=== PATIENT | female | born 1950 | race Caucasian/White ===

== ENCOUNTER → 2024-11-03 | Outpatient (CLI) | payer MEDICARE, BC, SELFPAY ==
[2024-11-03 10:59] LABS: CRP < 3.00 mg/L (0.0-3.0)
[2024-11-04 17:08] LABS: Endomysial Antibody IgA Negative (Negative); Immunoglobulin A 281 mg/dL (64-422); t-Transglutaminase IgA <2 U/mL (0-3)
== END | disposition home or self-care (01) ==
LOC: MTLAB 08:20
PROVIDERS: PCP Internal Medicine; Referring Provider Internal Medicine Gastroenterology; Visit Provider Internal Medicine Gastroenterology
DX: R10.9 Unspecified abdominal pain (principal)
CPT/HCPCS: 36415; 82784; 83516; 86140; 86255

== ENCOUNTER → 2024-11-26 | Outpatient (CLI) | payer MEDICARE, BC, SELFPAY ==
--- NOTE | 2024-11-26 16:30 | CT_ITS ---
EXAM: CT Abdomen and Pelvis With Intravenous Contrast CLINICAL INDICATION: ABD PAIN TECHNIQUE: Axial computed tomography images of the abdomen and pelvis with intravenous contrast. This CT exam was performed using one or more of the following dose reduction techniques: automated exposure control, adjustment of the mA and/or kV according to patient size, and/or use of iterative reconstruction technique. COMPARISON: No relevant prior studies available. FINDINGS: LUNG BASES: Unremarkable. No mass. No consolidation. MEDIASTINUM: Distended esophagus with fluid. Aspiration precaution is recommended. ABDOMEN: LIVER: Hypodense lesion of the liver, likely cysts. Fatty infiltration of the liver. GALLBLADDER AND BILE DUCTS: Unremarkable. No calcified stones. No ductal dilation. PANCREAS: Unremarkable. No mass. No ductal dilation. SPLEEN: Unremarkable. No splenomegaly. ADRENALS: Unremarkable. No mass. KIDNEYS AND URETERS: Unremarkable. No solid mass. No hydronephrosis. STOMACH AND BOWEL: Fluid-filled prominent small bowels could represent mild enteritis. No bowel obstruction or pneumoperitoneum. Fecal retention in the colon consistent with constipation. PELVIS: APPENDIX: No findings to suggest acute appendicitis. BLADDER: Unremarkable. No mass. REPRODUCTIVE: Unremarkable as visualized. ABDOMEN and PELVIS: INTRAPERITONEAL SPACE: See above. BONES/JOINTS: Total right hip replacement. Degenerative disc disease throughout the lumbar spine. Degenerative facet arthropathy throughout the lumbar spine, most prominent in the lower lumbar spine. No acute fracture. No dislocation. SOFT TISSUES: Unremarkable. VASCULATURE: Unremarkable. No abdominal aortic aneurysm. LYMPH NODES: Unremarkable. No enlarged lymph nodes. CT/Abdomen/Pelvis WITH Contrast IMPRESSION: 1. Fluid-filled prominent small bowels could represent mild enteritis. No bow el obstruction or pneumoperitoneum. 2. Distended esophagus with fluid. Aspiration precaution is recommended. 3. Fecal retention in the colon consistent with constipation. 4. Degenerative changes lumbar spine as described. Reading Location: [id number]
== END | disposition home or self-care (01) ==
LOC: CT 16:25
PROVIDERS: PCP Internal Medicine; Referring Provider Internal Medicine Gastroenterology; Visit Provider Internal Medicine Gastroenterology
DX: R10.9 Unspecified abdominal pain (principal); R93.3 Abnormal findings on diagnostic imaging of other parts of digestive tract
CPT/HCPCS: 74177; Q9967; A4216

== ENCOUNTER → 2025-04-12 | Outpatient (CLI) | payer MEDICARE, BC, SELFPAY ==
[2025-04-12 19:10] LABS: AST(SGOT) 24 U/L (<=31); Alanine Aminotransfer ALT/SGPT 15 U/L (<=34); Albumin, Serum 4.4 g/dL (3.4-4.8); Alkaline Phosphatase 71 U/L (35-104); Anion Gap 13 (5-15); BUN 29 mg/dL (4-19); BUN/Creat Ratio 29.3 RATIO (10-20); Calcium,Total 9.4 mg/dL (7.6-11.0); Carbon Dioxide 25.8 mmol/L (21.0-32.0); Chloride 104 mmol/L (98-108); Globulin 2.7 g/dL (2.2-4.2); Glucose 94 mg/dL (70-99); Potassium 4.1 mmol/L (3.3-5.1); T4 Total, Thyroxin 8.9 ug/dL (4.8-13.9)
--- OUTSIDE RECORDS SUMMARY | 2025-04-12 22:30 | XMS RPT_ITS | CCD ---
Author Organization [facility] ion Partnership [facility] Care Team Providers Care Water Team Leader Name Role Phone SWEETSER, SYD SALUD Unavailable Unavaila ble SWEETSER, SYD SALUD Unavailable Unavaila ble SWEETSER, SYD SALUD Unavailable Unavaila ble SWEETSER, SYD SALUD Unavailable Unavaila ble YOCASTA, NOE Unavailable Unavailable YOCASTA, NOE Unavailable Unavailable SWEETSER, SYD SALUD Unavailable Unavaila ble [place], Mary Unavailable Unavailable [place], Mary S Unavailable Unavailable [place], Mary Unavailable Unavailable [place], Mary S. Primary Care Provider Marv Kolb Unavailable Unavailable [place], Mary S. Primary Care Provider Desiree Asencio Unavailable Unavailable [place] DO, Mary S. Primary Care Provider [place], Mary S Unavailable Unavailable Unavailable Unavailable Unavailable [place] DO, Mary S. Primary Care Provider [place] DO, Mary S. Primary Care Provider Unavailable Primary Care Provider Unavailcolt Webster, Dr. Mary Mccollum Referring Unavailabl e , Dr. Mary Mccollum Attending Unavailabl katie Webster, Dr. Mary Mccollum Primary Care Unavailabl katie Webster, Dr. Mary Mccollum Primary Care Unavailabl e , Dr. Mary Mccollum Referring Unavailabl e , Dr. Mary Mccollum Attending Unavailabl katie Webster, Dr. Mary Mccollum Primary Care Unavailabl katie Webster, Dr. Mary Mccollum Referring Unavailabl katie Webster, Dr. Mary Mccollum Attending Unavailabl katie Webster, Dr. Mary Mccollum Referring Unavailabl e Dr. TONI SOTO Attending Unavailable [place], Dr. Mary Mccollum Primary Care Unavailabl e , Dr. Mary Mccollum Primary Care Unavailabl e Vik, Ms. Agnes Diggs Referring Unavailabl e Chery, Ms. Agnes Diggs Attending Unavailabl e [place] Mary CASTELLANO Primary Care Provider [phone] Unavailable Primary Care Provider Unavailabl e [place] Mary CASTELLANO Primary Care Provider [phone] Mary Webster DO Unavailable [place] Mary CASTELLANO Primary Care Provider [phone] , Dr. Mary Mccollum Primary Care Unavailabl e [place], Dr. Mary Mccollum Attending Unavailabl e [place], Dr. Mary Mccollum Attending Unavailabl e [place], Dr. Mary Mccollum Primary Care Unavailabl e [place], Dr. Mary Mccollum Primary Care Unavailabl e [place], Dr. Mary Mccollum Attending Unavailabl e [place], Dr. Mary Mccollum Primary Care Unavailabl e [place], Dr. Mary Mccollum Attending Unavailabl e [place], Dr. Mary Mccollum Referring Unavailabl e Zumbar, Dr. Pradip Patel Referring Unav ailable Zumbar, Dr. Pradip Patel Admitting Unav ailable [place], Dr. Mary Mccollum Primary Care Unavailabl e Zumbbarbra, Dr. Pradip Patel Attending Unav ailable [place], Dr. Mary Mccollum Attending Unavailabl e [place], Dr. Mary Mccollum Primary Care Unavailabl e [place], Dr. Mary Mccollum Attending Unavailabl e [place], Dr. Mary Mccollum Primary Care Unavailabl e Zumbar, Dr. Pradip Patel Attending Unav ailable [place], Dr. Mary Mccollum Primary Care Unavailabl e [place], Dr. Mary Mccollum Attending Unavailabl e [place], Dr. Mary Mccollum Primary Care Unavailabl e [place], Dr. Mary Mccollum Attending Unavailabl e [place], Dr. Mary Mccollum Primary Care Unavailabl e [place], Dr. Mary Mccollum Attending Unavailabl e [place], Dr. Mary Mccollum Primary Care Unavailabl e [place], Dr. Mary Mccollum Attending Unavailabl e [place], Dr. Mary Mccollum Primary Care Unavailabl e [place], Dr. Mary Mccollum Attending Unavailabl e [place], Dr. Mary Mccollum Primary Care Unavailabl e [place], Dr. Mary Mccollum Primary Care Unavailabl e [place], Dr. Mary Mccollum Attending Unavailabl e [place], Dr. Mary Mccollum Primary Care Unavailabl e [place], Dr. Mary Mccollum Attending Unavailabl e [place], Dr. Mary Mccollum Attending Unavailabl e [place], Dr. Mary Mccollum Primary Care Unavailabl e Zumbar, Dr. Pradip Patel Attending Unav ailable [place], Dr. Mary Mccollum Primary Care Unavailabl e [place], Dr. Mary Mccollum Primary Care Unavailabl e Zumbar, Dr. Pradip Patel Attending Unav ailable [place], Dr. Mary Mccollum Attending Unavailabl e [place], Dr. Mary Mccollum Primary Care Unavailabl e [place], Dr. Mary Mccollum Attending Unavailabl e [place], Dr. Mary Mccollum Primary Care Unavailabl e [place], Dr. Mary Mccollum Attending Unavailabl e [place], Dr. Mary Mccollum Primary Care Unavailabl e [place], Dr. Mary Mccollum Primary Care Unavailabl e Zumbar, Dr. Pradip Patel Attending Unav ailable [place], Dr. Mary Mccollum Primary Care Unavailabl e [place], Dr. Mary Mccollum Attending Unavailabl e [place], Dr. Mary Mccollum Referring Unavailabl e [place], Dr. Mary Mccollum Attending Unavailabl e [place], Dr. Mary Mccollum Primary Care Unavailabl e [place], Dr. Mary Mccollum Attending Unavailabl e [place], Dr. Mary Mccollum Primary Care Unavailabl e [place], Dr. Mary Mccollum Attending Unavailabl e [place], Dr. Mary Mccollum Primary Care Unavailabl e EDNA, MEG Referring Unavailable EDNA, MEG Attending Un[facility] EDNA, MEG Referring Unavailable EDNA, MEG Attending Unavailable ROYAL [facility] Care Unavailable EDNA, MEG Referring Unavailable EDNA, MEG Attending Unavailable ROYAL [place] Primary Care Unavailable EDNA, MEG Attending Unavailable EDNA, MEG Referring Unavailable ROYAL [place] Primary Care Unavailable SELF, SELF Referring Unavailable ROYAL MARY Primary Care Unavailable EDNA, MEG Attending Unavailable SELF, SELF Referring Unavailable ROYAL [place] Primary Care Unavailable KANU AQUINO JR, JR. Attending Unavailab CHEIKH Escobedo Attending Unavailable ROYAL, MARY Primary Care Unavailable CHEIKH ONEAL Referring Unavailable CHEIKH ONEAL Attending Unavailable SELF, SELF Referring Unavailable ROYAL, MARY Primary Care Unavailable [place] DO, Mary S. Primary Care Provider [phone] ROYAL, MARY S Primary Care Unavailable ROYAL, MARY S Primary Care Unavailable [place] DO, Mary S Unavailable [phone] [place] DO, Mary S Primary Care Provider [phone] [place] DO, Mary S Unavailable [phone] [place] ELLIOTT, Dr. Hernandez Primary Care Provider Ehsan ELLIOTT, Dr. Lopez Attending Provider Dr. John Moser MD Referring Provider John Moser Attending Unavailable ChrisbourJohn Referring Unavailable [place], Mary Primary Care Unavailable ChrisbourJohn Referring Unavailable [place], Mary Primary Care Unavailable John Moser Attending Unavailable ROYAL, MARY S Attending Unavailable ROYAL, MARY S Referring Unavailable ROYAL, MARY S Primary Care Unavailable ROYAL, MARY S Attending Unavailable ROYAL, MARY S Primary Care Unavailable ROYAL, MARY S Attending Unavailable ROYAL, MARY S Primary Care Unavailable ROYAL, MARY S Attending Unavailable ROYAL, MARY S Referring Unavailable ROYAL, MARY S Primary Care Unavailable MARV KOLB Attending Unavailable ROYAL, MARY S. Primary Care Unavailable ROYAL, MARY S Referring Unavailable ROYAL, MARY S Primary Care Unavailable ROYAL, MARY S Referring Unavailable ROYAL, MARY S Primary Care Unavailable ROYAL, MARY S Referring Unavailable ROYAL, MARY S Primary Care Unavailable ROYAL, MARY S Referring Unavailable ROYAL, MARY S Primary Care Unavailable ROYAL, MARY S Referring Unavailable ROYAL, MARY S Primary Care Unavailable ROYAL, MARY S Referring Unavailable ROYAL, MARY S Primary Care Unavailable ROYAL, MARY S Referring Unavailable ROYAL, MARY S Primary Care Unavailable ROYAL, MARY S Referring Unavailable ROYAL, MARY S Primary Care Unavailable ROYAL, MARY S Referring Unavailable ROYAL, MARY S Primary Care Unavailable ROYAL, MARY S Referring Unavailable ROYAL, MARY S Primary Care Unavailable ROYAL, MARY S Referring Unavailable ROYAL, MARY S Primary Care Unavailable ROYAL, MARY S Referring Unavailable ROYAL, MARY S Primary Care Unavailable MARV KOLB Referring Unavailable ROYAL, MARY S Primary Care Unavailable ROYAL, MARY S Referring Unavailable ROYAL, MARY S Primary Care Unavailable ROYAL, MARY S Referring Unavailable ROYAL, MARY S Primary Care Unavailable ROYAL, MARY S Referring Unavailable ROYAL, MARY S Primary Care Unavailable ROYAL, MARY S Referring Unavailable ROYAL, MARY S Primary Care Unavailable ROYAL, MARY S. Primary Care Unavailable JAIME KILLIAN Attending Unavailable ROYAL, MARY S. Primary Care Unavailable JAIME KILLIAN Attending Unavailable MARV KOLB Referring Unavailable MARV KOLB Attending Unavailable ROYAL, MARY S. Primary Care Unavailable MARV KOLB Referring Unavailable MARV KOLB Attending Unavailable ROYAL, MARY S. Primary Care Unavailable MARV KOLB Referring Unavailable MARV KOLB Attending Unavailable ROYAL, MARY S. Primary Care Unavailable MARV KOLB Referring Unavailable ROYAL, MARY S. Primary Care Unavailable MARV KOLB Attending Unavailable Allergies Allergy Classification Reported Allergen(s) Allergy Type Date of Onset Reaction(s) Facility Macrolides (antibiotic) (20 sources) Erythromycin; Translations: [erythromycin] Drug Allergy 9 [facility] Propafenone (1 source) Propafenone Drug Allergy 9 [facility] (20 sources) Erythromycin; Translations: [erythromycin] Drug Allergy 9 Nausea and Vomiting, Unknown, GI Intolerance [facility] (2 sources) Propafenone Drug Allergy 9 [facility] (20 sources) Bee Venom Protein (Honey Bee); Translations: [BEE VENOM PROTEIN (HONEY BEE)] Allergy to substance 6 [facility] Work Phone: Medications Current Medications Medication Drug Class(es) Dates Sig (Normalized) Sig (Original) acetaminophen 325 mg oral tablet (20 sources) Start: 11-26-2022 take 2 tablets by mouth every four hours as needed acetaminophen (Tylenol) 325 mg tablet Take 2 tablets (650 mg) by mouth every 4 hours if needed for moderate pain (4 - 6). 11/26/2022 Active take 1 tablet by stephen th every six hours as needed for pain acetaminophen (TYLENOL) 500 MG tablet Ta ke 1 (one) tablet (500 mg total) by mouth every 6 (six) hours as needed for pain . Active acetaminophen 325 mg / HYDROcodone bitartrate 5 mg oral tablet (3 sources) Opioid Agonist Start: 11-26-2022 take 1 tablet by mouth once daily as needed hydroCODone-acetaminophen 5-325 MG tablet Indications: Acute postoperative pain of right hip Take 1-2 tablets by mouth every 6 hours as needed for Severe Pain for up to 7 days. Do not take over 4000mg acetaminophen daily. 10 tablet 11/26/2022 Active acetaminophen 325 mg / oxyCODONE hydrochloride 5 mg oral tablet (14 sources) Opioid Agonist Start: 02-15-2024 End: 02-18-2024 take 1 tablet by mouth every six hours as needed oxyCODONE-acetaminophen (Percocet) 5-325 mg tablet Take 1 tablet by mouth every 6 hours if needed for pain. 02/15/2024 Active Start: 08-06-2022 take 1 tablet by stephen th twice daily as needed oxyCODONE-Acetaminophen 5-325 MG Oral Tablet TAKE 1 TABLET Twice daily PRN Quantity: 20 Refills: 0 Ordered: 06-Aug-2022 Pradip Page MD Start : 06-Aug-2022 Active [id number] 200 actuat albuterol 0.09 mg/actuat metered dose inhaler (20 sources) beta2-Adrenergic Agonist Start: 09-27-2024 take 2 puff(s) by inhalation every four hours for wheezing albuterol 90 mcg/actuation inhaler Indications: Mild intermittent asthma in adult without complication ([facility]) Inhale 2 puffs every 4 hours if needed for wheezing or shortness of breath. 18 g 3 09/27/2024 Active Start: 02-25-2023 take 2 puff(s) by in halation every four hours for wheezing albuterol 90 mcg/actuation inhaler Indications: Mild intermittent asthma in adult without complication ([facility]) Inhale 2 puffs every 4 hours if needed for wheezing or shortness of breath. 18 g 3 02/25/2023 Active Start: 11-25-2022 take 2 puff(s) by in halation every four hours for wheezing albuterol 90 mcg/actuation inhaler Indications: Mild intermittent asthma in adult without complication Inhale 2 puffs every 4 hours if needed for wheezing or shortness of breath. 18 g 3 11/25/2022 Active take 2 puff(s) by in halation once daily as needed albuterol sulfate (PROAIR HFA INHL) Inhale 2 puffs daily as needed . Active take 2 puff(s) by in halation every four hours as needed Albuterol 108 (90 Base) MCG/ACT Aero Soln inhaler Inhale 2 puffs every 4 hours as needed. Active Albuterol 108 (9 0 Base) MCG/ACT Aero Soln inhaler Inhale 2 puffs. 0 Active take 2 puff(s) by in halation every four hours as needed Albuterol Sulfate HFA 108 (90 Base) MCG/ACT Inhalation Aerosol Solution INHALE 2 PUFFS EVERY 4 HOURS NEEDED Quantity: 1 Refills: 1 Ordered: 22-Nov-2020 Mary Webster DO Active take 2 puff(s) by in halation once daily as needed albuterol sulfate (PROAIR HFA INHL) Inhale 2 puffs daily as needed . 0 Active take 2 puff(s) by in halation every four hours as needed ProAir HFA 108 (90 Base) MCG/ACT Inhalation Aerosol Solution INHALE 2 PUFFS EVERY 4 HOURS NEEDED Refills: 0 DO Active 8.5 GM Inhaler ALPRAZolam 0.25 mg oral tablet (1 source) Benzodiazepine Start: 03-08-2024 End: 03-16-2024 ALPRAZolam (Xanax) 0.25 mg tablet Indications: Claustrophobia To be taken by mouth 30 minutes prior to MRI. Do not drive for 6 hours after ingesting this medication. Do not mix with alcohol. 1 tablet 03/08/2024 03/16/2024 Discontinued (Med List Cleanup) amoxicillin 500 mg oral capsule (6 sources) Penicillin-class Antibacterial Start: 12-19-2022 End: 12-20-2023 Amoxicillin 500 MG capsule Take 4 capsules 1 hour before procedure 8 capsule 1 12/19/2022 12/20/2023 Active apixaban 5 mg oral tablet (4 sources) Factor Xa Inhibitor Start: 11-26-2022 take 1 tablet by mouth every twelve hours apixaban 5 MG tablet Take 1 tablet by mouth every 12 hours. Start after 2.5mg dosing completed. This medication is for blood clot prevention. Further anticoagulation per pcp/coumadin clinic. 60 tablet 11/26/2022 Active Start: 11-21-2022 End: 12-13-2022 take 1 tablet by mouth in the morning apixaban (Eliquis) 2.5 mg tablet Indications: History of pulmonary embolism Take 1 tablet (2.5 mg) by mouth in the morning and 1 tablet (2.5 mg) before bedtime. 60 tablet 2 11/21/2022 12/13/2022 Discontinued (Therapy completed) aspirin 81 mg delayed release oral tablet (20 sources) Platelet Aggregation Inhibitor, Nonsteroidal Anti-inflammatory Drug End: 02-18-2024 take 1 tablet by mouth once daily aspirin 81 MG EC tablet Take 81 mg by mouth daily . 02/18/2024 Discontinued (Patient's Request) Aspirin 81 MG TA BS TAKE 1 TABLET DAILY. Quantity: 0 Refills: 0 Ordered: 22-May-2019 DO Active aspirin 81 mg / calcium carbonate 777 mg oral tablet (6 sources) Platelet Aggregation Inhibitor, Nonsteroidal Anti-inflammatory Drug take 1 tablet by mouth once daily aspirin-calcium carbonate 81 mg-300 mg calcium(777 mg) tablet Take 1 tablet by mouth 1 (one) time each day. Active atorvastatin 20 mg oral tablet (20 sources) HMG-CoA Reductase Inhibitor Start: 025 atorvastatin (Lipitor) 20 mg tablet Indications: Mixed hyperlipidemia Taking 3x weekly 100 tablet 1 09/27/2024 Active Start: 03-16-2024 take 1 tablet by stephen th once daily at bedtime atorvastatin (Lipitor) 20 mg tablet Indications: Mixed hyperlipidemia Take 1 tablet (20 mg) by mouth once daily at bedtime. Taking 3x weekly 30 tablet 5 03/16/2024 Active Start: 02-25-2023 End: 03-16-2024 take 1 tablet by mouth once daily at bedtime atorvastatin (Lipitor) 20 mg tablet Indications: Mixed hyperlipidemia Take 1 tablet (20 mg) by mouth once daily at bedtime. 90 tablet 1 02/18/2024 03/16/2024 Discontinued (Dose adjustment) biotin 10 mg oral tablet (20 sources) biotin 10 mg tab let Take by mouth. Take as directed Active take 1 capsule by mouth once bob ly biotin 1 mg cap Take 1 (one) capsule (1 mg total) by mouth daily . Active Biotin TABS TAKE DIRECTED. Quantity: 0 Refills: 0 Ordered: 22-May-2019 DO Active Biotin TABS TAKE DIRECTED. Refills: 0 DO Active Biotin TABS TAKE DIRECTED. Refills: 0 Active cetirizine hydrochloride 10 mg oral tablet (20 sources) Histamine-1 Receptor Antagonist take 1 tablet by mouth once daily, then take 0.5 tablet by mouth once daily cetirizine (ZyrTEC) 10 mg tablet Take 1 tablet (10 mg) by mouth once daily. Take 0.5 tablet daily Active take 0.5 tablet by mouth once da radha Cetirizine HCl - 10 MG Oral Tablet TAKE 0.5 TABLET Daily Quantity: 0 Refills: 0 Ordered: 22-May-2019 DO Active cholecalciferol 0.05 mg oral capsule (20 sources) Vitamin D take 1 capsule by mouth in the morning cholecalciferol (Vitamin D-3) 50 mcg (2,000 unit) capsule Take 1 capsule (50 mcg) by mouth early in the morning.. Active take 1 capsule by mouth once bob ly cholecalciferol, vitamin D3, 25 mcg (1,000 unit) capsule Take 1 (one) capsule (1,000 Units total) by mouth daily . Active ubidecarenone 100 mg oral capsule (20 sources) Start: 01-31-2020 take 1 capsule by mouth once daily coenzyme Q-10 100 mg capsule Take 1 capsule (100 mg) by mouth once daily. 01/31/2020 Active take 1 tablet by mouth once michelle y ubidecarenone (coenzyme Q10) 100 mg Tab Take 1 (one) tablet (100 mg total) by mouth daily . Active take 1 tablet by mouth once michelle y Coenzyme Q10 100 MG tablet Take 1 tablet by mouth daily. Active take 1 capsule by mo ut once daily, then take 10 capsules by mouth coenzyme Q10 10 mg capsule Take 10 mg by mouth daily . 0 Active docusate sodium 100 mg oral capsule (19 sources) Start: 11-26-2022 take 1 capsule by mouth twice daily docusate sodium (Colace) 100 mg capsule Take 1 capsule (100 mg) by mouth twice a day. 11/26/2022 Active fluticasone propionate 0.05 mg/actuat metered dose nasal spray (20 sources) Corticosteroid Start: 05-25-2019 fluticasone (Flonase) 50 mcg/actuation nasal spray Administer into affected nostril(s) once daily. Use 1 to 2 sprays in each nostril once daily 05/25/2019 Active take 2 spray(s) nasal route once daily fluticasone propionate (FLONASE) 50 mcg/actuation nasal spray Instill 2 (two) sprays into each nostril daily . Active fluticasone 50 M CG/ACT Suspension nasal spray 2 sprays by Nasal route daily. Active folic acid 0.4 mg oral tablet (20 sources) take 1 tablet by stpehen th once daily folic acid (Folvite) 400 mcg tablet Take 1 tablet (0.4 mg) by mouth once daily. Active Folic Acid TABS TAKE 1 TABLET DAILY DIRECTED. TDD:0.4 MG Quantity: 0 Refills: 0 Ordered: 22-May-2019 DO Active Folic Acid TABS TAKE 1 TABLET DAILY DIRECTED. TDD:0.4 MG Refills: 0 DO Active Folic Acid TABS TAKE 1 TABLET DAILY DIRECTED. TDD:0.4 MG Refills: 0 Active gabapentin 100 mg oral capsule (9 sources) Anti-epileptic Agent Start: 06-18-2022 End: 02-18-2024 take 1 capsule by mouth once daily at bedtime gabapentin (Neurontin) 100 mg capsule Take 1 capsule (100 mg) by mouth once daily at bedtime. 06/18/2022 02/18/2024 Discontinued (Med List Cleanup) ibuprofen 200 mg oral tablet (14 sources) Nonsteroidal Anti-inflammatory Drug take 1 tablet by mouth every six hours as needed for pain ibuprofen (ADVIL,MOTRIN) 200 MG tablet Take 1 (one) tablet (200 mg total) by mouth every 6 (six) hours as needed for pain . Active Multiple Vitamin (Multi-Vitamin) tablet (6 sources) take 1 tablet by mouth once daily Multiple Vitamin (Multi-Vitamin) tablet Take 1 tablet by mouth daily. Active take 1 tablet by mouth once michelle y Multiple Vitamin (Multi-Vitamin) tablet Take 1 tablet by mouth daily. 0 Active glifzxtg-oxyp-bsnhvszg-folic acid (Centrum Silver, geriatric,) 0.4 mg-300 mcg- 250 mcg tab (4 sources) take 1 tablet by mouth once daily in the morning prkmfsib-ckes-uryfzvrq-folic acid (Centrum Silver, geriatric,) 0.4 mg-300 mcg- 250 mcg tab Take by mouth in the morning. Take 1 tablet daily as directed 0 Active multivitamin tablet (4 sources) take 1 tablet by mouth once daily multivitamin tablet Take 1 tablet by mouth once daily. 0 Active multivitamin with minerals t ablet (17 sources) take 1 tablet by mouth once daily multivitamin with minerals tablet Take 1 (one) tablet by mouth daily . Active take 1 tablet by mouth once michelle y multivitamin with minerals tablet Take 1 tablet by mouth once daily. 0 Active take 1 tablet by mouth once michelle y multivitamin with minerals tablet Take 1 tablet by mouth daily . 0 Active mv-mn/folic/lutein/herbal 293 (ALIVE WOMEN'S 50 PLUS GUMMY ORAL) (10 sources) take 1 tablet by mouth once daily mv-mn/folic/lutein/herbal 293 (ALIVE WOMEN'S 50 PLUS GUMMY ORAL) Take 1 tablet by mouth once daily. Active nitrofurantoin, macrocrystals 25 mg / nitrofurantoin, monohydrate 75 mg oral capsule (2 sources) Nitrofuran Antibacterial Sta rt: 3 take 1 capsule by mouth in the morning nitrofurantoin, macrocrystal-monohydrate, (Macrobid) 100 mg capsule Indications: Acute cystitis without hematuria Take 1 capsule (100 mg) by mouth in the morning and 1 capsule (100 mg) before bedtime. 14 capsule 0 11/05/2022 Active Nutritional Supplements (ENSURE ORIGINAL PO) (6 sources) Nutritional Supp lements (ENSURE ORIGINAL PO) Take by mouth daily. Active Nutritional Supp lements (ENSURE ORIGINAL PO) Take by mouth daily. 0 Active omeprazole 20 mg delayed release oral capsule (6 sources) Proton Pump Inhibitor Start: 11-26-2022 take 1 capsule by mouth once daily omeprazole [address] capsule Take 1 capsule by mouth daily. 30 capsule 11/26/2022 Active plecanatide 3 mg oral tablet (4 sources) End: 03-17-2025 take 1 tablet by mouth once daily plecanatide (Trulance) tablet tablet Take 1 tablet (3 mg) by mouth once daily. 03/17/2025 Discontinued (Med List Cleanup) riboflavin 400 mg oral tablet (8 sources) take 1 tablet by mouth once daily riboflavin (Vitamin B-2) 400 mg tablet Take 1 tablet (400 mg) by mouth once daily. With 400mg magnesium Active simethicone 80 mg chewable tablet (1 source) take 1 tablet by mouth every six hours as needed simethicone (MYLICON) 80 MG chewable tablet Chew and Swallow 1 (one) tablet (80 mg total) every 6 (six) hours as needed for flatulence . Active tiZANidine 4 mg oral tablet (20 sources) Central alpha-2 Adrenergic Agonist Start: 09-27-2024 tiZANidine (Zanaflex) 4 mg tablet Indications: Chronic daily headache 1 TABLET PRN FOR HEADACHES 30 tablet 1 09/27/2024 Active take 1 capsule by mo [facility] once daily as needed for muscle spasms tiZANidine (ZANAFLEX) 4 MG capsule Take 1 (one) capsule (4 mg total) by mouth nightly as needed for muscle spasms . Active tiZANidine (Ramin flex) 4 mg tablet Take 1 tablet (4 mg) by mouth. 1 TABLET PRN FOR HEADACHES Active traMADol hydrochloride 50 mg oral tablet (3 sources) Opioid Agonist Start: 11-26-2022 take 1-2 tablets by mouth every six hours as needed for pain traMADol 50 MG tablet Indications: Acute postoperative pain of right hip 1-2 tabs po q 6 hr PRN pain 20 tablet 11/26/2022 Active warfarin sodium 1 mg oral tablet (20 sources) Vitamin K Antagonist Start: 01-10-2025 warfarin (Coumadin) 1 mg tablet Indications: Personal history of venous thrombosis and embolus , Personal history of PE (pulmonary embolism) Take 1 tablet daily along with 5mg warfarin or as directed by [facility] 30 tablet 3 01/10/2025 Active Start: 12-30-2024 take 1 tablet by [facility] once daily warfarin (Coumadin) 5 mg tablet Indications: Personal history of PE (pulmonary embolism) TAKE 1 TABLET BY MOUTH ONCE DAILY OR DIRECTED BY ANTICOAGULATION CLINIC 90 tablet 3 12/30/2024 Active Start: 01-16-2024 End: 09-12-2024 take 1 tablet by mouth once daily warfarin (Coumadin) 5 mg tablet Indications: Personal history of PE (pulmonary embolism) Take 1 tablet (5 mg) by mouth daily or as directed by anticoagulation clinic. 90 tablet 3 01/16/2024 Active Zinc Sulfate (13 sources) zinc sulfate (ZI NC-220 ORAL) Take by mouth daily . Active zinc sulfate (ZI NC-220 ORAL) Take by mouth daily . 0 Active zinc sulfate (ZI NC-220 ORAL) Take by mouth . 0 Active Completed/Discontinued Medications Medication Drug Class(es) Dates Sig (Normalized) Sig (Original) Qzzxcgjryp-[facility]-Smly eine TABS (15 sources) Barbiturate, Central Nervous System Stimulant, Methylxanthine Jgaovtuoad-TEOD-Tsq feine TABS 50 MG-325 MG-40 MG TAKE 1-2 CAPS EVERY 6 HOURS PRN FOR HEADACHE Refills: 0 DO Active Butalbital-APAP- Caffeine TABS 50 MG-325 MG-40 MG TAKE 1-2 CAPS EVERY 6 HOURS PRN FOR HEADACHE Refills: 0 Active End: 11-09-2018 take 1 capsule by mouth every four hours as needed vhxwcnufju-lbxlbkluaohoh-rzkyvrud (FIORICET, ESGIC) 50-325-40 mg per capsule Take 1 capsule by mouth every 4 (four) hours as needed for headaches . 0 11/09/2018 Discontinued Vhlsaymnyt-NJQX-Qwoacrlg TAB S (20 sources) End: 06-18-2022 Diafndkwrp-SVQH-Gmeoyhch TAB S 50 MG-325 MG-40 MG TAKE 1-2 CAPS EVERY 6 HOURS PRN FOR HEADACHE Quantity: 0 Refills: 0 Ordered: 18-Jun-2022 DO End : 18-Jun-2022 Complete Butalbital-APAP- Caffeine TABS 50 MG-325 MG-40 MG TAKE 1-2 CAPS EVERY 6 HOURS PRN FOR HEADACHE Quantity: 0 Refills: 0 Ordered: 22-May-2019 DO Active ezetimibe 10 mg oral tablet (20 sources) Dietary Cholesterol Absorption Inhibitor End: 03-29-2025 ezetimibe (ZETIA) 10 mg tablet Take 1 (one) tablet (10 mg total) by mouth M W F . 03/29/2025 Discontinued (Patient's Request) ezetimibe (Zetia ) 10 mg tablet Take 1 tablet (10 mg) by mouth. Take 1 tablet 3 times a week 0 Active 120 actuat fluticasone propionate 0.045 mg/actuat / salmeterol 0.021 mg/actuat metered dose inhaler (1 source) Corticosteroid, beta2-Adrenergic Agonist Start: 04-25-2020 take 2 puff(s) by mouth twice daily Advair HFA 45-21 MCG/ACT Inhalation Aerosol INHALE 2 PUFFS, BY MOUTH, TWICE DAILY. Quantity: 1 Refills: 2 Mary Webster DO Start : 25-Apr-2020 Active 8 GM Inhaler iohexol (OMNIPaque) 350 mg iodine/mL solution 70 mL (1 source) Start: 10-12-2024 End: 10-12-2024 70 mL, intravenous, Once in imaging, Starting on Fri10/12/24 at 1338, For 1 dose 10 ml lidocaine hydrochloride 20 mg/ml injection (2 sources) Antiarrhythmic, Amide Local Anesthetic Start: 04-18-2021 Lidocaine HCl - 2 % Injection Solution INJECT 2 ML Intra-articular Quantity: 0 Refills: 0 Ordered: 18-Apr-2021 Toni Soto MD Start : 18-Apr-2021 Complete montelukast 10 mg oral tablet (2 sources) Leukotriene Receptor Antagonist Start: 04-11-2020 take 1 tablet by mouth at bedtime Montelukast Sodium 10 MG Oral Tablet TAKE 1 TABLET AT BEDTIME. Quantity: 30 Refills: 5 Mary Webster DO Start : 11-Apr-2020 Active Multi-Vitamins Oral Tablet (7 sources) take 1 tablet by mouth once daily Multi-Vitamins Oral Tablet TAKE 1 TABLET DAILY. Refills: 0 DO Active take 1 tablet by mouth once michelle y Multi-Vitamins Oral Tablet TAKE 1 TABLET DAILY. Refills: 0 Active Multi-Vitamins TABS (7 sources) Multi-Vitamins T ABS TAKE 1 TABLET DAILY. Refills: 0 Active Multi-Vitamins T ABS TAKE 1 TABLET DAILY. Refills: 0 DO Active Multi-Vitamins TABS (20 sources) Multi-Vitamins T ABS TAKE 1 TABLET DAILY. Quantity: 0 Refills: 0 Ordered: 22-May-2019 DO Active ondansetron 4 mg disintegrating oral tablet (5 sources) Serotonin-3 Receptor Antagonist Start: 023 End: 025 take 1 tablet by mouth every eight hours as needed for nausea ondansetron (ZOFRAN-ODT) 4 MG disintegrating tablet Dissolve 1 (one) tablet (4 mg total) on top of tongue every 8 (eight) hours as needed for nausea . 20 tablet 01/11/2023 03/29/2025 Discontinued (Patient's Request) predniSONE 20 mg oral tablet (12 sources) Start: take 2 tablets by mouth once daily predniSONE 20 MG Oral Tablet TAKE 2 TABLETS DAILY. Quantity: 10 Refills: 0 Ordered: 29-Mar-2021 Agnes Velez Start : 29-Mar-2021 Active psyllium 3400 mg powder for oral suspension (7 sources) End: take 1 dose by mouth three times daily as needed psyllium (METAMUCIL) powder Take 1 packet by mouth 3 (three) times a day as needed . 0 12/18/2021 Discontinued (Therapy completed) 1 ml triamcinolone acetonide 40 mg/ml prefilled syringe (3 sources) Corticosteroid Start: Triamcinolone Acetonide 40 MG/ML Injection Suspension INJECT 1 ML Other intrabursal Quantity: 0 Refills: 0 Ordered: 17-May-2022 Agnes Velez Start : 17-May-2022 Complete Start: 04-18-2021 Triamcinolone Acetonide 40 MG/ML Injection Suspension INJECT 1 ML Intra-articular Quantity: 0 Refills: 0 Ordered: 18-Apr-2021 Toni Soto MD Start : 18-Apr-2021 Complete ubidecarenone 100 mg / vitamin e 5 unt oral capsule (10 sources) Start: 01-31-2020 take 1 capsule by mouth once daily CoQ10 100 MG Oral Capsule TAKE 1 CAPSULE Daily Quantity: 0 Refills: 0 Ordered: 31-Jan-2020 Mary Webster DO Start : 31-Jan-2020 Active vitamin e 268 mg oral capsule (20 sources) End: 03-29-2025 take 1 capsule by mouth once daily vitamin E 400 UNIT capsule Take 1 (one) capsule (400 Units total) by mouth daily . 03/29/2025 Discontinued (Patient's Request) vitamin E acid s uccinate (vitamin E succinate) 67 mg (100 unit) tablet Take by mouth. Active take 1 capsule by mouth once bob ly vitamin E 400 units capsule Take 1 capsule by mouth daily. 0 Active take 1 capsule by mouth once bob ly vitamin E 400 UNIT capsule Take 400 Units by mouth daily . 0 Active take 1 capsule by mouth once bob ly vitamin E 400 UNIT capsule Take 400 Units by mouth daily . 0 Active Vitamin E TABS R efills: 0 DO Active Vitamin E TABS R efills: 0 Active take 1 capsule by mouth once bob ly vitamin E 400 UNIT capsule Take 400 Units by mouth daily . 0 Active Vitamin E TABS (20 sources) Vitamin E TABS Q uantity: 0 Refills: 0 Ordered: 22-May-2019 DO Active Problems Active Problems Problem Classification Problem Date Documented Da te Episodic/Chronic Asthma (20 sources) Mild intermittent asthma; Translations: [Asthma, unspecified type, unspecified] Onset: 2 Resolved: 5 09-13-2022 Chronic Chronic kidney disease (20 sources) Chronic kidney disease stage 3A ; Translations: [Chronic kidney disease, Stage III (moderate)] Chronic Coronary atherosclerosis and other heart disease (20 sources) Coronary arteriosclerosis in [place] artery; Translations: [Coronary arteriosclerosis] Onset: 9 11-09-2018 Chronic Disorders of lipid metabolism (20 sources) Hyperlipidemia; Translations: [Mixed hyperlipidemia] Onset: 9 11-09-2018 Chronic Fracture of lower limb (2 sources) Closed fracture of cuboid bone of foot; Translations: [Nondisplaced fracture of cuboid bone of left foot, initial encounter for closed fracture] 02-18-2024 Episodic Headache; including migraine (2 sources) Tension-type headache, unspecified, not intractable; Translations: [Tension-type headache, unspecified, not intractable] Onset: 5 Chronic Headache; including migraine (2 sources) Headache; including migraine; Translations: [Headache, unspecified] Onset: 4 Nonspecific chest pain (20 sources) Atypical chest pain; Translations: [Chest pain] Onset: 5 03-17-2025 Episodic Nutritional deficiencies (20 sources) Vitamin D deficiency; Translations: [Unspecified vitamin D deficiency] Onset: 2 09-13-2022 Chronic Osteoarthritis (20 sources) Osteoarthritis of right hip joint; Translations: [Osteoarthrosis, unspecified whether generalized or localized, pelvic region and thigh] Onset: 2 09-13-2022 Chronic Other acquired deformities (1 source) Other forms of scoliosis, lumbar region; Translations: [Other forms of scoliosis, lumbar region] Onset: 2 Chronic Other bone disease and musculoskeletal deformities (8 sources) Other specified disorders of bone, shoulder; Translations: [Pain of right scapula] Episodic Other circulatory disease (20 sources) Inferior vena cava filter in situ; Translations: [Other postprocedural status] Onset: 3 09-13-2022 Chronic Other connective tissue disease (2 sources) History of total replacement of right hip joint; Translations: [Presence of right artificial hip joint] 03-25-2023 Chronic Other connective tissue disease (2 sources) Presence of right artificial hip joint; Translations: [Presence of right artificial hip joint] Onset: 4 Chronic Other connective tissue disease (2 sources) Pain in left foot; Translations: [Pain in left foot] 02-18-2024 Episodic Other diseases of kidney and ureters (8 sources) Renal insufficiency; Translations: [Unspecified disorder of kidney and ureter] Episodic Other gastrointestinal disorders (2 sources) Irritable bowel syndrome with diarrhea; Translations: [Irritable bowel syndrome with diarrhea] Onset: 3 07-15-2023 Chronic Other gastrointestinal disorders (1 source) Irritable bowel syndrome with diarrhea; Translations: [Irritable bowel syndrome with diarrhea] Onset: 3 Chronic Other gastrointestinal disorders (2 sources) Right upper quadrant abdominal swelling, mass and lump; Translations: [Right upper quadrant abdominal swelling, mass and lump] Onset: 3 Episodic Other gastrointestinal disorders (1 source) Other specified diseases of intestine; Translations: [Other specified diseases of intestine] Onset: 3 Episodic Other gastrointestinal disorders (1 source) Constipation; Translations: [Constipation, unspecified] 05-15-2023 Episodic Other liver diseases (20 sources) Liver cyst; Translations: [Other specified disorders of liver] Onset: 3 09-13-2022 Chronic Other liver diseases (1 source) Other specified diseases of liver; Translations: [Other specified diseases of liver] Onset: 2 Chronic Other nervous system disorders (10 sources) Chronic pain syndrome; Translations: [Chronic pain syndrome] Chronic Other nervous system disorders (1 source) Chronic pain syndrome; Translations: [Chronic pain syndrome] Onset: 3 Chronic Other nervous system disorders (1 source) Other chronic pain; Translations: [Other chronic pain] Onset: 2 Chronic Other non-epithelial cancer of skin (20 sources) History of malignant basal cell neoplasm of skin; Translations: [Personal history of other malignant neoplasm of skin] Episodic Other non-traumatic joint disorders (6 sources) Polyarthropathy; Translations: [Polyarthritis, unspecified] Onset: 5 03-03-2025 Chronic Other non-traumatic joint disorders (2 sources) Polyarthritis, unspecified; Translations: [Polyarthritis, unspecified] Onset: 5 Chronic Other screening for suspected conditions (not mental disorders or infectious disease) (20 sources) Patient encounter status; Translations: [Breast screening, unspecified] Onset: 7 Resolved: 5 12-13-2022 Episodic Comment on above: COLOGUARD: NEGATIVE; Peripheral and visceral atherosclerosis (13 sources) Intermittent claudication; Translations: [Peripheral vascular disease, unspecified] Onset: 5 03-29-2025 Chronic Pulmonary heart disease (1 source) Other pulmonary embolism with acute cor pulmonale; Translations: [Other pulmonary embolism with acute cor pulmonale] Onset: 7 Chronic Residual codes; unclassified (20 sources) Medication regimen behavior finding; Translations: [Other unknown and unspecified cause of morbidity and mortality] Episodic Residual codes; unclassified (7 sources) Menopause present; Translations: [Symptomatic menopausal or female climacteric states] Episodic Spondylosis; intervertebral disc disorders; other back problems (20 sources) Cervical disc disorder; Translations: [Other and unspecified disc disorder, cervical region] Onset: 2 Resolved: 5 09-13-2022 Chronic Unclassified (1 source) PE / PE() Onset: 7 Unclassified (20 sources) Patient encounter status; Translations: [History of Screening for colorectal cancer] 03-03-2025 Unclassified (2 sources) Multiple subsegmental pulmonary emboli without acute cor pulmonale; Translations: [Multiple subsegmental pulmonary emboli without acute cor pulmonale (Multi)] Onset: 3 Past or Other Problems Problem Classification Problem Date Documented Da te Episodic/Chronic Abdominal pain (20 sources) Epigastric pain; Translations: [Epigastric pain] Onset: 06-24-2023 Resolved: 03-03-2025 07-15-2023 Episodic Adjustment disorders (20 sources) Grief finding; Translations: [Adjustment disorder with depressed mood] Onset: 07-05-2022 Resolved: 09-13-2022 09-13-2022 Chronic Anxiety disorders (8 sources) Claustrophobia; Translations: [Claustrophobia] Onset: 03-08-2024 Resolved: 03-03-2025 03-08-2024 Chronic Biliary tract disease (9 sources) Acquired dilation of bile duct; Translations: [Other specified diseases of biliary tract] Onset: 03-02-2024 Resolved: 03-03-2025 03-16-2024 Chronic Coronary atherosclerosis and other heart disease (18 sources) History of cardiovascular surgery; Translations: [Presence of coronary angioplasty implant and graft] Onset: 06-09-2015 11-07-2022 Episodic Disorders of teeth and jaw (20 sources) Tooth problem; Translations: [Unspecified disorder of the teeth and supporting structures] Onset: 07-05-2022 Resolved: 11-07-2022 11-07-2022 Episodic Essential hypertension (19 sources) Essential hypertension; Translations: [Essential (primary) hypertension] Onset: 10-25-2019 Resolved: 09-27-2024 12-13-2022 Chronic Fracture of upper limb (20 sources) Closed fracture of head of radius; Translations: [Nondisplaced fracture of head of right radius, initial encounter for closed fracture] Onset: 09-13-2022 Resolved: 09-13-2022 Episodic Genitourinary symptoms and ill-defined conditions (14 sources) Dysuria; Translations: [Dysuria] Onset: 12-13-2022 Resolved: 03-12-2023 12-13-2022 Episodic Headache; including migraine (20 sources) Chronic headache disorder; Translations: [Headache] Onset: 09-13-2022 09-13-2022 Episodic Malignant neoplasm without specification of site (16 sources) Malignant neoplastic disease; Translations: [Malignant (primary) neoplasm, unspecified] Onset: 11-07-2022 Resolved: 09-27-2024 11-07-2022 Chronic Menopausal disorders (20 sources) Decreased estrogen level; Translations: [Other ovarian failure] Onset: 07-05-2022 Resolved: 11-07-2022 11-07-2022 Chronic Other acquired deformities (1 source) Spondylolisthesis, cervical region; Translations: [Spondylolisthesis, cervical region] Onset: 06-18-2022 Episodic Other aftercare (1 source) care home (current) use of aspirin; Translations: [care home (current) use of aspirin] Onset: 07-05-2022 Episodic Other aftercare (1 source) manager terminal (current) use of anticoagulants; Translations: [care home (current) use of anticoagulants] Onset: 07-05-2022 Episodic Other and unspecified benign neoplasm (20 sources) History of polyp of colon; Translations: [Personal history of colonic polyps] Onset: 02-28-2016 Resolved: 12-13-2022 11-07-2022 Episodic Other and unspecified benign neoplasm (20 sources) Polyp of colon; Translations: [Benign neoplasm of colon] Onset: 09-13-2022 Resolved: 12-13-2022 09-13-2022 Episodic Other and unspecified benign neoplasm (15 sources) Tubular adenoma of colon; Translations: [Benign neoplasm of colon, unspecified] Onset: 08-04-2014 11-07-2022 Episodic Other and unspecified benign neoplasm (1 source) Polyp of colon; Translations: [Polyp of colon] Onset: 07-05-2022 Episodic Other and unspecified benign neoplasm (9 sources) Lipoma of trunk; Translations: [Benign lipomatous neoplasm of skin and subcutaneous tissue of trunk] Onset: 03-16-2024 03-16-2024 Episodic Other and unspecified benign neoplasm (2 sources) Benign neoplasm of colon, unspecified; Translations: [Benign neoplasm of colon, unspecified] Onset: 11-07-2022 Episodic Other circulatory disease (14 sources) Inferior vena cava filter in situ; Translations: [Jessica filter in place] Other connective tissue disease (19 sources) History of total hip arthroplasty; Translations: [Presence of unspecified artificial hip joint] Onset: 11-26-2022 Resolved: 02-18-2024 12-13-2022 Chronic Other connective tissue disease (20 sources) Trochanteric bursitis; Translations: [Enthesopathy of hip region] Onset: 09-13-2022 Resolved: 12-13-2022 09-13-2022 Episodic Other connective tissue disease (1 source) Trochanteric bursitis, right hip; Translations: [Trochanteric bursitis, right hip] Onset: 07-05-2022 Episodic Other diseases of kidney and ureters (3 sources) Renal insufficiency; Translations: [Renal insufficiency, mild] Other gastrointestinal disorders (5 sources) Chronic constipation; Translations: [Constipation, chronic] Episodic Other gastrointestinal disorders (13 sources) Right upper quadrant abdominal mass; Translations: [Right upper quadrant abdominal swelling, mass and lump] Onset: 02-25-2023 Resolved: 02-18-2024 03-12-2023 Episodic Other gastrointestinal disorders (11 sources) Disorder of small intestine; Translations: [Disease of intestine, unspecified] Onset: 03-12-2023 Resolved: 09-27-2024 03-12-2023 Episodic Other lower respiratory disease (15 sources) Cough; Translations: [Cough] Episodic Other lower respiratory disease (2 sources) Wheezing; Translations: [Wheezing] Episodic Other non-traumatic joint disorders (20 sources) Hip pain; Translations: [Pain in joint, pelvic region and thigh] Onset: 09-13-2022 Resolved: 12-13-2022 12-13-2022 Episodic Other non-traumatic joint disorders (8 sources) Pain in right hip joint; Translations: [Pain in right hip] Onset: 09-13-2022 Resolved: 12-13-2022 Episodic Other upper respiratory infections (20 sources) Viral upper respiratory tract infection; Translations: [Posterior rhinorrhea] Onset: 09-13-2022 09-13-2022 Episodic Phlebitis; thrombophlebitis and thromboembolism (20 sources) Deep venous thrombosis of lower extremity; Translations: [Acute embolism and thrombosis of unspecified deep veins of unspecified lower extremity] Onset: 03-31-2015 Resolved: 02-18-2024 11-07-2022 Episodic Pulmonary heart disease (20 sources) H/O: pulmonary embolus; Translations: [Pulmonary embolism] Onset: 11-09-2018 Resolved: 10-18-2024 11-09-2018 Episodic Residual codes; unclassified (14 sources) Taking medication for chronic disease; Translations: [Illness, unspecified] Onset: 09-13-2022 Resolved: 02-18-2024 09-13-2022 Episodic Residual codes; unclassified (1 source) Pain, unspecified; Translations: [Pain, unspecified] Onset: 06-18-2022 Episodic Screening and history of mental health and substance abuse codes (1 source) Personal history of nicotine dependence; Translations: [Personal history of nicotine dependence] Onset: 07-05-2022 Episodic Spondylosis; intervertebral disc disorders; other back problems (20 sources) Low back pain; Translations: [Lumbago] Onset: 06-18-2022 Resolved: 12-13-2022 09-13-2022 Episodic Unclassified (1 source) PE; Translations: [PE] Onset: 02-14-2017 Unclassified (2 sources) Abrasion of cornea of right eye; Translations: [Corneal abrasion, right] Unclassified (6 sources) Medication regimen behavior finding; Translations: [Taking medication for chronic disease] Unclassified (17 sources) Onset: 11-07-2022 Resolved: 03-17-2025 11-07-2022 Urinary tract infections (15 sources) Acute cystitis; Translations: [Acute cystitis without hematuria] Onset: 11-07-2022 Resolved: 04-08-2023 11-07-2022 Episodic NEGATED: Highlighted row has not occurred!Residual codes; unclassified (20 sources) Disease Episodic Results Test Name Value Interpretation Reference Range Facility ED Prov Noteon 04-09-2025 ED Prov Note [place] ED Physician Note: NAME: Faviola Mosley Tori 75 y.o. CSN: [id number] PCP: Mary Webster, DO ED Course / Medical Decision Making: Patient has a history of chronic tension headaches. On occasion has come to the ER for pain control. She has no focal neurologic deficit she has no nuchal rigidity. She has no fever. Patient has no sign of CVA, meningitis, encephalitis. No indication for CT brain or LP. Patient has no sign of sinusitis or mastoiditis. Patient given morphine in the ER with Zofran. Patient had relief. She was comfortable going home. I did give her a take-home pack of Percocet in case she has breakthrough pain. She did request 1 Zofran to go home with. Medical Decision Making Amount and/or Complexity of Data Reviewed Independent Historian: Details: Patient gave history Risk Risk Details: Patient does not have focal neurologic deficit no signs of meningitis or encephalitis. Patient had relief with medication in the ER Clinical Impression: 1. Acute non intractable tension-type headache Disposition: Patient is being discharged to home New Prescriptions oxyCODONE-acetaminoph en (PERCOCET) 5-325 mg per tablet Take 1 (one) tablet by mouth every 6 (six) hours as needed for pain TAKE HOME PACK . History: Chief Complaint: Headache HPI: The history was obtained from the patient. She is a 75 y.o. female who presents with a chief complaint of Headache. HPI patient has a history of tension headaches. She has had a headache since yesterday and has not had relief with headache. She is on Coumadin and she took a Tylenol 325 mg without relief she did take an Advil also. She states they give her tenacity in for the headaches and that did not help either. She denies any nausea or vomiting. She has no photophobia. She has no weakness or numbness or tingling. 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 Hx: Family History Adopted: Yes SOC. Hx: Social History [1] MEDs: Previous Medications Medication Sig acetaminophen (TYLENOL) 500 MG tablet Take 1 (one) tablet (500 mg total) by mouth every 6 (six) hours as needed for pain . albuterol sulfate (PROAIR HFA INHL) Inhale 2 puffs daily as needed . atorvastatin (LIPITOR) 20 MG tablet Take 1 (one) tablet (20 mg total) by mouth Friday, Friday, Friday . biotin 1 mg cap Take 1 (one) capsule (1 mg total) by mouth daily . cetirizine (ZYRTEC) 10 MG tablet Take 1 (one) tablet (10 mg total) by mouth daily as needed for allergies . cholecalciferol, vitamin D3, 25 mcg (1,000 unit) capsule Take 1 (one) capsule (1,000 Units total) by mouth daily . fluticasone propionate (FLONASE) 50 mcg/actuation nasal spray Instill 2 (two) sprays into each nostril daily . (Patient taking differently: Instill 2 (two) sprays into each nostril daily as needed .) folic acid (FOLVITE) 400 MCG tablet Take 1 (one) tablet (400 mcg total) by mouth daily . ibuprofen (ADVIL,MOTRIN) 200 MG tablet Take 1 (one) tablet (200 mg total) by mouth every 6 (six) hours as needed for pain . multivitamin with minerals tablet Take 1 (one) tablet by mouth daily . simethicone (MYLICON) 80 MG chewable tablet Chew and Swallow 1 (one) tablet (80 mg total) every 6 (six) hours as needed for flatulence . tiZANidine (ZANAFLEX) 4 MG capsule Take 1 (one) capsule (4 mg total) by mouth nightly as needed for muscle spasms . ubidecarenone (coenzyme Q10) 100 mg Tab Take 1 (one) tablet (100 mg total) by mouth daily . warfarin (COUMADIN) 1 MG tablet Take 1 (one) tablet (1 mg total) by mouth See Admin Instructions . warfarin (COUMADIN) 5 MG tablet Take 1 (one) tablet (5 mg total) by mouth See Admin Instructions . zinc sulfate (ZINC-220 ORAL) Take by mouth daily . ALL: Allergies[2] ROS: Review of Systems Constitutional: Negative. HENT: Negative. Eyes: Negative for photophobia, pain, discharge, redness, itching and visual disturbance. Respiratory: Negative. Cardiovascular: Negative. Gastrointestinal: Negative. Endocrine: Negative. Genitourinary: Negative. Musculoskeletal: Negative. Neurological: Positive for headaches. Negative for dizziness, tremors, seizures, syncope, facial asymmetry, speech difficulty, weakness, light-headedness and numbness. All other systems reviewed and are negative. Positives and pertinent negatives as per HPI. All other systems were reviewed and are negative. Physical Exam (more content not included)... Normal [facility] Chloride [Moles/Vol] 106 mmol/L Normal 98-108 [facility] Comment on above: Order Comment: [facility] has implemented the eGFR calculation approach that does not have a coefficient for race that conforms to the NKF-ASN Task Force Recommendations. CO2 [Moles/Vol] 27 mmol/L Normal 21-32 [facility] Comment on above: Order Comment: [facility] has implemented the eGFR calculation approach that does not have a coefficient for race that conforms to the NKF-ASN Task Force Recommendations. Creatinine [Mass/Vol] 0.93 mg/dL Normal 0.60-1.20 [facility] [facility] Comment [facility]: Order Comment: [facility] has implemented the eGFR calculation approach that does not have a coefficient for race that conforms to the NKF-ASN Task Force Recommendations. Glucose [Mass/Vol] 111 mg/dL High 65-99 [facility] Comment on above: Order Comment: [facility] has implemented the eGFR calculation approach that does not have a coefficient for race that conforms to the NKF-ASN Task Force Recommendations. POC GFR 65 mL/min/1.73 m2 Normal >=60 [facility] Comment on above: Order Comment: [facility] has implemented the eGFR calculation approach that does not have a coefficient for race that conforms to the NKF-ASN Task Force Recommendations. Result Comment: Rafiq mated GFR was calculated using the 2020 CKD-EPI creatinine equation. POC IONIZED CALCIUM 4.8 mg/dL Normal 4.5-5.3 [facility] Comment on above: Order Comment: [facility] has implemented the eGFR calculation approach that does not have a coefficient for race that conforms to the NKF-ASN Task Force Recommendations. Potassium [Moles/Vol] 4.5 mmol/L Normal 3.5-5.1 [facility] Comment on above: Order Comment: [facility] has implemented the eGFR calculation approach that does not have a coefficient for race that conforms to the NKF-ASN Task Force Recommendations. Sodium [Moles/Vol] 140 mmol/L Normal 135-145 [facility] Comment on above: Order Comment: [facility] has implemented the eGFR calculation approach that does not have a coefficient for race that conforms to the NKF-ASN Task Force Recommendations. Urea nitrogen [Mass/Vol] 30 mg/dL High 8-25 [facility] Comment on above: Order Comment: [facility] has implemented the eGFR calculation approach that does not have a coefficient for race that conforms to the NKF-ASN Task Force Recommendations. POC CBC AND DIFFERENTIALon 0 04-09-2025 BASOPHILS ABSOLUTE COUNT 0.05 K/mcL Normal 0.00-0.30 [facility] Basophils/100 WBC (Bld) 0.9 % Normal [facility] Eosinophils (Bld) [#/Vol] 0.10 10*3/uL Normal 0.00-0.50 [facility] Eosinophils/100 WBC (Bld) 1.9 % Normal [facility] Erythrocyte distribution width (RBC) [Ratio] 13.6 % Normal 11.6-14.8 [facility] Hematocrit (Bld) [Volume fraction] 43.7 % Normal 36.0-46.0 [facility] Hemoglobin (Bld) [Mass/Vol] 14.2 g/dL Normal 12.0-16.0 [facility] IG ABSOLUTE 0.00 K/mcL Normal 0.00-0.30 [facility] IG PERCENT 0.00 % Normal [facility] Comment on above: Result Comment: The IG parameter is the percentage of metamyelocytes, myelocytes and promyelocytes. An immature granulocyte count (IG) of 1% or more suggests the possibility of infection, an IG count of 3% is very likely related to an infection. Lymphocytes (Bld) [#/Vol] 1.51 10*3/uL Normal 0.90-4.00 [facility] Lymphocytes/100 WBC (Bld) 28.6 % Normal [facility] MCH (RBC) [Entitic mass] 28.3 pg Normal 26.0-34.0 [facility] MCV (RBC) [Entitic vol] 87.1 fL Normal 80.0-100.0 [facility] MEAN CORPUSCULAR HEMOGLOBIN CONC 32.5 g/dL Normal 31.0-37.0 [facility] Monocytes (Bld) [#/Vol] 0.57 10*3/uL Normal 0.30-0.90 [facility] Monocytes/100 WBC (Bld) 10.8 % Normal [facility] NEUTROPHILS ABSOLUTE COUNT 3.05 K/mcL Normal 1.70-7.00 [facility] Neutrophils/100 WBC (Bld) 57.8 % Normal [facility] Platelet mean volume (Bld) [Entitic vol] 9.0 fL Low 9.4-12.4 [facility] Platelets (Bld) [#/Vol] 204 10*3/uL Normal 150-400 [facility] RBC (Bld) [#/Vol] 5.02 10*6/uL Normal 4.00-5.20 [facility] WBC (Bld) [#/Vol] 5.28 10*3/uL Normal 4.50-11.00 [facility] VAS US PVR WITHOUT EXERCISE on 03-30-2025 [facility] US [place]VR [place] [address] [phone], Vascular Lab Report [facility] US PVR WITHOUT EXERCISE Patient Name: FAVIOLA Mcduffie Physician: [id number] Albert Thornton MD, CHAVO Study Date: 03/30/2025 Ordering Provider: [id number] MARV KOLB MRN/PID: [id number] Fellow: Technologist: John Christie RVT Date of /Age: 8 1950 / 75 years Technologist 2: Gender: F Admission Status: Outpatient [facility] Diagnosis/ICD: Atherosclerosis of menominee arteries of extremities with intermittent claudication, bilateral legs-I70.213 CPT Codes: 97065 Peripheral artery CHAPIN Only Pertinent History: Hyperlipidemia and Claudication. Hx smoking. CONCLUSIONS: Right Lower PVR: No evidence of arterial occlusive disease in the right lower extremity at rest. Normal digital perfusion noted. Multiphasic flow is noted in the right posterior tibial artery, right dorsalis pedis artery and right common femoral artery. Left Lower PVR: No evidence of arterial occlusive disease in the left lower extremity at rest. Normal digital perfusion noted. Multiphasic flow is noted in the left dorsalis pedis artery, left posterior tibial artery and left common femoral artery. Imaging & Doppler Findings: RIGHT Lower PVR Pressures Ratios Right Posterior Tibial (Ankle) 121 mmHg 1.09 Right Dorsalis Pedis (Ankle) 117 mmHg 1.05 Right Digit (Great Toe) 72 mmHg 0.65 LEFT Lower PVR Pressures Ratios Left Posterior Tibial (Ankle) 128 mmHg 1.15 Left Dorsalis Pedis (Ankle) 125 mmHg 1.13 Left Digit (Great Toe) 71 mmHg 0.64 Right Left Brachial Pressure 111 mmHg 109 mmHg [id number] Albert Thornton MD, CHAVO Final CONCLUSIONS: Right Lower PVR: No evidence of arterial occlusive disease in the right lower extremity at rest. Normal digital perfusion noted. Multiphasic flow is noted in the right posterior tibial artery, right dorsalis pedis artery and right common femoral artery. Left Lower PVR: No evidence of arterial occlusive disease in the left lower extremity at rest. Normal digital perfusion noted. Multiphasic flow is noted in the left dorsalis pedis artery, left posterior tibial artery and left common femoral artery. Normal [facility] Vascular US PVR without exer ciseon 03-30-2025 CONCLUSIONS: Right Lower PVR: No evidence of arterial occlusive disease in the right lower extremity at rest. Normal digital perfusion noted. Multiphasic flow is noted in the right posterior tibial artery, right dorsalis pedis artery and right common femoral artery. Left Lower PVR: No evidence of arterial occlusive disease in the left lower extremity at rest. Normal digital perfusion noted. Multiphasic flow is noted in the left dorsalis pedis artery, left posterior tibial artery and [place] [address] [phone], Vascular Lab Report VASC US PVR WITHOUT EXERCISE Patient Name: FAVIOLA VALLE Reading Physician: [id number] Albert Thornton MD, RPVI Study Date: 03/30/2025 Ordering Provider: [id number] MARV KOLB MRN/PID: [id number] Fellow: Technologist: John Christie RVT Date of /Age: 8 1950 / 75 years Technologist 2: Gender: F Admission Status: Outpatient Location Performed[facility] Diagnosis/ICD: Atherosclerosis of menominee arteries of extremities with intermittent claudication, bilateral legs-I70.213 CPT Codes: 17237 Peripheral artery CHAPIN Only Pertinent History: Hyperlipidemia and Claudication. Hx smoking. CONCLUSIONS: Right Lower PVR: No evidence of arterial occlusive disease in the right lower extremity at rest. Normal digital perfusion noted. Multiphasic flow is noted in the right posterior tibial artery, right dorsalis pedis artery and right common femoral artery. Left Lower PVR: No evidence of arterial occlusive disease in the left lower extremity at rest. Normal digital perfusion noted. Multiphasic flow is noted in the left dorsalis pedis artery, left posterior tibial artery and left common femoral artery. Imaging & Doppler Findings: RIGHT Lower PVR Pressures Ratios Right Posterior Tibial (Ankle) 121 mmHg 1.09 Right Dorsalis Pedis (Ankle) 117 mmHg 1.05 Right Digit (Great Toe) 72 mmHg 0.65 LEFT Lower PVR Pressures Ratios Left Posterior Tibial (Ankle) 128 mmHg 1.15 Left Dorsalis Pedis (Ankle) 125 mmHg 1.13 Left Digit (Great Toe) 71 mmHg 0.64 Right Left Brachial Pressure 111 mmHg 109 mmHg [id number] Albert Thornton MD, RPVI Final Albert Woods MD - 03/30/2025 [place] [address] [phone], Vascular Lab Report VASC US PVR WITHOUT EXERCISE Patient Name: FAVIOLA Mcduffie Physician: [id number] Albert Thornton MD, RPVI Study Date: 03/30/2025 Ordering Provider: [id number] MARV KOLB MRN/PID: [id number] Fellow: Technologist: John Christie RVT Date of /Age: 8 1950 / 75 years Technologist 2: Gender: F Admission Status: Outpatient Location [facility] Diagnosis/ICD: Atherosclerosis of menominee arteries of extremities with intermittent claudication, bilateral legs-I70.213 CPT Codes: 57889 Peripheral artery CHAPIN Only Pertinent History: Hyperlipidemia and Claudication. Hx smoking. CONCLUSIONS: Right Lower PVR: No evidence of arterial occlusive disease in the right lower extremity at rest. Normal digital perfusion noted. Multiphasic flow is noted in the right posterior tibial artery, right dorsalis pedis artery and right common femoral artery. Left Lower PVR: No evidence of arterial occlusive disease in the left lower extremity at rest. Normal digital perfusion noted. Multiphasic flow is noted in the left dorsalis pedis artery, left posterior tibial artery and left common femoral artery. Imaging & Doppler Findings: RIGHT Lower PVR Pressures Ratios Right Posterior Tibial (Ankle) 121 mmHg 1.09 Right Dorsalis Pedis (Ankle) 117 mmHg 1.05 Right Digit (Great Toe) 72 mmHg 0.65 LEFT Lower PVR Pressures Ratios Left Posterior Tibial (Ankle) 128 mmHg 1.15 Left Dorsalis Pedis (Ankle) 125 mmHg 1.13 Left Digit (Great Toe) 71 mmHg 0.64 Right Left Brachial Pressure 111 mmHg 109 mmHg [id number] Albert Thornton MD, CHAVO Final IMPRESSION: CONCLUSIONS: Right Lower PVR: No evidence of arterial occlusive disease in the right lower extremity at rest. Normal digital perfusion noted. Multiphasic flow is noted in the right posterior tibial artery, right dorsalis pedis artery and right common femoral artery. Left Lower PVR: No evidence of arterial occlusive disease in the left lower extremity at rest. Normal digital perfusion noted. Multiphasic flow is noted in the left dorsalis pedis artery, left posterior tibial artery and left common femoral artery. [facility] Work Phone: Radiology Study observation (narrative) [facility] Work Phone: Vascular US PVR without exer ciseOrdered By: Albert Thornton on 03-30-2025 [facility] Work Phone: NM MYOCARDIAL PERFUSION MULT I SPECTon 03-29-2025 NM MYOCARDIAL PERFUSION MULTI SPECT Patient Info Name: Faviola Valle Age: 75 years : 1950 Gender: Female Ht: 163 cm Wt: 72 kg BSA: 1.82 m2 HR: 84 bpm BP: 153 / 82 mmHg Exam Date: 03/29/2025 7:30 AM Patient Status: OP SERIES Any Known Allergies: Erythromycin Exam Type: NM MYOCARDIAL PERFUSION MULTI SPECT Study Info Indications I25.10 - 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 R07.9 - Chest pain, unspecified type [id number] BMI: 27.10 kg/m2 Stress Staff: Hallie Mcleod(Nancy) Supervising Stress Physician: Marv Kolb MD Kindergarten Paraprofessional: Mariely ASIF, RT(N) Primary Nurse: Scarlett Corona RN Summary 1. Pt exercised 3 MIN 55 sec of standard Marv Protocol with a peak hr OF 146. No ST changes. 2. Negative EKG, adequate HR, maximal effort stress. 3. Post stress left ventricular ejection fraction is normal, 73 %. 4. Probably normal perfusion study with Breast attenuation. Cannot rule out a small apical septal infarct. No ischemia noted. History/Risk Factors Dyslipidemia: Yes Myocardial Infarction (CO): Yes Coronary Artery Disease (CAD) Yes History/Risk Factors PE. Prior Interventions PCI: Yes Radiopharmaceutical: Tc-99m Sestamibi Administration Site: IV - left antecubital Administered By: Mariely Patel CNMT, RT(N) Camera Used: [employer]Lens Symbia Radiopharmaceutical: Tc-99m Sestamibi Administration Site: IV - left antecubital Administered By: Mariely Patel CNMT, RT(N) Camera Used: [employer] Symbia Image Protocol Protocol: Rest/Stress 1 Day Rest Radiopharmaceutical Dose: 7.9 mCi Imaging Date AND Time: 03/29/2025 8:48 AM Patient Position: supine Stress Radiopharmaceutical Dose: 25.9 mCi Imaging Date AND Time: 03/29/2025 10:17 AM Patient Position: supine Injection to Imaging Time: 78 min Injection to Imaging Time: 62 min Injection Date AND Time: 03/29/2025 7:30 AM Injection Date AND Time: 03/29/2025 9:15 AM SPECT Results Perfusion Findings Probably normal perfusion study with Breast attenuation. Cannot rule out a small apical septal infarct. No ischemia noted. Study Limitations: Breast / Chest Attenuation Summed Difference Score: 0 Summed Stress Score: 9 Summed Rest Score: 22 Perfusion Quantitative Results Stress Extent Global Stress Extent: 19 % Rest Extent Global Rest Extent: 49 % Ischemia Extent Global Ischemia Extent: 0 % Functional Results ------- Name Value Normal ------- Stress ------- Stress LV Ejection Fraction 73 % 55-70 Stress LV End Systolic Volume 12 ml Nuclear Stress Cardiac Output 2.9 l/min Stress LV End Diastolic Volume 45 ml Transient Ischemic Dilatation 0.88 Nuclear Stress Myocardial Mass 86 g Functional Findings Post stress left ventricular ejection fraction is normal, 73 %. Stress ECG Details Protocol: [place] Marv Total METS: 5.7 Rest HR: 85 bpm Peak HR: 146 bpm Rest Sys BP: 145 mmHg Peak Sys BP: 209 mmHg Max Pred HR: 146 bpm % Max Pred HR: 100 % Target HR: 124 bpm Max RPP: 30,514 bpm*mmHg Target HR Summary: Test terminated after reaching maximum heart rate BP Response: Normal blood pressure response Termination Reason: Protocol completed, Maximal effort/unable to continue, Reached target heart rate or workload Cardiac Symptoms: None Total Time: 3 min : 55 sec Rest Aguilera BP: 68 mmHg Peak Aguilera BP: 89 mmHg Resting ECG Non-specific ST wave abnormalities. Normal sinus rhythm. Stress ECG No abnormal ST/T wave changes with exercise. Arrhythmias No arrhythmias were observed during the examination. Stress Summary Pt exercised 3 MIN 55 sec of standard Marv Protocol with a peak hr OF 146. No ST changes. Negative EKG, adequate HR, maximal effort stress. Report Signatures MPI SPECT Finalized by Marv Kolb MD on 03/29/2025 11:32 AM Stress Finalized by Marv Kolb MD on 03/29/2025 11:32 AM Dictated by: MARV KOLB on FriMar 29, 2025 11:32:51 AM EDT Transcribed by: MARV KOLB on FriMar 29, 2025 11:32:51 AM EDT Finalized by: MARV KOLB on FriMar 29, 2025 11:32:51 AM EDT Normal [facility] Comment on above: Order Comment: Injur y/Trauma or Illness?:Illness/Other How long have you had these symptoms (acute/chronic)?:Unknown Reason for exam?:cad Type of Exam?:Unknown Additional signs and symptoms?:chest pain XR CHEST 2 VIEWSon XR CHEST 2 VIEWS Interpreted By: Thuy Pugh, STUDY: XR CHEST 2 VIEWS; 03/17/2025 9:06 am INDICATION: Signs/Symptoms:CHEST PAIN. COMPARISON: 04/20/2020 ACCESSION NUMBER(S): [id number] ORDERING CLINICIAN: MARY WEBSTER FINDINGS: S shaped scoliosis is noted. An IVC filter is identified. The lungs are hyperinflated and slightly hyperlucent with diffuse bilateral interstitial prominence, which may be related to chronic lung disease.. The heart is not enlarged. No infiltrate, pleural effusion or pneumothorax is seen. Degenerative changes are seen thoracic spine. IMPRESSION: No active cardiopulmonary disease. Probable chronic lung changes. MACRO: None Signed by: Thuy Pugh 03/18/2025 1:19 PM Dictation workstation: [id number] [facility] BI MAMMO BILATERAL SCREENING TOMOSYNTHESISon 03-10-2025 BI MAMMO BILATERAL SCREENING TOMOSYNTHESIS Interpreted By: Adriano Blackburn, STUDY: BI MAMMO BILATERAL SCREENING TOMOSYNTHESIS; 03/10/2025 8:40 am ACCESSION NUMBER(S): [id number] ORDERING CLINICIAN: MARY WEBSTER INDICATION: Screening. ,Z12.31 Encounter for screening mammogram for malignant neoplasm of breast COMPARISON: 02/06/2024, 02/14/2023 FINDINGS: 2D and tomosynthesis images were reviewed at 1 mm slice thickness. Density: There are scattered areas of fibroglandular density. No suspicious masses or calcifications are identified. CAD was utilized. IMPRESSION: No mammographic evidence of malignancy. BI-RADS CATEGORY: BI-RADS Category: 1 Negative. Recommendation: Annual Screening. Recommended Date: 1 Year. Laterality: Bilateral. For any future breast imaging appointments, please call [phone] MACRO: None Signed by: Adriano Blackburn 03/10/2025 2:29 PM Dictation workstation: [id number] [facility] DBT Breast - bilateralon No mammographic evidence of malignancy. BI-RADS CATEGORY: BI-RADS Category: 1 Negative. Recommendation: Annual Screening. Recommended Date: 1 Year. Laterality: Bilateral. For any future breast imaging appointments, please call [phone]). MACRO: None Signed by: Adriano Blackburn 03/10/2025 2:29 PM Dictation workstation: [id number] MMODAL Interpreted By: Adriano Blackburn, STUDY: BI MAMMO BILATERAL SCREENING TOMOSYNTHESIS; 03/10/2025 8:40 am ACCESSION NUMBER(S): [id number] ORDERING CLINICIAN: MARY WEBSTER INDICATION: Screening. ,Z12.31 Encounter for screening mammogram for malignant neoplasm of breast COMPARISON: 02/06/2024, 02/14/2023 FINDINGS: 2D and tomosynthesis images were reviewed at 1 mm slice thickness. Density: There are scattered areas of fibroglandular density. No suspicious masses or calcifications are identified. CAD was utilized. MMODAL Adriano Blackburn MD - 03/10/2025 Interpreted By: Adriano Blackburn, STUDY: BI MAMMO BILATERAL SCREENING TOMOSYNTHESIS; 03/10/2025 8:40 am ACCESSION NUMBER(S): [id number] ORDERING CLINICIAN: MARY WEBSTER INDICATION: Screening. ,Z12.31 Encounter for screening mammogram for malignant neoplasm of breast COMPARISON: 02/06/2024, 02/14/2023 FINDINGS: 2D and tomosynthesis images were reviewed at 1 mm slice thickness. Density: There are scattered areas of fibroglandular density. No suspicious masses or calcifications are identified. CAD was utilized. IMPRESSION: No mammographic evidence of malignancy. BI-RADS CATEGORY: BI-RADS Category: 1 Negative. Recommendation: Annual Screening. Recommended Date: 1 Year. Laterality: Bilateral. For any future breast imaging appointments, please call [phone] ([phone]). MACRO: None Signed by: Adriano Blackburn 03/10/2025 2:29 PM Dictation workstation: [id number] [facility] Work Phone: Radiology Study observation (narrative) [facility] Work Phone: DBT Breast - bilateralOrdere d By: Adriano Blackburn on 03-10-2025 [facility] Work Phone: C-REACTIVE PROTEINon 025 CRP [Mass/Vol] mg/L Normal <8.0 [facility] Comment on above: Performed By: #### 9 2525, 6399 #### [facility] of [address], [address] [place] [address] Medical Sonographer: Jean-Paul Leon MD CBC (INCLUDES DIFF/PLT)on Basophils (Bld) [#/Vol] 0.061 10*3/uL Normal 0-200 [facility] Comment on above: Performed By: #### 8 09, 6590, 1078, 374 #### [facility] of [address], [address] [place] [address] Medical Sonographer: Jean-Paul Leon MD #### [id number] #### [facility]/[address] [place], [place] Medical Sonographer: Willard Mensah M.D.,PhD Basophils/100 WBC (Bld) 1.8 % Normal [facility] Comment on above: Performed By: #### 8 09, 23, 7999, 374 #### [facility] of [address], [address] [place] [address] Medical Sonographer: Jean-Paul Leon MD #### [id number] #### [facility]/[address] [place], [place] Medical Sonographer: Willard Mensah M.D.,PhD Eosinophils (Bld) [#/Vol] 0.099 10*3/uL Normal 15-500 [facility] Comment on above: Performed By: #### 8 09, 3520, 3299, 374 #### [facility] of [address], [address] [place] [address] Medical Sonographer: Jean-Paul Leon MD #### [id number] #### [facility]/[address] [place], [place] Medical Sonographer: Willard Mensah M.D.,PhD Eosinophils/100 WBC (Bld) 2.9 % Normal [facility] Comment on above: Performed By: #### 8 09, 4420, 6399, 374 #### [facility] of [address], [address] [place], [place] [id number] Medical Sonographer: Jean-Paul Leon MD #### [id number] #### [facility]/[address] [place], [place] Medical Sonographer: Willard Mensah M.D.,PhD Erythrocyte distribution width (RBC) [Ratio] 13.3 % Normal 11.0-15.0 [facility] Comment on above: Performed By: #### 8 09, 44, 6399, 374 #### [facility] of [address], [address] [place], [place] [id number] Medical Sonographer: Jean-Paul Leon MD #### [id number] #### [facility]/[address] [place], [place] Medical Sonographer: Willard Mensah M.D.,PhD Hematocrit (Bld) [Volume fraction] 44.3 % Normal 35.0-45.0 [facility] Comment on above: Performed By: #### 8 09, 44, 6399, 374 #### [facility] of [address], [address] [place], [place] [id number] Medical Sonographer: Jean-Paul Leon MD #### [id number] #### [facility]/[address] [place], [place] Medical Sonographer: Willard Mensah M.D.,PhD Hemoglobin (Bld) [Mass/Vol] 14.3 g/dL Normal 11.7-15.5 [facility] Comment on above: Performed By: #### 8 09, 4420, 6399, 374 #### [facility] of [address], [address] [place], [place] [id number] Medical Sonographer: Jean-Paul Leon MD #### [id number] #### [facility] [place], [place] Medical Sonographer: Willard Mensah M.D.,PhD Lymphocytes (Bld) [#/Vol] 1.244 10*3/uL Normal 850-3900 [facility] Comment on above: Performed By: #### 8 09, 44, 6399, 374 #### [facility] of [address], [address] [place], [place] [id number] Medical Sonographer: Jean-Paul Leon MD #### [id number] #### [facility]/[place] [id number] [facility] [place], [place] Medical Sonographer: Willard Mensah M.D.,PhD Lymphocytes/100 WBC (Bld) 36.6 % Normal [facility] Comment on above: Performed By: #### 8 09, 44, 6399, 374 #### [facility] of [address], [address] [place], [place] [id number] Medical Sonographer: Jean-Paul Leon MD #### [id number] #### [facility] [place], [place] Medical Sonographer: Willard Mensah M.D.,PhD MCH (RBC) [Entitic mass] 28.5 pg Normal 27.0-33.0 [facility] Comment on above: Performed By: #### 8 09, 44, 6399, 374 #### [facility] of [address], [address] [place] [address] Medical Sonographer: Jean-Paul Leon MD #### [id number] #### [facility] [place], [place] Medical Sonographer: Willard Menash M.D.,PhD MCHC (RBC) [Mass/Vol] 32.3 g/dL Normal 32.0-36.[address] [facility] Comment on above: Result Comment: For adults, a slight decrease in the calculated MCHC value (in the range of 30 to 32 g/dL) is most likely not clinically significant; however, it should be interpreted with caution in correlation with other red cell parameters and the patient's clinical condition. Performed By: #### 8 09, 4420, 6399, 374 #### [facility] of [address], [address] [place], [place] [id number] Medical Sonographer: Jean-Paul Leon MD #### [id number] #### [facility]/[address] [place], [place] Medical Sonographer: Willard Mensah M.D.,PhD MCV (RBC) [Entitic vol] 88.2 fL Normal 80.0-100.0 [facility] Comment on above: Performed By: #### 8 , 44, 63, 374 #### [facility] of [address], [address] [place], [place] [id number] Medical Sonographer: Jean-Paul Leon MD #### [id number] #### [facility]/[address] [place], [place] Medical Sonographer: Willard Mensah M.D.,PhD Monocytes (Bld) [#/Vol] 0.34 10*3/uL Normal 200-950 [facility] Comment on above: Performed By: #### 8 , 44, 63, 374 #### [facility] of [address], [address] [place], [place] [id number] Medical Sonographer: Jean-Paul Leon MD #### [id number] #### [facility]/[address] [place], [place] Medical Sonographer: Willard Mensah M.D.,PhD Monocytes/100 WBC (Bld) 10.0 % Normal [facility] Comment on above: Performed By: #### 8 , 44, 6399, 374 #### [facility] of [place] [id number] Medical Sonographer: Jean-Paul Leon MD #### [id number] #### [facility]/[place] [id number] [facility] [address] [place], [place] Medical Sonographer: Willard Mensah M.D.,PhD Neutrophils (Bld) [#/Vol] 1.656 10*3/uL Normal 9646-1392 [facility] Comment on above: Performed By: #### 8 09, 44, 6399, 374 #### [facility] of [address], [address] [place], [place] [id number] Medical Sonographer: Jean-Paul Leon MD #### [id number] #### [facility]/[place] [id number] [facility] [address] [place] Medical Sonographer: Willard Mensah M.D.,PhD Neutrophils/100 WBC (Bld) 48.7 % Normal [facility] Comment on above: Performed By: #### 8 , 44, 63, 374 #### [facility] of [address], [address] [place], [place] [id number] Medical Sonographer: Jean-Paul Leon MD #### [id number] #### [facility]/[place] [id number] [facility] [place], [place] Medical Sonographer: Willard Mensah M.D.,PhD Platelet mean volume (Bld) [Entitic vol] 9.3 fL Normal 7.5-12.5 [facility] Comment on above: Performed By: #### 8 , 4420, 6399, 374 #### [facility] of [address], [address] [place], [place] [id number] Medical Sonographer: Jean-Paul Leon MD #### [id number] #### [facility] [address] [place], [place] Medical Sonographer: Willard Mensah M.D.,PhD Platelets (Bld) [#/Vol] 235 10*3/uL Normal 140-400 [facility] Comment on above: Performed By: #### 8 , 4420, 6399, 374 #### [facility] of [place] [address] [address] [place] , [address] [place] [address] Medical Sonographer: Jean-Paul Leon MD #### [id number] #### [facility]/[place] [id number] [facility] [address] [place] Medical Sonographer: Willard Mensah M.D.,PhD RBC (d) [#/Vol] 5.02 10*6/uL Normal 3.80-5.10 [facility] Comment on above: Performed By: #### 8 09, 4420, 6399, 374 #### [facility] of [address], [address] [place] [address] Medical Sonographer: Jean-Paul Leon MD #### [id number] #### [facility]/[address] [place] Medical Sonographer: Willard Mensah M.D.,PhD WBC (d) [#/Vol] 3.4 10*3/uL Low 3.8-10.8 [facility] Comment on above: Performed By: #### 8 09, 4420, 6399, 374 #### [facility] of [address] , [address] [place] [address] Medical Sonographer: Jean-Paul Leon MD #### [id number] #### [facility]/[place] [id number] [facility] [address] [place] Medical Sonographer: Willard Mensah M.D.,PhD CREATINE KINASE, TOTALon CREATINE KINASE, TOTAL 90 U/L Normal 18-225 [facility] Comment on above: Performed By: #### 8 09, 4420, 6399, 374 #### [facility] of [address] , [address] [place], [place] [id number] Medical Sonographer: Jean-Paul Leon MD #### [id number] #### [facility]/[place] [id number] [facility] [address] [place] Medical Sonographer: Willard Mensah M.D.,PhD LYME DISEASE AB W/REFL IA (I GG,IGM)on 03-06-2025 LYME AB, SCREEN <=0.90 Normal <=0.90 [facility] Comment on above: Result Comment: Index Interpretation <= 0.90 Negative 0.91-1.09 Equivocal >= 1.10 Positive This assay measures Lyme disease (Borrelia burgdorferi) IgG plus IgM antibodies; it does not distinguish results that are both IgG and IgM positive from results that are either IgG or IgM positive. As recommended by the Centers for Disease Control and Prevention (CDC), all samples with positive or equivocal results in this screening assay will be tested using separate supplemental Lyme IgG and IgM immunoassays. Positive or equivocal screening assay results should not be interpreted as truly positive until verified as such using the supplemental assays. Screening and/or supplemental tests for Lyme disease antibodies may be falsely negative in early stages of Lyme disease, including the period when erythema migrans is apparent. These assays may be falsely positive in patients with other spirochetal disease (e.g. syphilis) or infectious mononucleosis. The Code of [place], Article 1 of Chapter 5 of Title 32.1, section 32.1-137.06, requires that the following language must be included on every Lyme disease test report issued by a [place] laboratory: Patients undergoing a Lyme disease test should be aware that Lyme disease tests vary and may produce results that are inaccurate. This means a patient may not be able to rely on a positive or negative result. Health care providers are encouraged to discuss Lyme disease test results with the patient for whom the test was ordered. Performed By: #### 8 44, 6675, 6882, 374 #### [facility] [address], [address] [place] [id number] Medical Sonographer: Jean-Paul Leon MD #### [id number] #### [facility] [address] [facility] [place] [address] Medical Sonographer: Willard Mensah M.D.,PhD RHEUMATOID FACTORon 03-06-20 25 RHEUMATOID FACTOR <10 Normal <14 [facility] Comment on above: Performed By: #### 9 1112, 1611 #### [facility] of [place] [address] [place] [address] Medical Sonographer: Jean-Paul eLon MD SED RATE BY MODIFIED WESTERG RENon 03-06-2025 SED RATE BY MODIFIED WESTERGREN 6 mm/h Normal < OR = 30 [facility] Comment on above: Performed By: #### 8 09, 4420, 6399, 374 #### [facility] of [place] [address] Medical Sonographer: Jean-Paul Leon MD #### [id number] #### [facility] [address] [facility] [place], [place] Medical Sonographer: Willard Mensah M.D.,PhD HEPATIC FUNCTION PANELon Albumin [Mass/Vol] 4.5 g/dL Normal 3.6-5.1 [facility] Comment on above: Performed By: #### 1 0256 #### [facility] [place] [address] Medical Sonographer: Jean-Paul Leon MD Albumin/Globulin [Mass ratio] 1.8 {ratio} Normal 1.0-2.5 [facility] Comment on above: Performed By: #### 1 0256 #### [facility] [place] [address] Medical Sonographer: Jean-Paul Leon MD ALP [Catalytic activity/Vol] 61 U/L Normal 37-153 [facility] Comment on above: Performed By: #### 1 0256 #### [facility] [place] [address] Medical Sonographer: Jean-Paul Leon MD ALT [Catalytic activity/Vol] 14 U/L Normal 6-29 [facility] Comment on above: Performed By: #### 1 0256 #### [facility] of [place] [address] Medical Sonographer: Jean-Paul Leon MD AST [Catalytic activity/Vol] 21 U/L Normal 10-35 [facility] Comment on above: Performed By: #### 1 0256 #### [facility] of [place] [address] Medical Sonographer: Jean-Paul Leon MD Bilirubin [Mass/Vol] 0.5 mg/dL Normal 0.2-1.2 [facility] Comment on above: Performed By: #### 1 0256 #### [facility] of [place] [address] Medical Sonographer: Jean-Paul Leon MD BILIRUBIN, INDIRECT 0.4 mg/dL (calc) Normal 0.2-1.2 [facility] Comment on above: Performed By: #### 1 0256 #### [facility] of [place] [address] Medical Sonographer: Jean-Paul Leon MD Bilirubin.indirect [Mass/Vol] 0.1 mg/dL Normal < OR = 0.2 [facility] Comment on above: Performed By: #### 1 0256 #### [facility] of [place] [address] Medical Sonographer: Jean-Paul Leon MD Globulin (S) [Mass/Vol] 2.5 g/dL Normal 1.9-3.7 [facility] Comment on above: Performed By: #### 1 0256 #### [facility] [place] [address] Medical Sonographer: Jean-Paul Leon MD Protein [Mass/Vol] 7.0 g/dL Normal 6.1-8.1 [facility] Comment on above: Performed By: #### 1 0256 #### [facility] of [place] [address] Medical Sonographer: Jean-Paul Leon MD LIPID PANEL, [facility] Cholesterol [Mass/Vol] 181 mg/dL Normal <200 [facility] Comment on above: Order Comment: FASTI NG:YES FASTING: YES Performed By: #### 7 600 #### [facility] of [place] [address] Medical Sonographer: Jean-Paul Leon MD Cholesterol in HDL [Mass/Vol] 56 mg/dL Normal > OR = 50 [facility] Comment on above: Order Comment: FASTI NG:YES FASTING: YES Performed By: #### 7 600 #### [facility] [place] [address] Medical Sonographer: Jean-Paul Leon MD Cholesterol in LDL [Mass/Vol] 107 mg/dL High [facility] Comment on above: Order Comment: FASTI NG:YES FASTING: YES Result Comment: Refe rence range: <100 Desirable range <100 mg/dL for primary prevention; <70 mg/dL for patients with CHD or diabetic patients with > or = 2 CHD risk factors. LDL-C is now calculated using the Claudio calculation, which is a validated novel method providing better accuracy than the Friedewald equation in the estimation of LDL-C. Jonathan BARRIOS et al. NESS. 2013;310(19): 0679-2902 (http://education.[employer].[facility]/faq/DGY781) Performed By: #### 7 600 #### [facility] [address], [address] [place] [address] Medical Sonographer: Jean-Paul Leon MD Cholesterol.total/Cho lesterol in HDL [Mass ratio] 3.2 {ratio} Normal <5.0 [facility] Comment on above: Order Comment: FASTI NG:YES FASTING: YES Performed By: #### 7 600 #### [facility] [place] [address] Medical Sonographer: Jean-Paul Leon MD NON HDL CHOLESTEROL 125 mg/dL (calc) Normal <130 [facility] Comment on above: Order Comment: FASTI NG:YES FASTING: YES Result Comment: For patients with diabetes plus 1 major ASCVD risk factor, treating to a non-HDL-C goal of <100 mg/dL (LDL-C of <70 mg/dL) is considered a therapeutic option. Performed By: #### 7 600 #### [facility] [address], [address] [place] [address] Medical Sonographer: Jean-Paul Leon MD Triglyceride [Mass/Vol] 88 mg/dL Normal <150 [facility] Comment on above: Order Comment: FASTI NG:YES FASTING: YES Performed By: #### 7 600 #### [facility] of [address], [address] [place] [address] Medical Sonographer: Jean-Paul Leon MD BASIC METABOLIC PANEL WITH A ROSS Cerrato 02-23-2025 BUN/CREATININE RATIO SEE NOTE: Normal 6-22 [facility] Comment on above: Result Comment: Not Reported: BUN and Creatinine are within reference range. Performed By: #### 9 2498 #### [facility] of [address], [address] [place] [address] Medical Sonographer: Jean-Paul Leon MD Calcium [Mass/Vol] 9.5 mg/dL Normal 8.6-10.4 [facility] Comment on above: Performed By: #### 9 2498 #### [facility] of [address], [address] [place] [address] Medical Sonographer: Jean-Paul Leon MD Chloride [Moles/Vol] 104 mmol/L Normal 98-110 [facility] Comment on above: Performed By: #### 9 2498 #### [facility] of [address], [address] [place] [address] Medical Sonographer: Jean-Paul Leon MD CO2 [Moles/Vol] 27 mmol/L Normal 20-32 [facility] Comment on above: Performed By: #### 9 2498 #### [facility] of [address], [address] [place] [address] Medical Sonographer: Jean-Paul Leon MD Creatinine [Mass/Vol] 0.99 mg/dL Normal 0.60-1.00 [facility] Comment on above: Performed By: #### 9 2498 #### [facility] of [place] [address] Medical Sonographer: Jean-Paul Leon MD ELECTROLYTE BALANCE 9 mmol/L (calc) Normal 7-17 [facility] Comment on above: Performed By: #### 9 2498 #### [facility] of [address], [address] [place] [address] Medical Sonographer: Jean-Paul Leon MD GFR/1.73 sq M.predicted among non-blacks MDRD (S/P/Bld) [Vol rate/Area] 60 mL/min/{1.73_m2} Normal > OR = 60 [facility] Comment on above: Performed By: #### 9 2498 #### [facility] [place] [address] Medical Sonographer: Jean-Paul Leon MD Glucose [Mass/Vol] 92 mg/dL Normal 65-99 [facility] Comment on above: Result Comment: Fasting reference interval Performed By: #### 9 2498 #### [facility] [place] [address] Medical Sonographer: Jean-Paul Leon MD Potassium [Moles/Vol] 4.2 mmol/L Normal 3.5-5.3 [facility] Comment on above: Performed By: #### 9 2498 #### [facility] [place] [address] Medical Sonographer: Jean-Paul Leon MD Sodium [Moles/Vol] 140 mmol/L Normal 135-146 [facility] Comment on above: Performed By: #### 9 2498 #### [facility] [place] [address] Medical Sonographer: Jean-Paul Leon MD Urea nitrogen [Mass/Vol] 23 mg/dL Normal 7-25 [facility] Comment on above: Performed By: #### 9 2498 #### [facility] [place] [address] Medical Sonographer: Jean-Paul Leon MD Abdomen/Pelvis WITH Contrast on 11-26-2024 Abdomen/Pelvis WITH Contrast [facility] Services [address] [place] [address] Abdomen/Pelvis WITH Contrast MR#: [id number] Acct: [id number] Name: FAIVOLA VALLE Rep #: [id number] : 1950 F 74 From: David Chilel MD PCP: Dr. Mary Webster MD Status: REG CLI Study: Abdomen/Pelvis WITH Contrast Date of Exam: Exam# [id number] Ordering Dr: John Moser MD EXAM: CT Abdomen and Pelvis With Intravenous Contrast CLINICAL INDICATION: ABD PAIN TECHNIQUE: Axial computed tomography images of the abdomen and pelvis with intravenous contrast. This CT exam was performed using one or more of the following dose reduction techniques: automated exposure control, adjustment of the mA and/or kV according to patient size, and/or use of iterative reconstruction technique. COMPARISON: No relevant prior studies available. FINDINGS: LUNG BASES: Unremarkable. No mass. No consolidation. MEDIASTINUM: Distended esophagus with fluid. Aspiration precaution is recommended. ABDOMEN: LIVER: Hypodense lesion of the liver, likely cysts. Fatty infiltration of the liver. GALLBLADDER AND BILE DUCTS: Unremarkable. No calcified stones. No ductal dilation. PANCREAS: Unremarkable. No mass. No ductal dilation. SPLEEN: Unremarkable. No splenomegaly. ADRENALS: Unremarkable. No mass. KIDNEYS AND URETERS: Unremarkable. No solid mass. No hydronephrosis. STOMACH AND BOWEL: Fluid-filled prominent small bowels could represent mild enteritis. No bowel obstruction or pneumoperitoneum. Fecal retention in the colon consistent with constipation. PELVIS: APPENDIX: No findings to suggest acute appendicitis. BLADDER: Unremarkable. No mass. REPRODUCTIVE: Unremarkable as visualized. ABDOMEN and PELVIS: INTRAPERITONEAL SPACE: See above. BONES/JOINTS: Total right hip replacement. Degenerative disc disease throughout the lumbar spine. Degenerative facet arthropathy throughout the lumbar spine, most prominent in the lower lumbar spine. No acute fracture. No dislocation. SOFT TISSUES: Unremarkable. VASCULATURE: Unremarkable. No abdominal aortic aneurysm. LYMPH NODES: Unremarkable. No enlarged lymph nodes. CT/Abdomen/Pelvis WITH Contrast IMPRESSION: 1. Fluid-filled prominent small bowels could represent mild enteritis. No bowel obstruction or pneumoperitoneum. 2. Distended esophagus with fluid. Aspiration precaution is recommended. 3. Fecal retention in the colon consistent with constipation. 4. Degenerative changes lumbar spine as described. Reading Location: [facility] CC: Dr. Mary Webster MD; Dr. John Moser MD [employer]: Signed Normal [facility] Celiac Disease Profileon ENDOMYSIAL IGA Negative Normal Negative [facility] Comment on above: Performed By: #### L 3410.2400, L501.6710 #### [facility] [address] [place], [place], [id number] IMMUNOGLOB A QN 281 mg/dL Normal 64-422 [facility] Comment on above: Result Comment: Perf ormed at: [facility] [address] [id number] [facility] Supervisor: John Velez PhD, Phone: [phone] Performed By: #### L 3410.2400, L501.6710 #### [facility] [address] [place], [place], [id number] tTG IGA <2 Normal 0-3 [facility] Comment on above: Result Comment: Nega tive 0 - 3 Weak Positive 4 - 10 Positive >10 Tissue Transglutaminase (tTG) has been identified as the endomysial antigen. Studies have demonstr- ated that endomysial IgA antibodies have over 99% specificity for gluten sensitive enteropathy. Performed By: #### L 3410.2400, L501.6710 #### [facility] [address] [place], [place], [id number] CRPon 11-03-2024 C-REACTIVE PROT < 3.00 Normal 0.0-3.0 [facility] Comment on above: Order Comment: CARIDAD AN EXTRA SST Performed By: #### L 3410.2400, L501.6710 #### [facility] [address] [place], [place], [id number] CRP [Mass/Vol]Ordered By: Keron Moser on 11-03-2024 C-Reactive Protein Extended Range < 3.00 mg/L 0.0-3.0 [facility] Endomysial IgA antibody assa yOrdered By: John Moser on 11-03-2024 Endomysial IgA Antibody Negative Negative [facility] IgA [Mass/Vol]Ordered By: Keron Moser on 11-03-2024 Immunoglobulin A 281 mg/dL 64-422 [facility] Comment on above: Performed at: - L [address] [id number] Director: John Velez PhD, Phone: [phone] tTG IgA Qn (S)Ordered By: Keron Moser on 11-03-2024 Tissue Transglutaminase IgA Ab <2 U/mL 0-3 [facility] Comment on above: Negative 0 - 3 Weak Positive 4 - 10 Positive >10 Tissue Transglutaminase (tTG) has been identified as the endomysial antigen. Studies have demonstr- ated that endomysial IgA antibodies have over 99% specificity for gluten sensitive enteropathy. CT ABDOMEN PELVIS W IV CONTR Andres 10-12-2024 CT ABDOMEN PELVIS W IV CONTRAST Interpreted By: Julianne Ingram, STUDY: CT ABDOMEN PELVIS W IV CONTRAST; 10/12/2024 1:34 pm INDICATION: Signs/Symptoms:abdomi nal pain. COMPARISON: CT abdomen and pelvis 03/04/2023 (Series 3, Image 24) ACCESSION NUMBER(S): [id number] ORDERING CLINICIAN: MARY WEBSTER TECHNIQUE: Axial CT of the abdomen and pelvis was performed following intravenous administration of 70 ml of contrast Omnipaque 350 with coronal and sagittal reconstruction. FINDINGS: Lower chest: No focal consolidation or pleural effusion. Liver: Multiple cysts and too small to characterize likely benign lesions, not significantly changed. Biliary: No intrahepatic or extrahepatic bile duct dilation. No cholelithiasis. Spleen: Unremarkable. Pancreas: Unremarkable. Adrenals: Unremarkable. Kidneys: Bilateral subcentimeter low-attenuation lesions too small to characterize but likely benign. No calculus or hydronephrosis. Right-sided extrarenal pelvis. GI tract: Moderate wall thickening of the proximal jejunum appears unchanged. Large amount of stool is present throughout the colon. No evidence of bowel obstruction. The stomach, small bowel and colon are otherwise unremarkable. The appendix is not identified. Lymph nodes: Unremarkable. Mesentery/peritoneum: No free fluid, free air or fluid collection. Vasculature: Severe abdominal aortic atherosclerotic calcifications without aneurysmal dilation. Stable IVC filter with superior tip at level of L2. Pelvis: No free fluid, free air or fluid collection. Moderately distended bladder and anteverted uterus are partially obscured by metallic streak artifact. Bones/Soft tissues: Unremarkable right total hip arthroplasty. Severe left hip osteoarthritis. Moderate thoracolumbar scoliosis with multilevel degenerative disc disease. IMPRESSION: Moderate wall thickening of the proximal jejunum, possibly nonspecific enteritis, not significantly changed when compared to 03/11/2023. Follow-up with CT or MR enterography may be considered. Constipation without evidence of bowel obstruction. MACRO: None Signed by: Julianne Ingram 10/13/2024 8:41 AM Dictation workstation: [id number] [facility] CBC (INCLUDES DIFF/PLT)on Basophils (Bld) [#/Vol] 0.049 10*3/uL Normal 0-200 [facility] Comment on above: Performed By: #### 9 4792, 6399 #### [facility] of [address], [address] [place] [address] Medical Sonographer: Jean-Paul Leon MD Basophils/100 WBC (Bld) 1.4 % Normal [facility] Comment on above: Performed By: #### 9 5489, 6399 #### [facility] of [address], [address] [place] [address] Medical Sonographer: Jean-Paul Leon MD Eosinophils (Bld) [#/Vol] 0.081 10*3/uL Normal 15-500 [facility] Comment on above: Performed By: #### 9 0137, 6399 #### [facility] [address], [address] [place] [address] Medical Sonographer: Jean-Paul Leon MD Eosinophils/100 WBC (Bld) 2.3 % Normal [facility] Comment on above: Performed By: #### 9 4707, 6399 #### [facility] of [address], [address] [place] [address] Medical Sonographer: Jean-Paul Leon MD Erythrocyte distribution width (RBC) [Ratio] 13.0 % Normal 11.0-15.0 [facility] Comment on above: Performed By: #### 9 5138, 6399 #### [facility] [place] [address] Medical Sonographer: Jean-Paul Leon MD Hematocrit (Bld) [Volume fraction] 43.7 % Normal 35.0-45.0 [facility] Comment on above: Performed By: #### 9 139, 6399 #### [facility] of [place] [address] Medical Sonographer: Jean-Paul Leon MD Hemoglobin (Bld) [Mass/Vol] 14.3 g/dL Normal 11.7-15.5 [facility] Comment on above: Performed By: #### 9 2664, 6399 #### [facility] of [place] [address] Medical Sonographer: Jean-Paul Leon MD Lymphocytes (Bld) [#/Vol] 1.383 10*3/uL Normal 850-3900 [facility] Comment on above: Performed By: #### 9 2664, 6399 #### [facility] [place] [address] Medical Sonographer: Jean-Paul Leon MD Lymphocytes/100 WBC (Bld) 39.5 % Normal [facility] Comment on above: Performed By: #### 9 2664, 6399 #### [facility] [place] [address] Medical Sonographer: Jean-Paul Leon MD MCH (RBC) [Entitic mass] 28.2 pg Normal 27.0-33.0 [facility] Comment on above: Performed By: #### 9 920, 6399 #### [facility] of [place] [address] Medical Sonographer: Jean-Paul Leon MD MCHC (RBC) [Mass/Vol] 32.7 g/dL Normal 32.0-36.[address] [facility] Comment on above: Result Comment: For adults, a slight decrease in the calculated MCHC value (in the range of 30 to 32 g/dL) is most likely not clinically significant; however, it should be interpreted with caution in correlation with other red cell parameters and the patient's clinical condition. Performed By: #### 9 117, 6399 #### [facility] of [place] [address] Medical Sonographer: Jean-Paul Leon MD MCV (RBC) [Entitic vol] 86.2 fL Normal 80.0-100.0 [facility] Comment on above: Performed By: #### 9 442, 6399 #### [facility] [place] [address] Medical Sonographer: Jean-Paul Leon MD Monocytes (Bld) [#/Vol] 0.34 10*3/uL Normal 200-950 [facility] Comment on above: Performed By: #### 9 2664, 6399 #### [facility] [place] [address] Medical Sonographer: Jean-Paul Leon MD Monocytes/100 WBC (Bld) 9.7 % Normal [facility] Comment on above: Performed By: #### 9 2664, 6399 #### [facility] [place] [address] Medical Sonographer: Jean-Paul Leon MD Neutrophils (Bld) [#/Vol] 1.649 10*3/uL Normal 9535-6000 [facility] Comment on above: Performed By: #### 9 2664, 6399 #### [facility] [place] [address] Medical Sonographer: Jean-Paul Leon MD Neutrophils/100 WBC (Bld) 47.1 % Normal [facility] Comment on above: Performed By: #### 9 2664, 6399 #### [facility] [place] [address] Medical Sonographer: Jean-Paul Leon MD Platelet mean volume (Bld) [Entitic vol] 9.4 fL Normal 7.5-12.5 [facility] Comment on above: Performed By: #### 9 2664, 6399 #### [facility] [place] [address] Medical Sonographer: Jean-Paul Leon MD Platelets (Bld) [#/Vol] 233 10*3/uL Normal 140-400 [facility] Comment on above: Performed By: #### 9 7905, 6399 #### [facility] of [address], [address] [place] [address] Medical Sonographer: Jean-Paul Leon MD RBC (Bld) [#/Vol] 5.07 10*6/uL Normal 3.80-5.10 [facility] Comment on above: Performed By: #### 9 3765, 6399 #### [facility] of [address], [address] [place] [address] Medical Sonographer: Jean-Paul Leon MD WBC (Bld) [#/Vol] 3.5 10*3/uL Low 3.8-10.8 [facility] Comment on above: Performed By: #### 9 4655, 6399 #### [facility] of [place] [address] Medical Sonographer: Jean-Paul Leon MD COMPREHENSIVE METABOLIC PANE L W/ANION GAPon 09-28-2024 ALBUMIN Normal [facility] Comment on above: Order Comment: FASTI NG:NO FASTING: NO Performed By: #### 9 6365, 6399 #### [facility] [place] [address] Medical Sonographer: Jean-Paul Leon MD ALKALINE PHOSPHATASE Normal [facility] Comment on above: Order Comment: FASTI NG:NO FASTING: NO Performed By: #### 9 7475, 6399 #### [facility] [place] [address] Medical Sonographer: Jean-Paul Leon MD ALT Normal [facility] Comment on above: Order Comment: FASTI NG:NO FASTING: NO Performed By: #### 9 2285, 6399 #### [facility] [place] [address] Medical Sonographer: Jean-Paul Leon MD AST Normal [facility] Comment on above: Order Comment: FASTI NG:NO FASTING: NO Performed By: #### 9 353, 6399 #### [facility] of [address] , [address] [place] [address] Medical Sonographer: Jean-Paul Leon MD BILIRUBIN, TOTAL Normal [facility] Comment on above: Order Comment: FASTI NG:NO FASTING: NO Performed By: #### 9 2665, 6399 #### [facility] of [address], [address] [place] [address] Medical Sonographer: Jean-Paul Leon MD CALCIUM Normal [facility] Comment on above: Order Comment: FASTI NG:NO FASTING: NO Performed By: #### 9 2665, 6399 #### [facility] of [address], [address] [place] [address] Medical Sonographer: Jean-Paul Leon MD CARBON DIOXIDE Normal [facility] Comment on above: Order Comment: FASTI NG:NO FASTING: NO Performed By: #### 9 2665, 6399 #### [facility] of [address], [address] [place] [address] Medical Sonographer: Jean-Paul Leon MD CHLORIDE Normal [facility] Comment on above: Order Comment: FASTI NG:NO FASTING: NO Performed By: #### 9 2665, 6399 #### [facility] of [address], [address] [place] [address] Medical Sonographer: Jean-Paul Leon MD CREATININE Normal [facility] Comment on above: Order Comment: FASTI NG:NO FASTING: NO Performed By: #### 9 2665, 6399 #### [facility] of [address] , [address] [place] [address] Medical Sonographer: Jean-Paul Leon MD EGFR Normal [facility] Comment on above: Order Comment: FASTI NG:NO FASTING: NO Performed By: #### 9 2665, 6399 #### [facility] of [address], [address] [place] [address] Medical Sonographer: Jean-Paul Leon MD ELECTROLYTE BALANCE Normal [facility] Comment on above: Order Comment: FASTI NG:NO FASTING: NO Performed By: #### 9 2665, 6399 #### [facility] of [address] , [address] [place] [address] Medical Sonographer: Jean-Paul Leon MD GLUCOSE Normal [facility] Comment on above: Order Comment: FASTI NG:NO FASTING: NO Performed By: #### 9 2665, 6399 #### [facility] of [address], [address] [place] [address] Medical Sonographer: Jean-Paul Leon MD POTASSIUM Normal [facility] Comment on above: Order Comment: FASTI NG:NO FASTING: NO Performed By: #### 9 2665, 6399 #### [facility] of [address], [address] [place] [address] Medical Sonographer: Jean-Paul Leon MD PROTEIN, TOTAL Normal [facility] Comment on above: Order Comment: FASTI NG:NO FASTING: NO Performed By: #### 9 2665, 6399 #### [facility] of [address], [address] [place] [address] Medical Sonographer: Jean-Paul Leon MD SODIUM Normal [facility] Comment on above: Order Comment: FASTI NG:NO FASTING: NO Performed By: #### 9 2665, 6399 #### [facility] of [address], [address] [place] [address] Medical Sonographer: Jean-Paul Leon MD UREA NITROGEN (BUN) Normal [facility] Comment on above: Order Comment: FASTI NG:NO FASTING: NO Performed By: #### 9 2665, 6399 #### [facility] of [address], [address] [place] [address] Medical Sonographer: Jean-Paul Leon MD LIPASEon 09-28-2024 LIPASE Normal [facility] Comment on above: Performed By: #### 9 2665, 6399 #### [facility] of [address], [address] [place] [address] Medical Sonographer: Jean-Paul Leon MD ED Prov Noteon 06-21-2024 ED Prov Note [facility] Physician Note: NAME: Faviola Valle 74 y.o. CSN: [id number] PCP: Mary Webster DO ED Course / Medical Decision Making: Patient has a history of chronic headaches. This is typical for headache and rates about 8 out of 10. She has no focal neurologic deficit. She could not get it to go away with medications given at home. We discussed CT imaging and patient declines. Patient states this is typical for headache and does not feel she needs any imaging. I did give her morphine 2 mg IM and Zofran. The headache started to improve. She felt like she can go home. Since she is on blood thinners at home and Tylenol was not helping I gave her an E prescription for Percocet. Patient to follow-up with primary doctor. If worsening symptoms come back to the ER. Currently patient has no signs of CVA, meningitis, encephalitis, intracranial hemorrhage, or carotid dissection. Medical Decision Making Amount and/or Complexity of Data Reviewed Independent Historian: Details: Patient gave history Clinical Impression: 1. Acute post-traumatic headache, not intractable Disposition: Patient is being discharged to home History: Chief Complaint: Headache HPI: The history was obtained from the patient. She is a 74 y.o. female who presents with a chief complaint of Headache. HPI patient comes in with a headache. He states she has a history of migraines and tension headaches. She has seen a neurologist in the past. She states a lot of times her headaches are caused because she has a long neck and gets tension in her neck. She relates this headache to pulling weeds the other day and straining her neck. Currently she does not have any neck pain her pain is in the top of her head. She rates it 8 out of 10. She did try to take a Tylenol and a half of Vicodin at home which did not help. He tells me she is on blood thinners because she has had a blood clot in the past. She denies any fever or sinus congestion. She has slight nausea. She did break a blood vessel in her eye a couple days ago. She has no visual change. She denies any weakness or numbness or tingling. 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 Hx: Family History Adopted: Yes SOC. Hx: Social History Socioeconomic History Marital status: Tobacco Use Smoking status: Former Current packs/day: 0.00 Types: Cigarettes Quit date: 2009 Years since quittin.8 Smokeless tobacco: Never Vaping Use Vaping status: Former Substance and Sexual Activity Alcohol use: Not Currently Comment: occasional Drug use: Not Currently MEDs: Previous Medications Medication Sig acetaminophen (TYLENOL) 500 MG tablet Take 1 (one) tablet (500 mg total) by mouth every 6 (six) hours as needed for pain . albuterol sulfate (PROAIR HFA INHL) Inhale 2 puffs daily as needed . atorvastatin (LIPITOR) 20 MG tablet Take 1 (one) tablet (20 mg total) by mouth Friday, Friday, Friday . biotin 1 mg cap Take 1 (one) capsule (1 mg total) by mouth daily . cetirizine (ZYRTEC) 10 MG tablet Take 1 (one) tablet (10 mg total) by mouth daily as needed for allergies . cholecalciferol, vitamin D3, 25 mcg (1,000 unit) capsule Take 1 (one) capsule (1,000 Units total) by mouth daily . ezetimibe (ZETIA) 10 mg tablet Take 1 (one) tablet (10 mg total) by mouth . fluticasone propionate (FLONASE) 50 mcg/actuation nasal spray Instill 2 (two) sprays into each nostril daily . folic acid (FOLVITE) 400 MCG tablet Take 1 (one) tablet (400 mcg total) by mouth daily . ibuprofen (ADVIL,MOTRIN) 200 MG tablet Take 1 (one) tablet (200 mg total) by mouth every 6 (six) hours as needed for pain . multivitamin with minerals tablet Take 1 (one) tablet by mouth daily . ondansetron (ZOFRAN-ODT) 4 MG disintegrating tablet Dissolve 1 (one) tablet (4 mg total) on top of tongue every 8 (eight) hours as needed for nausea . tiZANidine (ZANAFLEX) 4 MG capsule Take 1 (one) capsule (4 mg total) by mouth nightly as needed for muscle spasms . ubidecarenone (coenzyme Q10) 100 mg Tab Take 1 (one) tablet (100 mg total) by mouth daily . vitamin E 400 UNIT capsule Take 1 (one) capsule (400 Units total) by mouth daily . warfarin (COUMADIN) 1 MG tablet Take 1 (one) tablet (1 mg total) by mouth See Admin Instructions . warfarin (COUMADIN) 5 MG tablet Take 1 (one) tablet (5 mg total) by mouth See Admin Instructions . zinc sulf (more content not included)... Normal [facility] Hepatic function 2000 panelo n 02-20-2024 Albumin BCP dye [Mass/Vol] 4.3 g/dL Normal 3.4-5.0 [facility] Comment on above: Performed By: #### 2 4325-3 #### MANNY FRANCOIS ([id number]) [facility] ([facility]) [address] [place] [address] 89396 ALP [Catalytic activity/Vol] 53 U/L Normal 33-136 [facility] Comment on above: Performed By: #### 2 4325-3 #### MANNY FRANCOIS ([id number]) [facility] ([facility]) [address] [place] [address] 84442 ALT With P-5'-P [Catalytic activity/Vol] 16 U/L Normal 7-45 [facility] Comment on above: Result Comment: Stacy ents treated with Sulfasalazine may generate falsely decreased results for ALT. Performed By: #### 2 4325-3 #### MANNY FRANCOIS ([id number]) [facility] ([facility]) [address] [place] [address] 03419 AST With P-5'-P [Catalytic activity/Vol] 28 U/L Normal 9-39 [facility] Comment on above: Result Comment: MILD HEMOLYSIS DETECTED. The result may be falsely elevated due to hemolysis or other interferents. Clinical correlation is recommended. Repeat testing may be considered. Performed By: #### 2 4325-3 #### MANNY FRANCOIS ([id number]) [facility] ([facility]) [address] [place] [address] 97052 Bilirubin [Mass/Vol] 0.5 mg/dL Normal 0.0-1.2 [facility] Comment on above: Performed By: #### 2 4325-3 #### MANNY FRANCOIS ([id number]) [facility] ([facility]) [address] [place] [address] 15181 Bilirubin.direct [Mass/Vol] 0.1 mg/dL Normal 0.0-0.3 [facility] Comment on above: Result Comment: MILD HEMOLYSIS DETECTED. The result may be falsely decreased due to hemolysis or other interferents. Clinical correlation is recommended. Repeat testing may be considered. Performed By: #### 2 4325-3 #### MANNY FRANCOIS ([id number]) [facility] ([facility]) [address] [place] [address] 66692 Protein [Mass/Vol] 6.6 g/dL Normal 6.4-8.2 [facility] Comment on above: Performed By: #### 2 4325-3 #### MANNY FRANCOIS ([id number]) [facility] ([facility]) [address] [place] [address] 59044 Triacylglycerol lipaseon Lipase [Catalytic activity/Vol] 36 U/L Normal 9-82 [facility] Comment on above: Order Comment: Venip uncture immediately after or during the administration of Metamizole may lead to falsely low results. Testing should be performed immediately prior to Metamizole dosing. Performed By: #### 3 040-3 #### MANNY FRANCOIS ([id number]) [facility] ([facility]) [address] [place] [address] 92225 Basic metabolic 2000 panelon 02-13-2024 Anion gap [Moles/Vol] 10 mmol/L Normal 10-20 [facility] Comment on above: Performed By: #### 2 4321-2 #### MANNY FRANCOIS ([id number]) [facility] ([facility]) [address] [place] [address] 75244 Calcium [Mass/Vol] 9.3 mg/dL Normal 8.6-10.3 [facility] Comment on above: Performed By: #### 2 4321-2 #### MANNY FRANCOIS ([id number]) [facility] ([facility]) [address] [place] [address] 34407 Chloride [Moles/Vol] 106 mmol/L Normal 98-107 [facility] Comment on above: Performed By: #### 2 4321-2 #### MANNY FRANCOIS ([id number]) [facility] ([facility]) [address] [place] [address] CO2 [Moles/Vol] 29 mmol/L Normal 21-32 [facility] Comment on above: Performed By: #### 2 4321-2 #### MANNY FRANCOIS ([id number]) [facility] ([facility]) [address] [place] [address] 90918 Creatinine [Mass/Vol] 1.03 mg/dL Normal 0.50-1.05 [facility] Comment on above: Performed By: #### 2 432-2 #### MANNY FRANCOIS ([id number]) [facility] ([facility]) [address] [place] [address] 10348 Glomerular filtration rate/1.73 sq M.predicted 58 mL/min/1.73m*2 Low >60 [facility] Comment on above: Result Comment: Calc ulations of estimated GFR are performed using the 2020 CKD-EPI Study Refit equation without the race variable for the IDMS-Traceable creatinine methods. https://jasn.asnjournals.org/content/early//ASN.018106 2202 Performed By: #### 2 432-2 #### MANNY FRANCOIS ([id number]) [facility] ([facility]) [address] [place] [address] 97623 Glucose [Mass/Vol] 85 mg/dL Normal 74-99 [facility] Comment on above: Performed By: #### 2 4321-2 #### MANNY FRANCOIS ([id number]) [facility] ([facility]) [address] [place] [address] 89731 Potassium [Moles/Vol] 4.4 mmol/L Normal 3.5-5.3 [facility] Comment on above: Performed By: #### 2 4321-2 #### MANNY FRANCOIS ([id number]) [facility] ([facility]) [address] [place] [address] 94323 Sodium [Moles/Vol] 141 mmol/L Normal 136-145 [facility] Comment on above: Performed By: #### 2 4321-2 #### MANNY FRANCOIS ([id number]) [facility] ([facility]) [address] [place] [address] 25130 Urea nitrogen [Mass/Vol] 29 mg/dL High 6- [facility] Comment on above: Performed By: #### 2 4321-2 #### MANNY FRANCOIS ([id number]) [facility] ([facility]) [address] [place] [address] 47414 CBC W Auto Differential pane l (Bld)on 02-13-2024 Basophils (Bld) [#/Vol] 0.05 x10*3/uL Normal 0.00-0.10 [facility] Comment on above: Performed By: #### 5 7021-8 #### MANNY FRANCOIS ([id number]) [facility] ([facility]) [address] [place] [address] 71964 Basophils/100 WBC (Bld) 1.2 % Normal 0.0-2.0 [facility] Comment on above: Performed By: #### 5 7021-8 #### MANNY FRANCOIS ([id number]) [facility] ([facility]) [address] [place] [address] 58384 Eosinophils (Bld) [#/Vol] 0.09 x10*3/uL Normal 0.00-0.40 [facility] Comment on above: Performed By: #### 5 7021-8 #### MANNY FRANCOIS ([id number]) [facility] ([facility]) [address] [place] [address] 35905 Eosinophils/100 WBC (Bld) 2.2 % Normal 0.0-6.0 [facility] Comment on above: Performed By: #### 5 7021-8 #### MANNY FRANCOIS ([id number]) [facility] ([facility]) [address] [place] [address] 17616 Erythrocyte distribution width (RBC) [Ratio] 14.3 % Normal 11.5-14.5 [facility] Comment on above: Performed By: #### 5 7021-8 #### MANNY FRANCOIS ([id number]) [facility] ([facility]) [address] [place] [address] Hematocrit (Bld) [Volume fraction] 44.0 % Normal 36.0-46.0 [facility] Comment on above: Performed By: #### 5 7021-8 #### MANNY FRANCOIS ([id number]) [facility] ([facility]) [address] [place] [address] Hemoglobin (Bld) [Mass/Vol] 13.7 g/dL Normal 12.0-16.0 [facility] Comment on above: Performed By: #### 5 7021-8 #### MANNY FRANCOIS ([id number]) [facility] ([facility]) [address] [place] [address] Immature granulocytes (Bld) [#/Vol] 0.01 x10*3/uL Normal 0.00-0.50 [facility] Comment on above: Performed By: #### 5 7021-8 #### MANNY FRANCOIS ([id number]) [facility] ([facility]) [address] [place], [place] [address] Immature granulocytes/100 WBC (Bld) 0.2 % Normal 0.0-0.9 [facility] Comment on above: Result Comment: Nancy ture Granulocyte Count (IG) includes promyelocytes, myelocytes and metamyelocytes but does not include bands. Percent differential counts (%) should be interpreted in the context of the absolute cell counts (cells/UL). Performed By: #### 5 7021-8 #### MANNY FRANCOIS ([id number]) [facility] ([facility]) [address] [place] [address] 49916 Lymphocytes (Bld) [#/Vol] 1.72 x10*3/uL Normal 0.80-3.00 [facility] Comment on above: Performed By: #### 5 7021-8 #### MANNY FRANCOIS ([id number]) [facility] ([facility]) [address] [place] [address] 67017 Lymphocytes/100 WBC (Bld) 41.7 % Normal 13.0-44.0 [facility] Comment on above: Performed By: #### 5 7021-8 #### MANNY FRANCOIS ([id number]) [facility] ([facility]) [address] [place] [address] 90793 MCH (RBC) [Entitic mass] 27.5 pg Normal 26.0-34.0 [facility] Comment on above: Performed By: #### 5 7021-8 #### MANNY FRANCOIS ([id number]) [facility] ([facility]) [address] [place] [address] 38880 MCHC (RBC) [Mass/Vol] 31.1 g/dL Low 32.0-36.0 [facility] Comment on above: Performed By: #### 5 7021-8 #### MANNY FRANCOIS ([id number]) [facility] ([facility]) [address] [place] [address] 82109 MCV (RBC) [Entitic vol] 88 fL Normal 80-100 [facility] Comment on above: Performed By: #### 5 7021-8 #### MANNY FRANCOIS ([id number]) [facility] ([facility]) [address] [place] [address] 90045 Monocytes (Bld) [#/Vol] 0.47 x10*3/uL Normal 0.05-0.80 [facility] Comment on above: Performed By: #### 5 7021-8 #### MANNY FRANCOIS ([id number]) [facility] ([facility]) [address] [place] [address] 36219 Monocytes/100 WBC (Bld) 11.4 % Normal 2.0-10.0 [facility] Comment on above: Performed By: #### 5 7021-8 #### MANNY FRANCOIS ([id number]) [facility] ([facility]) [address] [place] [address] 57814 Neutrophils (Bld) [#/Vol] 1.78 x10*3/uL Normal 1.60-5.50 [facility] Comment on above: Result Comment: Perc ent differential counts (%) should be interpreted in the context of the absolute cell counts (cells/uL). Performed By: #### 5 7021-8 #### MANNY FRANCOIS ([id number]) [facility] ([facility]) [address] [place] [address] 84854 Neutrophils/100 WBC (Bld) 43.3 % Normal 40.0-80.0 [facility] Comment on above: Performed By: #### 5 7021-8 #### MANNY FRANCOIS ([id number]) [facility] ([facility]) [address] [place] [address] 52764 Nucleated RBC/100 WBC (Bld) [Ratio] 0.0 /100 WBCs Normal 0.0-0.0 [facility] Comment on above: Performed By: #### 5 7021-8 #### MANNY FRANCOIS ([id number]) [facility] ([facility]) [address] [place] [address] 11563 Platelets (Bld) [#/Vol] 220 x10*3/uL Normal 150-450 [facility] Comment on above: Performed By: #### 5 7021-8 #### MANNY FRANCOIS ([id number]) [facility] ([facility]) [address] [place] [address] 80256 RBC (Bld) [#/Vol] 4.98 x10*6/uL Normal 4.00-5.20 [facility] Comment on above: Performed By: #### 5 7021-8 #### MANNY FRANCOIS ([id number]) [facility] ([facility]) [address] [place] [address] 57840 WBC (Bld) [#/Vol] 4.1 x10*3/uL Low 4.4-11.3 [facility] Comment on above: Performed By: #### 5 7021-8 #### MANNY FRANCOIS ([id number]) [facility] ([facility]) [address] [place] [address] 99096 Calcidiolon 02-13-2024 25-hydroxyvitamin D3 [Mass/Vol] 52 ng/mL Normal 30-100 [facility] Comment on above: Order Comment: Defic iency: < 20 ng/ml Insufficiency: 20-29 ng/ml Sufficiency: 30-100 ng/ml This assay accurately quantifies the sum of Vitamin D3, 25-Hydroxy and Vitamin D2,25-Hydroxy. Performed By: #### 1 989-3 #### MANNY FRANCOIS ([id number]) [facility] ([facility]) [facility] [place] [address] Lipid 1996 panelon 4 Cholesterol [Mass/Vol] 177 mg/dL Normal 0-199 [facility] Comment on above: Result Comment: Age Desirable Borderline High High 0-19 Y 0 - 169 170 - 199 >/= 200 20-24 Y 0 - 189 190 - 224 >/= 225 >24 Y 0 - 199 200 - 239 >/= 240 All ranges are based on fasting samples. Specific therapeutic targets will vary based on patient-specific cardiac risk. Pediatric guidelines reference:Pediatrics 2011, 128(S5).Adult guidelines reference: NCEP ATPIII Guidelines,NESS 2001, 258:2486-97 Venipuncture immediately after or during the administration of Metamizole may lead to falsely low results. Testing should be performed immediately prior to Metamizole dosing. Performed By: #### 2 4331-1 #### MANNY FRANCOIS ([id number]) [facility] ([facility]) [address] [place] [address] 71006 Cholesterol in HDL [Mass/Vol] 56.0 mg/dL Normal [facility] Comment on above: Result Comment: Age Very Low Low Normal High 0-19 Y < 35 < 40 40-45 ---- 20-24 Y ---- < 40 >45 ---- >24 Y ---- < 40 40-60 >60 Performed By: #### 2 4331-1 #### MANNY FRANCOIS ([id number]) [facility] ([facility]) [address] [place] [address] 70950 Cholesterol in LDL [Mass/Vol] 106 mg/dL High <=99 [facility] Comment on above: Result Comment: Near Borderline AGE Desirable Optimal High High Very High 0-19 Y 0 - 109 --- 110-129 >/= 130 ---- 20-24 Y 0 - 119 --- 120-159 >/= 160 ---- >24 Y 0 - 99 100-129 130-159 160-189 >/=190 Performed By: #### 2 4331-1 #### MANNY FRANCOIS ([id number]) [facility] ([facility]) [facility] [place] [address] Cholesterol in VLDL [Mass/Vol] 15 mg/dL Normal 0-40 [facility] Comment on above: Performed By: #### 2 4331-1 #### MANNY FRANCOIS ([id number]) [facility] ([facility]) [facility] [place] [address] CHOLESTEROL/HDL RATIO 3.2 Normal [facility] Comment on above: Result Comment: Ref Values Desirable < 3.4 High Risk > 5.0 Performed By: #### 2 4331-1 #### MANNY FRANCOIS ([id number]) [facility] ([facility]) [address] [place] [address] 79200 NON HDL CHOLESTEROL 121 mg/dL Normal 0-149 [facility] Comment on above: Result Comment: Age Desirable Borderline High High Very High 0-19 Y 0 - 119 120 - 144 >/= 145 >/= 160 20-24 Y 0 - 149 150 - 189 >/= 190 ---- >24 Y 30 mg/dL above LDL Cholesterol goal Performed By: #### 2 4331-1 #### MANNY FRANCOIS ([id number]) [facility] ([facility]) [address] [place] [address] 45299 Triglyceride [Mass/Vol] 73 mg/dL Normal 0-149 [facility] Comment on above: Result Comment: Age Desirable Borderline High High Very High 0 D-90 D 19 - 174 ---- ---- ---- 91 D- 9 Y 0 - 74 75 - 99 >/= 100 ---- 10-19 Y 0 - 89 90 - 129 >/= 130 ---- 20-24 Y 0 - 114 115 - 149 >/= 150 ---- >24 Y 0 - 149 150 - 199 200- 499 >/= 500 Venipuncture immediately after or during the administration of Metamizole may lead to falsely low results. Testing should be performed immediately prior to Metamizole dosing. Performed By: #### 2 4331-1 #### MANNY FRANCOIS ([id number]) [facility] ([facility]) [address] [place] [address] PTINR - POCTon 04-25-2023 INR Coag (PPP) [Relative time] 2.8 {INR} High 1.0 - 1.2 [facility] Comment on above: Performed By: #### P PTIN #### [facility] [place] [place] [address] PT Coag (PPP) [Time] 32.2 s High 8.0 - 11.0 [facility] Comment on above: Performed By: #### P PTIN #### [facility] [place] [place] [address] Laboratory - Coagulationon 0 03-28-2023 PT Coag (PPP) [Time] 25.8 s above high threshold 8.0 - 11.0 [facility] Work Phone: No Panel Informationon 03-28 2.2 1 above high threshold 1.0 - 1.2 [facility] Work Phone: PTINR - POCTon 03-28-2023 INR Coag (PPP) [Relative time] 2.2 {INR} High 1.0 - 1.2 [facility] Comment on above: Performed By: #### P PTIN #### [facility] [place] [place] [address] PT Coag (PPP) [Time] 25.8 s High 8.0 - 11.0 [facility] Comment on above: Performed By: #### P PTIN #### [facility] [place] [place] [address] CT ABDOMEN AND PELVIS W IV C ONTRASTon 03-11-2023 CT ABDOMEN AND PELVIS W IV CONTRAST Patient Name: FAVIOLA VALLE STUDY: CT ABDOMEN AND PELVIS W IV CONTRAST; 03/11/2023 10:15 am INDICATION: RUQ mass. COMPARISON: None. ACCESSION NUMBER(S): [id number] ORDERING CLINICIAN: MARY WEBSTER TECHNIQUE: CT of the abdomen and pelvis was performed. Contiguous axial images were obtained at 3 mm slice thickness through the abdomen and pelvis. Coronal and sagittal reconstructions at 3 mm slice thickness were performed. 75 mL Omnipaque 350 administered intravenously without immediate complication. FINDINGS: LOWER CHEST: Mild bibasilar atelectasis. Coronary atherosclerosis. ABDOMEN: LIVER: Scattered cysts measuring up to 22 mm in segment II. A tiny cyst in segment V demonstrates minimal calcification. BILE DUCTS: Not dilated. GALLBLADDER: No calcified stone or definite inflammation. PANCREAS: Unremarkable SPLEEN: Tiny calcified granuloma posteriorly. ADRENAL GLANDS: Unremarkable KIDNEYS AND URETERS: Scattered small cortical cysts. PELVIS: Partially obscured by hip arthroplasty artifact. BLADDER: Mostly obscured. Partially distended. REPRODUCTIVE ORGANS: Partially obscured. Uterus is anteverted. BOWEL: Moderate sigmoid diverticulosis. There is an approximately 6 cm segment of pelvic small bowel, probably proximal ileum, demonstrate circumferential wall thickening up to 8 mm and dilatation up to 3 cm. The remainder of the small bowel demonstrates normal caliber and wall thickness. No findings of bowel obstruction otherwise. Appendix not identified. Unremarkable mesentery. VESSELS: Aortoiliac system is patent without aneurysm. Major visceral branches are patent. Severe atherosclerosis. IVC and major branches are grossly patent. IVC filter is noted. Major portal venous branches are patent. PERITONEUM AND RETROPERITONEUM: No free fluid or free air. No abdominal or pelvic lymphadenopathy. BONE AND ABDOMINAL WALL: Degenerative changes of the lumbar spine with mild dextroscoliosis. Partially imaged right hip arthroplasty. Degenerative changes of the spine. IMPRESSION: Circumferential wall thickening involving a short segment of proximal ileum which could represent a focal enteritis. Suggest follow-up with MR or CT enterography to document resolution, as neoplasm could also have this appearance. (Please note there is no additional evidence of metastatic disease in the abdomen or pelvis otherwise.) Electronically signed by: JOHNNIE PEÑA MD Normal [facility] CT Abdomen and Pelvis with I V Contraston 03-11-2023 CT Abdomen and Pelvis W contrast IV Normal [facility] Work Phone: HEPATIC FUNCTION PANELon Albumin [Mass/Vol] 4.3 g/dL Normal 3.4 - 5.0 [facility] Comment on above: Performed By: #### H EPFP #### [place] [address] ALP [Catalytic activity/Vol] 83 U/L Normal 33 - 136 [facility] Comment on above: Performed By: #### H EPFP #### [address] [address] ALT [Catalytic activity/Vol] 24 U/L Normal 7 - 45 [facility] Comment on above: Result Comment: Stacy ents treated with Sulfasalazine may generate falsely decreased results for ALT. Performed By: #### H EPFP #### [place] [id number] AST [Catalytic activity/Vol] 26 U/L Normal 9 - 39 [facility] Comment on above: Performed By: #### H EPFP #### [place] [id number] Bilirubin [Mass/Vol] 0.5 mg/dL Normal 0.0 - 1.2 [facility] Comment on above: Performed By: #### H EPFP #### [place] [address] Bilirubin.indirect [Mass/Vol] 0.1 mg/dL Normal 0.0 - 0.3 [facility] Comment on above: Performed By: #### H EPFP #### [place] [id number] Protein [Mass/Vol] 6.6 g/dL Normal 6.4 - 8.2 [facility] Comment on above: Performed By: #### H EPFP #### [place] [id number] Lab Specimen Source Normal [facility] Comment on above: Performed By: #### H EPFP #### [address] [address] Hepatic Function Panelon Albumin BCP dye [Mass/Vol] 4.3 g/dL 3.4 - 5.0 [facility] Work Phone: Comment on above: SOURCE: ALP [Catalytic activity/Vol] 83 U/L 33 - 136 [facility] Work Phone: ALT With P-5'-P [Catalytic activity/Vol] 24 U/L 7 - 45 [facility] Work Phone: Comment on above: Patients treated wit h Sulfasalazine may generate falsely decreased results for ALT. AST With P-5'-P [Catalytic activity/Vol] 26 U/L 9 39 [facility] Work Phone: Bilirubin [Mass/Vol] 0.5 mg/dL 0.0 - 1.2 [facility] Work Phone: Bilirubin.direct [Mass/Vol] 0.1 mg/dL 0.0 - 0.3 [facility] Work Phone: Protein [Mass/Vol] 6.6 g/dL 6.4 - 8.2 [facility] Work Phone: PTINR - POCTon 02-28-2023 INR Coag (PPP) [Relative time] 2.1 {INR} High 1.0 - 1.2 [facility] Comment on above: Performed By: #### P PTIN #### [facility] [place] [place] [address] PT Coag (PPP) [Time] 24.6 s High 8.0 - 11.0 [facility] Comment on above: Performed By: #### P PTIN #### [facility] [place] [place] [address] BASIC METABOLIC PANELon 02-02 Anion gap [Moles/Vol] 10 mmol/L Normal 10 - 20 [facility] Comment on above: Performed By: #### P PTIN #### [facility] [place] [place] [address] Calcium [Mass/Vol] 8.8 mg/dL Normal 8.6 - 10.3 [facility] Comment on above: Performed By: #### P PTIN #### [facility] [address] [address] Chloride [Moles/Vol] 107 mmol/L Normal 98 - 107 [facility] Comment on above: Performed By: #### P PTIN #### [facility] [place] [id number] Creatinine [Mass/Vol] 0.97 mg/dL Normal 0.50 - 1.05 [facility] Comment on above: Performed By: #### P PTIN #### [facility] [address] [address] GFR/1.73 sq M.predicted among non-blacks MDRD (S/P/Bld) [Vol rate/Area] 62 mL/min/{1.73_m2} Normal >90 [facility] Comment on above: Result Comment: CALC ULATIONS OF ESTIMATED GFR ARE PERFORMED USING THE 2020 CKD-EPI STUDY REFIT EQUATION WITHOUT THE RACE VARIABLE FOR THE IDMS-TRACEABLE CREATININE METHODS. https://jasn.asnjournals.org/content/early/ASN.529535 1576 Performed By: #### P PTIN #### [facility] [place] [id number] Glucose [Mass/Vol] 93 mg/dL Normal 74 - 99 [facility] Comment on above: Performed By: #### P PTIN #### [facility] [id number] HCO3 (Bld) [Moles/Vol] 28 mmol/L Normal 21 - 32 [facility] Comment on above: Performed By: #### P PTIN #### [place] [id number] Potassium [Moles/Vol] 4.4 mmol/L Normal 3.5 - 5.3 [facility] Comment on above: Performed By: #### P PTIN #### [facility] [place] [id number] Sodium [Moles/Vol] 141 mmol/L Normal 136 - 145 [facility] Comment on above: Performed By: #### P PTIN #### [facility] [address] [address] Urea nitrogen [Mass/Vol] 26 mg/dL High 6 - 23 [facility] Comment on above: Performed By: #### P PTIN #### [address] [address] Lab Specimen Source Normal [facility] Comment on above: Performed By: #### P PTIN #### [facility] [place] [address] CBC AND DIFFERENTIALon 02-21 % AUTOMATED IMMATURE GRAN 0.2 % Normal 0.0 - 0.9 [facility] Comment on above: Result Comment: Nancy ture Granulocyte Count (IG) includes promyelocytes, myelocytes and metamyelocytes but does not include bands. Percent differential counts (%) should be interpreted in the context of the absolute cell counts (cells/L). Performed By: #### P PTIN #### [place] [address] Basophils (Bld) [#/Vol] 0.06 10*3/uL Normal 0.00 - 0.10 [facility] Comment on above: Performed By: #### P PTIN #### [place] [address] Basophils/100 WBC (Bld) 1.3 % Normal 0.0 - 2.0 [facility] Comment on above: Performed By: #### P PTIN #### [place] [address] Eosinophils (Bld) [#/Vol] 0.06 10*3/uL Normal 0.00 - 0.40 [facility] Comment on above: Performed By: #### P PTIN #### [place] [address] Eosinophils/100 WBC (Bld) 1.3 % Normal 0.0 - 6.0 [facility] Comment on above: Performed By: #### P PTIN #### [place] [address] Erythrocyte distribution width (RBC) [Ratio] 14.4 % Normal 11.5 - 14.5 [facility] Comment on above: Performed By: #### P PTIN #### [place] [address] Hematocrit (Bld) [Volume fraction] 40.2 % Normal 36.0 - 46.0 [facility] Comment on above: Performed By: #### P PTIN #### [place] [address] Hemoglobin (Bld) [Mass/Vol] 12.3 g/dL Normal 12.0 - 16.0 [facility] Comment on above: Performed By: #### P PTIN #### [facility] [address] [address] Lymphocytes (Bld) [#/Vol] 1.81 10*3/uL Normal 0.80 - 3.00 [facility] Comment on above: Performed By: #### P PTIN #### [facility] [address] [address] Lymphocytes/100 WBC (Bld) 38.7 % Normal 13.0 - 44.0 [facility] Comment on above: Performed By: #### P PTIN #### [facility] [address] [address] MCHC (RBC) [Mass/Vol] 30.6 g/dL Low 32.0 - 36.0 [facility] Comment on above: Performed By: #### P PTIN #### [address] [address] MCV (RBC) [Entitic vol] 89 fL Normal 80 - 100 [facility] Comment on above: Performed By: #### P PTIN #### [address] [address] Monocytes (Bld) [#/Vol] 0.53 10*3/uL Normal 0.05 - 0.80 [facility] Comment on above: Performed By: #### P PTIN #### [facility] [address] [address] Monocytes/100 WBC (Bld) 11.3 % Normal 2.0 - 10.0 [facility] Comment on above: Performed By: #### P PTIN #### [facility] [address] [address] Neutrophils (Bld) [#/Vol] 2.21 10*3/uL Normal 1.60 - 5.50 [facility] Comment on above: Result Comment: Perc ent differential counts (%) should be interpreted in the context of the absolute cell counts (cells/L). Performed By: #### P PTIN #### [facility] [address] [address] Neutrophils/100 WBC (Bld) 47.2 % Normal 40.0 - 80.0 [facility] Comment on above: Performed By: #### P PTIN #### [facility] [address] [address] Platelets (Bld) [#/Vol] 240 10*3/uL Normal 150 - 450 [facility] Comment on above: Performed By: #### P PTIN #### [facility] [address] [address] RBC 4.50 x10E12/L Normal 4.00 - 5.20 [facility] Comment on above: Performed By: #### P PTIN #### [facility] [address] [address] WBC (Bld) [#/Vol] 4.7 10*3/uL Normal 4.4 - 11.3 [facility] Comment on above: Performed By: #### P PTIN #### [facility] [place] [id number] DIGITAL MAMM SCREENING W/ TO Anderson 02-14-2023 DIGITAL MAMM SCREENING W/ DEANNA Patient Name: FAVIOLA VALLE STUDY: DIGITAL MAMM SCREENING W/ DEANNA; 02/14/2023 8:54 am ACCESSION NUMBER(S): [id number] ORDERING CLINICIAN: MARY WEBSTER INDICATION: Screening. COMPARISON: 06/02/2020, 10/19/2021 FINDINGS: 2D and tomosynthesis images were reviewed at 1 mm slice thickness. There are areas of scattered fibroglandular tissue. No suspicious masses or calcifications are identified. CAD was utilized IMPRESSION: No mammographic evidence of malignancy. BI-RADS CATEGORY: Category: 1 - Negative. Recommendation: 1 Year Screening. For any future breast imaging appointments, please call [phone] ([phone]). Electronically signed by: ADRIANO BLACKBURN MD [facility] PTINR Brien Tyson 01-31-2023 INR Coag (PPP) [Relative time] 2.6 {INR} High 1.0 - 1.2 [facility] Comment on above: Performed By: #### P PTIN #### [facility] [address] [address] PT Coag (PPP) [Time] 29.7 s High 8.0 - 11.0 [facility] Comment on above: Performed By: #### P PTIN #### [facility] [place] [address] PTINR - POCTon 01-03-2023 INR Coag (PPP) [Relative time] 2.7 {INR} High 1.0 - 1.2 [facility] Comment on above: Performed By: #### P PTIN #### [facility] [place] [address] PT Coag (PPP) [Time] 31.4 s High 8.0 - 11.0 [facility] Comment on above: Performed By: #### P PTIN #### [facility] [address] [place] [address] US DUPLEX EXTREMITY DVT RIGH Ton 01-03-2023 US DUPLEX EXTREMITY DVT RIGHT EXAMINATION: US DUPLEX EXTREMITY DVT RIGHT HISTORY: Right calf pain and edema. History of right hip arthroplasty 11/26/2022 COMPARISON: None. TECHNIQUE: Venous duplex examination performed using B-mode, color flow and spectral analysis. FINDINGS: The visualized right lower extremity venous system exhibits normal flow, phasicity, augmentation, compressibility and waveforms. IMPRESSION: No visualized venous thrombus Normal [facility] US.doppler Extremity vessels - righton 01-03-2023 IMPRESSION: No visualized venous thrombus RADIOLOGY EXAMINATION: US DUPLEX EXTREMITY DVT RIGHT HISTORY: Right calf pain and edema. History of right hip arthroplasty 11/26/2022 COMPARISON: None. TECHNIQUE: Venous duplex examination performed using B-mode, color flow and spectral analysis. FINDINGS: The visualized right lower extremity venous system exhibits normal flow, phasicity, augmentation, compressibility and waveforms. RADIOLOGY Jatinder Campbell, - 01/03/2023 EXAMINATION: US DUPLEX EXTREMITY DVT RIGHT HISTORY: Right calf pain and edema. History of right hip arthroplasty 11/26/2022 COMPARISON: None. TECHNIQUE: Venous duplex examination performed using B-mode, color flow and spectral analysis. FINDINGS: The visualized right lower extremity venous system exhibits normal flow, phasicity, augmentation, compressibility and waveforms. IMPRESSION IMPRESSION: No visualized venous thrombus [facility] Study observation (narrative) [facility] US.doppler Extremity vessels - rightOrdered By: Jatinder Campbell on 01-03-2023 [facility] Work Phone: PTINR - [facility] 12-20-2022 INR Coag (PPP) [Relative time] 2.8 {INR} High 1.0 - 1.2 [facility] Comment on above: Performed By: #### P PTIN #### [facility] [place] [address] PT Coag (PPP) [Time] 32.5 s High 8.0 - 11.0 [facility] Comment on above: Performed By: #### P PTIN #### [facility] [place] [address] PTINR - [facility] 12-16-2022 INR Coag (PPP) [Relative time] 1.6 {INR} High 1.0 - 1.2 [facility] Comment on above: Performed By: #### P PTIN #### [facility] [place] [address] PT Coag (PPP) [Time] 18.9 s High 8.0 - 11.0 [facility] Comment on above: Performed By: #### P PTIN #### [facility] [place] [id number] URINE CULTURE,BACTERIALon URINE CULTURE,BACTERIAL PATIENT: FAVIOLA VALLE LOCATION: [facility]#: [id number] : 52 AGE: SEX: F ORDERED BY: MARY WEBSTER SOURCE: URINE COLLECTED: 12/13/22 13:43 ANTIBIOTICS AT EDUARDA.: RECEIVED : 12/14/22 01:29 SITE: Clean Catch/Voided R E S U L T S URINE CULTURE,BACTERIAL FINAL 12/16/22 11:21 ISOLATE1 : Escherichia coli >100,000 CFU/ML __ Organism E coli Antibiotic BP INTRP __ Ampicillin R Amox/Clavulanate R Ceftriaxone S Cefazolin R Ciprofloxacin S Nitrofurantoin S Gentamicin S Levofloxacin S Piperc/Tazobact S Trimeth/Sulfa S S=SUSCEPTIBLE I=INTERMEDIATE R=RESISTANT SDD=SUSCEPTIBLE DOSE DEPENDENT NS=NONSUSCEPTIBLE X=REPORTED IN ERROR Normal [facility] Comment on above: Performed By: #### U RINC #### [facility] [address] [place] [address] PTINR - [facility] 11-08-2022 INR Coag (PPP) [Relative time] 2.9 {INR} High 1.0 - 1.2 [facility] Comment on above: Performed By: #### P PTIN #### [facility] [address] [place] [address] PT Coag (PPP) [Time] 33.6 s High 8.0 - 11.0 [facility] Comment on above: Performed By: #### P PTIN #### [facility] [address] [address] PTINR - [facility] 10-14-2022 INR Coag (PPP) [Relative time] 2.5 {INR} High 1.0 - 1.2 [facility] Comment on above: Performed By: #### P PTIN #### [facility] [address] [address] PT Coag (PPP) [Time] 28.8 s High 8.0 - 11.0 [facility] Comment on above: Performed By: #### P PTIN #### [facility] [address] [address] Laboratory - Coagulationon 0 10-01-2022 PT Coag (PPP) [Time] 34.3 s above high threshold 8.0 - 11.0 [facility] Work Phone: No Panel Informationon 10-01 3.0 1 above high threshold 1.0 - 1.2 [facility] INR Coag (PPP) [Relative time] 3.0 {INR} High 1.0 - 1.2 [facility] Comment on above: Performed By: #### P PTIN #### [facility] [address] [address] PT Coag (PPP) [Time] 34.3 s High 8.0 - 11.0 [facility] Comment on above: Performed By: #### P PTIN #### [facility] [address] [address] Laboratory - Coagulationon 0 09-24-2022 PT Coag (PPP) [Time] 20.1 s above high threshold 8.0 - 11.0 [facility] Work Phone: No Panel Informationon 09-24 1.7 1 above high threshold 1.0 - 1.2 [facility]-2022 INR Coag (PPP) [Relative time] 1.7 {INR} High 1.0 - 1.2 [facility] Comment on above: Performed By: #### P PTIN #### [facility] [address] [address] PT Coag (PPP) [Time] 20.1 s High 8.0 - 11.0 [facility] Comment on above: Performed By: #### P PTIN #### [facility] [address] [address] Laboratory - Coagulationon 0 09-18-2022 PT Coag (PPP) [Time] 21.9 s above high threshold 8.0 - 11.0 [facility] Work Phone: No Panel Informationon 09-18 1.9 1 above high threshold 1.0 - 1.2 [facility] Work Phone: PTINR - POCTon 09-18-2022 INR Coag (PPP) [Relative time] 1.9 {INR} High 1.0 - 1.2 [facility] Comment on above: Performed By: #### P PTIN #### [facility] [address] [address] PT Coag (PPP) [Time] 21.9 s High 8.0 - 11.0 [facility] Comment on above: Performed By: #### P PTIN #### [facility] [address] [address] Established Visit (Pain Medi cine)on 09-17-2022 Established Visit (Pain Medicine) Diagnoses/Problems Lumbosacral radiculopathy (724.4) (M54.17) Neurogenic claudication due to lumbar spinal stenosis (724.03) (M48.062) Osteoarthritis of right hip (715.95) (M16.11) Patient Discussion/Summary I discussed with the patient the likely etiology of her symptoms, as well as potential treatment options We reviewed her MRIs. Her cervical MRI was notable for multilevel degenerative disc disease and spondylosis. She had a few areas of neuroforaminal stenosis but no severe central stenosis. Her lumbar MRI was notable for multilevel degenerative disc disease and spondylosis as well. It was most significant for moderate to severe central stenosis L5-S1 with right-sided neuroforaminal stenosis at the same level. I think she probably has some symptoms from that as well but I think the hip is the bigger issue currently. Since things are tolerable for now we will see how she does after her hip replacement. If the pain gets more severe we could proceed with a right L5 and S1 transforaminal epidural steroid injection. I will continue the Percocet at the same dose and I advised her to continue with her home exercises in the interim. I will see her for follow-up in 3 months or sooner if needed. Chief Complaint FUV meds/ Utox, Today reports having pain in rt side lower rib area and Rt hip That radiates into rt upper thigh rates 5-6/10, describes as sharp and electrical jolt in rt lg. She reports the pain pills do help her pin she uses them sparingly, her PT/INR was elevated to her NSAID use so she has increased the amount of Tylenol and decreased the NSAIDs. She is scheduled to hat a Rt Hip Replacement with Dr. Cheikh Oneal at [facility] in November 2022. This is a 72-year-old female here for a follow-up appointment for chief complaint today of right-sided lower back and leg pain. She reports since her last visit the symptoms have remained persistent. She saw Dr. Oneal and is scheduled to have her right hip replaced 2 months from now. She states that she will get pain that radiates from the right side of her lower back and buttock into the right groin but also down the lateral aspect of the leg into the foot. Her left side is fairly asymptomatic. She reports that she fell and injured her ribs back in August and was seen in the ED. She was diagnosed with costochondritis and reports that issue seems to be gradually improving. She is rarely using the Percocet. She does not have any significant pain in the neck or arms. She denies new neurologic symptoms or issues with bladder or bowel control. The patient's past medical, social, and family history along with medications and allergies are available and were reviewed. Adult Risk Screening Living Will. Living Will: No living will on file. Healthcare POA: No healthcare proxy on file. Domestic Violence Screen: Does not feel threatened or abused physically, emotionally or sexually. Do you feel UNSAFE? The patient feels safe in the home. Depression/Suicide Screening: She does not have a risk of suicide. She has not had thoughts of harming others. Reference Documentation See scanned note Oswestry Disability Index evaluation tool completed by patient . History of Present Illness On a scale of 0 to 10, the patient rates the pain at 5. now and 6/10 with walking and standing. Pain Location: rt hip and rt side lower ribs. Pain Quality: Aching and Sharp. Pain Radiation: rt groin. Timing/Duration: Constant and > 12 weeks duration. Controlled Substance: I have personally reviewed the [place] report for FAVIOLA VALLE. I have considered the risks of abuse, dependence, addiction and diversion.Narcan offered and declined. Patient Education:1 Inj. education completed written and verbally.1 . 1 Amended By: Ida Macedo; Sep 17 2022 10:06 AM ESTReview of Systems 13 systems all normal except noted in HP. Active Problems CAD in [place] artery (414.01) (I25.10) Cervical spinal stenosis (723.0) (M48.02) Chronic headache (784.0) (R51.9,G89.29) Chronic pain disorder (338.4) (G89.4) Decreased estrogen level (256.39) (E28.39) Encounter for screening mammogram for malignant neoplasm of breast (V76.12) (Z12.31) Greater trochanteric bursitis of right hip (726.5) (M70.61) Jessica filter in place (V45.89) (Z95.828) Hyperlipidemia (272.4) (E78.5) Liver cyst (573.8) (K76.89) Low back pain (724.2) (M54.50) Medicare annual wellness visit, subsequent (V70.0) (Z00.00) Mild intermittent asthma in adult without complication (493.90) (J45.20) Neurogenic claudication due to lumbar spinal stenosis (724.03) (M48.062) Osteoarthritis of lumbosacral spine without myelopathy (721.3) (M47.817) Osteoarthritis of right hip (715.95) (M16.11) Other secondary osteoarthritis of right hip (715.25) (M16.7) PND (post-nasal drip) (784.91) (R09.82) Polyp of colon (211.3) (K63.5) Pre-op evaluation (V72.84) (Z01.818) Screening for breast cancer (V76.10) (Z12.39) Screening for colorectal cancer (V76.51,V76. (more content not included)... Normal [facility] - Coagulationon 0 09-16-2022 PT Coag (PPP) [Time] 33.7 s above high threshold 8.0 - 11.0 [facility] Work Phone: No Panel Informationon 09-16 3.0 1 above high threshold 1.0 - 1.2 [facility] Work Phone: PTINR - [facility] 09-16-2022 INR Coag (PPP) [Relative time] 3.0 {INR} High 1.0 - 1.2 [facility] Comment on above: Performed By: #### P PTIN #### [facility] [address] [address] PT Coag (PPP) [Time] 33.7 s High 8.0 - 11.0 [facility] Comment on above: Performed By: #### P PTIN #### [facility] [place] [place] [address] No Panel Informationon 09-06 2.5 1 above high threshold 1.0 - 1.2 [facility] Work Phone: PTINR [facility] 09-06-2022 INR Coag (PPP) [Relative time] 2.5 {INR} High 1.0 - 1.2 [facility] Comment on above: Performed By: #### P PTIN #### [facility] [address] [address] PT Coag (PPP) [Time] 28.8 s High 8.0 - 11.0 [facility] Work Phone: Comment on above: Performed By: #### P PTIN #### [facility] [place] [id number] Medicare Annual Wellness Vis iton 08-27-2022 Medicare Annual Wellness Visit *Chief Complaint Pt is here today for a 6 month check up, MCR wellness exam. Review labs. This note was generated by using Say2me software. It may contain errors in wording, punctuate, or spelling. She is here today for what represents a 6-month checkup and also has a follow-up to her visit to [place] at the emergency room on August 20. She went there with some atypical chest discomfort and stomach issues and she had a thorough work-up. They diagnosed her as having costochondritis and she states she is actually feeling better every day. She states she knows it will take a few weeks to completely resolve and she knows to call here if her symptoms do not resolve or suddenly get worse. We did conduct a full review of systems and we also went through the Medicare questionnaire. Her main issues now are that of chronic pain syndromes with her back and neck. She is seeing several specialists and she goes to the pain clinic. She states that she is getting control of her symptoms. We are reminded that she does have a history of mild intermittent asthma and currently has no symptoms. She also has some chronic headaches from her neck issues which has been getting along okay. She did have a fall about a month ago where she tripped on a cord in her house. She did not sustain any serious injuries. We talked about being extra careful in the future. She states she does have grab bars in the bathroom. We talked about cancer screening and she is up-to-date with her mammogram. She states she thinks she is supposed to have a colonoscopy this year and will contact her black ash burner operator about that. We talked about preventative vaccines and she has yet to receive her flu vaccine for the season. I have recommended that she try to get that at her earliest convenience through her pharmacy. She will call if she gets it. We also talked about the shingles vaccine. She is highly independent and does everything for herself including managing her own finances and her own medications. She has no symptoms of depression at this time although she states that the month of July was difficult as it marked the 1 year anniversary of the loss of her mother. Otherwise she appears to be doing well and if everything goes according to plan we can see her back in February for follow-up and she will get fasting lab work prior to that visit. History of Present Illness The patient is being seen for the subsequent annual wellness visit. Past Medical, Surgical and Family History: reviewed and updated in chart. Medications and Supplements: Review of all medications by a prescribing practitioner or clinical pharmacist (such as prescriptions, OTCs, herbal therapies and supplements) documented in the medical record. Yes, the patient is using opioids. Patient Self Assessment of Health Status: good. Tobacco use: Non-User Alcohol use: User Rare occasion. Illicit drug use: Non-User Current diet: well balanced diet and does consume caffeine. Exercise Frequency: infrequently. Depression/Suicide Screening: . During the past 2 weeks, the patient has not felt down, depressed or hopeless. During the past 2 weeks, the patient has not felt little interest or pleasure in doing things. Grief and not depression Hearing Impairment: none. Cognitive Impairment: No cognitive impairment observed. Bathing: performs independently. Dressing: performs independently. Walking: performs independently. Toileting: performs independently. Feeding: performs independently. Personal Hygiene: performs independently. Bowels: continent. Bladder: occasional accident. Managing Finances: performs independently. Shopping: performs independently. Managing Medications: performs independently. Housework / Basic Home Maintenance: performs independently. Handling Transportation: performs independently. Preparing Meals: performs independently. Falls Risk Screening:. FAVIOLA has fallen in the last 6 months. Her fall did not result in injury. Advance directives:. Advanced Care Planning discussed and documented advance care plan or surrogate decision maker documented in the medical record. Patient has living will. Patient has healthcare POA. Review of Systems Denies fatigue. Denies shortness of breath, coughing, wheezing Denies chest pain, palpitations, leg edema Denies nausea, vomiting, diarrhea, heartburn, abdominal pain, or black or bloody stools C/O significant joint pain and back pain Denies feelings of significant anxiety or depression *Active Problems CAD in [place] artery (414.01) (I25.10) Cervical spinal stenosis (723.0) (M48.02) Chronic headache (784.0) (R51.9,G89.29) Chronic pain disorder (338.4) (G89.4) Decreased estrogen level (256.39) (E28.39) Encounter for screening mammogram for malignant neoplasm of breast (V76.12) (Z12.31) Greater trochanteric bursitis of right hip (726.5) (M70.61) [place] filter in place (V45.89) (Z95.828) Hyperlipidemia (272.4) (E78.5) Liver cyst (573.8) (K76.8 (more content not included)... Normal [facility] Tobacco Screening.on 023 Fall risk assessment b) One or more fall s in the last year [facility] Work Phone: Tobacco use status CPHS b) No [facility] Work Phone: Laboratory - Coagulationon 0 08-09-2022 PT Coag (PPP) [Time] 30.8 s above high threshold 8.0 - 11.0 [facility] Work Phone: No Panel Informationon 08-09 2.7 1 above high threshold 1.0 - 1.2 [facility] Work Phone: PTINR - [facility]on 08-09-2022 INR Coag (PPP) [Relative time] 2.7 {INR} High 1.0 - 1.2 [facility] Comment on above: Performed By: #### P PTIN #### [facility] [address] [place] [id number] PT Coag (PPP) [Time] 30.8 s High 8.0 - 11.0 [facility] Comment on above: Performed By: #### P PTIN #### [facility] [address] [place] [id number] Established Visit (Pain Medi cine)on 08-06-2022 Established Visit (Pain Medicine) Diagnoses/Problems Lumbosacral radiculopathy (724.4) (M54.17) Osteoarthritis of right hip (715.95) (M16.11) Cervical spinal stenosis (723.0) (M48.02) Orders Lumbosacral radiculopathy MRI L Spine without Contrast; Status:Hold For - Scheduling; Requested for:06Aug2022; Radiologist to Determine Optimal Study : Y Does the patient have a Cochlear Implant, Pacemaker, Defibrilator, Pacing Wire, Brain Aneurysm Clip, Implanted Nerve or Bone Graft Simulator, Implanted Breast Tissue Cook Station, Glucose Monitor, or Neulasta Device? : No Is the patient or breast feeding? : No What are the patient's signs and symptoms? : pain Lumbosacral radiculopathy, Osteoarthritis of right hip Start: oxyCODONE-Acetaminoph en 5-325 MG Oral Tablet (Percocet); TAKE 1 TABLET Twice daily PRN Patient Discussion/Summary I discussed with the patient the likely etiology of her symptoms, as well as potential treatment options I addressed options with her. I think a large proportion of her pain is coming from her right hip so since she had only short-term relief from the injections and orthopedic consultation is very appropriate. She does have some evidence of radiculopathy as well although so prior to her surgery I think it is prudent to check a lumbar MRI to evaluate for that as a coexisting problem. With regard to her neck we will get her cervical MRI rescheduled and hopefully they can be done at the same time. With regard to her medications we will have her stop the gabapentin and I think it is appropriate to write for a small amount of Percocet. We will check a tox screen on her today although she appears low risk. I will see her for follow-up after the MRIs for repeat evaluation. Over 30 minutes was spent caring for the patient in total. Chief Complaint Pain FUV for R hip injection 07-05-2022; 20% relief. R hip pain with radiation to R groin and R buttocks; today. Patient states she was having pain/cramping at the time of injection while on the table, pain subsided in recovery. Patient states when she rises from a sitting position pain increases severely. Patient states the R leg with cramp and catch when first trying to walk. Patient states she fell the day before Daisy. She has an appt with Dr. Oneal on 08-29-22 to discuss R THR. She was not able to finish her MRI for HAs d/t a cramp in her R leg. She is rescheduled for 08-20-2022. The tech suggested something for pain before next MRI. Patient states she has only had 2 headaches since last visit. She is walking with a cane. Patient states she tried 1 gabapentin. She states it did not help with the pain and she did not like the dizziness she felt afterwards. This is a 72-year-old female here for a follow-up appointment for chief complaint of right-sided low back and hip pain. At her last visit she underwent an intra-articular steroid injection into the right hip under fluoroscopy. She reports for the first 3 to 4 hours afterward the symptoms were improved by over 90%. After that they gradually returned. She is a little bit better than she was previously but still has a lot of pain on the right side that starts in the right buttock radiates in the front of the right groin and then down the front of the right leg to the knee. Occasionally will go past the knee. She gets cramping as well. She reports that it hurts a lot to sit and walk but its even worse trying to transition from one to the other. She does not have any left-sided symptoms. We had tried to get an MRI of her neck prior to this visit but she was unable to lie down flat due to the pain in her hip. She has an appoint with Dr. Oneal at the end of the month to discuss a hip replacement. She has been using tizanidine sporadically along with Motrin and Tylenol. These medications do help to an extent. The gabapentin made her very dizzy so she had to stop it. She also had some leftover Percocet from a procedure in 2019. She has used them sporadically for the severe pain and they do help. She last took 1 few days ago. She denies additional neurologic symptoms or issues with bladder or bowel control. The patient's past medical, social, and family history along with medications and allergies are available and were reviewed. Adult Risk Screening Living Will. Living Will: Living will on file. Healthcare POA: Health care proxy on file. Domestic Violence Screen: Does not feel threatened or abused physically, emotionally or sexually. Do you feel UNSAFE? The patient feels safe in the home. Depression/Suicide Screening: She does not have a risk of suicide. She has not had thoughts of harming others. History of Present Illness On a scale of 0 to 10, the patient rates the pain at 7. Pain Location: R hip. Pain Quality: Cramping and catches. Pain Radiation: R groin, buttocks. Timing/Duration: Constant and > 12 weeks duration. Controlled Substance: I have personally reviewed the [place]AR[place] report for [place]. I have considered the risks of (more content not included)... Normal [facility] - Chemistry and C hemistry - challengeon 08-06-2022 Creatinine (Body fld) [Mass/Vol] 187.9 mg/dL [facility] Work Phone: Comment on above: A urine creatinine r esult >= 20 mg/dL is considered valid without suspicion of dilution. Samples with results below this range will automatically reflex to specific gravity testing to verify specimen integrity. Laboratory - Drug toxicology on 08-06-2022 1-Hydroxymidazolam Confirm (U) [Mass/Vol] <25 Cutoff <25 [facility] Work Phone: 6-Jrwwouptzh-7,5-Dime thyl-3,3-Diphenylpyrr olidine (EDDP) Confirm (U) [Mass/Vol] <25 Cutoff <25 [facility] Work Phone: Comment on above: The performance xi acteristics of the Methadone Confirmation, Urine has been validated by the individual laboratory site where testing is performed. It has not been cleared or approved by the FDA. However the FDA has determined that such clearance or approval is not necessary. Our Laboratory is certified under the Clinical Laboratory Improvement Amendments of 1988 (CLIA) as qualified to perform high complexity clinical laboratory testing. 6-Monoacetylmorphine (6-MISHA) Confirm (U) [Mass/Vol] <25 Cutoff <25 [facility] Work Phone: 7-Aminoclonazepam Confirm (U) [Mass/Vol] <25 Cutoff <25 [facility] Work Phone: Alpha hydroxyalprazolam Confirm (U) [Mass/Vol] <25 Cutoff <25 [facility] Work Phone: ALPRAZolam Confirm (U) [Mass/Vol] <25 Cutoff <25 [facility] Work Phone: Amphetamines Screen Ql (U) Negative NEGATIVE [facility] Work Phone: Comment on above: CUTOFF LEVEL: 500 NG /ML Cross-reactivity has been reported with high concentrations of the following drugs: buproprion, chloroquine, chlorpromazine, ephedrine, mephentermine, fenfluramine, phentermine, phenylpropanolamine, pseudoephedrine, and propranolol. Barbiturates Screen Ql (U) Negative NEGATIVE [facility] Work Phone: Comment on above: CUTOFF LEVEL: 200 NG /ML Benzoylecgonine Screen Ql (U) Negative NEGATIVE [facility] Work Phone: Comment on above: CUTOFF LEVEL: 150 NG /ML Cannabinoids Screen Ql (U) Negative NEGATIVE [facility] Work Phone: Comment on above: CUTOFF LEVEL: 50 NG/ ML chlordiazePOXIDE Confirm (U) [Mass/Vol] <25 Cutoff <25 [facility] Work Phone: clonazePAM Confirm (U) [Mass/Vol] <25 Cutoff <25 [facility] Work Phone: Codeine Confirm (U) [Mass/Vol] <50 Cutoff <50 [facility] Work Phone: diazePAM Confirm (U) [Mass/Vol] <25 Cutoff <25 [facility] Work Phone: fentaNYL Confirm (U) [Mass/Vol] <2.5 Cutoff<2.5 [facility] Work Phone: HYDROcodone Confirm (U) [Mass/Vol] <25 Cutoff <25 [facility] Work Phone: HYDROmorphone Confirm (U) [Mass/Vol] <25 Cutoff <25 [facility] Work Phone: LORazepam Confirm (U) [Mass/Vol] <25 Cutoff <25 [facility] Work Phone: Methadone Confirm (U) [Mass/Vol] <25 Cutoff <25 [facility] Work Phone: Midazolam Confirm (U) [Mass/Vol] <25 Cutoff <25 [facility]: Morphine Confirm (U) [Mass/Vol] <50 Cutoff <50 [facility] Work Phone: Nordiazepam Confirm (U) [Mass/Vol] <25 Cutoff <25 [facility] Work Phone: Norfentanyl Confirm (U) [Mass/Vol] <2.5 Cutoff<2.5 [facility] Work Phone: Comment on above: The performance xi acteristics of the Fentanyl Confirmation, Urine has been validated by the individual laboratory site where testing is performed. It has not been cleared or approved by the FDA. However the FDA has determined that such clearance or approval is not necessary. Our Laboratory is certified under the Clinical Laboratory Improvement Amendments of 1988 (CLIA) as qualified to perform high complexity clinical laboratory testing. Norhydrocodone Confirm (U) [Mass/Vol] <25 Cutoff <25 [facility] Work Phone: Noroxycodone Confirm (U) [Mass/Vol] <25 Cutoff <25 [facility] Work Phone: Nortramadol (U) [Mass/Vol] <50 Cutoff <50 [facility] Work Phone: Comment on above: The performance xi acteristics of the Tramadol Confirmation, Urine has been validated by the individual laboratory site where testing is performed. It has not been cleared or approved by the FDA. However the FDA has determined that such clearance or approval is not necessary. Our Laboratory is certified under the Clinical Laboratory Improvement Amendments of 1988 (CLIA) as qualified to perform high complexity clinical laboratory testing. Oxazepam Confirm (U) [Mass/Vol] <25 Cutoff <25 [facility]: oxyCODONE Confirm (U) [Mass/Vol] <25 Cutoff <25 [facility] Work Phone: oxyMORphone Confirm (U) [Mass/Vol] <25 Cutoff <25 [facility] Work Phone: Comment on above: The performance xi acteristics of the Opiate Confirmation, Urine has been validated by the individual laboratory site where testing is performed. It has not been cleared or approved by the FDA. However the FDA has determined that such clearance or approval is not necessary. Our Laboratory is certified under the Clinical Laboratory Improvement Amendments of 1988 (CLIA) as qualified to perform high complexity clinical laboratory testing. Phencyclidine Ql (U) Negative NEGATIVE [facility] Work Phone: Comment on above: CUTOFF LEVEL: 25 NG/ ML Cross-reactivity has been reported with dextromethorphan. Temazepam Confirm (U) [Mass/Vol] <25 Cutoff <25 [facility] Work Phone: Comment on above: The performance xi acteristics of the Benzodiazepine Confirmation, Urine has been validated by the individual laboratory site where testing is performed. It has not been cleared or approved by the FDA. However the FDA has determined that such clearance or approval is not necessary. Our Laboratory is certified under the Clinical Laboratory Improvement Amendments of 1988 (CLIA) as qualified to perform high complexity clinical laboratory testing. traMADol Confirm (U) [Mass/Vol] <50 Cutoff <50 [facility] Work Phone: Zolpidem (U) [Mass/Vol] <25 Cutoff <25 [facility] Work [facility]: No Panel Informationon 08-06 <25 Cutoff <25 [facility] Work Phone: Comment on above: The performance xi acteristics of the Zolpidem Confirmation, Urine has been validated by the individual laboratory site where testing is performed. It has not been cleared or approved by the FDA. However the FDA has determined that such clearance or approval is not necessary. Our Laboratory is certified under the Clinical Laboratory Improvement Amendments of 1988 (CLIA) as qualified to perform high complexity clinical laboratory testing. SEE BELOW [facility] Work Phone: Comment on above: Drug screen results are presumptive and should not be used to assess compliance with prescribed medication. Definitive confirmatory drug testing has been added to this sample for any positive screen result and will be reported separately. .Toxicology screening results are reported qualitatively. The concentration must be greater than or equal to the cutoff to be reported as positive. The concentration at which the screening test can detect an individual drug or metabolite varies. The absence of expected drug(s) and/or drug metabolite(s) may indicate non-compliance, inappropriate timing of specimen collection relative to drug administration, poor drug absorption, diluted/adulterated urine, or limitations of testing. For medical purposes only; not valid for forensic use. .Interpretive questions should be directed to the laboratory medical directors. No Panel Informationon 07-12 2.2 1 above high threshold 1.0 - 1.2 [facility] Work Phone: PTINR - POCTon 07-12-2022 INR Coag (PPP) [Relative time] 2.2 {INR} High 1.0 - 1.2 [facility] Comment on above: Performed By: #### P PTIN #### [facility] [address] [id number] PT Coag (PPP) [Time] 25.4 s High 8.0 - 11.0 [facility] Work Phone: Comment on above: Performed By: #### P PTIN #### [facility] [address] [address] No Panel Informationon 07-05 Please click on the link to view the study images Normal [facility] Work Phone: Initial Visit (Pain Medicine )on 06-18-2022 Initial Visit (Pain Medicine) Diagnoses/Problems Osteoarthritis of right hip (715.95) (M16.11) Neurogenic claudication due to lumbar spinal stenosis (724.03) (M48.062) Cervical spondylosis (721.0) (M47.812) Cervical spinal stenosis (723.0) (M48.02) Orders Renew: Gabapentin 100 MG Oral Capsule; TAKE 1 CAPSULE Bedtime MRI Cervical without Contrast; Status:Hold For - Scheduling; Requested for:[id number]; Radiologist to Determine Optimal Study : Y Does the patient have a Cochlear Implant, Pacemaker, Defibrilator, Pacing Wire, Brain Aneurysm Clip, Implanted Nerve or Bone Graft Simulator, Implanted Breast Tissue Cook Station, Glucose Monitor, or Neulasta Device? : No Is the patient or breast feeding? : No What are the patient's signs and symptoms? : pain Xray C Spine Complete Oblique/Flex/Ext; Status:Resulted - Preliminary; Done: [id number] 01:41PM Radiologist to Determine Optimal Study : Y What are the patient's signs and symptoms? : pain Xray Lumbosacral Spine Complete (Bending); Status:Resulted - Preliminary; Done: [id number] 01:41PM Radiologist to Determine Optimal Study : Y What are the patient's signs and symptoms? : pain Xray Pelvis 1 or 2 View; Status:Resulted - Preliminary; Done: [id number] 01:41PM Radiologist to Determine Optimal Study : Y What are the patient's signs and symptoms? : pain Patient Discussion/Summary I discussed with the patient the likely etiology of her symptoms, as well as potential treatment options I reviewed her x-rays from today which showed severe arthritic changes in the right hip joint, multilevel spondylosis and degenerative disc disease in the lumbar spine, and multilevel spondylosis and degenerative disc disease in the cervical spine particularly at C5-6 and C6-7. We discussed options and since she has had severe right hip and groin pain consistent with hip arthropathy and does not want surgery until next year at the earliest we will proceed with a right hip injection under fluoroscopy at her next visit. I went over the pros and cons of this plan and she was in agreement with it. She has failed therapy for this issue previously. With regard to her radicular pain as well as her neck pain and headaches I am going to trial her on 100 mg of gabapentin. If she tolerates it well we could increase in the future. Also since she has had some issues with her balance we will check a cervical MRI to rule out significant cervical spinal stenosis. I went over the pros and cons of this plan and she was in agreement with it. I will see her for follow-up after the MRI for repeat evaluation. Over 45 minutes was spent caring for the patient in total. Chief Complaint NPV here for evaluation of neck pain causing BOYCE 0/10 now and 10/10 at its worst when she has them and rt hip pain 0/10 now and 10/10 at its worst. Pain in neck started in her 30's can be brought on by the way she sleeps first thing in the morning, leaching or looking up, vacuuming and rt hip in 2020 hurts first thing in the morning after laying down or sitting for a long time. For her neck she has tried tizanidine, massage, ibuprofen, Tylenol( she cannot take too many NSAIDs due to Coumadin) and hot shower helps some, traction did not help,She had a 10+/10 BOYCE last week and nothing helped and for lower back PT and steroid injection x2 first one in 2020 helped second 05/04/22 has not helped. She has seen Orthopedic surgeon Dr Soto and Annemarie Chery in the system, and a neurologist Dr. Anderson in [place] for her neck and BOYCE. Here today to see what is wrong and what we can do to help her. at this time she is having a procedure that requires a ASA hold and Coumadin 6 mf 2 times a week. This is a 72-year-old female here for a new patient appointment for chief complaint of multifocal pain. She reports that she has pain in the neck on both sides or radiate up to the head and cause headaches. She has had these issues now for close to 30 years. She states the pain is brought on with neck motion. She has tried tizanidine with very limited benefit. She will occasionally use ibuprofen which helps but she tries to limit her use of it because she is on an anticoagulant and is not supposed to take NSAIDs. Tylenol does not seem to help as much. She also has lower back right hip and leg pain. She states the pain is worse in the right groin but it would also radiate down the right leg past the knee and will get numbness and tingling in that distribution. She states that symptoms are worse with weightbearing. She had seen Dr. Soto a year ago and had an intra-articular hip injection which kept her pain-free for about a year. She most recently underwent a trochanteric bursa injection but only got very limited relief. She reports the hip pain will interrupt her standing and walking. She only has mild symptoms on the left side. She denies additional neurologic symptoms or issues with bladder or bowel control. She has been through physical therapy with limited benefit. The patient's past medical, social, and family his (more content not included)... Normal [facility] Panel Informationon 06-18 Please click on the link to view the study images Normal [facility] Work Phone: Normal [facility] Work Phone: PELVIS, 1 OR 2 VIEWSon 06-18 PELVIS, 1 OR 2 VIEWS Patient Name: FAVIOLA VALLE STUDY: PELVIS, 1 OR 2 VIEWS; SPINE, LUMBOSACRAL CMPLT(BENDING); 06/18/2022 1:41 pm INDICATION: pain M16.11: Osteoarthritis of right hip; pain M48.062: Neurogenic claudication due to lumbar spinal stenosis. COMPARISON: 02/23/2021 ACCESSION NUMBER(S): [id number]; [id number] ORDERING CLINICIAN: PRADIP WEBB FINDINGS: AP pelvis and 7 views of the lumbar spine. Moderate to marked bilateral hip osteoarthrosis, right greater than left. Moderate pubic symphysis and mild bilateral sacroiliac osteoarthrosis. No definite fracture or dislocation. Moderate discogenic degenerative changes throughout the visualized lumbar spine with moderate lower lumbar facet arthrosis. No subluxation including flexion or extension views. IVC filter overlies the mid abdomen. Dextrocurvature of the lumbar spine noted with apex at approximately L4. IMPRESSION: 1. Moderate lumbar spondylosis with dextroscoliosis centered L4. 2. Moderate to marked bilateral hip osteoarthrosis, right greater than left. Electronically signed by: RENETTA BALL MD [facility]-18-2022 XR Cervical spine Oblique Views Please click on the link to view the study images Normal [facility] Work Phone: XR Cervical spine Oblique Views Normal [facility] Work Phone: XR Pelvis 1 or 2 Views Please click on the link to view the study images Normal [facility] Work Phone: XR Pelvis 1 or 2 Views Normal [facility] Work Phone: SPINE, CERVICAL, CMPLT, OBLI QUE/FLEX/EXTon 06-18-2022 SPINE, CERVICAL, CMPLT, OBLIQUE/FLEX/EXT Patient Name: FAVIOLA VALLE STUDY: SPINE, CERVICAL, CMPLT, OBLIQUE/FLEX/EXT; 06/18/2022 1:41 pm INDICATION: pain M48.062: Neurogenic claudication due to lumbar spinal stenosis M47.812: Cervical spondylosis. COMPARISON: none ACCESSION NUMBER(S): [id number] ORDERING CLINICIAN: PRADIP WEBB FINDINGS: A views of the cervical spine. The atlantoaxial relationship is intact. Dens is intact. Reversal of the normal cervical lordosis may be positional or due to muscle spasm and degenerative changes. Moderate to marked cervical spondylosis predominantly at the mid and lower cervical levels most severe at C5-C6. Soft tissues intact. Grade 1 anterolisthesis C3 on C4 without change on flexion or extension views. IMPRESSION: 1. Moderate to marked cervical spondylosis predominantly at the mid and lower cervical levels. Grade 1 anterolisthesis C3 on C4 without change on flexion or extension views. 2. Reversal of the normal cervical lordosis may be positional and or due to muscle spasm and superimposed degenerative changes. Electronically signed by: RENETTA BALL MD [facility] SPINE, LUMBOSACRAL CMPLT(ADRIÁN DING)on 06-18-2022 SPINE, LUMBOSACRAL CMPLT(BENDING) Patient Name: TORI FAVIOLA STUDY: PELVIS, 1 OR 2 VIEWS; SPINE, LUMBOSACRAL CMPLT(BENDING); 06/18/2022 1:41 pm INDICATION: pain M16.11: Osteoarthritis of right hip; pain M48.062: Neurogenic claudication due to lumbar spinal stenosis. COMPARISON: 02/23/2021 ACCESSION NUMBER(S): [id number]; [id number] ORDERING CLINICIAN: PRADIP WEBB FINDINGS: AP pelvis and 7 views of the lumbar spine. Moderate to marked bilateral hip osteoarthrosis, right greater than left. Moderate pubic symphysis and mild bilateral sacroiliac osteoarthrosis. No definite fracture or dislocation. Moderate discogenic degenerative changes throughout the visualized lumbar spine with moderate lower lumbar facet arthrosis. No subluxation including flexion or extension views. IVC filter overlies the mid abdomen. Dextrocurvature of the lumbar spine noted with apex at approximately L4. IMPRESSION: 1. Moderate lumbar spondylosis with dextroscoliosis centered L4. 2. Moderate to marked bilateral hip osteoarthrosis, right greater than left. Electronically signed by: RENETTA BALL MD Normal [facility] - Coagulationon 1 08-14-2021 PT Coag (PPP) [Time] 28.4 s above high threshold 8.0 - 11.0 [facility] Work Phone: No Panel Informationon 06-14 2.5 1 above high threshold 1.0 - 1.2 [facility] Work Phone: PTINR - POCTon 06-14-2022 INR Coag (PPP) [Relative time] 2.5 {INR} High 1.0 - 1.2 [facility] Comment on above: Performed By: #### P PTIN #### [facility] [address] [place] [id number] PT Coag (PPP) [Time] 28.4 s High 8.0 - 11.0 [facility] Comment on above: Performed By: #### P PTIN #### [facility] [address] [address] Established Visit (Orthopaed ic Surgery)on 05-17-2022 Established Visit (Orthopaedic Surgery) Diagnoses/Problems Assessed Greater trochanteric bursitis of right hip (726.5) (M70.61) Orders Greater trochanteric bursitis of right hip Administered: Triamcinolone Acetonide 40 MG/ML Injection Suspension Orthopedic Point of Care Ultrasound; Status:Complete - Retrospective Authorization; Done: [id number] 12:00AM Radiologist to Determine Optimal Study : Y Radiologist to Determine Optimal Study : Y What are the patient's signs and symptoms? : right hip pain What are the patient's signs and symptoms? : right hip pain Patient Discussion/Summary Reviewed monitoring site for any bleeding, redness or swelling, or rash or hives. 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 Patient may begin home exercises in several days and was cautioned not to try to make up for lost time once symptoms are improved. Patient is interested in pursuing the pain management consult that was placed at last week's visit. Patient states her dental work was temporarily postponed due to provider illness. Plan will be for patient to follow-up here on a as needed basis for hip flareup or any other concerns. She is agreeable with this plan of care. This note was generated using Say2me software. It may contain errors in wording, punctuation or spelling. Provider Impressions Patient with flare of her right hip pain. Today's exam reveals symptoms over the greater trochanteric bursa. Chief Complaint Patient here for R hip injection. Has no concerns History of Present Illness Agree with CC as documented for MA. Patient was seen here last week with findings of right hip greater trochanteric bursitis. She had not had an INR for almost 1 month at that time. She had a repeat INR today which was 2.3. She wishes to pursue with a cortisone injection for symptom control. Review of Systems Constitutional: no fever, no chills and not feeling tired. ENT: no recent cough or URI sx, no nosebleeds. Cardiovascular: no chest pain. Respiratory: no shortness of breath and no cough. Gastrointestinal: no abdominal pain, no nausea, no vomiting and no diarrhea. Integumentary: no rashes or skin wounds. Neurological: no headache. Psychiatric: no depression and no sleep disturbances. Endocrine: no muscle weakness and no muscle cramps. Hematologic/Lymphatic : no swollen glands and no tendency for easy bruising. All other systems have been reviewed and are negative other than noted in HPI. *Active Problems Problems CAD in [place] artery (414.01) (I25.10) Chronic headache (784.0) (R51.9,G89.29) Closed fracture of right elbow, sequela (905.2) (S42.401S) Decreased estrogen level (256.39) (E28.39) Encounter for screening mammogram for malignant neoplasm of breast (V76.12) (Z12.31) Greater trochanteric bursitis of right hip (726.5) (M70.61) [place] filter in place (V45.89) (Z95.828) Grief reaction (309.0) (F43.21) Hip pain, right (719.45) (M25.551) Hyperlipidemia (272.4) (E78.5) Liver cyst (573.8) (K76.89) Medicare annual wellness visit, subsequent (V70.0) (Z00.00) Mild intermittent asthma in adult without complication (493.90) (J45.20) Osteoarthritis of lumbosacral spine without myelopathy (721.3) (M47.817) Osteoarthritis of right hip (715.95) (M16.11) Other secondary osteoarthritis of right hip (715.25) (M16.7) PND (post-nasal drip) (784.91) (R09.82) Polyp of colon (211.3) (K63.5) Preprocedural examination (V72.84) (Z01.818) Screening for breast cancer (V76.10) (Z12.39) Screening for colorectal cancer (V76.51,V76.41) (Z12.11,Z12.12) COLOGUARD: NEGATIVE Taking medication for chronic disease (799.9) (R69) Teeth problem (525.9) (K08.9) Vitamin D deficiency (268.9) (E55.9) Low back pain (724.2) (M54.50) Cervical pain (neck) (723.1) (M54.2) Past Medical History Problems History of Breast cancer screening (V76.10) (Z12.39) Resolved Date: 05 Jun 2007 History of Cervical disc disease (722.91) (M50.90) Resolved Date: 22 Feb 2021 History of basal cell carcinoma (BCC) (V10.83) (Z85.828) History of pulmonary embolism (V12.55) (Z86.711) Surgical History Problems History of Arterial stent placement LAD CORONARY ARTERY History of Breast biopsy LEFT BREAST History of section Colonoscopy Normal History of Colposcopy Family History Other No pertinent family history PATIENT IS ADOPTED Social History Problems Does not use illicit drugs (V49.89) (Z78.9) Former smoker (V15.82) (Z87.891) No advance directives (V49.89) (Z78.9) History of No advance directives (V49.89) (Z78.9) Occasional alcohol use Patient has active power of state's attorney for health care (V49.89) (Z78.9) Allergies Medication erythromycin Recorded By: Syl Santoro; 05/22/2019 9:39:30 AM Additional reactions - MADE DEATHLY ILL Current Meds Medication NameInstruction Albuterol Sulfate HFA 108 (90 Base) MCG/ACT Inhalation Aerosol SolutionINHALE 2 PUFFS EVERY (more content not included)... Normal [facility] No Panel Informationon 05-17 2.3 1 above high threshold 1.0 - 1.2 [facility] Work Phone: Please click on the link to view the study images Normal [facility] Work Phone: PTINR - POCTon 05-17-2022 INR Coag (PPP) [Relative time] 2.3 {INR} High 1.0 - 1.2 [facility] Comment on above: Performed By: #### P PTIN #### [facility] [address] [address] PT Coag (PPP) [Time] 26.0 s High 8.0 - 11.[address] [facility] Work Phone: Comment on above: Performed By: #### P PTIN #### [facility] [address] [address] Established Visit (Orthopaed ic Surgery)on 05-10-2022 Established Visit (Orthopaedic Surgery) Diagnoses/Problems Assessed Cervical pain (neck) (723.1) (M54.2) Low back pain (724.2) (M54.50) Osteoarthritis of right hip (715.95) (M16.11)1 Greater trochanteric bursitis of right hip (726.5) (M70.61)1 1 Amended By: Agnes Chery; May 13 2022 11:57 AM ESTOrders Cervical pain (neck), Low back pain Pain Management Referral Evaluation and Treatment Evaluate AND Treat Status: Hold For - Scheduling Requested for: 10May2022 Patient Discussion/Summary After reviewing most recent labs, I am uncomfortable providing cortisone injection at today's visit without a current INR. Patient states she is in the process of cutting doses for an upcoming dental procedure. She is scheduled to have an INR next week. We discussed plan to follow-up here after that INR has been obtained and as long as it is below 2.5, I can administer the injection here in the office. The meantime patient to continue with the Tylenol and Advil as she has been taking per package directions. She may continue to use ice if that seems to help with her symptoms, patient may also try heat with stretching to see if that helps improve symptoms. Plan will be to follow-up here next week for cortisone injection. She is agreeable with this plan of care. This note was generated using Say2me software. It may contain errors in wording, punctuation or spelling. Provider Impressions Patient with flare of her right hip pain. Today's exam reveals symptoms over the greater trochanteric bursa. Chief Complaint F/U R HIP PAIN LAST INJ 04/18/21 PAIN 5/10 History of Present Illness Agree with CC as documented. Patient states she is noticing an increase achiness over the last month to the right hip area. Patient states her symptoms are worse yesterday after having a pedicure and holding her leg in a awkward position. She does states she fell in November of this year and broke her right elbow. She did not result in any hip issues at that time. Patient did seek pain management evaluation for low back issues with Dr. Davis in [place]. He prescribed tizanidine which she is not experiencing any relief at this time. Patient continues to have low back pain and cervical neck pain which aggravate her with certain activities. She is interested in a local pain management referral. She does take Advil or Tylenol with slight improvements. Patient has not used any ice or heat to the hip. She is inquiring about a cortisone injection today. Last injection was to the right anterior hip per Dr. Soto approximately 1 year ago. Review of Systems Constitutional: no fever, no chills and not feeling tired. ENT: no recent cough or URI sx, no nosebleeds. Cardiovascular: no chest pain. Respiratory: no shortness of breath and no cough. Gastrointestinal: no abdominal pain, no nausea, no vomiting and no diarrhea. Integumentary: no rashes or skin wounds. Neurological: no headache. Psychiatric: no depression and no sleep disturbances. Endocrine: no muscle weakness and no muscle cramps. Hematologic/Lymphatic : no swollen glands and no tendency for easy bruising. All other systems have been reviewed and are negative other than noted in HPI. Active Problems Problems CAD in [place] artery (414.01) (I25.10) Chronic headache (784.0) (R51.9,G89.29) Closed fracture of right elbow, sequela (905.2) (S42.401S) Decreased estrogen level (256.39) (E28.39) Encounter for screening mammogram for malignant neoplasm of breast (V76.12) (Z12.31) [place] filter in place (V45.89) (Z95.828) Grief reaction (309.0) (F43.21) Hip pain, right (719.45) (M25.551) Hyperlipidemia (272.4) (E78.5) Liver cyst (573.8) (K76.89) Low back pain (724.2) (M54.50) Medicare annual wellness visit, subsequent (V70.0) (Z00.00) Mild intermittent asthma in adult without complication (493.90) (J45.20) Osteoarthritis of lumbosacral spine without myelopathy (721.3) (M47.817) Osteoarthritis of right hip (715.95) (M16.11) Other secondary osteoarthritis of right hip (715.25) (M16.7) PND (post-nasal drip) (784.91) (R09.82) Polyp of colon (211.3) (K63.5) Preprocedural examination (V72.84) (Z01.818) Screening for breast cancer (V76.10) (Z12.39) Screening for colorectal cancer (V76.51,V76.41) (Z12.11,Z12.12) COLOGUARD: NEGATIVE Taking medication for chronic disease (799.9) (R69) Teeth problem (525.9) (K08.9) Vitamin D deficiency (268.9) (E55.9) Past Medical History Problems History of Breast cancer screening (V76.10) (Z12.39) Resolved Date: 05 Jun 2007 History of Cervical disc disease (722.91) (M50.90) Resolved Date: 22 Feb 2021 History of basal cell carcinoma (BCC) (V10.83) (Z85.828) History of pulmonary embolism (V12.55) (Z86.711) Surgical History Problems History of Arterial stent placement LAD CORONARY ARTERY History of Breast biopsy LEFT BREAST History of section Colonoscopy Normal History of Colposcopy Family History Other No pertinent family history PATIENT IS ADOPTED Soc (more content not included)... Normal [facility] Tobacco Screening.on 022 Fall risk assessment b) One or more fall s in the last year [facility] Work Phone: Tobacco use status [facility] b) No [facility] Work Phone: Laboratory - Coagulationon 0 04-12-2022 PT Coag (PPP) [Time] 30.5 s above high threshold 8.0 - 11.0 [facility] Work Phone: No Panel Informationon 04-12 2.7 1 above high threshold 1.0 - 1.2 [facility] Work Phone: Laboratory - Coagulationon 0 2022 PT Coag (PPP) [Time] 31.9 s above high threshold 8.0 - 11.0 [facility] Work Phone: No Panel Informationon 03-15 2.8 1 above high threshold 1.0 - 1.2 [facility] Work Phone: Office Visiton 03-01-2022 Follow-up visit Diagnoses/Problems Teeth problem (525.9) (K08.9) Preprocedural examination (V72.84) (Z01.818) Patient Discussion/Summary I hopefully addressed her questions and concerns today. I have documented my feeling about the upcoming procedure and I think that it is reasonable to proceed with the procedure as planned. I told her that ultimately the decision is up to her as to whether she wants to go through with that or not. She understands that with any type of procedure there are inherent risks as far as complications are concerned. She knows also to contact the Coumadin clinic about the time of her surgery and to make sure that they give her instruction on how to dose her warfarin around this procedure. Please send a copy of today's progress note to dental fax number [phone]-with attention to Alis Quinn Chief Complaint Pt is here today to discuss her up coming dental procedure. This note was generated by using Say2me software. It may contain errors in wording, punctuate, or spelling. She is here today for a preprocedural consultation. She has been seeing Dr. Staton for her dental issues and the decision was made to do for tooth extractions as well as for dental implants placed under deep sedation . She had several questions and had posed several concerns about her ability to have this procedure so a note was sent to me about those concerns. We had her come in to discuss the issue at hand. She states that she has several teeth missing and that the teeth that are being removed now are because she wants the implants and it would make it easier structurally to complete the task. We talked about the various forms of anesthetic and she understands that the 1 that they are going to use does not put an individual completely under . We discussed that during this type of sedation there is careful monitoring of vital signs and airway. There should be a qualified individual there to handle any problems should she run into reaction to the medication. She states she has never had fentanyl or propofol before. I told her that 1 cannot know how they will respond to those medications until they have them. She understands that in any procedural circumstance something can go wrong even with the best clinicians and best circumstances. I think however it is highly unlikely. She has had a history of heart disease but she has no cardiopulmonary symptoms at this time. She is very physically active. She ends up climbing 13 steps in her home many times a day without any cardiopulmonary symptoms. 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 I believe that her cardiac condition is stable. She is also on Coumadin because of previous clotting events. The good news is her dental surgeon will be satisfied with an INR around 2.5 or slightly less and we will have the Coumadin clinic give advice on her Coumadin dosing regimen around the time of this procedure. I told her today that I do not see any contraindications to proceeding with this procedure and I believe that her risk is sufficiently low enough to reasonably proceed with this procedure. She understands that ultimately the decision is her own and if would make her feel better she could sit down with the clinician again to go over the steps of the procedure so she is satisfied with the information that she receives. Review of SystemsDenies fatigue. Some allergy symptoms Denies shortness of breath, coughing, wheezing Denies chest pain, palpitations, leg edema Denies nausea, vomiting, diarrhea, heartburn, abdominal pain, or black or bloody stools Denies significant joint pain . No back pain Denies feelings of significant anxiety or depression Active Problems CAD in [place] artery (414.01) (I25.10) Chronic headache (784.0) (R51.9,G89.29) Closed fracture of right elbow, sequela (905.2) (S42.401S) Decreased estrogen level (256.39) (E28.39) Encounter for screening mammogram for malignant neoplasm of breast (V76.12) (Z12.31) [place] filter in place (V45.89) (Z95.828) Grief reaction (309.0) (F43.21) Hip pain, right (719.45) (M25.551) Hyperlipidemia (272.4) (E78.5) Liver cyst (573.8) (K76.89) Low back pain (724.2) (M54.50) Medicare annual wellness visit, subsequent (V70.0) (Z00.00) Mild intermittent asthma in adult without complication (493.90) (J45.20) Osteoarthritis of lumbosacral spine without myelopathy (721.3) (M47.817) Osteoarthritis of right hip (715.95) (M16.11) Other secondary osteoarthritis of right hip (715.25) (M16.7) PND (post-nasal drip) (784.91) (R09.82) Polyp of colon (211.3) (K63.5) Screening for breast cancer (V76.10) (Z12.39) Screening for colorectal cancer (V76.51,V76.41) (Z12.11,Z12.12) COLOGUARD: NEGATIVE Taking medication for chronic disease (799.9) (R69) Vitamin D deficiency (268.9) (E55.9) Past Medical (more content not included)... Normal [employer] Tobacco Screening.on 022 Fall risk assessment a) No falls within the last year [facility] Work Phone: Tobacco use status CP b) No [facility] Work Phone: Office Visiton 02-19-2022 Follow-up visit Diagnoses/Problems Closed fracture of right elbow, sequela (905.2) (S42.401S) History of Stage 3a chronic kidney disease (585.3) (N18.31) Hyperlipidemia (272.4) (E78.5) Mild intermittent asthma in adult without complication (493.90) (J45.20) Vitamin D deficiency (268.9) (E55.9) Screening for colorectal cancer (V76.51,V76.41) (Z12.11,Z12.12) COLOGUARD: NEGATIVE Orders PMH: History of pulmonary embolism Renew: Warfarin Sodium 5 MG Oral Tablet; TAKE 1 TABLET Daily TAKE WITH 1 MG WARFARIN OR DIRECTED PER INR Screening for colorectal cancer Vitamin D 25-Hydroxy; Status:Active; Requested for:[id number]; Patient Discussion/Summary Please schedule a 6-month follow-up visit from today and please order a fasting BMP with diagnosis of chronic use of medication. She will be due for the annual Medicare wellness visit She will get her vitamin D level drawn today before leaving. At the end of our visit she indicated that her specialist wanted her vitamin D level checked i.e. her dentist so we we will get that done today we 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 with results Chief Complaint Pt is here today for a 6 month check up, Review labs. She was also in the ER 02/07/22 for a fall. This note was generated by using [employer] software. It may contain errors in wording, punctuate, or spelling. She is here today for her 6-month checkup. Unfortunately since her last visit here she has had 3 visits to the [facility] emergency department. Back on February 01 she went because she thinks she actually got Salmonella poisoning. She states that she had some severe symptoms for short period of time but she started taking a probiotic and she feels like everything is ironed out. We did briefly discussed her history of colon polyps and determined that she would be due for another colonoscopy in May 2023. She also had 2 falls. 1 occurred on November 08. She states she was trying to help her sister who was recovering from surgery and was on a stepping stool trying to change a light bulb. She miscalculated when stepping down causing her to fall forward and hit her right elbow. She did suffer a closed radial head fracture. She then had another fall on February 07. She states she went to a condo which had flooded and she was stepping from the carpet to the hard floor with a wet foot. She ended up losing her balance and falling forward striking the same right elbow. She went to the emergency department [facility] and an x-ray did not reveal any new fractures. She states she also feels like she may have stone to her right shoulder but her symptoms are minor. We did talk about fall prevention and she states she will be more mindful about how she is getting around and also try to avoid stepping on ladders and things like that. We did conduct a review of systems and we also went over the results of recent lab work. I am pleased to see that her cholesterol numbers have improved significantly and she is taking her medication a little bit more frequently. We also reviewed her kidney profile and her EGFR this time came back at greater than 60. I am taking stage III kidney disease off of her list and we will continue to monitor her blood work. She also continues to stay active. We also briefly discussed her grief from the loss of her mother which obviously is very normal and natural she states that she is still working on getting things settled from her passing away. Review of SystemsMild fatigue. Denies shortness of breath, coughing, wheezing,sometimes mild symptoms with seasonal allergies Denies chest pain, palpitations, leg edema Denies nausea, vomiting, diarrhea, heartburn, abdominal pain, or black or bloody stool Denies dysuria or hematuria C/O significant joint pain . C/O mid low back pain Active Problems CAD in [place] artery (414.01) (I25.10) Chronic headache (784.0) (R51.9,G89.29) Decreased estrogen level (256.39) (E28.39) Encounter for screening mammogram for malignant neoplasm of breast (V76.12) (Z12.31) [place] filter in place (V45.89) (Z95.828) Grief reaction (309.0) (F43.21) Hip pain, right (719.45) (M25.551) Hyperlipidemia (272.4) (E78.5) Liver cyst (573.8) (K76.89) Low back pain (724.2) (M54.50) Medicare annual wellness visit, subsequent (V70.0) (Z00.00) Mild intermittent asthma in adult without complication (493.90) (J45.20) Osteoarthritis of lumbosacral spine without myelopathy (721.3) (M47.817) Osteoarthritis of right hip (715.95) (M16.11) Other secondary osteoarthritis of right hip (715.25) (M16.7) PND (post-nasal drip) (784.91) (R09.82) Polyp of colon (211.3) (K63.5) Screening for breast cancer (V76.10) (Z12.39) Screening for colorectal cancer (V76.51,V76.41) (Z12.11,Z12.12) COLOGUARD: NEGATIVE Taking medication for chronic disease (799.9) (R69) Past Medical History History of Breast cancer screening (V76.10) (Z12.39) Resolved Date: 05 Jun 2007 History of Cervical disc disease (722.91) (M50.90) Resolved Date: 22 Feb 2021 History of basal cell carcin (more content not included)... Normal [employer] Tobacco Screening.on 022 Fall risk assessment b) One or more fall s in the last year [facility] Work Phone: Tobacco use status CPHS b) No [facility] Work Phone: VITAMIN D, 25-HYDROXYon 02-01 VITAMIN D, 25-HYDROXY 51 ng/mL Normal [facility] Comment on above: Result Comment: . DEFICIENCY: < 20 NG/ML INSUFFICIENCY: 20-29 NG/ML SUFFICIENCY: 30-100 NG/ML THIS ASSAY ACCURATELY QUANTIFIES THE SUM OF VITAMIN D3, 25-HYDROXY AND VIT D2,25-HYDROXY. Performed By: #### V TDOH #### [address] [address] Vitamin D 25-Hydroxyon 02-19 25-hydroxyvitamin D3 [Mass/Vol] 51 ng/mL [facility] Work Phone: Comment on above: .DEFICIENCY: < 20 NG /MLINSUFFICIENCY: 20-29 NG/MLSUFFICIENCY: 30-100 NG/MLTHIS ASSAY ACCURATELY QUANTIFIES THE SUM OFVITAMIN D3, 25-HYDROXY AND VIT D2,25-HYDROXY. BASIC METABOLIC PANELon 02-01 Anion gap [Moles/Vol] 10 mmol/L Normal 10 - 20 [facility] Comment on above: Performed By: #### B MP #### [address] [address] Calcium [Mass/Vol] 9.0 mg/dL Normal 8.6 - 10.3 [facility] Comment on above: Performed By: #### B MP #### [address] [address] Chloride [Moles/Vol] 109 mmol/L High 98 - 107 [facility] Comment on above: Performed By: #### B MP #### [address] [address] Creatinine [Mass/Vol] 0.95 mg/dL Normal 0.50 - 1.05 [facility] Comment on above: Performed By: #### B MP #### [address] [address] GFR/1.73 sq M.predicted among non-blacks MDRD (S/P/Bld) [Vol rate/Area] 64 mL/min/{1.73_m2} Normal >90 [facility] Comment on above: Result Comment: CALC ULATIONS OF ESTIMATED GFR ARE PERFORMED USING THE 2020 CKD-EPI STUDY REFIT EQUATION WITHOUT THE RACE VARIABLE FOR THE IDMS-TRACEABLE CREATININE METHODS. https://jasn.asnjournals.org/content/early//ASN.452825 5735 Performed By: #### B MP #### [address] [address] Glucose [Mass/Vol] 98 mg/dL Normal 74 - 99 [facility] Comment on above: Performed By: #### B MP #### [address] [address] HCO3 (Bld) [Moles/Vol] 26 mmol/L Normal 21 - 32 [facility] Comment on above: Performed By: #### B MP #### [address] [address] Potassium [Moles/Vol] 4.4 mmol/L Normal 3.5 - 5.3 [facility] Comment on above: Performed By: #### B MP #### [address] [address] Sodium [Moles/Vol] 141 mmol/L Normal 136 - 145 [facility] Comment on above: Performed By: #### B MP #### [address] [address] Urea nitrogen [Mass/Vol] 25 mg/dL High 6 - 23 [facility] Comment on above: Performed By: #### B MP #### [address] [address] CBC AND DIFFERENTIALon 02-15 Basophils (Bld) [#/Vol] 0.10 10*3/uL Normal 0.00 - 0.10 [facility] Comment on above: Performed By: #### C BCDF #### [address] [address] Basophils/100 WBC (Bld) 1.0 % Normal 0.0 - 2.0 [facility] Comment on above: Performed By: #### C BCDF #### [address] [address] Eosinophils (Bld) [#/Vol] 0.10 10*3/uL Normal 0.00 - 0.70 [facility] Comment on above: Performed By: #### C BCDF #### [address] [address] Eosinophils/100 WBC (Bld) 2.1 % Normal 0.0 - 6.0 [facility] Comment on above: Performed By: #### C BCDF #### [address] [address] Erythrocyte distribution width (RBC) [Ratio] 14.2 % Normal 11.5 - 14.5 [facility] Comment on above: Performed By: #### C BCDF #### [address] [address] Hematocrit (Bld) [Volume fraction] 41.3 % Normal 36.0 - 46.0 [facility] Comment on above: Performed By: #### C BCDF #### [address] [address] Hemoglobin (Bld) [Mass/Vol] 13.5 g/dL Normal 12.0 - 16.0 [facility] Comment on above: Performed By: #### C BCDF #### [address] [address] Lymphocytes (Bld) [#/Vol] 1.90 10*3/uL Normal 1.20 - 4.80 [facility] Comment on above: Performed By: #### C BCDF #### [address] [address] Lymphocytes/100 WBC (Bld) 37.5 % Normal 13.0 - 44.0 [facility] Comment on above: Performed By: #### C BCDF #### [address] [address] MCHC (RBC) [Mass/Vol] 32.8 g/dL Normal 32.0 - 36.0 [facility] Comment on above: Performed By: #### C BCDF #### [address] [address] MCV (RBC) [Entitic vol] 88 fL Normal 80 - 100 [facility] Comment on above: Performed By: #### C BCDF #### [address] [address] Monocytes (Bld) [#/Vol] 0.50 10*3/uL Normal 0.10 - 1.00 [facility] Comment on above: Performed By: #### C BCDF #### [address] [address] Monocytes/100 WBC (Bld) 9.8 % Normal 2.0 - 10.0 [facility] Comment on above: Performed By: #### C BCDF #### [address] [address] Neutrophils (Bld) [#/Vol] 2.50 10*3/uL Normal 1.20 - 7.70 [facility] Comment on above: Result Comment: Perc ent differential counts (%) should be interpreted in the context of the absolute cell counts (cells/L). Performed By: #### C BCDF #### [address] [address] Neutrophils/100 WBC (Bld) 49.6 % Normal 40.0 - 80.0 [facility] Comment on above: Performed By: #### C BCDF #### [address] [address] NUCLEATED RBC 0.1 /100 WBC Normal [facility] Comment on above: Performed By: #### C BCDF #### [address] [address] Platelets (Bld) [#/Vol] 257 10*3/uL Normal 150 - 450 [facility] Comment on above: Performed By: #### C BCDF #### [address] [address] RBC 4.69 x10E12/L Normal 4.00 - 5.20 [facility] Comment on above: Performed By: #### C BCDF #### [address] [address] WBC (Bld) [#/Vol] 5.1 10*3/uL Normal 4.4 - 11.3 [facility] Comment on above: Performed By: #### C BCDF #### [address] [address] Complete Blood Count + Diffe rentialon 02-15-2022 Basophils/100 WBC (Bld) 1.0 % 0.0 - 2.0 [facility] Work Phone: Erythrocyte distribution width (RBC) [Ratio] 14.2 % See Below [facility] Work Phone: Comment on above: Reference Range: 11. 5 - 14.5 Hematocrit (Bld) [Volume fraction] 41.3 % See Below [facility] Work Phone: Comment on above: Reference Range: 36. 0 - 46.0 Hemoglobin (Bld) [Mass/Vol] 13.5 g/dL See Below [facility] Work Phone: Comment on above: Reference Range: 12. 0 - 16.0 Lymphocytes/100 WBC (Bld) 37.5 % See Below [facility] Work Phone: Comment on above: Reference Range: 13. 0 - 44.0 MCHC (RBC) [Mass/Vol] 32.8 g/dL See Below [facility] Work Phone: Comment on above: Reference Range: 32. 0 - 36.0 MCV (RBC) [Entitic vol] 88 fL 80 - 100 [facility] Work Phone: Monocytes/100 WBC (Bld) 9.8 % 2.0 - 10.0 [facility] Work Phone: Neutrophils/100 WBC (Bld) 49.6 % See Below [facility] Work Phone: Comment on above: Reference Range: 40. 0 - 80.0 Platelets (Bld) [#/Vol] 257 10*3/uL 150 - 450 [facility] Work Phone: RBC (Bld) [#/Vol] 4.69 {x10E12/L} See Below [facility] Work Phone: Comment on above: Reference Range: 4.0 0 - 5.20 WBC (Bld) [#/Vol] 5.1 10*3/uL 4.4 - 11.3 [facility] Work Phone: Complete Blood Count + Differential 0.10 {x10E9/L} See Below [facility] Work Phone: Comment on above: Reference Range: 0.0 0 - 0.10 Reference Range: 0.0 0 - 0.70 Complete Blood Count + Differential 0.50 {x10E9/L} See Below [facility] Work Phone: Comment on above: Reference Range: 0.1 0 - 1.00 Complete Blood Count + Differential 1.90 {x10E9/L} See Below [facility] Work Phone: Comment on above: Reference Range: 1.2 0 - 4.80 Complete Blood Count + Differential 2.50 {x10E9/L} See Below [facility] Work Phone: Comment on above: Reference Range: 1.2 0 - 7.70 Percent differential counts (%) should be interpreted in the context of the absolute cell counts (cells/L). Complete Blood Count + Differential 2.1 % 0.0 - 6.0 [facility] Work Phone: Complete Blood Count + Differential 0.1 {/100_WBC} [facility] Work Phone: LIPID PANEL (CORONARY RISK 2 )on 02-15-2022 Cholesterol [Mass/Vol] 166 mg/dL Normal 0 - 199 [facility] Comment on above: Result Comment: . AGE DESIRABLE BORDERLINE HIGH HIGH 0-19 Y 0 - 169 170 - 199 >/= 200 20-24 Y 0 - 189 190 - 224 >/= 225 >24 Y 0 - 199 200 - 239 >/= 240 All ranges are based on fasting samples. Specific therapeutic targets will vary based on patient-specific cardiac risk. . Pediatric guidelines reference:Pediatrics 2011, 128(S5). Adult guidelines reference: NCEP ATPIII Guidelines, NESS 2001, 258:2486-97 . Venipuncture immediately after or during the administration of Metamizole may lead to falsely low results. Testing should be performed immediately prior to Metamizole dosing. Performed By: #### L IPID #### [address] [address] Cholesterol in HDL [Mass/Vol] 48.0 mg/dL Normal [facility] Comment on above: Result Comment: . AGE VERY LOW LOW NORMAL HIGH 0-19 Y < 35 < 40 40-45 ---- 20-24 Y ---- < 40 >45 ---- >24 Y ---- < 40 40-60 >60 . Performed By: #### L IPID #### [address] [address] Cholesterol in LDL [Mass/Vol] 99 mg/dL Normal 0 - 99 [facility] Comment on above: Result Comment: . NEAR BORD AGE DESIRABLE OPTIMAL HIGH HIGH VERY HIGH 0-19 Y 0 - 109 --- 110-129 >/= 130 ---- 20-24 Y 0 - 119 --- 120-159 >/= 160 ---- >24 Y 0 - 99 100-129 130-159 160-189 >/=190 . Performed By: #### L IPID #### [address] [address] Cholesterol in VLDL [Mass/Vol] 19 mg/dL Normal 0 - 40 [facility] Comment on above: Performed By: #### L IPID #### [address] [address] Cholesterol.total/Cho lesterol in HDL [Mass ratio] 3.5 {ratio} Normal [facility] Comment on above: Result Comment: REF VALUES DESIRABLE < 3.4 HIGH RISK > 5.0 Performed By: #### L IPID #### [address] [address] Triglyceride [Mass/Vol] 95 mg/dL Normal 0 - 149 [facility] Comment on above: Result Comment: . AGE DESIRABLE BORDERLINE HIGH HIGH VERY HIGH 0 D-90 D 19 - 174 ---- ---- ---- 91 D- 9 Y 0 - 74 75 - 99 >/= 100 ---- 10-19 Y 0 - 89 90 - 129 >/= 130 ---- 20-24 Y 0 - 114 115 - 149 >/= 150 ---- >24 Y 0 - 149 150 - 199 200- 499 >/= 500 . Venipuncture immediately after or during the administration of Metamizole may lead to falsely low results. Testing should be performed immediately prior to Metamizole dosing. Performed By: #### L IPID #### [address] [address] Laboratory - Chemistry and C hemistry - challengeon 02-15-2022 Anion gap [Moles/Vol] 10 mmol/L 10 - 20 [facility] Work Phone: Calcium [Mass/Vol] 9.0 mg/dL 8.6 - 10.3 [facility] Work Phone: Chloride [Moles/Vol] 109 mmol/L above high threshold 98 - 107 [facility] Work Phone: CO2 [Moles/Vol] 26 mmol/L 21 - 32 [facility] Work Phone: Creatinine [Mass/Vol] 0.95 mg/dL See Below [facility] Work Phone: Comment on above: Reference Range: 0.5 0 - 1.05 Glucose [Mass/Vol] 98 mg/dL 74 - 99 [facility] Work Phone: Potassium [Moles/Vol] 4.4 mmol/L 3.5 - 5.3 [facility] Work Phone: Sodium [Moles/Vol] 141 mmol/L 136 - 145 [facility] Work Phone: Urea nitrogen [Mass/Vol] 25 mg/dL above high threshold 6 - 23 [facility] Work Phone: Laboratory - Coagulationon 0 02-15-2022 PT Coag (PPP) [Time] 26.8 s above high threshold 8.0 - 11.0 [facility] Work Phone: Lipid Panelon 02-15-2022 Cholesterol [Mass/Vol] 166 mg/dL 0 - 199 [facility] Work Phone: Comment on above: . AGE DESIRABLE BORD MARIE HIGH HIGH 0-19 Y 0 - 169 170 - 199 >/= 200 20-24 Y 0 - 189 190 - 224 >/= 225 >24 Y 0 - 199 200 - 239 >/= 240 All ranges are based on fasting samples. Specific therapeutic targets will vary based on patient-specific cardiac risk.. Pediatric guidelines reference:Pediatrics 2011, 128(S5). Adult guidelines reference: NCEP ATPIII Guidelines, NESS 2001, 258:2486-97. Venipuncture immediately after or during the administration of Metamizole may lead to falsely low results. Testing should be performed immediately prior to Metamizole dosing. Cholesterol in HDL [Mass/Vol] 48.0 mg/dL [facility] Work Phone: Comment on above: . AGE VERY LOW LOW N ORMAL HIGH 0-19 Y < 35 < 40 40-45 ---- 20- 24 Y ---- < 40 >45 ---- >24 Y ---- < 40 40-60 >60. Cholesterol in LDL [Mass/Vol] 99 mg/dL 0 - 99 [facility] Work Phone: Comment on above: . NEAR BORD AGE BEKA RABLE OPTIMAL HIGH HIGH VERY HIGH 0-19 Y 0 - 109 --- 110-129 >/= 130 ---- 20-24 Y 0 - 119 --- 120-159 >/= 160 ---- >24 Y 0 - 99 100-129 130-159 160-189 >/=190. Cholesterol.total/Cho lesterol in HDL [Mass ratio] 3.5 {ratio} [facility] Work Phone: Comment on above: REF VALUESDESIRABLE < 3.4HIGH RISK > 5.0 Triglyceride [Mass/Vol] 95 mg/dL 0 - 149 [facility] Work Phone: Comment on above: . AGE DESIRABLE BORD MARIE HIGH HIGH VERY HIGH 0 D-90 D 19 - 174 ---- ---- ----91 D- 9 Y 0 - 74 75 - 99 >/= 100 ---- 10-19 Y 0 - 89 90 - 129 >/= 130 ---- 20-24 Y 0 - 114 115 - 149 >/= 150 ---- >24 Y 0 - 149 150 - 199 200- 499 >/= 500. Venipuncture immediately after or during the administration of Metamizole may lead to falsely low results. Testing should be performed immediately prior to Metamizole dosing. Lipid Panel 19 mg/dL 0 - 40 [facility] Work Phone: No Panel Informationon 02-15 2.3 1 above high threshold 1.0 - 1.2 [facility] Work Phone: 64 {mL/min/1.73m2} >90 [facility] Work Phone: Comment on above: CALCULATIONS OF RAFIQ MATED GFR ARE PERFORMED USING THE 2020 CKD-EPI STUDY REFIT EQUATION WITHOUT THE RACE VARIABLE FOR THE IDMS-TRACEABLE CREATININE METHODS.https://jasn.asnjournals.org/content/early// N.3408845276 Laboratory - Coagulationon 0 - PT Coag (PPP) [Time] 29.8 s above high threshold 8.0 - 11.0 [facility] Work Phone: No Panel Informationon 01-18 2.6 1 above high threshold 1.0 - 1.2 [facility] Work Phone: Laboratory - Coagulationon 0 - PT Coag (PPP) [Time] 41.4 s above high threshold 8.0 - 11.0 [facility] Work Phone: No Panel Informationon 01-04 3.7 1 above high threshold 1.0 - 1.2 [facility] Work Phone: Laboratory - Coagulationon 0 12-21-2021 PT Coag (PPP) [Time] 32.3 s above high threshold 8.0 - 11.0 [facility] Work Phone: No Panel Informationon 12-21 2.8 1 above high threshold 1.0 - 1.2 [facility] Work Phone: Laboratory - Coagulationon 0 12-07-2021 PT Coag (PPP) [Time] 39.7 s above high threshold 8.0 - 11.0 [facility] Work Phone: No Panel Informationon 12-07 3.5 1 above high threshold 1.0 - 1.2 [facility] Work Phone: Laboratory - Coagulationon 0 11-02-2021 PT Coag (PPP) [Time] 30.3 s above high threshold 8.0 - 11.0 [facility] Work Phone: No Panel Informationon 11-02 2.6 1 above high threshold 1.0 - 1.2 [facility] Work Phone: Mamm - Screening Mammogram w / Tomosynthesison 10-19-2021 MG Breast Screening Normal [facility] Work Phone: Xray Bone Density, Dexa 1 or More Siteson 10-19-2021 DXA Bone [Mass/Area] Bone density Normal [facility] Work Phone: Laboratory - Coagulationon 0 10-12-2021 PT Coag (PPP) [Time] 35.0 s above high threshold 8.0 - 11.0 [facility] Work Phone: No Panel Informationon 10-12 3.1 1 above high threshold 1.0 - 1.2 [facility] Work Phone: Laboratory - Coagulationon 0 09-14-2021 PT Coag (PPP) [Time] 32.3 s above high threshold 8.0 - 11.0 [facility] Work Phone: No Panel Informationon 09-14 2.8 1 above high threshold 1.0 - 1.2 [facility] Work Phone: Tobacco Screening.on 022 Fall risk assessment b) One or more fall s in the last year -[facility] Work Phone: Tobacco use status CPHS b) No -[facility] Work Phone: BASIC METABOLIC PANELon 08-04 Anion gap [Moles/Vol] 9 mmol/L Low 10 - 20 [facility] Comment on above: Performed By: #### B MP #### [address] [address] Calcium [Mass/Vol] 9.1 mg/dL Normal 8.6 - 10.3 [facility] Comment on above: Performed By: #### B MP #### [address] [address] Chloride [Moles/Vol] 105 mmol/L Normal 98 - 107 [facility] Comment on above: Performed By: #### B MP #### [address] [address] Creatinine [Mass/Vol] 0.87 mg/dL Normal 0.50 - 1.05 [facility] Comment on above: Performed By: #### B MP #### [address] [address] GFR/1.73 sq M.predicted among non-blacks MDRD (S/P/Bld) [Vol rate/Area] 71 mL/min/{1.73_m2} Normal >90 [facility] Comment on above: Result Comment: CALC ULATIONS OF ESTIMATED GFR ARE PERFORMED USING THE 2020 CKD-EPI STUDY REFIT EQUATION WITHOUT THE RACE VARIABLE FOR THE IDMS-TRACEABLE CREATININE METHODS. https://jasn.asnjournals.org/content//ASN.751333 2835 Performed By: #### B MP #### [address] [address] Glucose [Mass/Vol] 91 mg/dL Normal 74 - 99 [facility] Comment on above: Performed By: #### B MP #### [address] [address] HCO3 (Bld) [Moles/Vol] 28 mmol/L Normal 21 - 32 [facility] Comment on above: Performed By: #### B MP #### [address] [address] Potassium [Moles/Vol] 4.4 mmol/L Normal 3.5 - 5.3 [facility] Comment on above: Performed By: #### B MP #### [address] [address] Sodium [Moles/Vol] 138 mmol/L Normal 136 - 145 [facility] Comment on above: Performed By: #### B MP #### [address] [address] Urea nitrogen [Mass/Vol] 30 mg/dL High 6 - 23 [facility] Comment on above: Performed By: #### B MP #### [address] [address] Laboratory - Chemistry and C hemistry - challengeon 08-17-2021 Anion gap [Moles/Vol] 9 mmol/L below low threshold 10 - 20 [facility] Work Phone: Calcium [Mass/Vol] 9.1 mg/dL 8.6 - 10.3 [facility] Work Phone: Chloride [Moles/Vol] 105 mmol/L 98 - 107 [facility] Work Phone: CO2 [Moles/Vol] 28 mmol/L 21 - 32 [facility] Work Phone: Creatinine [Mass/Vol] 0.87 mg/dL See Below [facility] Work Phone: Comment on above: Reference Range: 0.5 0 - 1.05 Glucose [Mass/Vol] 91 mg/dL 74 - 99 [facility] Work Phone: Potassium [Moles/Vol] 4.4 mmol/L 3.5 - 5.3 [facility] Work Phone: Sodium [Moles/Vol] 138 mmol/L 136 - 145 [facility] Work Phone: Urea nitrogen [Mass/Vol] 30 mg/dL above high threshold 6 - 23 [facility] Work Phone: Laboratory - Coagulationon 0 08-17-2021 PT Coag (PPP) [Time] 37.4 s above high threshold 8.0 - 11.0 [facility] Work Phone: No Panel Informationon 08-17 3.3 1 above high threshold 1.0 - 1.2 [facility] Work Phone: 71 {mL/min/1.73m2} >90 [facility] Work Phone: Comment on above: CALCULATIONS OF RAFIQ MATED GFR ARE PERFORMED USING THE 2020 CKD-EPI STUDY REFIT EQUATION WITHOUT THE RACE VARIABLE FOR THE IDMS-TRACEABLE CREATININE METHODS.https://jasn.asnjournals.org/content// N.7299403675 Laboratory - Coagulationon 1 09-20-2020 PT Coag (PPP) [Time] 34.6 s above high threshold 8.0 - 11.0 [facility] Work Phone: No Panel Informationon 07-20 3.0 1 above high threshold 1.0 - 1.2 [facility] Work Phone: Tobacco Screening.on 021 Fall risk assessment a) No falls within the last year [facility] Work Phone: Tobacco use status CP b) No [facility] [address] Work Phone: Laboratory - Coagulationon 1 08-22-2020 PT Coag (PPP) [Time] 34.1 s above high threshold 8.0 - 11.0 [facility] [facility] Work Phone: No Panel Informationon 06-22 3.0 1 above high threshold 1.0 - 1.2 -[facility] Work Phone: Laboratory - Coagulationon 1 PT Coag (PPP) [Time] 31.7 s above high threshold 8.0 - 11.0 [facility] Work Phone: No Panel Informationon 05-25 2.8 1 above high threshold 1.0 - 1.2 [facility] Work Phone: Laboratory - Coagulationon 0 04-27-2021 PT Coag (PPP) [Time] 35.5 s above high threshold 8.0 - 11.0 [facility] Work Phone: No Panel Informationon 04-27 3.1 1 above high threshold 1.0 - 1.2 -[facility] Work Phone: No Panel Informationon 04-18 Please click on the link to view the study images Normal [facility] 300 Work Phone: Laboratory - Coagulationon 0 03-30-2021 PT Coag (PPP) [Time] 28.9 s above high threshold 8.0 - 11.0 [facility] 300 Work Phone: No Panel Informationon 03-30 2.5 1 above high threshold 1.0 - 1.2 [facility] 300 Work Phone: Tobacco Screening.on 021 Fall risk assessment a) No falls within the last year [facility] 300 Work Phone: Tobacco use status [facility] b) No [facility] 300 Work Phone: Tobacco Screening.on 021 Fall risk assessment a) No falls within the last year [facility] Work Phone: Tobacco use status [facility] b) No [facility] Work Phone: Laboratory - Coagulationon 0 03-02-2021 PT Coag (PPP) [Time] 27.3 s above high threshold 8.0 - 11.0 [facility] Work Phone: No Panel Informationon 03-02 2.4 1 above high threshold 1.0 - 1.2 [facility] Work Phone: Radiologyon 02-23-2021 XR Lumbar spine AP and Lateral Normal [facility] Work Phone: XR Pelvis and Hip - left 2 Views Normal [facility] Work Phone: Tobacco Screening.on 021 Fall risk assessment a) No falls within the last year [facility] Work Phone: Tobacco use status [facility] b) No [facility] Work Phone: Laboratory - Chemistry and C hemistry - challengeon 02-20-2021 Anion gap [Moles/Vol] 7 mmol/L below low threshold 10 - 20 [facility] Work Phone: Calcium [Mass/Vol] 9.0 mg/dL 8.6 - 10.3 [facility] Work Phone: Chloride [Moles/Vol] 108 mmol/L above high threshold 98 - 107 [facility] Work Phone: CO2 [Moles/Vol] 27 mmol/L 21 - 32 [facility] Work Phone: Creatinine [Mass/Vol] 0.90 mg/dL See Below [facility] Work Phone: Comment on above: Reference Range: 0.5 0 - 1.05 Glucose [Mass/Vol] 93 mg/dL 74 - 99 [facility] Work Phone: Potassium [Moles/Vol] 4.1 mmol/L 3.5 - 5.3 [facility] Work Phone: Sodium [Moles/Vol] 138 mmol/L 136 - 145 [facility] Work Phone: Urea nitrogen [Mass/Vol] 23 mg/dL 6 - 23 [facility] Work Phone: Lipid Panelon 02-20-2021 Cholesterol [Mass/Vol] 198 mg/dL 0 - 199 [facility] Work Phone: Comment on above: . AGE DESIRABLE BORD MARIE HIGH HIGH 0-19 Y 0 - 169 170 - 199 >/= 200 20-24 Y 0 - 189 190 - 224 >/= 225 >24 Y 0 - 199 200 - 239 >/= 240 All ranges are based on fasting samples. Specific therapeutic targets will vary based on patient-specific cardiac risk.. Pediatric guidelines reference:Pediatrics 2011, 128(S5). Adult guidelines reference: NCEP ATPIII Guidelines, NESS 2001, 258:2486-97. Venipuncture immediately after or during the administration of Metamizole may lead to falsely low results. Testing should be performed immediately prior to Metamizole dosing. Cholesterol in HDL [Mass/Vol] 48.0 mg/dL [facility] Work Phone: Comment on above: . AGE VERY LOW LOW N ORMAL HIGH 0-19 Y < 35 < 40 40-45 ---- 20- 24 Y ---- < 40 >45 ---- >24 Y ---- < 40 40-60 >60. Cholesterol in LDL [Mass/Vol] 124 mg/dL above high threshold 0 - 99 [facility] Work Phone: Comment on above: . NEAR BORD AGE BEKA RABLE OPTIMAL HIGH HIGH VERY HIGH 0-19 Y 0 - 109 --- 110-129 >/= 130 ---- 20-24 Y 0 - 119 --- 120-159 >/= 160 ---- >24 Y 0 - 99 100-129 130-159 160-189 >/=190. Cholesterol.total/Cho lesterol in HDL [Mass ratio] 4.1 {ratio} [facility] Work Phone: Comment on above: REF VALUESDESIRABLE < 3.4HIGH RISK > 5.0 Triglyceride [Mass/Vol] 131 mg/dL 0 - 149 [facility] Work Phone: Comment on above: . AGE DESIRABLE BORD MARIE HIGH HIGH VERY HIGH 0 D-90 D 19 - 174 ---- ---- ----91 D- 9 Y 0 - 74 75 - 99 >/= 100 ---- 10-19 Y 0 - 89 90 - 129 >/= 130 ---- 20-24 Y 0 - 114 115 - 149 >/= 150 ---- >24 Y 0 - 149 150 - 199 200- 499 >/= 500. Venipuncture immediately after or during the administration of Metamizole may lead to falsely low results. Testing should be performed immediately prior to Metamizole dosing. Lipid Panel 26 mg/dL 0 - 40 [facility] Work Phone: No Panel Informationon 02-20 >60 >60 [facility] Work Phone: Comment on above: CALCULATIONS OF RAFIQ MATED GFR ARE PERFORMED USING THE MDRD STUDY EQUATION FOR THE IDMS-TRACEABLE CREATININE METHODS. CLIN CHEM 2007;53:766-72 Laboratory - Coagulationon 0 02-02-2021 PT Coag (PPP) [Time] 23.4 s above high threshold 8.0 - 11.0 [facility] Work Phone: No Panel Informationon 02-02 2.0 1 above high threshold 1.0 - 1.2 [facility] Work Phone: Tobacco Screening.on 021 Tobacco use status [facility] b) No -[facility] Work Phone: Tobacco Screening. b) No -[facility] Work Phone: Laboratory - Coagulationon 0 01-05-2021 PT Coag (PPP) [Time] 24.1 s above high threshold 8.0 - 11.0 [facility] Work Phone: No Panel Informationon 01-05 2.1 1 above high threshold 1.0 - 1.2 -[facility] Work Phone: ECG 12-LEADOrdered By: Marv Kolb on 11-27-2020 Atrial Rate [facility] P [place] [facility] P-R Interval [facility] Q-T Interval [facility] Q-T Interval (corrected) [facility] QRS Duration [facility] QTC Calculation (Bezet) [facility] R [place] [facility] T [place] [facility] Ventricular Rate [facility] Hematologyon 09-15-2020 INR Coag (Bld) [Relative time] 2.5 {INR} above high threshold 1.0 - 1.2 -[facility] Work Phone: PT Coag (PPP) [Time] 29.0 {sec} above high threshold 8.0 - 11.0 [facility] Work Phone: Hematologyon 09-01-2020 INR Coag (Bld) [Relative time] 2.8 {INR} above high threshold 1.0 - 1.2 [facility] Work Phone: PT Coag (PPP) [Time] 32.3 {sec} above high threshold 8.0 - 11.0 [facility] Work Phone: Metabolic Panelon 08-28-2020 Anion gap [Moles/Vol] 11 mmol/L 10 - 20 [facility] Work Phone: Calcium [Mass/Vol] 9.1 mg/dL 8.6 - 10.3 [facility] Work Phone: Chloride [Moles/Vol] 106 mmol/L 98 - 107 [facility] Work Phone: CO2 [Moles/Vol] 26 mmol/L 21 - 32 [facility] Work Phone: Creatinine [Mass/Vol] 0.97 mg/dL See Below [facility] Work Phone: Comment on above: Reference Range: 0.5 0 - 1.05 Glucose [Mass/Vol] 96 mg/dL 74 - 99 [facility] Work Phone: Potassium [Moles/Vol] 3.9 mmol/L 3.5 - 5.3 [facility] Work Phone: Sodium [Moles/Vol] 139 mmol/L 136 - 145 [facility] Work Phone: Urea nitrogen [Mass/Vol] 19 mg/dL 6 - 23 [facility] Work Phone: Otheron 08-28-2020 57 {mL/min/1.73m2} Abnormal >60 [facility] Work Phone: 69 {mL/min/1.73m2} >60 [facility] Work Phone: Comment on above: CALCULATIONS OF RAFIQ MATED GFR ARE PERFORMED USING THE MDRD STUDY EQUATION FOR THE IDMS-TRACEABLE CREATININE METHODS. CLIN CHEM 2007;53:766-72 Hematologyon 08-25-2020 INR Coag (Bld) [Relative time] 1.6 {INR} above high threshold 1.0 - 1.2 [facility] Work Phone: PT Coag (PPP) [Time] 18.7 {sec} above high threshold 8.0 - 11.0 [facility] Work Phone: Hematologyon 08-18-2020 INR Coag (PPP) [Relative time] 6.0 {INR} Critically abnormal 0.9 - 1.1 [facility] Work Phone: Comment on above: Called- RB to adrián chowdhuryon at 1011, 08/19/2020 00:08 Called- RB to adrián otero, 08/18/2020 10:11 PT Coag (PPP) [Time] 71.8 {sec} Critically abnormal See Below [facility] Work Phone: Comment on above: Reference Range: 10. 1 - 13.3 Called- RB to adrián otero at 1011, 08/19/2020 00:08 Called- RB to adrián chowdhuryon at 1011, 08/19/2020 00:08 Called- RB to adrián otero, 08/18/2020 10:11 INR Coag (Bld) [Relative time] {INR} Critically abnormal 1.0 - 1.2 [facility] Work Phone: Comment on above: Called- RB to adrián chowdhuryon at 1011 , 08/19/2020 00:06 PT Coag (PPP) [Time] 56.7 {sec} Critically abnormal 8.0 - 11.0 [facility] Work Phone: Comment on above: Called- RB to adrián chowdhuryon at 1011 , 08/19/2020 00:06 Hematologyon 05-05-2020 INR Coag (Bld) [Relative time] 2.6 {INR} above high threshold 1.0 - 1.2 [facility] Work Phone: PT Coag (PPP) [Time] 29.4 {sec} above high threshold 8.0 - 11.0 [facility] Work Phone: [facility] INR Coag (Bld) [Relative time] 3.1 {INR} above high threshold 1.0 - 1.2 -[facility] Work Phone: PT Coag (PPP) [Time] 35.8 {sec} above high threshold 8.0 - 11.0 [facility] Work Phone: Otheron 04-20-2020 XR Chest 2 views Interpreted by: ADRIANO BLACKBURN04/20/20 13:29MRN: [id number] Name: FAVIOLA VALLE STUDY:TH CHEST 2 VIEW PA AND LAT; 04/20/2020 9:41 am INDICATION:coughing, chest tightness, wheezing. COMPARISON:05/13/2019 ORDERING CLINICIAN:MARY WEBSTER FINDINGS:CHEST PA, LATERAL CARDIOMEDIASTINAL SILHOUETTE:Cardiomedi astinal silhouette is normal in size and configuration. LUNGS:Lungs are clear. No infiltrate or effusion. ABDOMEN:No remarkable upper abdominal findings. Note is made of an IVC filterat the L2 level. BONES:No acute osseous changes. Degenerative changes of the thoracic spineare present. IMPRESSION:1. No evidence of acute cardiopulmonary process. No significantchange from 05/13/2019. Electronically signed by: ADRIANO BLACKBURN 04/20/20 13:29 Normal [facility] Work Phone: [facility] 03-24-2020 INR Coag (Bld) [Relative time] 2.4 {INR} above high threshold 1.0 - 1.2 [facility] Work Phone: PT Coag (PPP) [Time] 27.8 {sec} above high threshold 8.0 - 11.0 [facility] Work Phone: Hematologyon 02-25-2020 INR Coag (Bld) [Relative time] 2.4 {INR} above high threshold 1.0 - 1.2 [facility] Work Phone: PT Coag (PPP) [Time] 27.8 {sec} above high threshold 8.0 - 11.0 [facility] Work Phone: Complete Blood Count + Diffe rentialon 02-24-2020 Basophils (Bld) [#/Vol] 0.00 {x10E9/L} See Below [facility] Work Phone: Comment on above: Reference Range: 0.0 0 - 0.10 Basophils/100 WBC (Bld) 0.9 % 0.0 - 2.0 [facility] Work Phone: Eosinophils (Bld) [#/Vol] 0.10 {x10E9/L} See Below [facility] Work Phone: Comment on above: Reference Range: 0.0 0 - 0.70 Eosinophils/100 WBC (Bld) 1.7 % 0.0 - 6.0 [facility] Work Phone: Erythrocyte distribution width (RBC) [Ratio] 14.0 % See Below [facility] Work Phone: Comment on above: Reference Range: 11. 5 - 14.5 Hematocrit (Bld) [Volume fraction] 42.9 % See Below [facility] Work Phone: Comment on above: Reference Range: 36. 0 - 46.0 Hemoglobin (Bld) [Mass/Vol] 14.2 g/dL See Below [facility] Work Phone: Comment on above: Reference Range: 12. 0 - 16.0 Lymphocytes (Bld) [#/Vol] 2.00 {x10E9/L} See Below [facility] Work Phone: Comment on above: Reference Range: 1.2 0 - 4.80 Lymphocytes/100 WBC (Bld) 45.7 % See Below [facility] Work Phone: Comment on above: Reference Range: 13. 0 - 44.0 MCHC (RBC) [Mass/Vol] 33.0 g/dL See Below [facility] Work Phone: Comment on above: Reference Range: 32. 0 - 36.0 MCV (RBC) [Entitic vol] 89 fL 80 - 100 [facility] Work Phone: Monocytes (Bld) [#/Vol] 0.40 {x10E9/L} See Below [facility] Work Phone: Comment on above: Reference Range: 0.1 0 - 1.00 Monocytes/100 WBC (Bld) 9.4 % 2.0 - 10.0 [facility] Work Phone: Neutrophils (Bld) [#/Vol] 1.80 {x10E9/L} See Below [facility] Work Phone: Comment on above: Reference Range: 1.2 0 - 7.70 Percent differential counts (%) should be interpreted in the context of the absolute cell counts (cells/L). Neutrophils/100 WBC (Bld) 42.3 % See Below [facility] Work Phone: Comment on above: Reference Range: 40. 0 - 80.0 Platelets (Bld) [#/Vol] 227 {x10E9/L} 150 - 450 [facility] Work Phone: RBC (Bld) [#/Vol] 4.81 {x10E12/L} See Below [facility] Work Phone: Comment on above: Reference Range: 4.0 0 - 5.20 WBC (Bld) [#/Vol] 0.3 {/100_WBC} [facility] Work Phone: WBC (Bld) [#/Vol] 4.3 {x10E9/L} below low threshold 4.4 - 11.3 [facility] Work Phone: Lipid Panelon 02-24-2020 Cholesterol [Mass/Vol] 148 mg/dL 0 - 199 [facility] Work Phone: Comment on above: . AGE DESIRABLE BORD MARIE HIGH HIGH 0-19 Y 0 - 169 170 - 199 >/= 200 20-24 Y 0 - 189 190 - 224 >/= 225 >24 Y 0 - 199 200 - 239 >/= 240 All ranges are based on fasting samples. Specific therapeutic targets will vary based on patient-specific cardiac risk.. Pediatric guidelines reference:Pediatrics 2011, 128(S5). Adult guidelines reference: NCEP ATPIII Guidelines, NESS 2001, 258:2486-97. Venipuncture immediately after or during the administration of Metamizole may lead to falsely low results. Testing should be performed immediately prior to Metamizole dosing. Cholesterol in HDL [Mass/Vol] 44.0 mg/dL [facility] Work Phone: Comment on above: . AGE VERY LOW LOW N ORMAL HIGH 0-19 Y < 35 < 40 40-45 ---- 20- 24 Y ---- < 40 >45 ---- >24 Y ---- < 40 40-60 >60. Cholesterol in LDL [Mass/Vol] 84 mg/dL 0 - 99 [facility] Work Phone: Comment on above: . NEAR BORD AGE BEKA RABLE OPTIMAL HIGH HIGH VERY HIGH 0-19 Y 0 - 109 --- 110-129 >/= 130 ---- 20-24 Y 0 - 119 --- 120-159 >/= 160 ---- >24 Y 0 - 99 100-129 130-159 160-189 >/=190. Cholesterol.total/Cho lesterol in HDL [Mass ratio] 3.4 {ratio} [facility] Work Phone: Comment on above: REF VALUESDESIRABLE < 3.4HIGH RISK > 5.0 Triglyceride [Mass/Vol] 98 mg/dL 0 - 149 [facility] Work Phone: Comment on above: . AGE DESIRABLE BORD MARIE HIGH HIGH VERY HIGH 0 D-90 D 19 - 174 ---- ---- ----91 D- 9 Y 0 - 74 75 - 99 >/= 100 ---- 10-19 Y 0 - 89 90 - 129 >/= 130 ---- 20-24 Y 0 - 114 115 - 149 >/= 150 ---- >24 Y 0 - 149 150 - 199 200- 499 >/= 500. Venipuncture immediately after or during the administration of Metamizole may lead to falsely low results. Testing should be performed immediately prior to Metamizole dosing. Lipid Panel 20 mg/dL 0 - 40 [facility] Work Phone: Metabolic Panelon 02-24-2020 Anion gap [Moles/Vol] 8 mmol/L below low threshold 10 - 20 [facility] Work Phone: Calcium [Mass/Vol] 9.1 mg/dL 8.6 - 10.3 [facility] Work Phone: Chloride [Moles/Vol] 108 mmol/L above high threshold 98 - 107 [facility] Work Phone: CO2 [Moles/Vol] 29 mmol/L 21 - 32 [facility] Work Phone: Creatinine [Mass/Vol] 1.03 mg/dL See Below [facility] Work Phone: Comment on above: Reference Range: 0.5 0 - 1.05 Glucose [Mass/Vol] 93 mg/dL 74 - 99 [facility] Work Phone: Potassium [Moles/Vol] 4.0 mmol/L 3.5 - 5.3 [facility] Work Phone: Sodium [Moles/Vol] 141 mmol/L 136 - 145 [facility] Work Phone: Urea nitrogen [Mass/Vol] 22 mg/dL 6 - 23 [facility] Work Phone: Otheron 02-24-2020 53 {mL/min/1.73m2} Abnormal >60 [facility] Work Phone: 64 {mL/min/1.73m2} >60 [facility] Work Phone: Comment on above: CALCULATIONS OF RAFIQ MATED GFR ARE PERFORMED USING THE MDRD STUDY EQUATION FOR THE IDMS-TRACEABLE CREATININE METHODS. CLIN CHEM 2007;53:766-72 Hematologyon 01-28-2020 INR Coag (Bld) [Relative time] 2.3 {INR} above high threshold 1.0 - 1.2 [facility] Work Phone: PT Coag (PPP) [Time] 27.1 {sec} above high threshold 8.0 - 11.0 [facility] Work Phone: [facility] 12-31-2019 INR Coag (Bld) [Relative time] 2.2 {INR} above high threshold 1.0 - 1.2 [facility] Work Phone: PT Coag (PPP) [Time] 25.8 {sec} above high threshold 8.0 - 11.0 [facility] Services Work Phone: [facility] 10-29-2019 INR Coag (Bld) [Relative time] 1.9 {INR} above high threshold 1.0 - 1.2 [facility] Work Phone: PT Coag (PPP) [Time] 22.3 {sec} above high threshold 8.0 - 11.0 [facility] Work Phone: [facility] PROGRESS HNO ID: [id number] Author: Riccardo Pollock Service: ? Author Type: Physician Type: Progress Notes Filed: 10/25/2019 1:51 PM Note Text: ASSESSMENT/PLAN: 1. Meibomian gland dysfunction (MGD) of upper and lower lids of both eyes - ICD9: 373.00, ICD10: H02.88A, H02.88B (primary diagnosis) 2. 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 Posterior vitreous detachment of left eye - ICD9: 379.21, ICD10: H43.812 Please call the office ([phone]) immediately if you notice more flashes of light, a sudden increase in floaters, or a sudden change in vision. 4. Nuclear sclerosis of both eyes - ICD9: 366.16, ICD10: H25.13 Stable / Observe; Not visually significant at this time. 5. Essential hypertension - ICD9: 401.9, ICD10: I10 Continue care with your primary care provider as directed. Riccardo Pollock MD I have confirmed and edited as necessary the relevant ophthalmic history, review of systems, surgical history, and ophthalmological examination findings as obtained by the ophthalmic technical staff. I have seen and examined Faviola Valle. I have discussed the examination findings, diagnosis, and treatment options with Faviola Valle and/or her family. I have also reviewed and agree with the assessment and plan as stated above and agree with all its relevant components. I gave the patient the opportunity to ask questions about the findings, diagnosis, and treatment options. Normal [facility] Hematologyon 10-01-2019 INR Coag (Bld) [Relative time] 2.0 {INR} above high threshold 1.0 - 1.2 [facility] Work Phone: PT Coag (PPP) [Time] 23.3 {sec} above high threshold 8.0 - 11.0 [facility] Work Phone: Hematologyon 09-03-2019 INR Coag (Bld) [Relative time] 2.5 {INR} above high threshold 1.0 - 1.2 [facility] Work Phone: PT Coag (PPP) [Time] 28.8 {sec} above high threshold 8.0 - 11.0 [facility] Work [facility]: H[facility] 07-22-2019 INR Coag (Bld) [Relative time] 2.7 {INR} above high threshold 1.0 - 1.2 [facility] Work Phone: PT Coag (PPP) [Time] 31.3 {sec} above high threshold 8.0 - 11.0 [facility] Work Phone: Hematologyon 07-09-2019 INR Coag (Bld) [Relative time] 2.7 {INR} above high threshold 1.0 - 1.2 [facility] Work Phone: PT Coag (PPP) [Time] 30.9 {sec} above high threshold 8.0 - 11.0 [facility] Work Phone: Hematologyon 06-11-2019 INR Coag (Bld) [Relative time] 2.6 {INR} above high threshold 1.0 - 1.2 [facility] Work Phone: PT Coag (PPP) [Time] 29.8 {sec} above high threshold 8.0 - 11.0 [facility] Work Phone: Complete Blood Count + Diffe rentialon 05-13-2019 Erythrocyte distribution width (RBC) [Ratio] 14.2 % See Below [facility] Work Phone: Comment on above: Reference Range: 11. 5 - 14.5 Ordering Provider: Marco A RODRIGUEZ [id number] Hematocrit (Bld) [Volume fraction] 41.4 % See Below [facility] Work Phone: Comment on above: Reference Range: 36. 0 - 46.0 Ordering Provider: Marco A RODRIGUEZ 32510 Hemoglobin (Bld) [Mass/Vol] 13.7 g/dL See Below [facility] Work Phone: Comment on above: Reference Range: 12. 0 - 16.0 Ordering Provider: Marco A RODRIGUEZ [id number] MCHC (RBC) [Mass/Vol] 33.0 g/dL See Below [facility] Work Phone: Comment on above: Reference Range: 32. 0 - 36.0 Ordering Provider: Marco A RODRIGUEZ 53132 MCV (RBC) [Entitic vol] 89 fL 80 - 100 [facility] Work Phone: Comment on above: Ordering Provider: Marco A ROMEROADIN 32781 Platelets (Bld) [#/Vol] 234 {x10E9/L} 150 - 450 [facility] Work Phone: Comment on above: Ordering Provider: Marco A RODRIGUEZ 11982 RBC (Bld) [#/Vol] 4.66 {x10E12/L} See Below [facility] Work Phone: Comment on above: Reference Range: 4.0 0 - 5.20 Ordering Provider: Marco A RODRIGUEZ 62490 WBC (Bld) [#/Vol] 5.4 {x10E9/L} 4.4 - 11.3 [facility] Work Phone: Comment on above: Ordering Provider: Marco A RODRIGUEZ 98728 WBC (Bld) [#/Vol] 0.1 {/100_WBC} [facility] Work Phone: Comment on above: Ordering Provider: Marco A ROMEROADIN 68915 Complete Blood Count + Differential SEE MANUAL DIFF [facility] Work Phone: Comment on above: Ordering Provider: Marco A RODRIGUEZ 29396 Hematologyon 05-13-2019 INR Coag (PPP) [Relative time] 2.3 {INR} above high threshold 0.9 - 1.1 [facility] Work Phone: Comment on above: Ordering Provider: Marco A RODRIGUEZ [id number] PT Coag (PPP) [Time] 26.7 {sec} above high threshold 9.7 - 12.7 [facility] Work Phone: Comment on above: Ordering Provider: Marco A RODRIGUEZ 32507 Basophils (Bld) [#/Vol] 0.00 {x10E9/L} See Below [facility] Work Phone: Comment on above: Reference Range: 0.0 0 - 0.10 Ordering Provider: Marco A RODRIGUEZ 73932 Basophils/100 WBC (Bld) 0.0 % 0.0 - 2.0 [facility] Work Phone: Comment on above: Ordering Provider: Marco A RODRIGUEZ 22937 Eosinophils (Bld) [#/Vol] 0.05 {x10E9/L} See Below [facility] Work Phone: Comment on above: Reference Range: 0.0 0 - 0.70 Ordering Provider: Marco A RODRIGUEZ 41718 Eosinophils/100 WBC (Bld) 1.0 % 0.0 - 6.0 [facility] Work Phone: Comment on above: Ordering Provider: Marco A RODRIGUEZ 21643 Lymphocytes (Bld) [#/Vol] 3.51 {x10E9/L} See Below [facility] Work Phone: Comment on above: Reference Range: 1.2 0 - 4.80 Ordering Provider: Marco A RODRIGUEZ 38185 Lymphocytes/100 WBC (Bld) 65.0 % See Below [facility] Work Phone: Comment on above: Reference Range: 13. 0 - 44.0 Ordering Provider: Marco A RODRIGUEZ 88083 Monocytes (Bld) [#/Vol] 0.38 {x10E9/L} See Below [facility] Work Phone: Comment on above: Reference Range: 0.1 0 - 1.00 Ordering Provider: Marco A RODRIGUEZ 38544 Monocytes/100 WBC (Bld) 7.0 % 2.0 - 10.0 [facility] Work Phone: Comment on above: Ordering Provider: Marco A RODRIGUEZ 52999 Lactate, Levelon 05-13-2019 Lactate [Moles/Vol] 1.2 mmol/L 0.4 - 2.0 [facility] Work Phone: Comment on above: Venipuncture immedia tely after or during the administration of Metamizole may lead to falsely low results. Testing should be performed immediately prior to Metamizole dosing. Ordering Provider: Marco A RODRIGUEZ 97997 Metabolic Panelon 05-13-2019 ALP [Catalytic activity/Vol] 75 U/L 33 - 136 [facility] Work Phone: Comment on above: Ordering Provider: Marco A RODRIGUEZ 38194 Anion gap [Moles/Vol] 12 mmol/L 10 - 20 [facility] Work Phone: Comment on above: Ordering Provider: Marco A RODRIGUEZ 28375 Bilirubin [Mass/Vol] 0.5 mg/dL 0.0 - 1.2 [facility] Work Phone: Comment on above: Ordering Provider: Marco A RODRIGUEZ 89769 Calcium [Mass/Vol] 8.9 mg/dL 8.6 - 10.3 [facility] Work Phone: Comment on above: Ordering Provider: Marco A RODRIGUEZ 79897 Chloride [Moles/Vol] 105 mmol/L 98 - 107 [facility] Work Phone: Comment on above: Ordering Provider: Marco A RODRIGUEZ 70237 CO2 [Moles/Vol] 26 mmol/L 21 - 32 [facility] Work Phone: Comment on above: Ordering Provider: Marco A RODRIGUEZ 83042 Creatinine [Mass/Vol] 0.96 mg/dL See Below [facility] Work Phone: Comment on above: Reference Range: 0.5 0 - 1.05 Ordering Provider: Marco A RODRIGUEZ 59732 Glucose [Mass/Vol] 82 mg/dL 74 - 99 [facility] Work Phone: Comment on above: Ordering Provider: Marco A RODRIGUEZ 13613 Potassium [Moles/Vol] 3.8 mmol/L 3.5 - 5.3 [facility] Work Phone: Comment on above: Ordering Provider: Marco A RODRIGUEZ 26988 Protein [Mass/Vol] 6.8 g/dL 6.4 - 8.2 [facility] Work Phone: Comment on above: Ordering Provider: Marco A RODRIUGEZ 73223 Sodium [Moles/Vol] 139 mmol/L 136 - 145 [facility] Work Phone: Comment on above: Ordering Provider: Marco A RODRIGUEZ 31407 Urea nitrogen [Mass/Vol] 21 mg/dL 6 - 23 [facility] Work Phone: Comment on above: Ordering Provider: Marco A JUNG RODRIGUEZ 94112 Otheron 05-13-2019 XR Chest 2 views Interpreted by: DAVIAN05/13/19 00:11MRN: [id number] Name: FAVIOLA VALLE STUDY:TH CHEST 2 VIEW PA AND LAT; 05/13/2019 12:00 am INDICATION:Chest pain and /or palpitations. COMPARISON:None. ORDERING CLINICIAN:MATTY RODRIGUEZ FINDINGS:Cardiac silhouette-not enlarged No segmental consolidation, no large pleural effusion or pneumothorax Osseous degenerative changes Vascular calcifications. EKG leads present. IVC [place] filter present. IMPRESSION:Osseous degenerative changes/vascular calcifications IVC Jessica filter.Electronically signed by: DAVIAN 05/13/19 00:11 Normal [facility] Work Phone: Comment on above: Ordering Provider: Marco A RODRIGUEZ 44449 Interpreted by: SATNAM KWAN05/13/19 10:04MRN: [id number] Name: FAVIOLA VALLE STUDY:US GALLBLADDER; 05/13/2019 8:44 am INDICATION:RUQ PAIN. COMPARISON:None. ORDERING CLINICIAN:MATTY RODRIGUEZ TECHNIQUE:Multiple images of the right upper quadrant were obtained. FINDINGS:LIVER:The liver is not enlarged, smooth in contour and homogeneous inechotexture. Multiple simple hepatic cysts, the largest in the righthepatic lobe measures up to 1.8 x 1.4 x 1.4 cm. GALLBLADDER:No cholelithiasis. BILIARY TREE:The biliary system is nondilated. The common duct measures up to 0.4cm in caliber. PANCREAS:The visualized pancreas is unremarkable. RIGHT KIDNEY:The right kidney measures 9.5 cm. The renal parenchymal echogenicityis normal. No nephrolithiasis or hydronephrosis. IMPRESSION:Multiple simple hepatic cysts.Electronically signed by: SATNAM KWAN 05/13/19 10:04 Normal [facility] Work Phone: Comment on above: Ordering Provider: Marco A RODRIGUEZ 93212 Albumin BCP dye [Mass/Vol] 4.1 g/dL 3.4 - 5.0 [facility] Work Phone: Comment on above: Ordering Provider: Marco A RODRIGUEZ 65657 ALT With P-5'-P [Catalytic activity/Vol] 15 U/L 7 - 45 [facility] Work Phone: Comment on above: Patients treated wit h Sulfasalazine may generate falsely decreased results for ALT. Ordering Provider: Marco A RODRIGUEZ 14235 AST With P-5'-P [Catalytic activity/Vol] 21 U/L 9 - 39 [facility] Work Phone: Comment on above: Ordering Provider: Marco A Rodriguez Segmented neutrophils/100 WBC (Bld) 27.0 % See Below [facility] Work Phone: Comment on above: Reference Range: 40. 0 - 80.0 Percent differential counts (%) should be interpreted in the context of the absolute cell counts (cells/L). Ordering Provider: Marco A RODRIGUEZ 44340 1.46 {x10E9/L} See Below [facility] [employer] Work Phone: Comment on above: Reference Range: 1.2 0 - 7.70 Ordering Provider: Marco A RODRIGUEZ 35905 Reference Range: 1.2 0 - 7.00 70 {mL/min/1.73m2} >60 [facility] [employer] Work Phone: Comment on above: CALCULATIONS OF RAFIQ MATED GFR ARE PERFORMED USING THE MDRD STUDY EQUATION FOR THE IDMS-TRACEABLE CREATININE METHODS. CLIN CHEM 2007;53:766-72 Ordering Provider: Marco A RODRIGUEZ 96232 58 {mL/min/1.73m2} Abnormal >60 [facility] Work Phone: Comment on above: Ordering Provider: Marco A RODRIGUEZ 70172 NORMAL [facility] Work Phone: Comment on above: Ordering Provider: Marco A RODRIGUEZ 84250 150 1 [facility] Work Phone: Comment on above: Ordering Provider: Marco A Rodriguez 11703 30 1 [facility] Work Phone: Comment on above: Ordering Provider: Marco A Holt2 225 1 [facility] Work Phone: Comment on above: Ordering Provider: Marco A Rodriguez 06124 32 1 [facility] Work Phone: Comment on above: Ordering Provider: Marco A Holt2 68 1 [facility] Work Phone: Comment on above: Ordering Provider: Marco A Holt2 438 1 [facility] Work Phone: Comment on above: Ordering Provider: Marco A Rodriguez 36966 Please see physicia n note for formal interpretation confirmed by Scribe [facility] Work Phone: Comment on above: Ordering Provider: Marco A Rodriguez 49906 66 1 [facility] Work Phone: Comment on above: Ordering Provider: Marco A Rodriguez 71810 13 1 [facility] Work Phone: Comment on above: Ordering Provider: Marco A Carranza792 79 1 [facility] Work Phone: Comment on above: Ordering Provider: Marco A Holt2 416 1 [facility] Work Phone: Comment on above: Ordering Provider: Marco A Holt2 209 1 [facility] Work Phone: Comment on above: Ordering Provider: Marco A Rodriguez 26159 [email or web address]= [id number] [facility] Work Phone: Comment on above: Ordering Provider: Marco A Rodriguez 06809 418 1 [facility] Work Phone: Comment on above: Ordering Provider: Marco A Rodriguez 21295 382 1 [facility] Work Phone: Comment on above: Ordering Provider: Marco A Rodriguez 27145 Troponin I, Serumon 05-13-20 19 Troponin I.cardiac [Mass/Vol] ng/mL See Below [facility] Work Phone: Comment on above: Reference Range: 0.0 0 - 0.03LESS THAN 0.04 NG/ML: NEGATIVEREPEAT TESTING IN THREE TO SIX HOURSIF CLINICALLY INDICATED.0.04 - 0.5 NG/ML: CONSISTENT WITH POSSIBLECARDIAC DAMAGE AND POSSIBLE INCREASEDCLINICAL RISK.SERIAL MEASUREMENTS MAY HELP ASSESS EXTENT OFMYOCARDIAL DAMAGE.>0.5 NG/ML: CONSISTENT WITH CARDIAC DAMAGE,INCREASED CLINICAL RISK AND MYOCARDIALINFARCTION. SERIAL MEASUREMENTS MAY HELPASSESS EXTENT OF MYOCARDIAL DAMAGE..Note: Troponin I testing is performed using different testing methodology at [facility] than at [facility]. Direct result comparisons should only be made within the same method. Ordering Provider: Marco A RODRIGUEZ 17994 PT/INR POC Orderon 9 INR Coag (Bld) [Relative time] Collected Normal [facility] Comment on above: Performed By: #### 1 [id number] #### [facility] [employer] [address] [place] [address] PT/INR Capillaryon 9 INR Coag (Bld) [Relative time] 2.7 {INR} High 1.0-1.2 [facility] Comment on above: Result Comment: Sour ce Capillary Performed By: #### 1 [id number] #### [facility] [employer] [address] [place] [address] PT POC 31.0 second(s) High 8.0-11.0 [facility] Comment on above: Performed By: #### 1 [id number] #### [facility] [employer] [address] [place] [address] PT/INR Capillaryon 9 INR Coag (Bld) [Relative time] 2.5 {INR} High 1.0-1.2 [facility] Comment on above: Result Comment: Sour ce Capillary Performed By: #### 1 [id number] #### [facility] [employer] [address] [place] [address] PT POC 29.0 second(s) High 8.0-11.0 [facility] Comment on above: Performed By: #### 1 [id number] #### [facility] [employer] [address] [place] [address] PT/INR POC Orderon 9 INR Coag (Bld) [Relative time] Collected Normal [facility] Comment on above: Performed By: #### 1 [id number] #### [facility] [employer] [address] [place] [address] PT/INR Capillaryon 9 INR Coag (Bld) [Relative time] 3.5 {INR} High 1.0-1.2 [facility] Comment on above: Result Comment: Sour ce Capillary Performed By: #### 1 [id number] #### [facility] [employer] [address] [place] [address] 729[address] PT POC 39.0 second(s) High 8.0-11.0 [facility] Comment on above: Performed By: #### 1 [id number] #### [facility] [employer] [address] [place] [address] PT/INR POC Orderon 9 INR Coag (Bld) [Relative time] Collected Normal [facility] Comment on above: Performed By: #### 1 [id number] #### [facility] [employer] [address] [place] [address] PT/INR Capillaryon 9 INR Coag (Bld) [Relative time] 2.6 {INR} High 1.0-1.2 [facility] Comment on above: Result Comment: Sour ce Capillary Performed By: #### 2 [id number] #### [facility] [employer] [address] [place] [address]28[address] PT POC 30.0 second(s) High 8.0-11.0 [facility] Comment on above: Performed By: #### 2 [id number] #### [facility] [employer] [address] [place] [address] 19362 PT/INR POC Orderon 9 INR Coag (Bld) [Relative time] Collected Normal [facility] Comment on above: Performed By: #### 2 [id number] #### [facility] [employer] [address] [place] [address] 25843 PT/INR Capillaryon 9 INR Coag (Bld) [Relative time] 2.6 {INR} High 1.0-1.2 [facility] Comment on above: Result Comment: Sour ce Capillary Performed By: #### 2 [id number] #### [facility] [employer] [address] [place] [address] 86055 PT POC 30.0 second(s) High 8.0-11.0 [facility] Comment on above: Performed By: #### 2 [id number] #### [facility] [employer] [address] [place] [address] 82846 PT/INR POC Orderon 9 INR Coag (Bld) [Relative time] Collected Normal [facility] Comment on above: Performed By: #### 2 [id number] #### [facility] [employer] [address] [place] [address] 22626 PT/INR Capillaryon 9 INR Coag (Bld) [Relative time] 3.3 {INR} High 1.0-1.2 [facility] Comment on above: Result Comment: Sour ce Capillary Performed By: #### 2 [id number] #### [facility] [employer] [address] [place] [address] 74033 PT POC 38.0 second(s) High 8.0-11.0 [facility] Comment on above: Performed By: #### 2 563434 #### [facility] [employer] [address] [place] [address] 13190 PT/INR POC Orderon 9 INR Coag (Bld) [Relative time] Collected Normal [facility] Comment on above: Performed By: #### 2 [id number] #### [facility] [employer] [address] [place] [address] 53647 PT/INR Capillaryon 9 INR Coag (Bld) [Relative time] 2.9 {INR} High 1.0-1.2 [facility] Comment on above: Result Comment: Sour ce Capillary Performed By: #### 2 [id number] #### [facility] [employer] [address] [place] [address] 08707 PT POC 33.0 second(s) High 8.0-11.0 [facility] Comment on above: Performed By: #### 2 142762 #### [facility] [employer] [address] [place] [address] 50760 PT/INR POC Orderon 9 INR Coag (Bld) [Relative time] Collected Normal [facility] Comment on above: Performed By: #### 2 [id number] #### [facility] [employer] [address] [place] [address] 52237 ECG 12-LEADon 11-09-2018 Atrial Rate [facility] P [place] [facility] P-R Interval [facility] Q-T Interval [facility] Q-T Interval (corrected) [facility] QRS Duration [facility] QTC Calculation (Bezet) [facility] R [place] [facility] T [place] [facility] Ventricular Rate [facility] PT/INR Capillaryon 9 INR Coag (Bld) [Relative time] 2.3 {INR} High 1.0-1.2 [facility] Comment on above: Result Comment: Sour ce Capillary Performed By: #### 2 [id number] #### [facility] [employer] [address] [place] [address] 48928 PT POC 26.0 second(s) High 8.0-11.0 [facility] Comment on above: Performed By: #### 2 [id number] #### [facility] [employer] [address] [place] [address] 86209 PT/INR POC Orderon 9 INR Coag (Bld) [Relative time] Collected Normal [facility] Comment on above: Performed By: #### 2 [id number] #### [facility] [employer] [address] [place] [address] 03315 PT/INR Capillaryon 9 INR Coag (Bld) [Relative time] 2.3 {INR} High 1.0-1.2 [facility] Comment on above: Result Comment: Sour ce Capillary Performed By: #### 8 [id number] #### [facility]ER POC Subsection [facility] [place] [address] PT POC 26.0 second(s) High 8.0-11.0 [facility] Comment on above: Performed By: #### 8 [id number] #### [facility] POC Subsection [facility] [place] [address] PT/INR POC Orderon 9 INR Coag (Bld) [Relative time] Collected Normal [facility] Comment on above: Performed By: #### 8 [id number] #### [facility] POC Subsection [facility] [place] [address] C Urineon 09-18-2018 C Urine Final Report: No growth Normal [facility] Comment on above: Performed By: #### 8 [id number] #### [facility] POC [employer]section [address] [place] [address] US Renalon 09-17-2018 US Renal Exam Date/Time: 09/17/2018 15:09 EST Reason for Exam: HEMATURIA RIGHT FLANK PAIN UTI;Hematuria Report STUDY: US Renal; 09/17/2018 3:09 pm INDICATION: Hematuria. COMPARISON: None. ACCESSION NUMBER(S): [id number] ORDERING CLINICIAN: Mary Webster TECHNIQUE: Multiple images of the kidneys were obtained , with color Doppler for blood flow. FINDINGS: RIGHT KIDNEY: The right kidney measures 10.1 cm in length. The renal cortex is within normal limits. No hydronephrosis or evidence of nephrolithiasis. Color Doppler demonstrates blood flow. LEFT KIDNEY: The left kidney measures 10.5 cm in length. The renal cortex is within normal limits. No hydronephrosis or evidence of nephrolithiasis.. Color Doppler demonstrates blood flow. BLADDER: The urinary bladder is unremarkable in appearance. Bilateral ureteral jets were evident. A volume of 90 mL was calculated. OTHER FINDINGS: None significant. IMPRESSION: Unremarkable renal ultrasound. FINAL REPORT Dictated: 09/17/2018 3:24 pm Klatte MD, Abel A Signed (Electronic Signature): 09/17/2018 3:24 pm Signed by: Abel Bautista MD Technologist: SARAH [facility] PT/INR Capillaryon 9 INR Coag (Bld) [Relative time] 1.8 {INR} High 1.0-1.2 [facility] Comment on above: Result Comment: Sour ce Capillary Performed By: #### 8 [id number] #### [facility] POC [employer]section [address] [place] [address] PT POC 21.0 second(s) High 8.0-11.0 [facility] Comment on above: Performed By: #### 8 [id number] #### [facility]ER POC [employer]section [address] [place] [address] PT/INR POC Orderon 9 INR Coag (Bld) [Relative time] Collected [facility] Comment on above: Performed By: #### 8 [id number] #### [facility] POC [employer]section [address] [place] [address] C Urineon 09-10-2018 C Urine Final Report: >100,000 cfu/ml Escherichia coli ORGANISM: EC SUSCEPTIBILITY RESULTS Antibiotic IMTIAZ Dilutn IMTIAZ Interp ORGANISM: EC Amox/Cla : >16/8 R Amp : >16 R Amp/Sul : >16/8 R Cefaz : <=8 S Cefo : <=2 S Cipro : <=1 S Gent : <=4 S Levo : <=2 S Shayne : <=1 S Nitro : <=32 S Pip/Justin : <=16 S Tetra : <=4 S Tobra : <=4 S SXT : >2/38 R [facility] Comment on above: Performed By: #### 8 [id number] #### [facility] [employer] [address] [place] [address] PT/INR Capillaryon 9 INR Coag (Bld) [Relative time] 2.4 {INR} High 1.0-1.2 [facility] Comment on above: Result Comment: Sour ce Capillary Performed By: #### 8 [id number] #### [facility]ER POC [employer]section [address] [place] [address] PT POC 28.0 second(s) High 8.0-11.0 [facility] Comment on above: Performed By: #### 8 [id number] #### [facility] [employer]section [address] [place] [address]645 PT/INR POC Orderon 9 INR Coag (Bld) [Relative time] Collected Normal [facility] Comment on above: Performed By: #### 8 [id number] #### [facility] POC [employer]section [address] [place] [address] 59410 C Throaton 08-23-2018 C Throat Final Report: Light growth of Group C Streptococcus in Normal throat darlene isolated ORGANISM: Strep C Normal [facility] Comment on above: Performed By: #### 8 [id number] #### [facility] POC [employer]section [address] [place] [address] 79681 PT/INR Capillaryon 9 INR Coag (Bld) [Relative time] 3.4 {INR} High 1.0-1.2 [facility] Comment on above: Result Comment: Sour ce Capillary Performed By: #### 8 [id number] #### [facility] P[employer]section [address] [place] [address] 51079 PT POC 38.0 second(s) High 8.0-11.0 [facility] Comment on above: Performed By: #### 8 [id number] #### [facility] [employer]section [address] [place] [address] 87166 PT/INR POC Orderon 9 INR Coag (Bld) [Relative time] Collected Normal [facility] Comment on above: Performed By: #### 8 [id number] #### [facility] POC [employer]section [address] [place] [address] 68038 BD Bone Density DEXAon 08-07 BD Bone Density DEXA Exam Date/Time: 08/07/2018 09:39 EST Reason for Exam: OSTEOPENIA;Post menopausal Report STUDY: BD Bone Density DEXA; 08/07/2018 9:39 am INDICATION: Post menopausal. Evaluate for osteopenia/osteoporos is, ACCESSION NUMBER(S): [id number] ORDERING CLINICIAN: Mary Webster FINDINGS: Standard measurements were obtained utilizing an [employer] X-ray Absorptiometry bone densitometer. Data obtained includes planar bone density measurements over the left hip and lumbar spine. Comparison of measured data and standardized mean data for a young adult population (when peak bone mass occurs) results in a T score. This represents the number of standard deviations above or below the mean of a young adult population. Comparison of measured data to standards from an age-adjusted population similarly yields a Z score. Left femoral neck Bone density: 0.724 g/cm2 T score: -1.1 Z Score: 0.5 Lumbar Spine (L1-4) Bone density: 0.979 g/cm2 T Score: -0.6 Z Score: 1.3 World Health Organization (WHO) criteria defines normal bone density as that which is less than 1 standard deviation below the mean of a young adult population. Osteopenia is defined as a measured bone density that is between 1 and 2.5 standard deviations below the mean of a young adult population. Osteoporosis is defined as a measured bone density that is greater than or equal to 2.5 standard deviations below the mean of a young adult population. IMPRESSION: According to World Health Organization criteria, bone mineral density of the left femoral neck and lumbar spine is osteopenic. The patient is at increased risk for fracture. Exam Date/Time: 08/07/2018 09:39 EST Report 10 year fracture risk for major osteoporotic fracture is 8.7 %. 10 year fracture risk for hip fracture 0.8 % according to the World Health Organization FRAX- fracture risk assessment tool. Left total hip bone mineral density has decreased 10.9 % when compared to the prior study of 06/05/2007. Lumbar spine bone mineral density has decreased 1.0 % when compared to the prior study. FINAL REPORT Dictated: 08/07/2018 10:52 am Bill Randall MD Signed (Electronic Signature): 08/07/2018 10:52 am Signed by: Bill Randall MD Technologist: SHER Normal [facility] PT/INR Capillaryon 8 INR Coag (Bld) [Relative time] 2.8 {INR} High 1.0-1.2 [facility] Comment on above: Result Comment: Sour ce Capillary Performed By: #### 8 [id number] #### [facility] POC [employer]section [address] [place] [address] PT POC 32.0 second(s) High 8.0-11.0 [facility] Comment on above: Performed By: #### 8 [id number] #### [facility]ER POC Subsection [facility] [place] [address] PT/INR POC Orderon 8 INR Coag (Bld) [Relative time] Collected Normal [facility] Comment on above: Performed By: #### 8 [id number] #### [facility] POC Subsection [address] [place] [address] BMPon 07-02-2018 Anion gap [Moles/Vol] 8 mmol/L Low 10-20 [facility] Comment on above: Performed By: #### 2 [id number] #### [facility] [employer] [address] [place] [address] 53148 Calcium [Mass/Vol] 8.7 mg/dL Normal 8.6-10.3 [facility] Comment on above: Performed By: #### 2 [id number] #### [facility] [employer] [address] [place] [address] 72043 Chloride [Moles/Vol] 108 mmol/L High 98-107 [facility] Comment on above: Performed By: #### 2 [id number] #### [facility] [employer] [address] [place] [address] 63243 CO2 [Moles/Vol] 28.0 mmol/L Normal 21.0-32.0 [facility] Comment on above: Performed By: #### 2 [id number] #### [facility] [employer] [address] [place] [address] 13079 Creatinine [Mass/Vol] 1.0 mg/dL Normal 0.5-1.1 [facility] Comment on above: Performed By: #### 2 709898 #### [facility] [employer] [address] [place] [address] 25574 Glucose [Mass/Vol] 90 mg/dL Normal 70-99 [facility] Comment on above: Performed By: #### 2 [id number] #### [facility] [employer] [address] [place] [address] 41138 Potassium [Moles/Vol] 3.9 mmol/L Normal 3.5-5.3 [facility] Comment on above: Performed By: #### 2 [id number] #### [facility] [employer] [address] [place] [address] Sodium [Moles/Vol] 140 mmol/L Normal 136-145 [facility] Comment on above: Performed By: #### 2 [id number] #### [facility]ER [employer] [facility] [place] [address] Urea nitrogen [Mass/Vol] 21 mg/dL Normal 6-23 [facility] Comment on above: Performed By: #### 2 [id number] #### [facility] [employer] [address] [place] [address] 45818 Urea nitrogen/Creatinine [Mass ratio] 21.0 ratio Normal 5.4-30.0 [facility] Comment on above: Performed By: #### 2 [id number] #### [facility] [employer] [address] [place] [address] 27984 Lipid Profileon 07-02-2018 Cholesterol [Mass/Vol] 146 mg/dL Normal 0-199 [facility] Comment on above: Result Comment: TOTA L CHOLEESTEROL: <200 NORMAL 200 - 239 BORDERLINE HIGH >240 HIGH Performed By: #### 3 [id number] #### [facility] [employer] [address] [place] [address] 49680 Cholesterol in HDL [Mass/Vol] 44 mg/dL Normal 40-60 [facility] Comment on above: Performed By: #### 3 [id number] #### [facility] [employer] [address] [place] [address] 74156 Cholesterol in LDL [Mass/Vol] 81 mg/dL Normal 0-130 [facility] Comment on above: Result Comment: <100 OPTIMAL 100-129 NEAR / ABOVE OPTIMAL 130-159 BORDERLINE HIGH 160-189 HIGH >190 VERY HIGH CALC LDL NOT VALID WHEN TRIGLYCERIDE IS >400 MG/DL Performed By: #### 3 [id number] #### [employer] [address] [place] [id number] Cholesterol in VLDL [Mass/Vol] 21 mg/dL Normal 0-40 [facility] Comment on above: Performed By: #### [id number] #### [employer]YLER [employer] [facility] [place] [address] Triglyceride [Mass/Vol] 106 mg/dL Normal 0-149 [facility] Comment on above: Result Comment: AGE DESIRABLE BORDERLINE HIGH 91 D - 9 Y 0 - 74 75 - 99 > 100 10 - 19 Y 0 - 89 90 - 129 > 130 20 -24 Y 0 - 114 115 - 149 > 150 > 25 0 - 149 150 - 199 200 - 499 Performed By: #### [id number] #### [employer]YLER [employer] [address] [place] [address] eGFRon 07-02-2018 GFR/1.73 sq M predicted among non-blacks MDRD (S/P/Bld) [Vol rate/Area] mL/min/{1.73_m2} Normal [facility] Comment on above: Order Comment: Order added by Discern Expert. Performed By: #### [id number] #### TYLER [employer] [address] [place] [address] GFR/1.73 sq M predicted among non-blacks MDRD (S/P/Bld) [Vol rate/Area] 59 mL/min/1.73 m2 [facility] Comment on above: Order Comment: Order added by Discern Expert. Performed By: #### 1 [id number] #### TYLER [employer] [address] [place] [id number] PT/INR Capillaryon 8 INR Coag (Bld) [Relative time] 3.0 {INR} High 1.0-1.2 [facility] Comment on above: Result Comment: Sour ce Capillary Performed By: #### [id number] #### TYLER POC Subsection [address] [place] [address] PT POC 34.0 second(s) High 8.0-11.0 [facility] Comment on above: Performed By: #### [id number] #### TYLER POC Subsection [address] [place] [address]28 PT/INR POC Orderon 8 INR Coag (Bld) [Relative time] Collected Normal [facility] Comment on above: Performed By: #### 8 [id number] #### TYLER POC Subsection [address] [place] [address] ED Noteon 02-25-2017 HIM IP Note OR Psychology Technician Normal [facility] Vital Signs Date Time Vital Sign Value Performing Clinician Facility 03-29-2025 10:35-0400 Body height 162.6 cm Marv Kolb MD Work Phone: [facility] 03-29-2025 10:35-0400 Body mass index (BMI) [Ratio] 27.98 kg/m2 Marv Kolb MD Work Phone: [facility] 03-29-2025 10:35-0400 Body weight 73.94 kg Marv Kolb MD Work Phone: [facility] 03-29-2025 10:35-0400 Diastolic blood pressure 68 mm[Hg] Marv Kolb MD Work Phone: [facility] 03-29-2025 10:35-0400 Heart rate 95 /min Marv Kolb MD Work Phone: [facility] 03-29-2025 10:35-0400 SaO2% (BldA) [Mass fraction] 97 % Marv Kolb MD Work Phone: [facility] 03-29-2025 10:35-0400 Systolic blood pressure 122 mm[Hg] Marv Kolb MD Work Phone: [facility] 03-17-2025 07:51-0400 Body height 162.6 cm Mary Florissant DO Work Phone: [facility] 03-17-2025 07:51-0400 Body mass index (BMI) [Ratio] 28.22 kg/m2 Mary Florissant DO Work Phone: [facility] 03-17-2025 07:51-0400 Body weight 74.62 kg Mary Florissant DO Work Phone: [facility] 03-17-2025 07:51-0400 Diastolic blood pressure 82 mm[Hg] Mary Florissant DO Work Phone: [facility] 03-17-2025 07:51-0400 Heart rate 68 /min Mary Florissant DO Work Phone: [facility] 03-17-2025 07:51-0400 SaO2% (BldA) [Mass fraction] 97 % Mary Florissant DO Work Phone: [facility] 03-17-2025 07:51-0400 Systolic blood pressure 142 mm[Hg] Mary Florissant DO Work Phone: [facility] 03-10-2025 08:41-0400 Body height 162.6 cm [facility] 03-10-2025 08:41-0400 Body mass index (BMI) [Ratio] 27.86 kg/m2 [facility] 03-10-2025 08:41-0400 Body weight 73.66 kg [facility] 03-03-2025 07:57-0400 Body height 162.6 cm Mary Florissant DO Work Phone: [facility] 03-03-2025 07:57-0400 Body mass index (BMI) [Ratio] 27.86 kg/m2 Mary Florissant DO Work Phone: 5(413)[phone] [place] [address] 03-03-2025 07:57-0400 Body weight 73.66 kg Mary Florissant DO Work Phone: 4(654)826-489400 [place] [address] 03-03-2025 07:57-0400 Diastolic blood pressure 70 mm[Hg] Mary Florissant DO Work Phone: [facility] 03-03-2025 07:57-0400 Heart rate 74 /min Mary Florissant DO Work Phone: [facility] 03-03-2025 07:57-0400 SaO2% (BldA) [Mass fraction] 98 % Mary Florissant DO Work Phone: 3(450)008-889800 [place] [address] 03-03-2025 07:57-0400 Systolic blood pressure 128 mm[Hg] Mary Florissant DO Work Phone: 3(804)[phone] [place] [address] 10-18-2024 07:30-0400 Body height 162.6 cm Mary Florissant DO Work Phone: 1(453)556-554500 [place] [address] 10-18-2024 07:30-0400 Body mass index (BMI) [Ratio] 27.77 kg/m2 Mary Florissant DO Work Phone: [facility] 10-18-2024 07:30-0400 Body weight 73.44 kg Mary Florissant DO Work Phone: [facility] 10-18-2024 07:30-0400 Diastolic blood pressure 60 mm[Hg] Mary Florissant DO Work Phone: [facility] 10-18-2024 07:30-0400 Heart rate 78 /min Mary Florissant DO Work Phone: [facility] 10-18-2024 07:30-0400 SaO2% (BldA) [Mass fraction] 100 % Mary Florissant DO Work Phone: [facility] 10-18-2024 07:30-0400 Systolic blood pressure 110 mm[Hg] Mary Florissant DO Work Phone: [facility] 03-23-2024 15:28-0400 Body temperature 99.39 [degF] Ela Gerardo DPM Work Phone: [facility] 03-23-2024 15:28-0400 Diastolic blood pressure 78 mm[Hg] Ela Gerardo DPM Work Phone: [facility] 03-23-2024 15:28-0400 Heart rate 78 /min Ela Gerardo DPM Work Phone: [facility] 03-23-2024 15:28-0400 Systolic blood pressure 118 mm[Hg] Ela Holyoke DPM Work Phone: [facility] 03-16-2024 08:16-0400 Body height 162.6 cm Mary Florissant DO Work Phone: [facility] 03-16-2024 08:16-0400 Body mass index (BMI) [Ratio] 27.1 kg/m2 Mary Florissant DO Work Phone: [facility] 03-16-2024 08:16-0400 Body weight 71.67 kg Mary Florissant DO Work Phone: [facility] 03-16-2024 08:16-0400 Diastolic blood pressure 64 mm[Hg] Mary Florissant DO Work Phone: [facility] 03-16-2024 08:16-0400 Heart rate 60 /min Mary Florissant DO Work Phone: [facility] 03-16-2024 08:16-0400 SaO2% (BldA) [Mass fraction] 98 % Mary Florissant DO Work Phone: [facility] 03-16-2024 08:16-0400 Systolic blood pressure 122 mm[Hg] Mary Florissant DO Work Phone: [facility] 02-18-2024 08:51-0400 Body height 162.6 cm Mary Florissant DO Work Phone: [facility] 02-18-2024 08:51-0400 Body mass index (BMI) [Ratio] 27.12 kg/m2 Mary Florissant DO Work Phone: [facility] 02-18-2024 08:51-0400 Body weight 71.67 kg Mary Florissant DO Work Phone: [facility] 02-18-2024 08:51-0400 Diastolic blood pressure 74 mm[Hg] Mary Florissant DO Work Phone: [facility] 02-18-2024 08:51-0400 Heart rate 84 /min Mary Florissant DO Work Phone: [facility] 02-18-2024 08:51-0400 SaO2% (BldA) [Mass fraction] 98 % Mary Florissant DO Work Phone: [facility] 02-18-2024 08:51-0400 Systolic blood pressure 108 mm[Hg] Mary Florissant DO Work Phone: [facility] 02-17-2024 10:40-0400 Body temperature 98.8 [degF] Ela Holyoke DPM Work Phone: [facility] 02-17-2024 10:40-0400 Diastolic blood pressure 66 mm[Hg] Ela Holyoke DPM Work Phone: [facility] 02-17-2024 10:40-0400 Heart rate 60 /min Ela Gerardo DPM Work Phone: [facility] 02-17-2024 10:40-0400 Systolic blood pressure 105 mm[Hg] Ela Holyoke DPM Work Phone: [facility] 11-27-2023 08:43-0400 Body height 162.6 cm Meg Edna 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 Work Phone: [facility] 11-27-2023 08:43-0400 Body mass index (BMI) [Ratio] 27.46 kg/m2 Meg Edna 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 Work Phone: [facility] 11-27-2023 08:43-0400 Body weight 72.58 kg Meg Edna 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 Work Phone: [employer] [facility] 06-24-2023 11:35-0500 Body height 162.6 cm Kanu Aquino Jr. DO Work Phone: [facility] 06-24-2023 11:35-0500 Body mass index (BMI) [Ratio] 27.5 kg/m2 Kanu Aquino Jr. DO Work Phone: [facility] 06-24-2023 11:35-0500 Body weight 72.67 kg Kanu Aquino Jr. DO Work Phone: [employer] [facility] 06-24-2023 11:35-0500 Diastolic blood pressure 75 mm[Hg] Kanu Aquino Jr. DO Work Phone: [facility] 06-24-2023 11:35-0500 Heart rate 74 /min Kanu Aquino Jr. DO Work Phone: [facility] 06-24-2023 11:35-0500 SaO2% (BldA) [Mass fraction] 97 % Kanu Aquino Jr., DO Work Phone: [facility] 06-24-2023 11:35-0500 Systolic blood pressure 123 mm[Hg] Kanu Aquino Jr., DO Work Phone: [facility] 05-15-2023 09:20-0400 Body height 161.3 cm Marsha Hudson MD Work Phone: [facility] 05-15-2023 09:20-0400 Body mass index (BMI) [Ratio] 28.42 kg/m2 Marsha Hudson MD Work Phone: [facility] 05-15-2023 09:20-0400 Body weight 73.94 kg Marsha Hudson MD Work Phone: [facility] 05-15-2023 09:20-0400 Diastolic blood pressure 72 mm[Hg] Marsha Hudson MD Work Phone: [facility] 05-15-2023 09:20-0400 Heart rate 80 /min Marsha Hudson MD Work Phone: [facility] 05-15-2023 09:20-0400 Systolic blood pressure 132 mm[Hg] Marsha Hudson MD Work Phone: [facility] 03-27-2023 08:48-0400 Body height 162.6 cm Cheikh Oneal MD Work Phone: [facility] 03-27-2023 08:48-0400 Body mass index (BMI) [Ratio] 27.74 kg/m2 Cheikh Oneal MD Work Phone: [facility] 03-27-2023 08:48-0400 Body temperature 97.39 [degF] Cheikh [facility]al MD [facility] Phone: [facility] 03-27-2023 08:48-0400 Body weight 73.3 kg Cheikh Oneal MD Work Phone: [facility] 03-12-2023 07:48-0400 Body height 165.1 cm Mary Florissant DO Work Phone: [facility] 03-12-2023 07:48-0400 Body mass index (BMI) [Ratio] 26.79 kg/m2 Mary Florissant DO Work Phone: [facility] 03-12-2023 07:48-0400 Body weight 73.03 kg Mary Florissant DO Work Phone: [facility] 03-12-2023 07:48-0400 Diastolic blood pressure 64 mm[Hg] Mary Florissant DO Work Phone: [facility] 03-12-2023 07:48-0400 Heart rate 99 /min Mary Florissant DO Work Phone: [facility] 03-12-2023 07:48-0400 Systolic blood pressure 122 mm[Hg] Mary Florissant DO Work Phone: [facility] 11-07-2022 10:11-0400 Body height 165.1 cm Mary Florissant DO Work Phone: [facility] 11-07-2022 10:11-0400 Body mass index (BMI) [Ratio] 25.63 kg/m2 Mary Florissant DO Work Phone: [facility] 11-07-2022 10:11-0400 Body weight 69.85 kg Mary Florissant DO Work Phone: [facility] 11-07-2022 10:11-0400 Diastolic blood pressure 80 mm[Hg] Mary Florissant DO Work Phone: [facility] 11-07-2022 10:11-0400 Heart rate 71 /min Mary Florissant DO Work Phone: [facility] 11-07-2022 10:11-0400 SaO2% (BldA) [Mass fraction] 98 % Mary Florissant DO Work Phone: [facility] 11-07-2022 10:11-0400 Systolic blood pressure 124 mm[Hg] Mary Webster DO Work Phone: [facility] 09-17-2022 09:02-0500 Body mass index (BMI) [Ratio] 25.96 kg/m2 Mary Mccollum Florissant Work Phone: [facility] [employer] [facility] Work Phone: 09-17-2022 09:02-0500 Body surface area Derived from formula 1.78 m2 Mary Mccollum Florissant Work Phone: [facility] [employer] [facility] Work Phone: 09-17-2022 09:02-0500 Body weight 70.76 kg Mary Mccollum Florissant Work Phone: [facility] Work Phone: 09-17-2022 09:02-0500 Diastolic blood pressure 77 mm[Hg] Mary Mccollum Florissant Work Phone: [facility] Work Phone: 09-17-2022 09:02-0500 Heart rate 87 /min Mary Webster Work Phone: [facility] Work Phone: 09-17-2022 09:02-0500 Respiratory rate 14 /min Mary Webster Work Phone: [facility] Work Phone: 09-17-2022 09:02-0500 Systolic blood pressure 114 mm[Hg] Mary Mccollum Florissant Work Phone: [facility] [employer] [facility] Work Phone: 08-29-2022 13:06-0500 Body height 162.6 cm Cheikh Oneal MD Work Phone: [employer] 08-29-2022 13:06-0500 Body mass index (BMI) [Ratio] 26.43 kg/m2 Cheikh Oneal MD Work Phone: [facility] 08-29-2022 13:06-0500 Body temperature 98.1 [degF] Cheikh Oneal MD Work Phone: [facility] 08-29-2022 13:06-0500 Body weight 69.85 kg hCeikh Oneal MD Work Phone: [facility] 08-27-2022 08:59-0500 Body height 165.1 cm Mary Webster Work Phone: [facility] Work Phone: 08-27-2022 08:59-0500 Body mass index (BMI) [Ratio] 26.13 kg/m2 Mary Webster Work Phone: [facility] Work Phone: 08-27-2022 08:59-0500 Body surface area Derived from formula 1.78 m2 Mary Webster Work Phone: [employer] [facility] Work Phone: 08-27-2022 08:59-0500 Body weight 71.22 kg Mary Webster Work Phone: [employer] [facility] Work Phone: 08-27-2022 08:59-0500 Diastolic blood pressure 64 mm[Hg] Mary Webster Work Phone: [facility] Work Phone: 08-27-2022 08:59-0500 Heart rate 81 /min Mary Webster Work Phone: [employer] [facility] Work Phone: 08-27-2022 08:59-0500 SaO2% (BldA) [Mass fraction] 98 % Mary Webster Work Phone: [employer] [facility] Work Phone: 08-27-2022 08:59-0500 Systolic blood pressure 118 mm[Hg] Mary Mccollum Florissant Work Phone: [facility] Work Phone: 08-06-2022 08:51-0500 Body mass index (BMI) [Ratio] 25.46 kg/m2 Mary S Florissant Work Phone: [facility] Work Phone: 08-06-2022 08:51-0500 Body surface area Derived from formula 1.77 m2 Mary Mccollum Florissant Work Phone: [facility] Work Phone: 08-06-2022 08:51-0500 Body weight 69.4 kg Mary Mccollum Florissant Work Phone: [facility] Work Phone: 08-06-2022 08:51-0500 Diastolic blood pressure 75 mm[Hg] Mary Mccollum Florissant Work Phone: [facility] Work Phone: 08-06-2022 08:51-0500 Heart rate 100 /min Mary Webster Work Phone: [facility] Work Phone: 08-06-2022 08:51-0500 Respiratory rate 16 /min Mary Webster Work Phone: [facility] Work Phone: 08-06-2022 08:51-0500 Systolic blood pressure 120 mm[Hg] Mary S Florissant Work Phone: [facility] Work Phone: 06-18-2022 10:45-0500 Body mass index (BMI) [Ratio] 24.79 kg/m2 Mary S Florissant Work Phone: [facility] Work Phone: 06-18-2022 10:45-0500 Body surface area Derived from formula 1.75 m2 Mary S Florissant Work Phone: [facility] Work Phone: 06-18-2022 10:45-0500 Body weight 67.59 kg Mary S Florissant Work Phone: [facility] Work Phone: 06-18-2022 10:45-0500 Diastolic blood pressure 59 mm[Hg] Mary S Florissant Work Phone: [facility] Work Phone: 06-18-2022 10:45-0500 Heart rate 90 /min Mary S Florissant Work Phone: [facility] Work Phone: 06-18-2022 10:45-0500 Respiratory rate 14 /min Mary S Florissant Work Phone: [facility] Work Phone: 06-18-2022 10:45-0500 Systolic blood pressure 107 mm[Hg] Mary S Florissant Work Phone: [facility] Work Phone: 05-17-2022 09:59-0400 Body height 165.1 cm Mary S Florissant Work Phone: [facility] Work Phone: 05-17-2022 09:59-0400 Body mass index (BMI) [Ratio] 24.79 kg/m2 Mary S Florissant Work Phone: [facility] Work Phone: 05-17-2022 09:59-0400 Body surface area Derived from formula 1.75 m2 Mary S Florissant Work Phone: [facility] Work Phone: 05-17-2022 09:59-0400 Body temperature 96.8 [degF] Mary S Florissant Work Phone: [facility] [address] Work Phone: 05-17-2022 09:59-0400 Body weight 67.59 kg Mary S Florissant Work Phone: [facility] Work Phone: 05-10-2022 10:03-0400 Body mass index (BMI) [Ratio] 24.79 kg/m2 Mary S Florissant Work Phone: [facility] Work Phone: 05-10-2022 10:03-0400 Body surface area Derived from formula 1.75 m2 Mary S Florissant Work Phone: [facility] Work Phone: 05-10-2022 10:03-0400 Body temperature 97.1 [degF] Mary S Florissant Work Phone: [facility] Work Phone: 05-10-2022 10:03-0400 Body weight 67.59 kg Mary S Florissant Work Phone: [facility] Work Phone: 03-01-2022 10:57-0400 Body height 165.1 cm Mary S Florissant Work Phone: [facility] Work Phone: 03-01-2022 10:57-0400 Body mass index (BMI) [Ratio] 25 kg/m2 Mary S Florissant Work Phone: [facility] Work Phone: 03-01-2022 10:57-0400 Body surface area Derived from formula 1.75 m2 Mary Webster Work Phone: [facility] [employer] Work Phone: 03-01-2022 10:57-0400 Body weight 68.15 kg Mary Webster Work Phone: [facility] Work Phone: 03-01-2022 10:57-0400 Diastolic blood pressure 62 mm[Hg] Mary Webster Work Phone: [facility] Work Phone: 03-01-2022 10:57-0400 Heart rate 71 /min Mary Webster Work Phone: [facility] Work Phone: 03-01-2022 10:57-0400 SaO2% (BldA) [Mass fraction] 96 % Mary Webster Work Phone: [facility] Work Phone: 03-01-2022 10:57-0400 Systolic blood pressure 124 mm[Hg] Mary Webster Work Phone: [facility] Work Phone: 02-19-2022 09:02-0400 Body height 165.1 cm Mary Webster Work Phone: [facility] Work Phone: 02-19-2022 09:02-0400 Body mass index (BMI) [Ratio] 24.96 kg/m2 Mary Mccollum Florissant Work Phone: [facility] Work Phone: 02-19-2022 09:02-0400 Body surface area Derived from formula 1.75 m2 Mary Mccollum Florissant Work Phone: [facility] Work Phone: 02-19-2022 09:02-0400 Body weight 68.04 kg Mary Webster Work Phone: [facility] Work Phone: 02-19-2022 09:02-0400 Diastolic blood pressure 60 mm[Hg] Mary Webster Work Phone: [facility] Work Phone: 02-19-2022 09:02-0400 Heart rate 79 /min Mary Webster Work Phone: [facility] Work Phone: 02-19-2022 09:02-0400 SaO2% (BldA) [Mass fraction] 98 % Mary Webster Work Phone: [facility] Work Phone: 02-19-2022 09:02-0400 Systolic blood pressure 106 mm[Hg] Mary Webster Work Phone: [facility] Work Phone: 11-30-2021 12:30-0400 Body height 162.6 cm Marv Kolb MD Work Phone: [facility] 11-30-2021 12:30-0400 Body mass index (BMI) [Ratio] 25.75 kg/m2 Marv Kolb MD Work Phone: [facility] 11-30-2021 12:30-0400 Body weight 68.04 kg Marv Kolb MD Work Phone: [facility] 11-30-2021 12:30-0400 Diastolic blood pressure 63 mm[Hg] Marv Kolb MD Work Phone: [facility] 11-30-2021 12:30-0400 Heart rate 83 /min Marv Kolb MD Work Phone: [facility] 11-30-2021 12:30-0400 Systolic blood pressure 94 mm[Hg] Marv Kolb MD Work Phone: [facility] 11-29-2021 09:43-0400 Body height 162.6 cm Kassidy Frances CNP Work Phone: [facility] 11-29-2021 09:43-0400 Body mass index (BMI) [Ratio] 25.75 kg/m2 Kassidy Frances CNP Work Phone: [facility] 11-29-2021 09:43-0400 Body weight 68.04 kg Kassidy Frances CNP Work Phone: [facility] 08-21-2021 09:23-0500 Body height 165.1 cm Mary Webster Work Phone: [facility] Work Phone: 08-21-2021 09:23-0500 Body mass index (BMI) [Ratio] 24.2 kg/m2 Mary S Florissant Work Phone: [facility] Work Phone: 08-21-2021 09:23-0500 Body surface area Derived from formula 1.73 m2 Mary Mccollum Florissant Work Phone: [facility] Work Phone: 08-21-2021 09:23-0500 Body temperature 96.6 [degF] Mary S Florissant Work Phone: [facility] Work Phone: 08-21-2021 09:23-0500 Body weight 65.97 kg Mary S Florissant Work Phone: [facility] [address] [facility] Work Phone: 08-21-2021 09:23-0500 Diastolic blood pressure 62 mm[Hg] Mary S Florissant Work Phone: [facility] [employer] [facility] Work Phone: 08-21-2021 09:23-0500 Heart rate 70 /min Mary Webster Work Phone: [facility] Work Phone: 08-21-2021 09:23-0500 SaO2% (BldA) [Mass fraction] 97 % Mary Webster Work Phone: [facility] Work Phone: 08-21-2021 09:23-0500 Systolic blood pressure 112 mm[Hg] Mary Webster Work Phone: [facility] Work Phone: 07-18-2021 09:30-0500 Body height 165.1 cm Mary Webster Work Phone: [facility] Work Phone: 07-18-2021 09:30-0500 Body mass index (BMI) [Ratio] 24.79 kg/m2 Mary Mccollum Florissant Work Phone: [facility] Work Phone: 07-18-2021 09:30-0500 Body surface area Derived from formula 1.75 m2 Mary Webster Work Phone: [facility] Work Phone: 07-18-2021 09:30-0500 Body temperature 98.7 [degF] Mary Mccollum Florissant Work Phone: [facility] Work Phone: 07-18-2021 09:30-0500 Body weight 67.59 kg Mary Mccollum Florissant Work Phone: [facility] [address] Work Phone: 04-18-2021 09:17-0400 Body height 165.1 cm Mary Mccollum Florissant Work Phone: [facility] Work Phone: 04-18-2021 09:17-0400 Body mass index (BMI) [Ratio] 24.88 kg/m2 Mary Mccollum Florissant Work Phone: [facility] [address] Work Phone: 04-18-2021 09:17-0400 Body surface area Derived from formula 1.75 m2 Mary S Florissant Work Phone: [facility] [address] Work Phone: 04-18-2021 09:17-0400 Body temperature 99.3 [degF] Mary S Florissant Work Phone: [facility] [address] Work Phone: 04-18-2021 09:17-0400 Body weight 67.81 kg Mary S Florissant Work Phone: [facility] [address] Work Phone: 03-29-2021 08:56-0400 Body height 165.1 cm Mary Mccollum Florissant Work Phone: [facility] [address] Work Phone: 03-29-2021 08:56-0400 Body mass index (BMI) [Ratio] 24.71 kg/m2 Mary S Florissant Work Phone: [facility] Work Phone: 03-29-2021 08:56-0400 Body surface area Derived from formula 1.74 m2 Mary S Flor[place] Work Phone: [facility] 300 Work Phone: 03-29-2021 08:56-0400 Body temperature 96.9 [degF] Mary S Florissant Work Phone: [facility] 300 Work Phone: 03-29-2021 08:56-0400 Body weight 67.36 kg Mary Mccollum [place] Work Phone: [facility] 300 Work Phone: 03-29-2021 08:56-0400 Diastolic blood pressure 68 mm[Hg] Mary S Flor[place] Work Phone: [facility] 300 Work Phone: 03-29-2021 08:56-0400 Systolic blood pressure 114 mm[Hg] Mary Mccollum [place] Work Phone: [facility] 300 Work Phone: 03-27-2021 17:02-0400 Body height 165.1 cm Mary Mccollum [place] Work Phone: [facility] Work Phone: 03-27-2021 17:02-0400 Body mass index (BMI) [Ratio] 24.79 kg/m2 Mary Mccollum [place] Work Phone: [facility] Work Phone: 03-27-2021 17:02-0400 Body surface area Derived from formula 1.75 m2 Mary Mccollum [place] Work Phone: [facility] Work Phone: 03-27-2021 17:02-0400 Body temperature 98.9 [degF] Mary Mccollum [place] Work Phone: [facility] Work Phone: 03-27-2021 17:02-0400 Body weight 67.59 kg Mary Mccollum [place] Work Phone: [facility] Work Phone: 03-27-2021 17:02-0400 Diastolic blood pressure 62 mm[Hg] Mary S Flor[place] Work Phone: [facility] Work Phone: 03-27-2021 17:02-0400 Heart rate 80 /min Mary Webster [employer] Phone: [facility] Work Phone: 03-27-2021 17:02-0400 SaO2% (BldA) [Mass fraction] 98 % Mary Webster [employer] Phone: [facility] Work Phone: 03-27-2021 17:02-0400 Systolic blood pressure 102 mm[Hg] Mary Webster [employer] Phone: [facility] Work Phone: 02-22-2021 14:27-0400 Body height 165.1 cm Mary Webster [employer] Phone: [facility] Work Phone: 02-22-2021 14:27-0400 Body mass index (BMI) [Ratio] 25.01 kg/m2 Mary Webster [employer] Phone: [facility] Work Phone: 02-22-2021 14:27-0400 Body surface area Derived from formula 1.75 m2 Mary Webster [employer] Phone: [facility] Work Phone: 02-22-2021 14:27-0400 Body temperature 99.5 [degF] Mary Mccollum [employer] Phone: [facility] Work Phone: 02-22-2021 14:27-0400 Body weight 68.18 kg Mary Webster [employer] Phone: [facility] Work Phone: 02-22-2021 14:27-0400 Diastolic blood pressure 62 mm[Hg] Mary Webster Work Phone: [facility] Work Phone: 02-22-2021 14:27-0400 Heart rate 82 /min Mary Webster Work Phone: [facility] Work Phone: 02-22-2021 14:27-0400 SaO2% (BldA) [Mass fraction] 97 % Mary Webster Work Phone: [facility] Work Phone: 02-22-2021 14:27-0400 Systolic blood pressure 104 mm[Hg] Mary Webster Work Phone: [facility] Work Phone: 01-08-2021 07:41-0400 Body height 165.1 cm Mary Webster Work Phone: [facility] Work Phone: 01-08-2021 07:41-0400 Body mass index (BMI) [Ratio] 24.87 kg/m2 Mary Webster Work Phone: [employer] [facility] Work Phone: 01-08-2021 07:41-0400 Body surface area Derived from formula 1.75 m2 Mary Webster Work Phone: [facility] Work Phone: 01-08-2021 07:41-0400 Body temperature 97.1 [degF] Mary Webster Work Phone: [facility] Work Phone: 01-08-2021 07:41-0400 Body weight 67.79 kg Mary Webster Work Phone: [facility] Work Phone: 01-08-2021 07:41-0400 Diastolic blood pressure 70 mm[Hg] Mary Webster Work Phone: [facility] Work Phone: 01-08-2021 07:41-0400 Heart rate 82 /min Mary Webster Work Phone: [facility] Work Phone: 01-08-2021 07:41-0400 SaO2% (BldA) [Mass fraction] 97 % Mary Webster Work Phone: [facility] Work Phone: 01-08-2021 07:41-0400 Systolic blood pressure 108 mm[Hg] Mary Mccollum [place] Work Phone: [facility] Work Phone: 11-27-2020 08:27-0400 Body height 162.6 cm Marv Kolb MD Work Phone: [facility] 11-27-2020 08:27-0400 Body mass index (BMI) [Ratio] 25.06 kg/m2 Marv Kolb MD Work Phone: [facility] 11-27-2020 08:27-0400 Body weight 66.22 kg Marv Kolb MD Work Phone: [facility] 11-27-2020 08:27-0400 Diastolic blood pressure 61 mm[Hg] Marv Kolb MD Work Phone: [facility] 11-27-2020 08:27-0400 Heart rate 79 /min Marv Kolb MD Work Phone: [facility] 11-27-2020 08:27-0400 SaO2% (BldA) [Mass fraction] 95 % Marv Kolb MD Work Phone: [facility] 11-27-2020 08:27-0400 Systolic blood pressure 96 mm[Hg] Marv Kolb MD Work Phone: [facility] 08-24-2020 17:36-0500 BMI (Body Mass Index) 24.39 kg/m2 [facility] Work Phone: 08-24-2020 17:36-0500 Body Temperature 97.6 [degF] [facility] Work Phone: 08-24-2020 17:36-0500 Body weight 66.48 kg [facility] Work Phone: 08-24-2020 17:36-0500 BP Diastolic 60 mm[Hg] [facility] Work Phone: 08-24-2020 17:36-0500 BP Systolic 98 mm[Hg] [facility] Work Phone: 08-24-2020 17:36-0500 BSA (Body Surface Area) 1.73 m2 [facility] Work Phone: 08-24-2020 17:36-0500 Height 165.1 cm [facility] Work Phone: 08-24-2020 17:36-0500 Pulse (Heart Rate) 87 /min [facility] Work Phone: 08-24-2020 17:36-0500 Pulse Oximetry 96 % [facility] Work Phone: 04-25-2020 12:21-0400 BMI (Body Mass Index) 24.46 kg/m2 [facility] Work Phone: 04-25-2020 12:21-0400 Body Temperature 97.3 [degF] [facility] Work Phone: 04-25-2020 12:21-0400 Body weight 66.68 kg [facility] Work Phone: 04-25-2020 12:21-0400 BP Diastolic 70 mm[Hg] [facility] Work Phone: 04-25-2020 12:21-0400 BP Systolic 110 mm[Hg] [facility] Work Phone: 04-25-2020 12:21-0400 BSA (Body Surface Area) 1.74 m2 [facility] Work Phone: 04-25-2020 12:21-0400 Height 165.1 cm [facility] Work Phone: 04-25-2020 12:21-0400 Pulse (Heart Rate) 87 /min [facility] Work Phone: 04-25-2020 12:21-0400 Pulse Oximetry 98 % [facility] Work Phone: 01-31-2020 18:01-0400 BMI (Body Mass Index) 24.01 kg/m2 [facility] Work Phone: 01-31-2020 18:01-0400 Body Temperature 97.2 [degF] [facility] Work Phone: 01-31-2020 18:01-0400 Body weight 65.45 kg [facility] Work Phone: 01-31-2020 18:01-0400 BP Diastolic 64 mm[Hg] [facility] Work Phone: Comment on above: [place] [facility] [place]: Sitting 01-31-2020 18:01-0400 BP Systolic 96 mm[Hg] [facility] Work Phone: Comment on above: [place] [facility] [place] Position: Sitting 01-31-2020 18:01-0400 BSA (Body Surface Area) 1.72 m2 [facility] Work Phone: 01-31-2020 18:0400 Height 165.1 cm [facility] Work Phone: 01-31-2020 18:01-0400 Pulse (Heart Rate) 87 /min [facility] Work Phone: 10-25-2019 12:19-0400 BMI (Body Mass Index) 24.82 kg/m2 [facility] Work Phone: 10-25-2019 12:19-0400 Body weight 67.64 kg [facility] Work Phone: 10-25-2019 12:19-0400 BP Diastolic 70 mm[Hg] [facility] Work Phone: 10-25-2019 12:19-0400 BP Systolic 122 mm[Hg] [facility] Work Phone: 10-25-2019 12:19-0400 BSA (Body Surface Area) 1.75 m2 [facility] Work Phone: 10-25-2019 12:19-0400 Height 165.1 cm [facility] Work Phone: 10-25-2019 12:19-0400 Pulse (Heart Rate) 86 /min [facility] Work Phone: 05-25-2019 13:28-0400 BMI (Body Mass Index) 24.88 kg/m2 [facility] Work Phone: 05-25-2019 13:28-0400 Body weight 67.73 kg [facility] Work Phone: 05-25-2019 13:28-0400 BP Diastolic 74 mm[Hg] [facility] Work Phone: 05-25-2019 13:28-0400 BP Systolic 128 mm[Hg] [facility] Work Phone: 05-25-2019 13:28-0400 BSA (Body Surface Area) 1.75 m2 [facility] Work Phone: 05-25-2019 [id number] Height 165 cm [facility] Work Phone: 05-25-2019 13:28-0400 Pulse (Heart Rate) 70 /min [facility] Work Phone: 11-09-2018 09:15-0400 BMI (Body Mass Index) 25.8 kg/m2 [facility] 11-09-2018 09:15-0400 Body weight 68.18 [facility] 11-09-2018 09:15-0400 BP Diastolic 65 mm[Hg] [facility] 11-09-2018 09:15-0400 BP Systolic 100 mm[Hg] Marv Jeremiah [facility] 11-09-2018 09:15-0400 Height 162.6 cm [facility] 11-09-2018 09:15-0400 Pulse (Heart Rate) 89 /min [facility] 11-09-2018 09:15-0400 Pulse Oximetry 95 % [facility] En[facility] Encounter Date Encounter Type Care Provider Facility Start: 04-09-2025 End: 04-09-2025 Emergency department patient visit [facility] Start: 04-08-2025 End: 04-08-2025 ambulatory [facility] Start: 03-30-2025 End: 03-30-2025 Subsequent hospital visit by physician [address] Comment on above: Peripheral vascular disease, unspecified; Atherosclerosis of menominee arteries of extremities with intermittent claudication, bilateral legs Start: 03-30-2025 End: 03-30-2025 ambulatory MARV KOLB [facility] Start: 03-29-2025 End: 03-29-2025 Office outpatient new 45 minutes Marv Kolb MD Work Phone: [facility] Comment on above: Claudication of glut eal region (Primary Dx); 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; Mixed hyperlipidemia Start: 03-29-2025 End: 03-29-2025 Orders Only Vanessa Connelly RN [facility] Comment on above: Coronary artery dise ase involving menominee coronary artery of menominee heart without angina pectoris (Primary Dx) Start: 03-21-2025 End: 03-21-2025 Orders Only Vanessa Connelly RN [facility] Comment on above: Coronary artery dise ase involving menominee coronary artery of menominee heart without angina pectoris (Primary Dx); Chest pain, unspecified type Start: 03-17-2025 End: 03-17-2025 Subsequent hospital visit by physician Uriel [facility] Comment on above: Other chest pain Start: 03-17-2025 End: 03-17-2025 ambulatory [facility] Start: 03-17-2025 End: 03-17-2025 Office outpatient visit 25 minutes [facility] Work Phone: [facility] Comment on above: Other chest pain (Pr imary Dx); Presence of coronary angioplasty implant and graft; CAD in menominee artery; RUQ abdominal pain Start: 03-17-2025 End: 03-17-2025 ambulatory [facility] Start: 03-11-2025 End: 03-11-2025 ambulatory [facility] Start: 03-10-2025 End: 03-10-2025 Subsequent hospital visit by physician Uriel [id number] Comment on above: Encounter for screen ing mammogram for malignant neoplasm of breast Start: 03-10-2025 End: 03-10-2025 ambulatory [facility] Start: 03-03-2025 End: 03-03-2025 Office outpatient visit 25 minutes Mary Webster DO Work Phone: [facility] Comment on above: RUQ abdominal pain ( Primary Dx); Encounter for screening mammogram for malignant neoplasm of breast; Medicare annual wellness visit, subsequent; Polyarthropathy; Mixed hyperlipidemia Start: 03-03-2025 End: 03-03-2025 Patient encounter procedure Mary Webster DO Work Phone: [facility] Work Phone: Start: 03-03-2025 End: 03-03-2025 ambulatory [facility] Start: 03-03-2025 End: 03-03-2025 Encounter for general adult medical examination without abnormal findings [facility] Start: 02-11-2025 End: 02-11-2025 ambulatory [facility] Start: 01-07-2025 End: 01-07-2025 ambulatory [facility] Start: 12-18-2024 End: 12-18-2024 Letter encounter [facility] Start: 12-10-2024 End: 12-10-2024 ambulatory [facility] Start: 11-26-2024 End: 11-26-2024 ambulatory John Moser Facility:[facility] Start: 11-12-2024 End: 11-12-2024 ambulatory [facility] Start: 11-03-2024 End: 11-03-[address] Mary Webster MD Work Phone: [facility] Work Phone: Start: 11-03-2024 End: 11-03-[address] John Moser MD -Laboratory, [place] Work Phone: Start: 11-03-2024 End: 11-03-2024 ambulatory John Moser Facility:[facility] Start: 10-18-2024 End: 10-18-2024 Office outpatient visit 15 minutes [facility] Work Phone: [facility] Comment on above: Abdominal pain, unsp ecified abdominal location (Primary Dx); Abnormal CT of the abdomen; Mixed hyperlipidemia; Essential hypertension Start: 10-18-2024 End: 10-18-2024 ambulatory [facility] Start: 10-15-2024 End: 10-15-2024 ambulatory [facility] Start: 10-12-2024 End: 10-12-2024 Subsequent hospital visit by physician [address] Comment on above: Periumbilical abdomi nal pain Start: 10-12-2024 End: 10-12-2024 ambulatory [facility] Start: 09-27-2024 End: 09-27-2024 ambulatory [facility] Start: 09-17-2024 End: 09-17-2024 ambulatory [facility] Start: 08-20-2024 End: 08-20-2024 ambulatory [facility] Start: 07-23-2024 End: 07-23-2024 ambulatory [facility] Start: 06-25-2024 End: 06-25-2024 [facility] Start: 06-21-2024 End: 06-22-2024 Emergency department patient visit [facility] Start: 05-26-2024 End: 05-26-2024 ambulatory [facility] Start: 05-07-2024 End: 05-07-2024 [facility] Start: 03-23-2024 End: 03-23-2024 Patient encounter procedure Ela Tyler DPM Work Phone: [facility] Comment on above: Nondisplaced fractur e of cuboid bone of left foot, initial encounter for closed fracture (Primary Dx); Left foot pain Start: 03-16-2024 End: 03-16-2024 Office outpatient visit 15 minutes [facility] Work Phone: [facility] Comment on above: Chronic daily headac he (Primary Dx); Mixed hyperlipidemia; RUQ abdominal pain; Dilated cbd, acquired; Lipoma of torso Start: 02-20-2024 End: 02-20-2024 ambulatory [facility] Start: 02-20-2024 End: 02-20-2024 Subsequent hospital visit by physician Uriel [facility] Comment on above: RUQ abdominal pain Start: 02-18-2024 End: 02-18-2024 Office outpatient visit 25 minutes [facility] Work Phone: [facility] Comment on above: Medicare annual well ness visit, subsequent (Primary Dx); Encounter for screening mammogram for malignant neoplasm of breast; Encounter for screening for malignant neoplasm of colon; RUQ abdominal pain; History of colon polyps; Multiple subsegmental pulmonary emboli without acute cor pulmonale (Multi); Cancer (Multi); Mixed hyperlipidemia; Essential hypertension; Tubular adenoma of colon Start: 02-18-2024 End: 02-18-2024 Patient encounter procedure [facility] Work Phone: [facility] Work Phone: Start: 02-17-2024 End: 02-17-2024 Office outpatient new 30 minutes Ela Tyler DPM Work Phone: [facility] Comment on above: Nondisplaced fractur e of cuboid bone of left foot, initial encounter for closed fracture (Primary Dx); Left foot pain Start: 02-13-2024 End: 02-13-2024 ambulatory [facility] Start: 11-27-2023 ambulatory MEG BISHOP [facility] Start: 11-27-2023 End: 11-27-2023 Office outpatient visit 15 minutes 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 Comment on above: Hx of total hip arth roplasty, right (Primary Dx) Start: 11-27-2023 End: 11-27-2023 Subsequent hospital visit by physician Meg MIN Work Phone: [facility] Start: 06-28-2023 Letter encounter Agus mathew Start: 06-24-2023 ambulatory SELF SELF [facility] Start: 06-24-2023 End: 06-24-2023 Office outpatient new 30 minutes Kanu Aquino DO Work Phone: [facility] Comment on above: Irritable bowel synd sergio with diarrhea (Primary Dx); Abdominal pain, epigastric Start: 05-15-2023 End: 05-15-2023 Office consultation new/estab patient 40 min Marsha Hudson MD Work Phone: [facility] Comment on above: Constipation, unspec ified constipation type (Primary Dx) Start: 04-25-[address] Mary Webster Facility:[id number] Start: 03-28-[address] Mary Webster Facility:[id number] Start: 03-27-2023 ambulatory CHEIKH ONEAL [facility] Start: 03-27-2023 End: 03-27-2023 Office outpatient visit 15 minutes Cheikh Oneal MD Work Phone: [facility] Comment on above: Hx of total hip arth roplasty, right (Primary Dx) Start: 03-27-2023 End: 03-27-2023 Subsequent hospital visit by physician Cheikh Oneal MD Work Phone: [facility] Start: 03-23-2023 Letter encounter Agus diaz Start: 03-12-2023 End: 03-12-2023 Office outpatient visit 15 minutes Mary Webster DO Work Phone: [facility] Comment on above: Right upper quadrant abdominal mass (Primary Dx); Cervical pain (neck); Chronic nonintractable headache, unspecified headache type; Mild intermittent asthma without complication Start: 03-11-[address] Mary Webster Facility:[id number] Start: 02-28-[address] Mary Webster Facility:[id number] Start: 02-14-[address] Mary Webster Facility:[id number] Start: 01-31-[address] Mary Webster Facility:[id number] Start: 01-03-2023 ambulatory [facility] Start: 01-03-2023 End: 01-03-2023 Subsequent hospital visit by physician Meg MIN Work Phone: [facility] Comment on above: Arrived Start: 01-03-[address] Mary Webster Facility:[id number] Start: 12-20-[address] Mary Webster Facility:[id number] Start: 12-19-2022 ambulatory [facility] Start: 12-16-[address] Mary Webster Facility:[id number] Start: 12-13-2022 End: 12-13-2022 Office outpatient visit 15 minutes Mary Webster DO Work Phone: [facility] Comment on above: Dysuria (Primary Dx) ; Encounter for screening mammogram for malignant neoplasm of breast Start: 11-15-[address] Mary Webster Facility:[id number] Start: 11-08-[address] Mary Webster Facility:[id number] Start: 11-07-2022 End: 03-17-2025 Patient encounter procedure Mary Webster DO Work Phone: [facility] Work Phone: Start: 11-07-2022 End: 11-07-2022 Office outpatient visit 25 minutes Mary Webster DO Work Phone: [facility] Comment on above: Cancer (CMS/HCC) (Pr imary Dx); Multiple subsegmental pulmonary emboli without acute cor pulmonale (CMS/HCC); Preop exam for internal medicine; Acute cystitis without hematuria Start: 11-07-2022 End: 12-13-2022 Patient encounter status Mary Webster DO Work Phone: [facility] Work Phone: Start: 10-14-[address] Mary Webster Facility:[id number] Start: 10-02-2022 AUDIT Mary gates Work Phone: [facility] Work Phone: Start: 10-01-2022 Chart Update Mary gates Work Phone: [facility] Work Phone: Start: 10-01-[address] Mary Mccollum [place] Facility:[id number] Start: 09-27-2022 [facility] Start: 09-24-2022 Chart Update Mary gates Work Phone: [facility] Work Phone: Start: 09-24-[address] Mary Mccollum [place] Facility:[id number] Start: 09-18-2022 Chart Update Mary gates Work Phone: [facility] Work Phone: Start: 09-18-[address] Mary Mccollum [place] Facility:[id number] Start: 09-17-2022 FUV, Provider: Pradip Webb, Status: Pen, Time: 8:30 AM Mary Webster Work Phone: [facility] Work Phone: Start: 09-17-[address] Mary Mccollum [place] Facility:[id number] Start: 09-16-2022 Chart Update Mary gates Work Phone: [facility] Work Phone: Start: 09-16-[address] [facility]:[id number] Start: 09-06-2022 Chart Update Mary gates Work Phone: [facility] Work Phone: Start: 09-06-[address] Mary Mccollum [place] Facility:[id number] Start: 08-29-2022 End: 08-29-2022 Office outpatient new 60 minutes Cheikh Oneal MD Work Phone: [facility] Comment on above: Right hip pain (Prim noah Dx) Start: 08-29-2022 End: 08-29-2022 Subsequent hospital visit by physician Cheikh Oneal MD Work Phone: [facility] Start: 08-27-2022 Adv care pln tlkd & alt dcsn maker docd Mary Mccollum [place] Work Phone: [facility] Work Phone: Start: 08-22-2022 AUDIT Mary gates Work Phone: [facility] Work Phone: Start: 08-09-[address] Mary Webster Facility:[id number] Start: 08-06-2022 Patient encounter procedure Mayr Webster Work Phone: [facility] Work Phone: Start: 08-06-[address] Mary Webster Facility:[id number] Start: 07-12-2022 Chart Update Mary gates Work Phone: [facility] Work Phone: Start: 07-12-[address] Mary Webster Facility:[id number] Start: 07-05-2022 End: 07-05-[address] Pradip Patel hugo Facility:[id number] Start: 06-21-2022 Chart Update Mary gates Work Phone: [facility] Work Phone: Start: 06-18-[address] Pradip Webb Facility:[id number] Start: 06-18-2022 Patient encounter procedure Mary Webster Work Phone: [facility] Work Phone: Start: 06-18-[address] Pradip Kessler t[facility]w [facility] Facility:[id number] Start: 06-14-2022 Chart Update Mary gates Work Phone: [facility] Work Phone: Start: 06-14-[address] Mary Webster Facility:[id number] Start: 05-17-2022 Patient encounter procedure Mary Webster Work Phone: [facility] 300 Work Phone: Start: 05-17-[address] Mary Webster Facility:[id number] Start: 05-10-2022 Office outpatient vi sit 15 minutes Mary Webster Work Phone: [facility] 300 Work Phone: Start: 05-10-2022 Patient encounter procedure Mary Webster Work Phone: [facility] 300 Work Phone: Start: 05-10-[address] Mary Webster Facility:[id number] Start: 04-16-2022 AUDIT Mary gates Work Phone: [facility] Work Phone: Start: 04-12-2022 Chart Update Mary gates Work Phone: [facility] Work Phone: Start: 03-29-2022 Letter encounter [facility] Start: 03-17-2022 Chart Update Mary gates Work Phone: [facility] Work Phone: Start: 03-01-2022 Office outpatient vi sit 15 minutes Mary Webster Work Phone: [facility] Work Phone: Start: 03-01-[address] Mary Webster Facility:[id number] Start: 02-20-2022 End: 02-20-2022 Office outpatient visit 15 minutes Kassidy Frances CNP Work Phone: [facility] Comment on above: Closed nondisplaced fracture of head of right radius, initial encounter (Primary Dx) Start: 02-19-2022 Office outpatient vi sit 25 minutes Mary Webster Work Phone: [facility] Work Phone: Start: 02-19-[address] Mary Mccollum [place] Facility:[id number] Start: 01-22-2022 End: 01-22-2022 Office outpatient visit 15 minutes Kassidy Frances CNP Work Phone: [facility] Comment on above: Closed nondisplaced fracture of head of right radius, initial encounter (Primary Dx) Start: 01-20-2022 Chart Update Mary gates Work Phone: -[facility] Work Phone: Start: 01-04-2022 Chart Update Mary gates Work Phone: -[facility] Work Phone: Start: 12-21-2021 Chart Update Mary gates Work Phone: -[facility] Work Phone: Start: 12-18-2021 End: 12-18-2021 Office outpatient visit 15 minutes Kassidy Frances CNP Work Phone: [facility] Comment on above: Closed nondisplaced fracture of head of right radius, initial encounter (Primary Dx) Start: 12-07-2021 Chart Update Mary gates Work Phone: -[facility] Work Phone: Start: 11-30-2021 Orders Only Marv patel MD Work Phone: [facility] Comment on above: Coronary artery dise ase involving menominee coronary artery of menominee heart without angina pectoris (Primary Dx) Start: 11-30-2021 End: 11-30-2021 Office outpatient visit 15 minutes Marv Kolb MD Work Phone: [facility] Comment on above: Mixed hyperlipidemia ; 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 Start: 11-29-2021 End: 11-29-2021 Office outpatient new 30 minutes Kassidy Frances [facility] Work Phone: [facility] Comment on above: Closed nondisplaced fracture of head of right radius, initial encounter (Primary Dx) Start: 11-02-2021 Chart Update Mary gates Work Phone: [facility] Work Phone: Start: 10-12-2021 Chart Update Mary gates Work Phone: [facility] Work Phone: Start: 09-14-2021 Chart Update Mary gates Work Phone: [facility] Work Phone: Start: 08-21-[address] [facility][id number] Start: 08-17-2021 Chart Update Mary gates Work Phone: -[facility] Work Phone: Start: 07-20-2021 Chart Update Mary gates Work Phone: -[facility] Work Phone: Start: 07-18-2021 Office outpatient vi sit 25 minutes Mary Webster Work Phone: [facility] Work Phone: Start: 07-18-[address] Mary Mccollum [place] Facility:[id number] Start: 06-22-2021 Chart Update Mary gates Work Phone: [facility] Work Phone: Start: 05-28-2021 Chart Update Mary gtaes Work Phone: [facility] Work Phone: Start: 04-27-2021 Chart Update Mary gates Work Phone: [facility] Work Phone: Start: 04-18-2021 Patient encounter procedure Mary Webster Work Phone: [facility] Work Phone: Start: 03-29-2021 NPV, Provider: Agnes Chery, Status: Pen, Time: 9:00 AM Mary Mccollum [place] Work Phone: [facility] Work Phone: Start: 03-29-2021 Office outpatient ne w 45 minutes Mary Webster Work Phone: [facility] [address] Work Phone: Start: 03-27-2021 Office outpatient vi sit 15 minutes Mary Mccollum [place] Work Phone: [facility] Work Phone: Start: 2021 Patient encounter procedure [facility]ccollum [place] [facility] Work [facility] Start: 03-08-2021 Patient encounter procedure Mary Mccollum [place] Work [facility]: [facility] Work [facility]: Start: 03-04-2021 Chart Update Mary gates Work Phone: [facility] Work Phone: Start: 03-01-2021 Patient encounter procedure Mary Webster Work Phone: [facility] Work Phone: Start: 03-01-2021 [id number], Provider : Yazmin Fuentes, Status: Pen, Time: 9:15 AM Mary Webster Work Phone: [facility] Work Phone: Start: 02-27-2021 Chart Update Mary gates Work Phone: [facility] Work Phone: Start: 02-22-2021 EPV, Provider: Mary Webster, Status: Pen, Time: 2:20 PM Mary Webster Work Phone: [facility] Work Phone: Start: 02-22-2021 Office outpatient vi sit 25 minutes Mary Webster Work Phone: [facility] Work Phone: Start: 02-20-2021 Chart Update Mary gates Work Phone: [facility] Work Phone: Start: 02-08-2021 Patient encounter procedure Mary Webster Work Phone: [facility] Work Phone: Start: 02-08-2021 [id number], Provider : Yazmin Fuentes, Status: Pen, Time: 9:30 AM Mary Webster Work Phone: [facility] Work Phone: Start: 02-06-2021 [id number], Provider : Geeta Ramirez, Status: Pen, Time: 3:15 PM Mary Mccollum [place] Work Phone: -[facility] Work Phone: Start: 02-06-2021 Patient encounter procedure Mary Mccollum [place] Work Phone: [facility] Work Phone: Start: 02-06-2021 Chart Update Mary Varghese al Work Phone: -[facility] Work Phone: Start: 02-01-2021 Patient encounter procedure Mary Mccollum [place] Work Phone: [facility] Work Phone: Start: 01-08-2021 AUDIT Mary Varghese al Work Phone: -[facility] Work Phone: Start: 01-08-2021 Office outpatient vi sit 15 minutes Mary Webster Work Phone: -[facility] Work Phone: Start: 01-08-2021 Chart Update Mary Varghese al Work Phone: -[facility] Work Phone: Start: 11-27-2020 End: 11-27-2020 Office outpatient visit 15 minutes Marv Kolb MD Work Phone: [facility] Comment on above: Coronary artery dise ase involving menominee coronary artery of menominee heart without angina pectoris; Mixed hyperlipidemia Start: 09-27-2020 End: 09-27-2020 Orders Only Que Carlisle Work Phone: [facility] Start: 08-24-2020 Patient encounter procedure Mary Webster -[facility] Work Phone: Start: 08-09-2020 Patient encounter procedure Mary Webster MP-[facility] Work Phone: Start: 04-25-2020 Patient encounter procedure Mary Webster -[facility] Work Phone: Start: 04-20-2020 Patient encounter procedure Mary Webster -[facility] Work Phone: Start: 04-11-2020 Patient encounter procedure Mary Webster -[facility] Work Phone: Start: 02-28-2020 Patient encounter procedure Mary Webster -[facility] Work Phone: Start: 01-31-2020 Patient encounter procedure Mary Webster -[facility] Work Phone: Start: 10-25-2019 Patient encounter procedure Mary Webster -[facility] Work Phone: Start: 08-05-2019 Patient encounter procedure Mary Webster -[facility] Work Phone: Start: 05-25-2019 Patient encounter procedure Mary Webster -[facility] Work Phone: Start: 11-09-2018 End: 11-09-2018 Office outpatient new 45 minutes Marv Kolb Work Phone: [facility] Comment on above: Coronary artery dise ase, angina presence unspecified, unspecified vessel or lesion type, unspecified whether menominee or transplanted heart; 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; Mixed hyperlipidemia Start: 04-10-2017 End: 04-11-2017 Ambulatory [facility] Start: 03-14-2017 End: 2017 Ambulatory [facility] Start: 02-25-2017 End: 02-25-2017 Emergency department patient visit [facility] Start: 02-14-2017 End: 02-15-2017 Ambulatory [facility] Patient encounter procedure Mary Webster Work Phone: [facility] Work Phone: Patient encounter status Mary Webster Work Phone: [facility] Work Phone: Procedures Date Procedure Procedure Detail Performing Clinician Start: 03-30-2025 Non-invasive physiol ogic study extremity 3 levls Marv Kolb MD Work Phone: Start: 03-10-2025 End: 03-10-2025 Screening digital breast tomosynthesis bi Mary Mccollum [place] DO Work Phone: Start: 03-03-2025 Lipid 1996 panel - S mahogany or Plasma [facility] Start: 02-26-2024 Mammography Mary R oyal DO Work Phone: Start: 02-13-2024 Lipid 1996 panel - S mahogany or Plasma Mary [place] DO Work Phone: Start: 02-14-2023 Mammography Mary R oyal DO Work Phone: Start: 01-03-2023 Dup-scan xtr veins unilateral/limited study Meg Bishop 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 Work Phone: Start: 07-05-2022 Injection of steroid into joint Mary Mccollum [place] Work Phone: Comment on above: Rt Hip Inj; Start: 02-15-2022 Lipid 1996 panel - S mahogany or Plasma Mary [place] DO Work Phone: Start: 10-19-2021 Mammography Mary R oyal DO Work Phone: Start: 11-27-2020 Ecg routine ecg w/le ast 12 lds w/i&r Marv Kolb MD Work Phone: Start: 08-24-2020 Basic metabolic 1998 panel - Serum or Plasma Mary [place] Start: 08-24-2020 Lipid panel Mary R oyal Start: 05-31-2020 End: 05-31-2020 Colonoscopy Mary [place] Start: 05-11-2020 Colonoscopy Mary R oyal DO Work Phone: Start: 04-11-2020 Complete PFT with Pr e/Post Bronchodialator Mary Webster Start: 04-11-2020 Xray Chest 2 View PA + Lateral Mary Webster Start: 02-28-2020 Basic metabolic 1998 panel - Serum or Plasma Mary Webster Start: 02-28-2020 MG Breast screening Scarlett Webster Start: 01-31-2020 Basic metabolic 1998 panel - Serum or Plasma Mary Webster Start: 01-31-2020 Blood count complete auto&auto difrntl wbc Mary Webster Start: 01-31-2020 Lipid panel Mary R tasha Start: 11-09-2018 12 lead ECG Marv grullon Work Phone: Start: 04-22-2017 Biopsy of breast Sharon Mccollum [place] Work Phone: Comment on above: LEFT BREAST; Start: 04-10-2017 PROTIME-INR SYD ARCHANA ETSER Start: 03-14-2017 PROTIME-INR SYD SWE ETSER Start: 02-14-2017 PROTIME-INR SYD SWE ETSER Start: 06-09-2015 History of placement of stent for coronary artery disease S/p bare metal coronary artery stent Mary Webster DO Work Phone: Start: 05-11-1920 Colonoscopy Marsha bianchi MD Work Phone: End: 04-22-2017 Biopsy of breast Mary Webster section Mary Ro yal Colposcopy Mary Webster Insertion of arteria l stent Mary Webster Comment on above: LAD CORONARY ARTERY; Plan of Treatment Date Care Activity Detail Author Start: 05-31-2030 Screening for malign ant neoplasm of colon [facility] Start: 05-11-2030 Screening for malign ant neoplasm of colon [facility] Start: 03-03-2030 Lipid panel Lipid Panel [facility] Start: 02-12-2029 Lipid panel Lipid Panel [facility] Start: 02-15-2027 Lipid panel Lipid Panel [facility] Start: 2026 RSV vaccine (adult) (1 - 1-dose 75+ series) RSV vaccine (adult) (1 - 1-dose 75+ series) [facility] Start: 03-10-2026 Screening for malign ant neoplasm of breast Mammogram [facility] Start: 03-04-2026 Medicare Annual Wellness Visit Medicare Annual Wellness Visit (AWV) [facility] Start: 04-14-2025 End: 04-14-2025 Patient encounter procedure 04/14/2025 8:00 AM EDT Office [place] [address] [facility] [address] [place] [address] Mary Webster DO [address] [place] [address] [facility] Start: 04-08-2025 End: 04-08-2025 Anticoagulant drug monitoring 04/08/2025 9:15 AM EDT Anticoagulation - [facility] Visit [facility] [address] [facility] [address] [place] [address] [facility] Start: 04-04-2025 Influenza vaccination Influenza Vacc ine (#1) [facility] Start: 03-31-2025 End: 03-31-2025 Patient encounter procedure [facility] Start: 03-17-2025 End: 03-17-2026 NM Heart Perfusion W stress and W radionuclide IV Nuclear Stress Test Cardiac Nuclear Medicine Routine Other chest pain Presence of coronary angioplasty implant and graft CAD in menominee artery Expected: 03/17/2025 (Approximate), Expires: 03/17/2026 [facility] Service Area Work Phone: Comment on above: Expected: 03/17/2025 (Approximate), Expires: 03/17/2026 Start: 03-17-2025 End: 03-17-2026 XR Chest 2 Views [facility] Work Phone: Comment on above: Expected: 03/17/2025 , Expires: 03/17/2026 Once for 1 Occurrenc es starting 03/17/2025 until 03/17/2025 Start: 03-17-2025 End: 03-17-2025 Patient encounter procedure 03/17/2025 8:00 AM EDT Office Visit [place] [address] [facility] [address] [place] [phone] Mary Webster DO [address] [facility] [address] [place] [address] [facility] Start: 03-11-2025 End: 03-11-2025 Anticoagulant drug monitoring 03/11/2025 9:00 AM EDT Anticoagulation - Warfarin Visit [facility] [address] [facility] [address] [place] [phone] [facility] Start: 03-03-2025 End: 03-03-2026 C reactive protein [Mass/volume] in Serum or Plasma C-reactive protein Lab Routine Polyarthropathy Expected: 03/03/2025 (Approximate), Expires: 03/03/2026 [facility] Work Phone: Comment on above: Expected: 03/03/2025 (Approximate), Expires: 03/03/2026 Start: 03-03-2025 End: 03-03-2026 CBC W Auto Differential panel - Blood CBC and Auto Differential Lab Routine RUQ abdominal pain Expected: 03/03/2025 (Approximate), Expires: 03/03/2026 [facility] Service Area Work Phone: Comment on above: Expected: 03/03/2025 (Approximate), Expires: 03/03/2026 Start: 03-03-2025 End: 03-03-2026 Creatine kinase [Enzymatic activity/volume] in Serum or Plasma CK Lab Routine Polyarthropathy Expected: 03/03/2025 (Approximate), Expires: 03/03/2026 [facility] Work Phone: Comment on above: Expected: 03/03/2025 (Approximate), Expires: 03/03/2026 Start: 03-03-2025 End: 05-03-2026 DBT Breast - bilateral BI mammo bilateral screening tomosynthesis Imaging Routine Encounter for screening mammogram for malignant neoplasm of breast Expected: 03/03/2025 (Approximate), Expires: 05/03/2026 [facility] Work Phone: Comment on above: Expected: 03/03/2025 (Approximate), Expires: 05/03/2026 Start: 03-03-2025 End: 03-03-2026 Erythrocyte sedimentation rate Sedimentation Rate Lab Routine Polyarthropathy Expected: 03/03/2025 (Approximate), Expires: 03/03/2026 [facility] Work Phone: Comment on above: Expected: 03/03/2025 (Approximate), Expires: 03/03/2026 Start: 03-03-2025 End: 03-03-2026 Hepatic function 2000 panel - Serum or Plasma Hepatic Function Panel Lab Routine RUQ abdominal pain Expected: 03/03/2025 (Approximate), Expires: 03/03/2026 [facility] Work Phone: Comment on above: Expected: 03/03/2025 (Approximate), Expires: 03/03/2026 Start: 03-03-2025 End: 10-18-2025 Lipid 1996 panel - Serum or Plasma Lipid Panel Lab Routine Mixed hyperlipidemia Expected: 03/03/2025 (Approximate), Expires: 10/18/2025 [facility] Work Phone: Comment on above: Expected: 03/03/2025 (Approximate), Expires: 10/18/2025 Start: 03-03-2025 End: 03-03-2026 LYME (B. BURGDORFERI) AB MODIFIED 2-TITER TESTING, WITH REFLEX TO IGM AND IGG BY RACHELLE LYME (B. BURGDORFERI) AB MODIFIED 2-TITER TESTING, WITH REFLEX TO IGM AND IGG BY RACHELLE Lab Routine Polyarthropathy Expected: 03/03/2025 (Approximate), Expires: 03/03/2026 [facility] Work Phone: Comment on above: Expected: 03/03/2025 (Approximate), Expires: 03/03/2026 Start: 03-03-2025 End: 03-03-2026 Rheumatoid factor [Units/volume] in Serum by Nephelometry Rheumatoid factor Lab Routine Polyarthropathy Expected: 03/03/2025 (Approximate), Expires: 03/03/2026 [facility] Work Phone: Comment on above: Expected: 03/03/2025 (Approximate), Expires: 03/03/2026 Start: 02-25-2025 Screening for malign ant neoplasm of breast Mammogram [facility] Start: 02-18-2025 Medicare Annual Wellness Visit Medicare Annual Wellness Visit (AWV) [facility] Start: 02-17-2025 End: 10-18-2025 Basic metabolic 2000 panel - Serum or Plasma Basic Metabolic Panel Lab Routine Essential hypertension Expected: 02/17/2025 (Approximate), Expires: 10/18/2025 [facility] Service Area Work Phone: Comment on above: Expected: 02/17/2025 (Approximate), Expires: 10/18/2025 Start: 02-12-2025 Diabetes mellitus screening Diabetes Screening [facility] Start: 11-12-2024 End: 11-12-2024 Anticoagulant drug monitoring 11/12/2024 9:00 AM EDT Anticoagulation - Warfarin Visit [address] [phone] [facility] Start: 10-18-2024 End: 10-18-2024 Patient encounter procedure 10/18/2024 7:40 AM EDT Office Visit [place] [address] [phone] Mary Webster DO [facility] [address] [address] [facility] Start: 10-15-2024 End: 10-15-2024 Anticoagulant drug monitoring 10/15/2024 9:15 AM EDT Anticoagulation - Warfarin Visit [address] [phone] [facility] Start: 04-09-2024 End: 04-09-2024 Anticoagulant drug monitoring 04/09/2024 8:15 AM EDT Anticoagulation - Warfarin Visit [address] [phone] [facility] Start: 04-04-2024 COVID-19 Vaccine () COVID-19 Vaccine ( season) [facility] Start: 04-04-2024 COVID-19 Vaccine ( season) COVID-19 Vaccine ( season) [facility] Start: 04-04-2024 Influenza vaccination Influenza Vacc ine (#1) [facility] Start: 03-23-2024 End: 03-23-2024 Patient encounter procedure 03/23/2024 3:30 PM EDT Office Visit [facility] Physician [facility] [address] [place] [phone] Ela Tyler, BOBBI [address] [place] [address] [facility] Physician [facility] Start: 03-02-2024 End: 03-02-2024 Patient encounter procedure 03/02/2024 11:40 AM EDT Office Visit [facility] [address] [place] [phone] Mary Webster, [address] [facility] [place] [address] [facility] Start: 02-27-2024 End: 02-27-2024 Anticoagulant drug monitoring 02/27/2024 8:15 AM EDT Anticoagulation - Warfarin Visit [facility] [address] [facility] [address] [place] [address] [facility] Start: 02-26-2024 End: 02-26-2024 Patient encounter procedure 02/26/2024 9:45 AM EDT Appointment [facility] [address] [facility] [address] [place] [phone] [facility] Start: 02-18-2024 End: 04-20-2025 DBT Breast - bilateral BI mammo bilateral screening tomosynthesis Imaging Routine Encounter for screening mammogram for malignant neoplasm of breast Expected: 02/18/2024, Expires: 04/20/2025 [facility] Service Area Work Phone: Comment on above: Expected: 02/18/2024 , Expires: 04/20/2025 Start: 02-18-2024 End: 02-17-2025 Hepatic function 2000 panel - Serum or Plasma Hepatic Function Panel Lab Routine RUQ abdominal pain Expected: 02/18/2024 (Approximate), Expires: 02/17/2025 [facility] Work Phone: Comment on above: Expected: 02/18/2024 (Approximate), Expires: 02/17/2025 Start: 02-18-2024 End: 02-17-2025 Lipase [Enzymatic activity/volume] in Serum or Plasma Lipase Lab Routine RUQ abdominal pain Expected: 02/18/2024 (Approximate), Expires: 02/17/2025 [facility] Work Phone: Comment on above: Expected: 02/18/2024 (Approximate), Expires: 02/17/2025 Start: 02-18-2024 End: 02-17-2025 US Liver limited US abdomen limited liver Imaging Routine RUQ abdominal pain Expected: 02/18/2024, Expires: 02/17/2025 [facility] Work Phone: Comment on above: Expected: 02/18/2024 , Expires: 02/17/2025 Start: 02-15-2024 Screening for malign ant neoplasm of breast Mammogram [facility] Start: 11-27-2023 End: 11-27-2023 [facility] Start: 11-01-2023 Diabetes mellitus screening Diabetes Screening [facility] Start: 11-01-2023 Hemoglobin A1c measurement Diabetes: Hemoglobin A1C [facility] Start: 10-20-2023 Screening for osteoporosis Bone Density Scan [facility] Start: 08-28-2023 Medicare Annual Wellness Visit Medicare Annual Wellness Visit (AWV) [facility] Start: 05-23-2023 End: 05-23-2023 Anticoagulant drug monitoring 05/23/2023 8:45 AM EDT Anticoagulation - Warfarin Visit [address] [address] [facility] Start: 05-04-2023 Influenza vaccination Influenza Vacc ine (#1) [facility] Start: 04-04-2023 COVID-19 VACCINE ( season) COVID-19 VACCINE ( season) [facility] Start: 04-04-2023 Influenza vaccination [facility] Start: 03-27-2023 End: 03-27-2023 Patient encounter procedure 03/27/2023 Office Visit Orthopaedics Cheikh Oneal MD [address] [place] [address] [facility] Start: 02-25-2023 EPV, Provider: Mary Webster, Status: Pen, Time: 8:40 AM EPV, Provider: Mary [place], Status: Pen, Time: 8:40 AM [facility] Work Phone: Start: 02-25-2023 End: 02-25-2023 Patient encounter procedure 02/25/2023 8:40 AM EDT Office Visit [address] [address] Mary Webster S, DO [address] [place] [address] [place] [address] [facility] Start: 12-31-2022 FUV, Provider: Pradip Webb, Status: Pen, Time: 9:15 AM FUV, Provider: Pradip Webb, Status: Pen, Time: 9:15 AM [facility] Work Phone: Start: 12-17-2022 Fall risk assessment Falls Risk Asse ssment [facility] Start: 12-13-2022 End: 12-20-2022 Bacteria identified in Urine by Culture Urine Culture Microbiology Routine Dysuria Expected: 12/13/2022 (Approximate), Expires: 12/20/2022 [facility] Service Area Work Phone: Comment on above: Expected: 12/13/2022 (Approximate), Expires: 12/20/2022 Start: 12-13-2022 End: 02-13-2024 DBT Breast - bilateral BI mammo bilateral screening tomosynthesis Imaging Routine Encounter for screening mammogram for malignant neoplasm of breast Expected: 12/13/2022, Expires: 02/13/2024 [facility] Work Phone: Comment on above: Expected: 12/13/2022 , Expires: 02/13/2024 Start: 11-07-2022 EPV, Provider: Mary Webster, Status: Pen, Time: 10:00 AM EPV, Provider: Mary Webster, Status: Pen, Time: 10:00 AM [facility] Work Phone: Start: 10-31-2022 End: 10-31-2022 ambulatory 10/31/2022 Pre-Operative Nurse Assessment Internal Medicine [facility] Pre Admission Start: 10-19-2022 Screening for malign ant neoplasm of breast Mammogram [facility] Start: 09-17-2022 FUV, Provider: Pradip Webb, Status: Pen, Time: 8:30 AM FUV, Provider: Pradip Webb, Status: Pen, Time: 8:30 AM [facility] Work Phone: Start: 08-27-2022 Patient encounter procedure MCRANNUAL, Provider: Mary Webster, Status: Pen, Time: 9:00 AM [facility] Work Phone: Start: 08-06-2022 FUV, Provider: Pradip Webb, Status: Pen, Time: 10:15 AM FUV, Provider: Pradip Webb, Status: Pen, Time: 10:15 AM [facility] Work Phone: Start: 07-05-2022 [facility]: Pradip Webb, Status: Pen, Time: 12:15 PM [facility], [facility]: Pradip Webb, Status: Pen, Time: 12:15 PM [facility] Work Phone: Start: 06-18-2022 NPV, Provider: Pradip Webb, Status: Pen, Time: 10:00 AM NPV, Provider: Pradip Webb, Status: Pen, Time: 10:00 AM [facility] Work Phone: Start: 05-21-2022 End: 05-21-2022 Patient encounter procedure 05/21/2022 Office Visit Sports Medicine Kassidy Frances, SIDE SEAM MACHINE OPERATOR [address] [place] [address] [facility] Start: 05-17-2022 INJECTION, Provider: Agnes Chery, Status: Pen, Time: 10:00 AM INJECTION, Provider: Agnes Chery, Status: Pen, Time: 10:00 AM [facility] 300 Work Phone: Start: 05-04-2022 Influenza vaccination Influenza Vacc ine (#1) [facility] Start: 04-04-2022 Influenza vaccination [facility] Start: 02-20-2022 End: 02-20-2022 Patient encounter procedure 02/20/2022 Office Visit Sports Kassidy Hernandez, SIDE SEAM MACHINE OPERATOR [address] [id number] [facility] Start: 02-19-2022 EPV, Provider: Mary Webster, Status: Pen, Time: 9:00 AM EPV, Provider: Mary Webster, Status: Pen, Time: 9:00 AM [facility] Work Phone: Start: 01-22-2022 End: 01-22-2022 Patient encounter procedure 01/22/2022 Office Visit Sports Kassidy Hernandez, SIDE SEAM MACHINE OPERATOR [address] [place], [place] [id number] [facility] Start: 12-18-2021 End: 12-18-2021 Patient encounter procedure 12/18/2021 Office Visit Sports Kassidy Hernandez, SIDE SEAM MACHINE OPERATOR [address] [place] [address] [facility] Start: 12-13-2021 End: 12-13-2021 Patient encounter procedure 12/13/2021 Office Visit Sports Kassidy Hernandez, SIDE SEAM MACHINE OPERATOR [address] [place] [address] [facility] Start: 08-21-2021 EPV, Provider: Mary Webster, Status: Pen, Time: 9:20 AM EPV, Provider: Mary Webster, Status: Pen, Time: 9:20 AM [facility] Work Phone: Start: 07-18-2021 FUV, Provider: Toni Soto, Status: Pen, Time: 9:20 AM FUV, Provider: Toni Soto, Status: Pen, Time: 9:20 AM [facility] 300 Work Phone: Start: 04-18-2021 FUV, Provider: Toni Soto, Status: Pen, Time: 9:20 AM FUV, Provider: Toni Soto, Status: Pen, Time: 9:20 AM [facility] 300 Work Phone: Start: 03-27-2021 EPV, Provider: Mary Webster, Status: Pen, Time: 5:00 PM EPV, Provider: Mary Webster, Status: Pen, Time: 5:00 PM [facility] Work Phone: Start: 2021 PTRECHECKA, Provider : Loida Dennison, Status: Pen, Time: 11:00 AM ROSSANAECHECKJustin, Provider: Loida Dennison, Status: Pen, Time: 11:00 AM [facility] Work Phone: Start: 03-13-2021 PTRECHECKA, Provider : Loida Dennison, Status: Pen, Time: 8:30 AM PTRECHECKA, Provider: Loida Dennison, Status: Pen, Time: 8:30 AM [facility] Work Phone: Start: 03-08-2021 PTFUADULT4, Provider : Yazmin Fuentes, Status: Pen, Time: 9:15 AM PTFUADULT4, Provider: Yazmin Fuentes, Status: Pen, Time: 9:15 AM [facility] Work Phone: Start: 03-01-2021 PTFUADULT4, Provider : Yazmin Fuentes, Status: Pen, Time: 9:15 AM PTFUADULT4, Provider: Yazmin Fuentes, Status: Pen, Time: 9:15 AM [facility] Work Phone: Start: 02-22-2021 EPV, Provider: Mary Webster, Status: Pen, Time: 2:20 PM EPV, Provider: Mary Webster, Status: Pen, Time: 2:20 PM [facility] Work Phone: Start: 02-15-2021 PTRECHADUL, Provider : Loida Dennison, Status: Pen, Time: 10:30 AM PTRECHADUL, Provider: Loida Dennison, Status: Pen, Time: 10:30 AM [facility] Work Phone: Start: 02-08-2021 PTFUADULT4, Provider : Yazmin Fuentes, Status: Pen, Time: 9:30 AM PTFUADULT4, Provider: Yazmin Fuentes, Status: Pen, Time: 9:30 AM [facility] Work Phone: Start: 02-06-2021 AQUATICFU4, Provider : Geeta Ramirez, Status: Pen, Time: 3:15 PM AQUATICFU4, Provider: Geeta Ramirez, Status: Pen, Time: 3:15 PM [facility] Work Phone: Start: 01-20-2021 Screening for malign ant neoplasm of colon [facility] Start: 01-18-2021 PTEVALADUL, Provider : Santa Farrar, Status: Pen, Time: 8:30 AM PTEVALADUL, Provider: Santa Farrar, Status: Pen, Time: 8:30 AM [facility] Work Phone: Start: 05-31-2020 Colonoscopy Colonoscopy [facility] Work Phone: Comment on above: Normal; Start: 04-11-2020 [facility] Work Phone: Start: 04-04-2020 Influenza vaccination Sequenti al Influenza Vaccine (#1) [facility] Start: 04-04-2020 Influenza vaccinatio n given Sequential Influenza Vaccine (#1) [facility] Start: 04-22-2018 Pneumococcal vaccination Pneumococcal Vaccine Age 65+ (2 of 2 - PPSV23) [facility] Start: 04-04-2018 Influenza vaccinatio n given SEQUENTIAL INFLUENZA VACCINE (#1) [facility] Start: 2016 Fall risk assessment Falls Risk Asse ssment [facility] Start: 2016 Pneumococcal vaccination [facility] Start: 2016 Screening for osteoporosis Bone Densitometry [facility] Start: 02-24-2016 Screening for malign ant neoplasm of breast MAMMOGRAM SCREENING [facility] Start: 2011 Hepatitis B (HBV) Vaccine (optional start 60+ years) Hepatitis B (HBV) Vaccine (optional start 60+ years) [facility] Start: 2011 Hepatitis B Vaccines (1 of 3 - Risk 3-dose series) Hepatitis B Vaccines (1 of 3 - Risk 3-dose series) [facility] Start: 2011 Respiratory Syncytia l Virus Immunization: Risk, 60-74 Risk, or 75+ (1 - Risk 60-74 years 1-dose series) Respiratory Syncytial Virus Immunization: Risk, 60-74 Risk, or 75+ (1 - Risk 60-74 years 1-dose series) [facility] Start: 2011 RSV High Risk: (Elde rly (60+) or Population) (1 - Risk 60-74 years 1-dose series) RSV High Risk: (Elderly (60+) or Population) (1 - Risk 60-74 years 1-dose series) [facility] Start: 2011 RSV patient s and/or patients aged 60+ years (1 - 1-dose 60+ series) RSV patients and/or patients aged 60+ years (1 - 1-dose 60+ series) [facility] Start: 2011 RSV vaccine (optiona l 60+ years) RSV vaccine (optional 60+ years) [facility] Start: 2001 Administration of herpes zoster vaccine Zoster Vaccines (1 of 2) [facility] Start: 2001 Measurement of occul t blood in single stool specimen FIT [facility] Start: 2001 Pneumococcal vaccination Pneumococcal Vaccine(s) (50+ yrs) (1 of 1 - PCV) [facility] Start: 2001 Screening for malign ant neoplasm of breast [facility]amm[facility] Start: 2001 Screening for malign ant neoplasm of colon [facility] Start: 2001 Shingles (RZV) Vacci ne (1 of 2) Shingles (RZV) Vaccine (1 of 2) [facility] Start: 2001 Zoster vaccine hzv l griselda for subcutaneous use ZOSTER (SHINGLES) VACCINE (1 of 2) [facility] Start: 2001 Zoster Vaccines (1 o f 2) Zoster Vaccines (1 of 2) [facility] Start: 1996 Cholesterol [Mass/volume] in Serum or Plasma Cholesterol [facility] Start: 1996 Lipid panel Cholesterol [facility] Start: 1996 Screening for malign ant neoplasm of colon [facility] Start: 1991 Lipid panel LIPID SCREENING [facility] Start: 1991 Screening for malign ant neoplasm of breast [facility] Start: 1973 DTaP/Tdap/Td Vaccine s (1 - Tdap) DTaP/Tdap/Td Vaccines (1 - Tdap) [facility] Start: 1972 Screening for malign ant neoplasm of cervix CERVICAL CANCER SCREENING DISCUSSION [facility] Start: 1970 Hepatitis A (HAV) Vaccine (optional start 19+ years) Hepatitis A (HAV) Vaccine (optional start 19+ years) [facility] Start: 1970 Hepatitis A Vaccines (1 of 2 - Risk 2-dose series) Hepatitis A Vaccines (1 of 2 - Risk 2-dose series) [facility] Start: 1970 Tetanus vaccination Tetanus (T d or Tdap) Booster [facility] Start: 1970 Third diphtheria, tetanus and acellular pertussis (DTaP) vaccination TDAP (ADULT) [facility] Start: 1969 Hepatitis C antibody , confirmatory test Hepatitis C Screening [facility] Start: 1969 Hepatitis C screening [facility] Start: 1969 Tetanus + diphtheria + acellular pertussis vaccine (product) Tdap Booster [facility] Start: 1967 COVID-19 Vaccine (1 of 2) COVID-19 Vaccine (1 of 2) [facility] Start: 1967 COVID-19 Vaccine (1) COVID-19 Vaccin e (1) [facility] Start: 1963 Adolescent depressio n screening assessment Depression Screening (PHQ9) [facility] Start: 1963 Depression screening using PHQ-9 (Patient Health Questionnaire 9) score [facility] Start: 1956 COVID-19 Vaccine (#1) COVID-19 Vacci ne (#1) [facility] Start: 1956 COVID-19 Vaccine (1) COVID-19 Vaccin e (1) [facility] Start: 1954 History and physical examination, annual for health maintenance Wellness Visit [facility] Start: 1954 Medicare Wellness Visit Medicare Wel lness Visit [facility] Start: 1952 Hepatitis A Vaccines (1 of 2 - Risk 2-dose series) Hepatitis A Vaccines (1 of 2 - Risk 2-dose series) [facility] Start: 1952 MMR Vaccines (1 of 1 - Standard series) MMR Vaccines (1 of 1 - Standard series) [facility] Start: 1951 COVID-19 Vaccine (#1) COVID-19 Vacci ne (#1) [facility] Start: 1951 Fall risk assessment Falls Risk Asse ssment [facility] Start: 1951 Hepatitis C antibody , confirmatory test HEPATITIS C SCREENING [facility] Start: 1951 Hepatitis C screening HEPATITI S C VIRUS SCREENING [facility] Start: 1951 Medicare Annual Wellness Visit Medicare Annual Wellness Visit (AWV) [facility] Start: 1951 Screening for malign ant neoplasm [facility] Start: 1951 Screening for osteoporosis [facility] Start: 1951 Screening mammography Mammogram [facility] Start: 1951 Tetanus vaccination [facility] End: 11-30-2022 12 lead ECG ECG 12 Lead ECG Routine 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 3 Occurrences starting 11/30/2021 until 11/30/2022 [facility] Work Phone: Comment on above: 3 Occurrences starti ng 11/30/2021 until 11/30/2022 End: 03-29-2026 12 lead ECG ECG 12 lead ECG Routine 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 1 Occurrences starting 03/29/2025 until 03/29/2026 [facility] Work Phone: Comment on above: 1 Occurrences starti ng 03/29/2025 until 03/29/2026 End: 10-12-2024 CT Abdomen and Pelvis W contrast IV [facility] Service Area Work Phone: Comment on above: Once for 1 Occurrenc es starting 10/12/2024 until 10/12/2024 End: 03-21-2026 SPECT Heart perfusion NM Myocardial Perfusion Multiple SPECT Imaging Routine 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 Chest pain, unspecified type 1 Occurrences starting 03/21/2025 until 03/21/2026 [facility] Work Phone: Comment on above: 1 Occurrences starti ng 03/21/2025 until 03/21/2026 End: 02-20-2024 US Liver limited [facility] Service Area Work Phone: Comment on above: Once for 1 Occurrenc es starting 02/20/2024 until 02/20/2024 XR Pelvis and Hip - right Views XR HIP WITH PELVIS RIGHT Imaging Routine Right hip pain 08/29/2022 12:52 PM [facility] [employer] Work Phone: XR Pelvis and Hip - right Views XR HIP WITH PELVIS RIGHT Imaging Routine Hx of total hip arthroplasty, right 03/27/2023 8:42 AM EDT [employer] Work Phone: XR Pelvis and Hip - right Views XR HIP WITH PELVIS RIGHT Imaging Routine Hx of total hip arthroplasty, right 11/27/2023 8:36 AM [facility] [employer] [facility] Work Phone: NEGATED: Highlighted row has been ruled out! Planned Goals not documented [employer] Work Phone: Immunizations Immunization Date Immunization Notes Care Provider Alyssa vann 05-19-2023 influenza, injectabl e, quadrivalent, preservative free Mary Florissant DO Work Phone: [facility] 05-19-2023 influenza virus vacc ine, unspecified formulation Ela Tyler [facility] Work Phone: [facility] 05-30-2021 influenza, seasonal, injectable Mary S Florissant Work Phone: [facility] Sonda[facility] Work Phone: Comment on above: Series: 05-30-2021 influenza virus vacc ine, unspecified formulation Mary Florissant DO Work Phone: [facility] Work Phone: 05-26-2021 Influenza, Seasonal, Quadrivalent, Adjuvanted Mary Florissant DO Work Phone: [facility] Work Phone: 08-16-2019 influenza, injectabl e, quadrivalent, preservative free Mary S Florissant Work Phone: [facility] 02-18-2019 pneumococcal polysaccharide vaccine, 23 valent Mary Florissant [facility] Comment on above: Series: 06-08-2018 Influenza, injectabl e, Madin Kylah Canine Kidney, quadrivalent with preservative; Translations: [Flucelvax Quadrivalent Intramuscular Suspension] Mary [employer] [facility] Work Phone: Comment on above: Series: 06-09-2017 influenza virus vacc ine, whole virus Mary Florissant DO Work Phone: [facility] Work Phone: 04-22-2017 pneumococcal conjuga te vaccine, 13 valent [facility]: [facility] 06-09-2007 influenza virus vacc ine, whole virus [facility] Work Phone: [facility] Work Phone: Payers Date Payer Category Payer Self-pay 2017 [facility] TRADITIONAL [id number] 2017 Medicare supplementa l policy (as second payer) ANTHEM MEDICARE SELECT SUPPLEMENT [id number] 2017 Unknown ANTHEM JUAN MANUEL BC TRADITIONAL xxxxxxxxxxxx 2017-Present [id number] 2017 Unknown ANTHEM ANTHEM BC TRADITIONAL [id number] 2017-Present [id number] [id number] 2017 Unknown 2017 Unknown [id number] 2016 Medicare [id number] 2016 Medicare MEDICARE MEDICAR E PART A & B xxxxxxxxxxx 2016-Present [place] xxxxxxxxxxx [id number] 2016 Medicare MEDICARE MEDICAR E PART A & B [id number] 2016-Present [place] [id number] [id number] 2016 Medicare [id number] 1.13.385. [id number] 2016 Medicare [id number] 2016 Medicare [id number] 2015 Unknown [id number] 1950 Unknown [id number] 2.16.840.1.993081.3.579. 2.356 1951 Unknown [id number] 2.16.840.1.848043.3.579. 2.356 1951 Unknown [id number] 2.16.840.1.384190.3.579. 2.356 1951 Unknown [id number] 2.16.840.1.369612.3.579. 2.356 1951 Unknown [id number] 2.16.840.1.763435.3.579. 2.356 1951 Unknown [id number] 2.16.840.1.754060.3.579. 2.1068 1951 Unknown [id number] 2.16.840.1.026475.3.579. 2.1068 1951 Unknown [id number] 2.16.840.1.179575.3.579. 2.1068 1951 Unknown [id number] 2.16.840.1.304607.3.579. 2.1068 1951 Unknown [id number] 2.16.840.1.961071.3.579. 2.1068 1951 Unknown [id number] 2.16.840.1.674495.3.579. 2.1068 1951 Unknown [id number] 2.16.840.1.754287.3.579. 2.1068 1951 Unknown [id number] 2.16.840.1.368683.3.579. 2.1068 1951 Unknown [id number] 2.16.840.1.033588.3.579. 2.1068 1951 Unknown [id number] 2.16.840.1.328917.3.579. 2.1068 1951 Unknown [id number] 2.16.840.1.836166.3.579. 2.1068 1951 Unknown [id number] 2.16.840.1.054012.3.579. 2.1068 1951 Unknown [id number] 2.16.840.1.200196.3.579. 2.1068 1951 Unknown [id number] 2.16.840.1.117100.3.579. 2.1068 1951 Unknown [id number] 2.16.840.1.578894.3.579. 2.1068 1951 Unknown [id number] 2.16.840.1.134991.3.579. 2.1068 1951 Unknown [id number] 2.16.840.1.846539.3.579. 2.1068 1951 Unknown [id number] 2.16.840.1.723280.3.579. 2.1068 1951 Unknown [id number] 2.16.840.1.120893.3.579. 2.1068 1951 Unknown [id number] 2.16.840.1.612773.3.579. 2.1068 1951 Unknown [id number] 2.16.840.1.195321.3.579. 2.1068 1951 Unknown [id number] 2.16.840.1.318266.3.579. 2.1068 1951 Unknown [id number] 2.16.840.1.151461.3.579. 2.1068 1951 Unknown [id number] 2.16.840.1.301706.3.579. 2.1068 1951 Unknown [id number] 2.16.840.1.867639.3.579. 2.1068 1951 Unknown [id number] 2.16.840.1.982781.3.579. 2.1068 1951 Unknown [id number] 2.16.840.1.829169.3.579. 2. 1951 Unknown [id number] 2.16.840.1.116566.3.579. 2. 1951 Unknown [id number] 2.16.840.1.384649.3.579. 2. 1951 Unknown [id number] 2.16.840.1.537564.3.579. 2.983 1951 Unknown [id number] 2.16.840.1.402963.3.579. 2.983 1951 Unknown [id number] 2.16.840.1.434974.3.579. 2.983 1951 Unknown [id number] 2.16.840.1.126982.3.579. 2.98 1951 Unknown [id number] 2.16.840.1.699039.3.579. 2.983 1951 Unknown [id number] 2.16.840.1.824651.3.579. 2.1244 1951 Unknown [id number] 2.16.840.1.450169.3.579. 2.124 1951 Unknown [id number] 2.16.840.1.464318.3.579. 2.1243 1951 Unknown [id number] 2.16.840.1.932818.3.579. 2.1243 1951 Unknown [id number] 2.16.840.1.071057.3.579. 2.1243 1951 Unknown [id number] 2.16.840.1.586787.3.579. 2.124 1951 Unknown [id number] 2.16.840.1.244921.3.579. 2.903 1951 Unknown [id number] 2.16.840.1.894427.3.579. 2.1242 1951 Unknown [id number] 2.16.840.1.328804.3.579. 2.1242 1951 Unknown [id number] 2.16.840.1.668342.3.579. 2.124 1951 Unknown [id number] 2.16.840.1.299604.3.579. 2.3 1951 Unknown [id number] 2.16.840.1.023347.3.579. 2.1242 1951 Unknown [id number] 2.16.840.1.328462.3.579. 2.1242 1951 Unknown [id number] 2.16.840.1.330042.3.579. 2.1242 1951 Unknown [id number] 2.16.840.1.055260.3.579. 2.1242 1951 Unknown [id number] 2.16.840.1.851741.3.579. 2.1242 1951 Unknown [id number] 2.16.840.1.674513.3.579. 2.1242 1951 Unknown [id number] 2.16.840.1.316975.3.579. 2.1242 1951 Unknown [id number] 2.16.840.1.204122.3.579. 2.1242 1951 Unknown [id number] 2.16.840.1.089487.3.579. 2.1242 1951 Unknown [id number] 2.16.840.1.967895.3.579. 2.1242 1951 Unknown [id number] 2.16.840.1.204562.3.579. 2.1242 1951 Unknown [id number] 2.16.840.1.796364.3.579. 2.1242 1951 Unknown [id number] 2.16.840.1.443484.3.579. 2.1242 1951 Unknown [id number] 2.16.840.1.877406.3.579. 2.2 1951 Unknown [id number] 2.16.840.1.348661.3.579. 2.902 1951 Unknown [id number] 2.16.840.1.332732.3.579. 2.900 1951 Unknown [id number] 2.16.840.1.031226.3.579. 2.900 1951 Unknown [id number] 2.16.840.1.907074.3.579. 2.900 1951 Unknown [id number] 2.16.840.1.809896.3.579. 2.900 Unknown [id number] 2.16.840.1.514516.3.579. 2.462 Unknown [id number] 2.16.840.1.792365.3.579. 2.462 Social History Date Type Detail Facility Start: 11-09-2018 End: 03-02-2024 Tobacco smoking status NHIS Former smoker [facility] End: 08-04-2021 History of tobacco use Current smoker [facility] Start: 11-09-2018 Alcohol Comment occasional [facility] Start: 1950 Sex Assigned At Not on file [facility] Start: 12-07-2019 End: 03-02-2024 Tobacco use and exposure Never used [facility] Start: 12-07-2019 End: 11-27-2023 Alcohol intake Current drinker of alcohol (finding) [facility] Start: 11-15-2021 End: 10-18-2024 Exposure to SARS-CoV-2 (event) Not sure [facility] Start: 11-09-2018 End: 03-17-2025 Occasional alcohol use Occasional alcohol use [facility] Work Phone: Start: 11-30-2021 End: 03-17-2025 Alcohol intake Ex-drinker (finding) [facility] End: 08-04-2021 History of tobacco use Cigarette Smoker [facility] Tobacco smoking status NMIS Tobacco smoking consumption unknown [facility] Start: 08-29-2022 Alcohol Comment social [facility] Start: 11-07-2022 End: 03-17-2025 Gender identity Not on file [facility] Work Phone: Start: 10-31-2021 Gender identity Identifies as female gender (finding) [facility] Start: 02-07-2022 Sexual orientation Heterosexual (fin ding) [facility] Start: 1950 Sex assigned at Female [facility] Start: 06-07-2012 End: 11-09-2024 Sex Female (finding) [facility] Start: 06-28-2022 Sex Female [facility] History of tobacco use Passive smoker [facility] NEGATED: Highlighted row - - [facility] Work Phone: Medical Equipment Procedure Code Equipment Code Equipment Origin al Text Equipment Identifier Dates Femoral Stem Taper Actis Duofix Hip Prosthesis Cementless [id number] Start: 11-26-2022 [place] Griptio n Acetabular Shell Sector [id number] Start: 11-26-2022 [place] Altrx Polyethylene Acetabular Liner [id number] Start: 11-26-2022 Biolox Delta Cer amic Femoral Head [id number] Start: 11-26-2022 Functional Status Date Assessment Result Facility 03-17-2025 Patient Health Questionnaire 2 item (PHQ-2) [Reported] [facility] Work Phone: 03-03-2025 Patient Health Questionnaire 2 item (PHQ-2) [Reported] [facility] Work Phone: NEGATED: Highlighted row Functional performance Functional status health issues are not documented Disease [facility] Work Phone: Mental Status Date Assessment Result Facility NEGATED: Highlighted row Cognitive function [Interpretation] Cognitive status health issues are not documented Disease [facility] Work Phone: Clinical Notes 11-27-2020 to 03-29-2025 Assessment & Plan Note - Marv Kolb MD - 03/29/2025 11:15 AM Marv Morgan MD - 03/29/2025 11:15 AM Neda Webster DO - 03/17/2025 8:00 AM EDTPatient Instructions Note Date & Type Note Facility 03-29-2025 Note Patient Name: Faviola L Valle Admit Date: MR #: [id number] : 1950 Physicians: Mary Webster DO (Family); No ref. provider found (Referring) General Cardiology Marv Kolb MD, [facility] 03/29/25 Dear Mary Webster DO, Faviola Valle was seen today for: Problem Coronary Artery Disease 1998 LAD stent with CO 2014 Cx stent--(DMS)-Bliss( not feeling well) Hyperlipidemia Claudication of Gluteal Region Medical Decision Making Claudication of gluteal region Does have a lot of atherosclerosis , will get LE dopplers Coronary artery disease No angina, did well on stress, await results, but do not want to be aggressive Hyperlipidemia LDL is not optimal but we talked that she has a lot of side effects to a lot of medications. She does well on her diet Thank you again, for allowing me to participate in the care of your patients. Should you have any questions, please do not hesitate to contact me. Orders Placed This Encounter Procedures Segmental Doppler Lower Extremity Arterial History of present illness Faviola Valle is a 75 y.o. y/o female presenting with c/o patient known to me from the past from having coronary artery disease. I have not seen her in a few years. She has been having a year or 2 of chronic pains. Some of the appears to be abdominal but coming from the sides going down, she also has some exertional buttocks discomfort that radiates to her inner thighs also. She also complains of a lot of other issues including headaches other aches and pains. She has had a lot of workup which shows everything is to be stable. She comes in today and has a stress test done which she did pretty well on the treadmill and I will be looking at the images shortly. She also had an abdominal CT that I reviewed and she does have a lot of atherosclerosis in her aorta. Because of that I thought maybe doing a Doppler scan would be good. Given all of her chronic issues am not too thrilled about doing anything interventional from a coronary standpoint unless its markedly abnormal on the stress test. She obviously also has a history of pulmonary emboli in [place] filter which appears to be in stable position on the last CAT scan. 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 Erythromycin Physical Examination Vital Signs: BP 122/68 (BP Location: Right arm, BP Cuff Size: Adult) Pulse 95 Ht 5' 4 Wt 73.9 kg (163 lb) SpO2 97% BMI 27.98 kg/m NSR on rhythm strip General: No acute distress, alert, and oriented x3. Cardiovascular: regular rate and rhythm. no murmurs, .No JVD, No Carotid Bruits, no LE edema :Respiratory: Clear to auscultation bilaterally without wheezes, rhonchi, or rales Abdominal: soft, nontender, nondistended,no gross HSM or masses noted. Medications Home Medications: Patient's Medications New Prescriptions No medications on file Previous Medications ACETAMINOPHEN (TYLENOL) 500 MG TABLET Take 1 (one) tablet (500 mg total) by mouth every 6 (six) hours as needed for pain . ALBUTEROL SULFATE (PROAIR HFA INHL) Inhale 2 puffs daily as needed . ATORVASTATIN (LIPITOR) 20 MG TABLET Take 1 (one) tablet (20 mg total) by mouth Friday, Friday, Friday . BIOTIN 1 MG CAP Take 1 (one) capsule (1 mg total) by mouth daily . CETIRIZINE (ZYRTEC) 10 MG TABLET Take 1 (one) tablet (10 mg total) by mouth daily as needed for allergies . CHOLECALCIFEROL, VITAMIN D3, 25 MCG (1,000 UNIT) CAPSULE Take 1 (one) capsule (1,000 Units total) by mouth daily . FLUTICASONE PROPIONATE (FLONASE) 50 MCG/ACTUATION NASAL SPRAY Instill 2 (two) sprays into each nostril daily . FOLIC ACID (FOLVITE) 400 MCG TABLET Take 1 (one) tablet (400 mcg total) by mouth daily . IBUPROFEN (ADVIL,MOTRIN) 200 MG TABLET Take 1 (one) tablet (200 mg total) by mouth every 6 (six) hours as needed for pain . MULTIVITAMIN WITH MINERALS TABLET Take 1 (one) tablet by mouth daily . SIMETHICONE (MYLICON) 80 MG CHEWABLE TABLET Chew and Swallow 1 (one) tablet (80 mg total) every 6 (six) hours as needed for flatulence . TIZANIDINE (ZANAFLEX) 4 MG CAPSULE Take 1 (one) capsule (4 mg total) by mouth nightly as needed for muscle spasms . UBIDECARENONE (COENZYME Q10) 100 MG TAB Take 1 (one) tablet (100 mg total) (more content not included)... [facility] 03-29-2025 Evaluation + Plan note Associated Problem(s): Hyperlipidemia LDL is not optimal but we talked that she has a lot of side effects to a lot of medications. She does well on her diet [facility] 03-29-2025 History of Present illness Narrative Patient Name: Faivola Valle Admit Date: MR #: [id number] : 1950 Physicians: Mary Webster DO (Family); No ref. provider found (Referring) General Cardiology Marv Kolb MD, [facility] 03/29/25 Dear Mary Webster DO, Faviola Valle was seen today for: Problem Coronary Artery Disease 1998 LAD stent with CO 2014 Cx stent--(DMS)-Bliss( not feeling well) Hyperlipidemia Claudication of Gluteal Region Medical Decision Making Claudication of gluteal region Does have a lot of atherosclerosis , will get LE dopplers Coronary artery disease No angina, did well on stress, await results, but do not want to be aggressive Hyperlipidemia LDL is not optimal but we talked that she has a lot of side effects to a lot of medications. She does well on her diet Thank you again, for allowing me to participate in the care of your patients. Should you have any questions, please do not hesitate to contact me. Orders Placed This Encounter Procedures Segmental Doppler Lower Extremity Arterial History of present illness Faviola Valle is a 75 y.o. y/o female presenting with c/o patient known to me from the past from having coronary artery disease. I have not seen her in a few years. She has been having a year or 2 of chronic pains. Some of the appears to be abdominal but coming from the sides going down, she also has some exertional buttocks discomfort that radiates to her inner thighs also. She also complains of a lot of other issues including headaches other aches and pains. She has had a lot of workup which shows everything is to be stable. She comes in today and has a stress test done which she did pretty well on the treadmill and I will be looking at the images shortly. She also had an abdominal CT that I reviewed and she does have a lot of atherosclerosis in her aorta. Because of that I thought maybe doing a Doppler scan would be good. Given all of her chronic issues am not too thrilled about doing anything interventional from a coronary standpoint unless its markedly abnormal on the stress test. She obviously also has a history of pulmonary emboli in [place] filter which appears to be in stable position on the last CAT scan. 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 Erythromycin Physical Examination Vital Signs: BP 122/68 (BP Location: Right arm, BP Cuff Size: Adult) Pulse 95 Ht 5' 4 Wt 73.9 kg (163 lb) SpO2 97% BMI 27.98 kg/m NSR on rhythm strip General: No acute distress, alert, and oriented x3. Cardiovascular: regular rate and rhythm. no murmurs, .No JVD, No Carotid Bruits, no LE edema :Respiratory: Clear to auscultation bilaterally without wheezes, rhonchi, or rales Abdominal: soft, nontender, nondistended,no gross HSM or masses noted. Medications Home Medications: Patient's Medications New Prescriptions No medications on file Previous Medications ACETAMINOPHEN (TYLENOL) 500 MG TABLET Take 1 (one) tablet (500 mg total) by mouth every 6 (six) hours as needed for pain . ALBUTEROL SULFATE (PROAIR HFA INHL) Inhale 2 puffs daily as needed . ATORVASTATIN (LIPITOR) 20 MG TABLET Take 1 (one) tablet (20 mg total) by mouth Friday, Friday, Friday . BIOTIN 1 MG CAP Take 1 (one) capsule (1 mg total) by mouth daily . CETIRIZINE (ZYRTEC) 10 MG TABLET Take 1 (one) tablet (10 mg total) by mouth daily as needed for allergies . CHOLECALCIFEROL, VITAMIN D3, 25 MCG (1,000 UNIT) CAPSULE Take 1 (one) capsule (1,000 Units total) by mouth daily . FLUTICASONE PROPIONATE (FLONASE) 50 MCG/ACTUATION NASAL SPRAY Instill 2 (two) sprays into each nostril daily . FOLIC ACID (FOLVITE) 400 MCG TABLET Take 1 (one) tablet (400 mcg total) by mouth daily . IBUPROFEN (ADVIL,MOTRIN) 200 MG TABLET Take 1 (one) tablet (200 mg total) by mouth every 6 (six) hours as needed for pain . MULTIVITAMIN WITH MINERALS TABLET Take 1 (one) tablet by mouth daily . SIMETHICONE (MYLICON) 80 MG CHEWABLE TABLET Chew and Swallow 1 (one) tablet (80 mg total) every 6 (six) hours as needed for flatulence . TIZANIDINE (ZANAFLEX) 4 MG CAPSULE Take 1 (one) capsule (4 mg total) by mouth nightly as needed for muscle spasms . UBIDECARENONE (COENZYME Q10) 100 MG TAB Take 1 (one) tablet (100 mg total) by mouth daily . WARFARIN (COUMADIN) 1 MG TABLET Take 1 (one) tablet (1 mg total) by mouth See Admin Instructions . WARFARIN (COUMADIN) 5 MG TABLET Take 1 (one) tablet (5 mg total) by mouth See Admin Instructions . ZINC SULFATE (ZINC-220 ORAL) Take by mouth daily . Modified Medications No medications on file Discontinued Medications EZETIMIBE (ZETIA) 10 MG TABLET Take 1 (one) tablet (10 mg total) by mouth M W F . ONDANSETRON (ZOFRAN-ODT) 4 MG DISINTEGRATING TABLET Dissolve 1 (one) tablet (4 mg total) on top of tongue every 8 (eight) hours as needed for nausea . VITAMIN E 400 UNIT CAPSULE Take 1 (one) capsule (400 Units total) by mouth daily . [1] Social History Socioeconomic History Marital status: Tobacco Use Smoking status: Former Current packs/day: 0.00 Types: Cigarettes Quit date: 2009 Years since quittin.6 Passive exposure: Current Smokeless tobacco: Never Vaping Use Vaping status: Never Used Substance and Sexual Activity Alcohol use: Not Currently Comment: occasional Drug use: Not Currently documented in this encounter [facility] 03-29-2025 Miscellaneous Notes Associated Problem(s): Hyperlipidemia LDL is not optimal but we talked that she has a lot of side effects to a lot of medications. She does well on her diet Associated Problem(s): Coronary artery disease No angina, did well on stress, await results, but do not want to be aggressive Associated Problem(s): Claudication of gluteal region Does have a lot of atherosclerosis , will get LE dopplers documented in this encounter [facility] 03-29-2025 Evaluation + Plan note Associated Problem(s): Coronary artery disease No angina, did well on stress, await results, but do not want to be aggressive [facility] 03-29-2025 Evaluation + Plan note Associated Problem(s): Claudication of gluteal region Does have a lot of atherosclerosis , will get LE dopplers [facility] 03-17-2025 Evaluation + Plan note Associated Problem(s): RUQ abdominal pain - She 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 black ash burner operator for a checkup since she is still experiencing abdominal discomfort and constipation despite aggressive bowel regimen [facility] Work Phone: 03-17-2025 Miscellaneous Notes Associated Problem(s): RUQ abdominal pain - She 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 black ash burner operator for a checkup since she is still experiencing abdominal discomfort and constipation despite aggressive bowel regimen Associated Problem(s): Other chest pain - She has a history of coronary artery disease with stent placement -Based on symptoms review today we are ordering a stress test and I will also order a chest x-ray for safe measure. -We will see her back in follow-up documented in this encounter [facility] Work Phone: 03-17-2025 Evaluation + Plan note Associated Problem(s): Other chest pain - She has a history of coronary artery disease with stent placement -Based on symptoms review today we are ordering a stress test and I will also order a chest x-ray for safe measure. -We will see her back in follow-up [facility] Work Phone: 03-17-2025 History of Present illness Narrative Subjective Patient ID: Faviola Valle is a 75 y.o. female who presents for Follow-up (2 WK CK). HPI She is here today for follow-up. We had assessed various symptoms at her last visit and we ordered testing accordingly. The good news is her lab work came back looking relatively good. Unfortunately however, she continues to have her abdominal symptoms and she explains she feels like it is even a little bit worse. She describes having a feeling of fullness and points to the epigastric region. She is also continuing to have constipation despite taking fiber and MiraLAX regularly. We discussed how she follows closely with Dr. Moser. She states that he told her to call if she is not doing well with his recent recommendations. She has also been experiencing some chest discomfort. It is rather atypical but she explains that at the time of her diagnosis of heart disease she had atypical symptoms. She states one of the warning sign she had was an elevated blood pressure. She states it has been many years since she has had a stress test and she has known coronary artery disease with stents. I told her that it is clear to me that we need to order a stress test just to make sure her heart is okay and I will also order a chest x-ray because of her discomfort. Her pain seems to be more of a musculoskeletal nature but she is having discomfort in the left side of her chest and we want a make sure we do not miss anything like a heart issue. Her blood pressure was elevated today and she understands that many processes can elevate blood pressure including anxiety. She normally runs in the low 100s. I did ask that she bring her blood pressure monitor with her to her next visit and we discussed how not all blood pressure monitors are completely accurate. I have recommended the brand made by [employer] with the arm cuff. We will see her back in follow-up. Review of Systems Constitutional: Positive for fatigue. Respiratory: Negative for cough and wheezing. With the high heat and humidity she has had to use her inhaler more frequently Cardiovascular: Negative for palpitations and leg swelling. Gastrointestinal: Positive for abdominal pain and constipation. Negative for blood in stool, diarrhea, nausea and vomiting. Neurological: Positive for light-headedness. Objective Physical Exam Vitals and nursing note reviewed. Constitutional: General: She is not in acute distress. Appearance: Normal appearance. HENT: Head: Normocephalic and atraumatic. Eyes: Conjunctiva/sclera: Conjunctivae normal. Cardiovascular: Rate and Rhythm: Normal rate and regular rhythm. Heart sounds: Normal heart sounds. Pulmonary: Effort: No respiratory distress. Breath sounds: No wheezing. Abdominal: Palpations: Abdomen is soft. Tenderness: There is no abdominal tenderness. There is no guarding. Musculoskeletal: General: No swelling. Normal range of motion. Skin: General: Skin is warm and dry. Neurological: General: No focal deficit present. Mental Status: She is alert and oriented to person, place, and time. Psychiatric: Behavior: Behavior normal. Recent Results (from the past 5 weeks) POCT INR manually resulted Collection Time: 02/11/25 9:00 AM Result Value Ref Range POC INR 2.00 (A) 0.90 - 1.10 POC Prothrombin Time 9.30 - 12.50 Basic Metabolic Panel Collection Time: 02/22/25 7:06 AM Result Value Ref Range GLUCOSE 92 65 - 99 mg/dL UREA NITROGEN (BUN) 23 7 - 25 mg/dL CREATININE 0.99 0.60 - 1.00 mg/dL EGFR 60 > OR = 60 mL/min/1.73m2 BUN/CREATININE RATIO SEE NOTE: 6 - 22 (calc) SODIUM 140 135 - 146 mmol/L POTASSIUM 4.2 3.5 - 5.3 mmol/L CHLORIDE 104 98 - 110 mmol/L CARBON DIOXIDE 27 20 - 32 mmol/L ELECTROLYTE BALANCE 9 7 - 17 mmol/L (calc) CALCIUM 9.5 8.6 - 10.4 mg/dL Lipid Panel Collection Time: 03/03/25 7:33 AM Result Value Ref Range CHOLESTEROL, TOTAL 181 <200 mg/dL HDL CHOLESTEROL 56 > OR = 50 mg/dL TRIGLYCERIDES 88 <150 mg/dL LDL-CHOLESTEROL 107 (H) mg/dL (calc) CHOL/HDLC RATIO 3.2 <5.0 (calc) NON HDL CHOLESTEROL 125 <130 mg/dL (calc) CBC and Auto Differential Collection Time: 03/03/25 9:22 AM Result Value Ref Range WHITE BLOOD CELL COUNT 3.4 (L) 3.8 - 10.8 Thousand/uL RED BLOOD CELL COUNT 5.02 3.80 - 5.10 Million/uL HEMOGLOBIN 14.3 11.7 - 15.5 g/dL HEMATOCRIT 44.3 35.0 - 45.0 % MCV 88.2 80.0 - 100.0 fL MCH 28.5 27.0 - 33.0 pg MCHC 32.3 32.0 - 36.0 g/dL RDW 13.3 11.0 - 15.0 % PLATELET COUNT 235 140 - 400 Thousand/uL MPV 9.3 7.5 - 12.5 fL ABSOLUTE NEUTROPHILS 1,656 1,500 - 7,800 cells/uL ABSOLUTE LYMPHOCYTES 1,244 850 - 3,900 cells/uL ABSOLUTE MONOCYTES 340 200 - 950 cells/uL ABSOLUTE EOSINOPHILS 99 15 - 500 cells/uL ABSOLUTE BASOPHILS 61 0 - 200 cells/uL NEUTROPHILS 48.7 % LYMPHOCYTES 36.6 % MONOCYTES 10.0 % EOSINOPHILS 2.9 % BASOPHILS 1.8 % Sedimentation Rate Collection Time: 03/03/25 9:22 AM Result Value Ref Range SED RATE BY MODIFIED WESTERGREN 6 < OR = 30 mm/h Rheumatoid factor Collection Time: 03/03/25 9:22 AM Result Value Ref Range RHEUMATOID FACTOR <10 <14 IU/mL C-reactive protein Collection Time: 03/03/25 9:22 AM Result Value Ref Range C-REACTIVE PROTEIN <3.0 <8.0 mg/L LYME (B. BURGDORFERI) AB MODIFIED 2-TITER TESTING, WITH REFLEX TO IGM AND IGG BY RACHELLE Collection Time: 03/03/25 9:22 AM Result Value Ref Range LYME AB, SCREEN <=0.90 <=0.90 Index CK Collection Time: 03/03/25 9:22 AM Result Value Ref Range CREATINE KINASE, TOTAL 90 18 - 225 U/L Hepatic Function Panel Collection Time: 03/03/25 9:24 AM Result Value Ref Range PROTEIN, TOTAL 7.0 6.1 - 8.1 g/dL ALBUMIN 4.5 3.6 - 5.1 g/dL GLOBULIN 2.5 1.9 - 3.7 g/dL (calc) ALBUMIN/GLOBULIN RATIO 1.8 1.0 - 2.5 (calc) BILIRUBIN, TOTAL 0.5 0.2 - 1.2 mg/dL BILIRUBIN, DIRECT 0.1 < OR = 0.2 mg/dL BILIRUBIN, INDIRECT 0.4 0.2 - 1.2 mg/dL (calc) ALKALINE PHOSPHATASE 61 37 - 153 U/L AST 21 10 - 35 U/L ALT 14 6 - 29 U/L POCT INR manually resulted Collection Time: 03/11/25 8:57 AM Result Value Ref Range POC INR 2.30 (A) 0.90 - 1.10 POC Prothrombin Time 9.30 - 12.50 Assessment/Plan Problem List Items Addressed This Visit ICD-10-CM CAD in [place] artery I25.10 Relevant Orders Nuclear Stress Test Presence of coronary angioplasty implant and graft Z95.5 Relevant Orders Nuclear Stress Test RUQ abdominal pain R10.11 - She 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 black ash burner operator for a checkup since she is still experiencing abdominal discomfort and constipation despite aggressive bowel regimen Other chest pain - Primary R07.89 - She has a history of coronary artery disease with stent placement -Based on symptoms review today we are ordering a stress test and I will also order a chest x-ray for safe measure. -We will see her back in follow-up Relevant Orders Nuclear Stress Test XR chest 2 views Patient instructions As we discussed I am ordering a chest x-ray which you can have done at any time at the hospital. With this test there is no appointment required and you simply show up to registration and tell them that you are there for your chest x-ray. I am also of course ordering a stress test which will need to be approved by your insurance. I am not anticipating any problems. Someone will be calling you about scheduling that exam. If you get severe chest pain then go to the emergency room Please also call Dr. Moser about your continued abdominal symptoms and constipation as it sounds like he wanted you to call for a follow-up and I am sure that he will assess you further for your symptoms. Please also make them aware of your laboratory test results and I would have them print a copy of everything this been done and take it with you Please also remember to bring your blood pressure monitor with you to your next visit. We generally recommend the blood pressure monitor made by [employer] and we typically like the arm cuff as opposed to the wrist cuff Mary Webster DO documented in this encounter [facility] Work Phone: 03-17-2025 Instructions Mary Webster DO - 03/17/2025 8:00 AM EDT Patient instructions As we discussed I am ordering a chest x-ray which you can have done at any time at the hospital. With this test there is no appointment required and you simply show up to registration and tell them that you are there for your chest x-ray. I am also of course ordering a stress test which will need to be approved by your insurance. I am not anticipating any problems. Someone will be calling you about scheduling that exam. If you get severe chest pain then go to the emergency room Please also call Dr. Moser about your continued abdominal symptoms and constipation as it sounds like he wanted you to call for a follow-up and I am sure that he will assess you further for your symptoms. Please also make them aware of your laboratory test results and I would have them print a copy of everything this been done and take it with you Please also remember to bring your blood pressure monitor with you to your next visit. We generally recommend the blood pressure monitor made by [employer] and we typically like the arm cuff as opposed to the wrist cuff Mary Webster DO documented in this encounter [facility] Work Phone: 03-03-2025 Evaluation + Plan note Associated Problem(s): RUQ abdominal pain - She has had a workup for right upper quadrant abdominal pain 1 year ago which included ultrasound and MRI of her liver and gallbladder. Nothing of a serious nature was identified at that time -She has also been seen and evaluated by gastroenterology -We will do some lab work and I will see her back in follow-up Orders: CBC and Auto Differential; Future Hepatic Function Panel; Future [facility] Work Phone: 03-03-2025 Evaluation + Plan note Associated Problem(s): Medicare annual wellness visit, subsequent - We discussed fall prevention -We discussed providing a copy of both her living will and power of state's attorney for healthcare Orders: BI mammo bilateral screening tomosynthesis; Future [facility] Work Phone: 03-03-2025 Evaluation + Plan note Associated Problem(s): Polyarthropathy - We will start with biomarkers of inflammation and I will see her back to go over the results Orders: Sedimentation Rate; Future Rheumatoid factor; Future C-reactive protein; Future LYME (B. BURGDORFERI) AB MODIFIED 2-TITER TESTING, WITH REFLEX TO IGM AND IGG BY RACHELLE; Future CK; Future [facility] Work Phone: 03-03-2025 Evaluation + Plan note Associated Problem(s): Medicare annual wellness visit, subsequent - We discussed fall prevention -We discussed providing a copy of both her living will and power of state's attorney for healthcare [facility] Work Phone: 03-03-2025 Evaluation + Plan note Associated Problem(s): Hyperlipidemia Patient instructions As we discussed we will start with some lab work to assess your symptoms we discussed today. I will be ordering biomarkers of inflammation as well as liver test. We decided not to do imaging due to the fact that you had testing last year for similar symptoms and they were negative. When it is all set and done I might have you get back into your black ash burner operator for further evaluation. Please remember to bring a copy of your living will and power of state's attorney for healthcare You can stop on the way out today to get your lab work The staff will be helping you to schedule your screening mammogram [facility] Work Phone: 03-03-2025 History of Present illness Narrative Subjective Reason for Visit: Faviola Valle is an 74 y.o. female here for a Medicare Wellness visit. Past Medical, Surgical, and Family History reviewed and updated in chart. Reviewed all medications by prescribing practitioner or clinical pharmacist (such as prescriptions, OTCs, herbal therapies and supplements) and documented in the medical record. HPI She is here today for her routine 4-month checkup. We took this opportunity to complete her annual Medicare wellness visit. She denies any symptoms of depression and she has had no falls in the last year. She has taken measures to fall prove her home environment. We discussed her memory and determined that she was doing well for age. She is highly independent managing her own medications and her own finances. We discussed doing a memory test but she declined. Her hearing appears to be okay. She does try to eat a very healthy well-balanced diet. She is physically active although in the last several weeks she has had a lot of aching in her joints. We also discussed completing or bringing a copy of her advance directives. We also conducted a full review of systems. She has been experiencing some pain and points to the right upper quadrant of her abdomen. She has had this in the past and in fact she has had ultrasonography and MRI of her liver and gallbladder approximately 1 year ago. Nothing of a serious nature was identified. She also sees a black ash burner operator. On today's exam I see no evidence of rash at [facility]. We discussed doing some lab work and she will likely be seeing her black ash burner operator for follow-up. She states that at their last visit there was discussion about possible endoscopy. For aching joints we decided to do some lab work. We discussed her cholesterol medicine which she has been on for a long time. She only takes it 3 days a week. I will be checking a CPK just to make sure we do not see evidence of myositis. She also has bilateral hip pain. She had x-rays of her pelvis back in October 2022. At that time she had identifiable arthritic changes and she has had a prior hip replacement on the right side. We reviewed her most recent laboratory test results and overall I am pleased with her numbers. Her kidney function looks like it has improved. I will summarize everything in a problem based format and we will see her back in follow-up. Patient Care Team: Mary Webster DO as PCP - General (Internal Medicine) Mary Webster DO as PCP - [facility] [place] [facility] Attributed Provider Review of Systems Constitutional: Negative for fatigue. Respiratory: Negative for cough, chest tightness, shortness of breath and wheezing. Cardiovascular: Negative for chest pain, palpitations and leg swelling. Gastrointestinal: Negative for abdominal pain, blood in stool, diarrhea, nausea and vomiting. Musculoskeletal: Positive for arthralgias. Objective Vitals: BP 128/70 Pulse 74 Ht 1.626 m (5' 4.02) Wt 73.7 kg (162 lb 6.4 oz) SpO2 98% BMI 27.86 kg/m Physical Exam Vitals and nursing note reviewed. Constitutional: General: She is not in acute distress. Appearance: Normal appearance. HENT: Head: Normocephalic and atraumatic. Eyes: Conjunctiva/sclera: Conjunctivae normal. Cardiovascular: Rate and Rhythm: Normal rate and regular rhythm. Heart sounds: Normal heart sounds. Pulmonary: Effort: No respiratory distress. Breath sounds: No wheezing. Abdominal: Palpations: Abdomen is soft. Tenderness: There is no abdominal tenderness. There is no guarding. Musculoskeletal: General: No swelling. Normal range of motion. Skin: General: Skin is warm and dry. Neurological: General: No focal deficit present. Mental Status: She is alert and oriented to person, place, and time. Psychiatric: Behavior: Behavior normal. Recent Results (from the past 4 weeks) POCT INR manually resulted Collection Time: 02/11/25 9:00 AM Result Value Ref Range POC INR 2.00 (A) 0.90 - 1.10 POC Prothrombin Time 9.30 - 12.50 Basic Metabolic Panel Collection Time: 02/22/25 7:06 AM Result Value Ref Range GLUCOSE 92 65 - 99 mg/dL UREA NITROGEN (BUN) 23 7 - 25 mg/dL CREATININE 0.99 0.60 - 1.00 mg/dL EGFR 60 > OR = 60 mL/min/1.73m2 BUN/CREATININE RATIO SEE NOTE: 6 - 22 (calc) SODIUM 140 135 - 146 mmol/L POTASSIUM 4.2 3.5 - 5.3 mmol/L CHLORIDE 104 98 - 110 mmol/L CARBON DIOXIDE 27 20 - 32 mmol/L ELECTROLYTE BALANCE 9 7 - 17 mmol/L (calc) CALCIUM 9.5 8.6 - 10.4 mg/dL Recent Results (from the past 4 weeks) POCT INR manually resulted Collection Time: 02/11/25 9:00 AM Result Value Ref Range POC INR 2.00 (A) 0.90 - 1.10 POC Prothrombin Time 9.30 - 12.50 Basic Metabolic Panel Collection Time: 07/22/25 7:06 AM Result Value Ref Range GLUCOSE 92 65 - 99 mg/dL UREA NITROGEN (BUN) 23 7 - 25 mg/dL CREATININE 0.99 0.60 - 1.00 mg/dL EGFR 60 > OR = 60 mL/min/1.73m2 BUN/CREATININE RATIO SEE NOTE: 6 - 22 (calc) SODIUM 140 135 - 146 mmol/L POTASSIUM 4.2 3.5 - 5.3 mmol/L CHLORIDE 104 98 - 110 mmol/L CARBON DIOXIDE 27 20 - 32 mmol/L ELECTROLYTE BALANCE 9 7 - 17 mmol/L (calc) CALCIUM 9.5 8.6 - 10.4 mg/dL Assessment & Plan RUQ abdominal pain - She has had a workup for right upper quadrant abdominal pain 1 year ago which included ultrasound and MRI of her liver and gallbladder. Nothing of a serious nature was identified at that time -She has also been seen and evaluated by gastroenterology -We will do some lab work and I will see her back in follow-up Orders: CBC and Auto Differential; Future Hepatic Function Panel; Future Encounter for screening mammogram for malignant neoplasm of breast - We discussed fall prevention -We discussed providing a copy of both her living will and power of state's attorney for healthcare Orders: BI mammo bilateral screening tomosynthesis; Future Medicare annual wellness visit, subsequent - We discussed fall prevention -We discussed providing a copy of both her living will and power of state's attorney for healthcare Polyarthropathy - We will start with biomarkers of inflammation and I will see her back to go over the results Orders: Sedimentation Rate; Future Rheumatoid factor; Future C-reactive protein; Future LYME (B. BURGDORFERI) AB MODIFIED 2-TITER TESTING, WITH REFLEX TO IGM AND IGG BY RACHELLE; Future CK; Future Mixed hyperlipidemia Patient instructions As we discussed we will start with some lab work to assess your symptoms we discussed today. I will be ordering biomarkers of inflammation as well as liver test. We decided not to do imaging due to the fact that you had testing last year for similar symptoms and they were negative. When it is all set and done I might have you get back into your black ash burner operator for further evaluation. Please remember to bring a copy of your living will and power of state's attorney for healthcare You can stop on the way out today to get your lab work The staff will be helping you to schedule your screening mammogram documented in this encounter [facility] Work Phone: 03-03-2025 Instructions Mary Webster DO - 03/03/2025 8:00 AM EDT Patient instructions As we discussed we will start with some lab work to assess your symptoms we discussed today. I will be ordering biomarkers of inflammation as well as liver test. We decided not to do imaging due to the fact that you had testing last year for similar symptoms and they were negative. When it is all set and done I might have you get back into your black ash burner operator for further evaluation. Please remember to bring a copy of your living will and power of state's attorney for healthcare You can stop on the way out today to get your lab work The staff will be helping you to schedule your screening mammogram documented in this encounter [facility] Work Phone: 03-03-2025 Miscellaneous Notes Associated Problem(s): RUQ abdominal pain - She has had a workup for right upper quadrant abdominal pain 1 year ago which included ultrasound and MRI of her liver and gallbladder. Nothing of a serious nature was identified at that time -She has also been seen and evaluated by gastroenterology -We will do some lab work and I will see her back in follow-up Orders: CBC and Auto Differential; Future Hepatic Function Panel; Future Associated Problem(s): Medicare annual wellness visit, subsequent - We discussed fall prevention -We discussed providing a copy of both her living will and power of state's attorney for healthcare Orders: BI mammo bilateral screening tomosynthesis; Future Associated Problem(s): Polyarthropathy - We will start with biomarkers of inflammation and I will see her back to go over the results Orders: Sedimentation Rate; Future Rheumatoid factor; Future C-reactive protein; Future LYME (B. BURGDORFERI) AB MODIFIED 2-TITER TESTING, WITH REFLEX TO IGM AND IGG BY RACHELLE; Future CK; Future Associated Problem(s): Medicare annual wellness visit, subsequent - We discussed fall prevention -We discussed providing a copy of both her living will and power of state's attorney for healthcare Associated Problem(s): Hyperlipidemia Patient instructions As we discussed we will start with some lab work to assess your symptoms we discussed today. I will be ordering biomarkers of inflammation as well as liver test. We decided not to do imaging due to the fact that you had testing last year for similar symptoms and they were negative. When it is all set and done I might have you get back into your black ash burner operator for further evaluation. Please remember to bring a copy of your living will and power of state's attorney for healthcare You can stop on the way out today to get your lab work The staff will be helping you to schedule your screening mammogram documented in this encounter [facility] Work Phone: 10-18-2024 Evaluation + Plan note Associated Problem(s): Abdominal pain -I am referring her back to gastroenterology for evaluation of her ill-defined abdominal pain and abnormal CT scan report. We will go from there [facility] Work Phone: 10-18-2024 Miscellaneous Notes Associated Problem(s): Abdominal pain -I am referring her back to gastroenterology for evaluation of her ill-defined abdominal pain and abnormal CT scan report. We will go from there documented in this encounter [facility] Work Phone: 10-18-2024 History of Present illness Narrative Subjective Patient ID: Faviola Valle is a 74 y.o. female who presents for Follow-up (CT RESULTS,LAB RESULTS). HPI She is here today for follow-up. Because of her ill-defined abdominal pain we took the liberty of ordering a CT scan of her abdomen and pelvis. She also had several labs which came back looking relatively normal. The CT was compared to a previous imaging study from October 12, 2022. The radiologist indicates that there is evidence of moderate wall thickening of the proximal jejunum and she also has a large amount of stool throughout the colon. We are reminded that she was seen by surgery back at the time of the original CT scan. She opted not to have surgical intervention. The radiologist indicates that there are no changes when compared to the previous study. She also was able to find a copy of her colonoscopy report from Dr. Moser. He indicated that she would need another colonoscopy 7 years from the previous study. She states that he had prescribed Trulance for constipation. Because of her symptoms I have decided that she should see him again specifically to address her abdominal symptoms and recent CT scan. We also discussed possibly going back to surgery. We will start with gastroenterology and see what he feels needs to be done next. In the meantime she has been having some neck pain with her arthritis and she will be seeing a chiropractor for treatment. She will call if her condition is worsening as opposed to getting better. Objective Physical Exam Vitals and nursing note reviewed. Constitutional: General: She is not in acute distress. Appearance: Normal appearance. HENT: Head: Normocephalic and atraumatic. Eyes: Conjunctiva/sclera: Conjunctivae normal. Cardiovascular: Rate and Rhythm: Normal rate and regular rhythm. Heart sounds: Normal heart sounds. Pulmonary: Effort: No respiratory distress. Breath sounds: No wheezing. Abdominal: Palpations: Abdomen is soft. Tenderness: There is no abdominal tenderness. There is no guarding. Musculoskeletal: General: No swelling. Normal range of motion. Skin: General: Skin is warm and dry. Neurological: General: No focal deficit present. Mental Status: She is alert and oriented to person, place, and time. Psychiatric: Behavior: Behavior normal. Recent Results (from the past 6 weeks) POCT INR manually resulted Collection Time: 09/17/24 12:00 AM Result Value Ref Range POC INR 2.40 Normal Range: .9-1.1 POC Prothrombin Time Normal Range: 9.3 - 12.5 CBC and Auto Differential Collection Time: 09/27/24 8:06 AM Result Value Ref Range WHITE BLOOD CELL COUNT 3.5 (L) 3.8 - 10.8 Thousand/uL RED BLOOD CELL COUNT 5.07 3.80 - 5.10 Million/uL HEMOGLOBIN 14.3 11.7 - 15.5 g/dL HEMATOCRIT 43.7 35.0 - 45.0 % MCV 86.2 80.0 - 100.0 fL MCH 28.2 27.0 - 33.0 pg MCHC 32.7 32.0 - 36.0 g/dL RDW 13.0 11.0 - 15.0 % PLATELET COUNT 233 140 - 400 Thousand/uL MPV 9.4 7.5 - 12.5 fL ABSOLUTE NEUTROPHILS 1,649 1,500 - 7,800 cells/uL ABSOLUTE LYMPHOCYTES 1,383 850 - 3,900 cells/uL ABSOLUTE MONOCYTES 340 200 - 950 cells/uL ABSOLUTE EOSINOPHILS 81 15 - 500 cells/uL ABSOLUTE BASOPHILS 49 0 - 200 cells/uL NEUTROPHILS 47.1 % LYMPHOCYTES 39.5 % MONOCYTES 9.7 % EOSINOPHILS 2.3 % BASOPHILS 1.4 % Comprehensive Metabolic Panel Collection Time: 09/27/24 8:06 AM Result Value Ref Range GLUCOSE 85 65 - 139 mg/dL UREA NITROGEN (BUN) 26 (H) 7 - 25 mg/dL CREATININE 1.08 (H) 0.60 - 1.00 mg/dL EGFR 54 (L) > OR = 60 mL/min/1.73m2 SODIUM 142 135 - 146 mmol/L POTASSIUM 4.3 3.5 - 5.3 mmol/L CHLORIDE 105 98 - 110 mmol/L CARBON DIOXIDE 28 20 - 32 mmol/L ELECTROLYTE BALANCE 9 7 - 17 mmol/L (calc) CALCIUM 9.6 8.6 - 10.4 mg/dL PROTEIN, TOTAL 7.2 6.1 - 8.1 g/dL ALBUMIN 4.7 3.6 - 5.1 g/dL BILIRUBIN, TOTAL 0.4 0.2 - 1.2 mg/dL ALKALINE PHOSPHATASE 58 37 - 153 U/L AST 21 10 - 35 U/L ALT 14 6 - 29 U/L Lipase Collection Time: 09/27/24 8:06 AM Result Value Ref Range LIPASE 44 7 - 60 U/L POCT INR manually resulted Collection Time: 10/15/24 12:00 AM Result Value Ref Range POC INR 2.40 Normal Range: .9-1.1 POC Prothrombin Time Normal Range: 9.3 - 12.5 Assessment/Plan Problem List Items Addressed This Visit ICD-10-CM Abnormal CT of the abdomen R93.5 Relevant Orders Referral to Gastroenterology Abdominal pain - Primary R10.9 -I am referring her back to gastroenterology for evaluation of her ill-defined abdominal pain and abnormal CT scan report. We will go from there Relevant Orders Referral to Gastroenterology Patient instructions As we discussed I am going to formally ask your black ash burner operator to evaluate your abdominal pain and abnormal CT scan findings. If he feels that you would need further intervention such as seeing a surgeon, please do not hesitate to contact me as we could have you see Dr. Avalos. Please also call if things are not going according to plan. Also please call if your neck pain symptoms do not improve after daycare manager We could see you back in 6 months per routine but sooner if any problems. Mary Webster DO documented in this encounter [facility] Work Phone: 10-18-2024 Instructions Mary Webster DO - 10/18/2024 7:40 AM EDT Patient instructions As we discussed I am going to formally ask your black ash burner operator to evaluate your abdominal pain and abnormal CT scan findings. If he feels that you would need further intervention such as seeing a surgeon, please do not hesitate to contact me as we could have you see Dr. Avalos. Please also call if things are not going according to plan. Also please call if your neck pain symptoms do not improve after daycare manager We could see you back in 6 months per routine but sooner if any problems. documented in this encounter [facility] Work Phone: 04-12-2024 Note Healing well AUTHENTICATED BY ELA TYLER, ON 04/12/2024 04:20:17 [facility] 04-12-2024 History of Present illness Narrative Healing well documented in this encounter [facility] 03-16-2024 Evaluation + Plan note Associated Problem(s): Chronic daily headache -We had discussed physical therapy-she wants to try a vitamin B2 derivative and she will let us know if her headaches are not resolving or improving [facility] Work Phone: 03-16-2024 Evaluation + Plan note Associated Problem(s): Dilated cbd, acquired -We are awaiting the MRCP results from an outside institution and once they are known I will contact her [facility] Work Phone: 03-16-2024 Miscellaneous Notes Associated Problem(s): Chronic daily headache -We had discussed physical therapy-she wants to try a vitamin B2 derivative and she will let us know if her headaches are not resolving or improving Associated Problem(s): Dilated cbd, acquired -We are awaiting the MRCP results from an outside institution and once they are known I will contact her documented in this encounter [facility] Work Phone: 03-16-2024 History of Present illness Narrative Subjective Patient ID: Faviola Valle is a 74 y.o. female who presents for Follow-up. HPI She is here today for follow-up. She had her MRCP at an outside facility and unfortunately we did not receive the results as of today. We will hopefully be getting those soon and once we do I have agreed to contact her about the results. She continues to have some mild right upper quadrant discomfort and she is still struggling with issues of constipation. She does have an appointment to see gastroenterology, Dr. Moser, 2 AM on April 12. We also briefly discussed her headaches and she states she has started taking a vitamin B2 derivative. She will let us know if this is ineffective. She also had some concerns about her back and explains that her daughter has been diagnosed with significant scoliosis. I did examine her back today and she does have a slight curvature to the right but nothing that is really pronounced. She also has her lipoma in the mid back region on the left-hand side. It is soft and smooth. It has been very benign characteristics but we discussed the fact that if she feels like it is enlarging then it should be removed. She has agreed to keep an eye on it. We were wrapping up she mentioned that on occasion she experiences some tingling in her left upper extremity. It does not persist. We talked about the possibility of a nerve impingement syndrome. She stated she wanted to make me aware but today and if it continues to be an issue we could see her in consultation specifically for that concern. Review of Systems Constitutional: Negative for fatigue and unexpected weight change. Respiratory: Negative for cough, chest tightness, shortness of breath and wheezing. Cardiovascular: Negative for chest pain, palpitations and leg swelling. Gastrointestinal: Positive for abdominal pain and constipation. Negative for blood in stool, diarrhea, nausea and vomiting. Musculoskeletal: Negative for arthralgias and back pain. Objective Physical Exam Vitals and nursing note reviewed. Constitutional: General: She is not in acute distress. Appearance: Normal appearance. HENT: Head: Normocephalic and atraumatic. Eyes: Conjunctiva/sclera: Conjunctivae normal. Cardiovascular: Rate and Rhythm: Normal rate and regular rhythm. Heart sounds: Normal heart sounds. Pulmonary: Effort: No respiratory distress. Breath sounds: No wheezing. Abdominal: Palpations: Abdomen is soft. Tenderness: There is no abdominal tenderness. There is no guarding. Musculoskeletal: General: No swelling. Normal range of motion. Skin: General: Skin is warm and dry. Neurological: General: No focal deficit present. Mental Status: She is alert and oriented to person, place, and time. Psychiatric: Behavior: Behavior normal. 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 Mary Webster DO documented in this encounter [facility] Work Phone: 02-18-2024 Evaluation + Plan note Associated Problem(s): RUQ abdominal pain -We are repeating an ultrasound of the gallbladder and liver and she will get liver enzymes and a lipase-I will see her back in follow-up [facility] Work Phone: 02-18-2024 Evaluation + Plan note Associated Problem(s): Encounter for screening for malignant neoplasm of colon -She has had a history of colon polyps and I am referring her to gastroenterology help assist in assessing her abdominal pain and having a colonoscopy [facility] Work Phone: 02-18-2024 Evaluation + Plan note Associated Problem(s): Multiple subsegmental pulmonary emboli without acute cor pulmonale (Multi) -She is doing well at this time and continues to take warfarin as directed -We will continue to monitor [facility] Work Phone: 02-18-2024 Miscellaneous Notes Associated Problem(s): RUQ abdominal pain -We are repeating an ultrasound of the gallbladder and liver and she will get liver enzymes and a lipase-I will see her back in follow-up Associated Problem(s): Encounter for screening for malignant neoplasm of colon -She has had a history of colon polyps and I am referring her to gastroenterology help assist in assessing her abdominal pain and having a colonoscopy Associated Problem(s): Multiple subsegmental pulmonary emboli without acute cor pulmonale (Multi) -She is doing well at this time and continues to take warfarin as directed -We will continue to monitor Associated Problem(s): Hyperlipidemia -Overall I am pleased with her cholesterol profile and she will continue with her cholesterol-lowering medication Associated Problem(s): Essential hypertension -Her blood pressure is excellent today Associated Problem(s): Cancer (Multi) -She has had basal cell cancer removed from the face with reconstruction and she does follow closely with her hand button splitter documented in this encounter [facility] Work Phone: 02-18-2024 Evaluation + Plan note Associated Problem(s): Hyperlipidemia -Overall I am pleased with her cholesterol profile and she will continue with her cholesterol-lowering medication [facility] Work Phone: 02-18-2024 Evaluation + Plan note Associated Problem(s): Essential hypertension -Her blood pressure is excellent today [facility] Work Phone: 02-18-2024 Evaluation + Plan note Associated Problem(s): Cancer (Multi) -She has had basal cell cancer removed from the face with reconstruction and she does follow closely with her hand button splitter [facility] Work Phone: 02-18-2024 History of Present illness Narrative Subjective Reason for Visit: Faviola Valle is an 73 y.o. female here for a Medicare Wellness visit. Past Medical, Surgical, and Family History reviewed and updated in chart. Reviewed all medications by prescribing practitioner or clinical pharmacist (such as prescriptions, OTCs, herbal therapies and supplements) and documented in the medical record. Abdominal Pain This is a chronic problem. The current episode started more than 1 year ago. The problem occurs daily. The problem has been waxing and waning. The pain is located in the RUQ. The quality of the pain is a sensation of fullness. Associated symptoms include anorexia, constipation, headaches and myalgias. Nothing aggravates the pain. The pain is relieved by Bowel movements and certain positions. She is here today for a general checkup and we also took this opportunity to complete her annual Medicare wellness visit. She denies any recent symptoms of depression but unfortunately she had a bad fall on Friday when she was helping to move a pool off of the deck. She misstepped causing her to fall backwards landing on her hip and hitting her head. She ended up fracturing a cuboid bone in her foot and she is currently under the care of podiatry. She is wearing a Velcro cast which she will need to wear for the next 6 weeks. We discussed memory and she is still highly independent doing everything for herself including managing her own medications her own finances. She appears to be doing well. Her hearing also appears to be doing well. She states she is also been following a healthy diet. She also is normally physically active throughout the day. We talked about providing a copy of her advance directives including living will and power of state's attorney for healthcare. We also conducted a review of systems and one of her biggest concerns today is that of right upper quadrant abdominal pain. She has had this in the past and she reminds me that she has had CAT scans and ultrasounds etc. Her last ultrasound has been sometime ago and there appeared to be a cyst in the gallbladder. I am going to order an ultrasound along with liver tests and an lipase value. I am also going to refer her to gastroenterology because it looks like she is due for her colonoscopy. I will see her back to go over the test results we do here recently. We also reviewed her laboratory test results and for the most part her numbers look good. She looks like there was a little bit of dehydration with her recent lab work and we will remind her to drink water prior to her next blood draw. Overall her cholesterol is pretty good and the rest of her labs look satisfactory. I will summarize everything in a problem based format Patient Care Team: Mary Webster DO as PCP - General Mary Webster DO as PCP - MSSP ACO Attributed Provider Review of Systems Gastrointestinal: Positive for abdominal pain, anorexia and constipation. Musculoskeletal: Positive for myalgias. Neurological: Positive for headaches. Objective Vitals: BP 108/74 Pulse 84 Ht 1.626 m (5' 4) Wt 71.7 kg (158 lb) SpO2 98% BMI 27.12 kg/m Physical Exam Vitals and nursing note reviewed. Constitutional: General: She is not in acute distress. Appearance: Normal appearance. HENT: Head: Normocephalic and atraumatic. Eyes: Conjunctiva/sclera: Conjunctivae normal. Cardiovascular: Rate and Rhythm: Normal rate and regular rhythm. Heart sounds: Normal heart sounds. Pulmonary: Effort: No respiratory distress. Breath sounds: No wheezing. Abdominal: Palpations: Abdomen is soft. Tenderness: There is no abdominal tenderness. There is no guarding. Musculoskeletal: General: No swelling. Normal range of motion. Skin: General: Skin is warm and dry. Neurological: General: No focal deficit present. Mental Status: She is alert and oriented to person, place, and time. Psychiatric: Behavior: Behavior normal. Assessment/Plan Problem List Items Addressed This Visit Hyperlipidemia Current Assessment & Plan -Overall I am pleased with her cholesterol profile and she will continue with her cholesterol-lowering medication Relevant Medications atorvastatin (Lipitor) 20 mg tablet Cancer (Multi) Current Assessment & Plan -She has had basal cell cancer removed from the face with reconstruction and she does follow closely with her hand button splitter Multiple subsegmental pulmonary emboli without acute cor pulmonale (Multi) Current Assessment & Plan -She is doing well at this time and continues to take warfarin as directed -We will continue to monitor Tubular adenoma of colon Encounter for screening for malignant neoplasm of colon - Primary Current Assessment & Plan -She has had a history of colon polyps and I am referring her to gastroenterology help assist in assessing her abdominal pain and having a colonoscopy Relevant Orders Referral to Gastroenterology Essential hypertension Current Assessment & Plan -Her blood pressure is excellent today RUQ abdominal pain Current Assessment & Plan -We are repeating an ultrasound of the gallbladder and liver and she will get liver enzymes and a lipase-I will see her back in follow-up Relevant Orders US abdomen limited liver Referral to Gastroenterology Hepatic Function Panel Lipase Other Visit Diagnoses History of colon polyps Relevant Orders Referral to Gastroenterology documented in this encounter [facility] Work Phone: 02-18-2024 Instructions Mary Webster DO - 02/18/2024 9:00 AM EDT As we discussed I will have the staff schedule an ultrasound of your liver and gallbladder and I would like you to get some additional lab work to assess your liver and pancreas I would like to see you back in follow-up after completion of the studies The staff will be helping you to get your mammogram scheduled The staff will be helping you to get an appointment with gastroenterology because of your history of colon polyps and abdominal pain Please try to remember to bring a copy of your living will and power of state's attorney for healthcare documented in this encounter [facility] Work Phone: 02-18-2024 History of Present illness Narrative Images from the original note were not included. NEW Patient Visit Ela Tyler DPM Patient Name: Faviola Valle. . Date of : 1950, 73 y.o.. Gender: female. Subjective: Patient is a pleasant 73-year-old female who presents to clinic for evaluation and management of her left foot cuboid fracture. Patient states that she sustained her injury on 02/15/2024 when she was going down patio steps while carrying an inflatable child pool. Patient unfortunately missed both steps and twisted her left foot as she was going down. Patient was seen at the emergency department. She has been minimally weightbearing in a surgical shoe. No other pedal complaints at this time. Denies fevers, chills, nausea, vomiting, chest pain, shortness of breath, or any other constitutional symptoms. 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 Hyperlipidemia Liver cyst Myocardial infarction (HCC) 1998 Peripheral vascular disease (HCC) PE Past Surgical History: Procedure Laterality Date BREAST BIOPSY CARDIAC CATHETERIZATION 06/2015 SECTION CORONARY STENT PLACEMENT 1998 to LAD CORONARY STENT PLACEMENT 2015 JOINT REPLACEMENT Right 2022 Social History Socioeconomic History Marital status: Tobacco Use Smoking status: Former Current packs/day: 0.00 Types: Cigarettes Quit date: 2009 Years since quittin.5 Smokeless tobacco: Never Vaping Use Vaping status: Former Substance and Sexual Activity Alcohol use: Not Currently Comment: occasional Drug use: Not Currently Physical Examination: BP 105/66 (BP Location: Right arm, Patient Position: Sitting, BP Cuff Size: Adult) Pulse 60 Temp 98.8 F (37.1 C) (Temporal) General Appearance: Alert, cooperative, no distress, appears stated age. Podiatric Exam Vascular: DP and PT pulses are palpable 2/4. Capillary refill time is less than 3 secs to distal digits. Skin temperature is warm to warm from proximal tibial tuberosity to distal digit. Mild localized edema noted to the dorsal lateral left foot. Neurological: Gross sensation is intact. Protective sensation is intact. Dermatologic: Some ecchymosis over lateral left foot. No open wounds or ulcers. Interdigital spaces are clean dry and intact. Musculoskeletal: Pain on palpation to the dorsal lateral left foot. Patient is able to wiggle digits. Ankle joint range of motion is intact. Muscle strength is 5/5 to dorsiflexors, plantar flexors, inverters and everters. Compartments soft and compressible. No calf pain Diagnoses: 1. Nondisplaced fracture of cuboid bone of left foot, initial encounter for closed fracture 2. Left foot pain Imaging: Left foot 3 views weightbearing radiographs were ordered and interpreted as follows: Nondisplaced cuboid fracture noted with a very subtle cortical step-off. No other fractures or dislocations noted. Assessment/Plan: Patient was seen and evaluated. Discussed all clinical findings. I ordered, interpreted, and discussed left foot radiographic findings with patient as noted above. Patient has sustained a nondisplaced cuboid fracture of the left foot. Discussed conservative treatment option consisting of offloading and stiff surgical shoe, elevation, icing, [place] compression for edema control, etc. No plans for any surgical intervention because the fracture is nondisplaced. All questions were answered to patient satisfaction. Patient understands to call with any questions or concerns. Follow-up in 5 weeks for reevaluation and new x-rays. This note was partially created using voice recognition software and is inherently subject to errors including those of syntax and sound-alike substitutions which may escape proofreading. In such instances, original meaning may be extrapolated by contextual derivation. Ela Tyler DPM, MS Podiatric Physician & Surgeon documented in this encounter [facility] 11-27-2023 History of Present illness Narrative Ortho Nurse - Established Patient Intake Room#: 4 Date: 11/27/2023 8:47 AM Patient: Faviola Valle MR#: [id number] : 1950 Age: 73 y.o. 1yr R ILIR Pt stated she is doing pretty good, still has little trouble getting her leg up into her Jeep, denies any pain at this time. Referring Physician: Self, Self Insurance: Payor: MEDICARE / Plan: MEDICARE A AND B / Product Type: *No Product type* / Chief Complaint Patient presents with Right Hip - Follow-up Visit Vitals Ht 1.626 m (5' 4) Wt 72.6 kg (160 lb) BMI 27.46 kg/m Pain Recent Labs No results found for: CRP No results found for: SEDRATE Lab Results Component Value Date WBC 9.2 11/27/2022 HGB 10.3 (L) 11/27/2022 HCT 30.9 (L) 11/27/2022 PLATELET 171 11/27/2022 MCV 87.4 11/27/2022 History Past Medical History: Diagnosis Date CO (myocardial infarction) 1998 Asthma CAD (coronary artery disease) GERD (gastroesophageal reflux disease) Hyperlipidemia Migraine Pulmonary embolism Past Surgical History: Procedure Laterality Date REMOVAL CATARACT (PEM) 06/17/2023 ARTHROPLASTY HIP TOTAL ANTERIOR APPROACH Right 11/26/2022 Laterality: Right; Surgeon: Cheikh Oneal MD; Location: [facility] PROCEDURE 2014 IVC FILTER PLACEMENT 2010 [place] Filter placement--because of history of PE SECTION 1983 COLONOSCOPY DIAGNOSTIC CORONARY STENT PLACEMENT 2 stents 1998 and 2014 THYROID SURGERY csyt removed Family History: Her Family history is unknown by patient. Social History: Her reports that she quit smoking about 2 years ago. Her smoking use included cigarettes. She has never used smokeless tobacco. She reports current alcohol use. She reports that she does not use drugs. Outpatient Medications Prior to Visit Medication Sig Dispense Refill Albuterol 108 (90 Base) MCG/ACT Aero Soln inhaler Inhale 2 puffs every 4 hours as needed. Amoxicillin 500 MG capsule Take 4 capsules 1 hour before procedure 8 capsule 1 Atorvastatin 20 MG tablet Take 1 tablet by mouth every evening. Biotin 1 MG capsule Take 1 capsule by mouth daily. Cholecalciferol 50 MCG (1999 UT) capsule Take 1 capsule by mouth daily. Coenzyme Q10 100 MG tablet Take 1 tablet by mouth daily. Ezetimibe 10 MG tablet Take 1 tablet by mouth daily. Sometimes, 3 times weekly fluticasone 50 MCG/ACT Suspension nasal spray 2 sprays by Nasal route daily. Folic Acid 400 MCG tablet Take 1 tablet by mouth daily. Multiple Vitamin (Multi-Vitamin) tablet Take 1 tablet by mouth daily. tizanidine 4 MG capsule Take 1 capsule by mouth Every morning as needed. Acetaminophen 325 MG tablet Take 2 tablets by mouth every 4 hours as needed for Mild Pain. (Patient not taking: Reported on 06/24/2023) 50 tablet 1 apixaban 5 MG tablet Take 1 tablet by mouth every 12 hours. Start after 2.5mg dosing completed. This medication is for blood clot prevention. Further anticoagulation per pcp/coumadin clinic. 60 tablet 0 Cetirizine 10 MG tablet Take 1 tablet by mouth As directed as needed for Allergies. (Patient not taking: Reported on 03/27/2023) Docusate 100 MG capsule Take 1 capsule by mouth 2 times daily. (Patient not taking: Reported on 03/27/2023) 60 capsule 0 hydroCODone-acetaminophen 5-325 MG tablet Take 1-2 tablets by mouth every 6 hours as needed for Severe Pain for up to 7 days. Do not take over 4000mg acetaminophen daily. 10 tablet 0 Nutritional Supplements (ENSURE ORIGINAL PO) Take by mouth daily. omeprazole [address] capsule Take 1 capsule by mouth daily. (Patient not taking: Reported on 03/27/2023) 30 capsule 0 traMADol 50 MG tablet 1-2 tabs po q 6 hr PRN pain 20 tablet 0 No facility-administered medications prior to visit. Current Outpatient Medications: Albuterol 108 (90 Base) MCG/ACT Aero Soln inhaler, Inhale 2 puffs every 4 hours as needed., Disp: , Rfl: Amoxicillin 500 MG capsule, Take 4 capsules 1 hour before procedure, Disp: 8 capsule, Rfl: 1 Atorvastatin 20 MG tablet, Take 1 tablet by mouth every evening., Disp: , Rfl: Biotin 1 MG capsule, Take 1 capsule by mouth daily., Disp: , Rfl: Cholecalciferol 50 MCG (1999 UT) capsule, Take 1 capsule by mouth daily., Disp: , Rfl: Coenzyme Q10 100 MG tablet, Take 1 tablet by mouth daily., Disp: , Rfl: Ezetimibe 10 MG tablet, Take 1 tablet by mouth daily. Sometimes, 3 times weekly, Disp: , Rfl: fluticasone 50 MCG/ACT Suspension nasal spray, 2 sprays by Nasal route daily., Disp: , Rfl: Folic Acid 400 MCG tablet, Take 1 tablet by mouth daily., Disp: , Rfl: Multiple Vitamin (Multi-Vitamin) tablet, Take 1 tablet by mouth daily., Disp: , Rfl: tizanidine 4 MG capsule, Take 1 capsule by mouth Every morning as needed., Disp: , Rfl: Acetaminophen 325 MG tablet, Take 2 tablets by mouth every 4 hours as needed for Mild Pain. (Patient not taking: Reported on 06/24/2023), Disp: 50 tablet, Rfl: 1 apixaban 5 MG tablet, Take 1 tablet by mouth every 12 hours. Start after 2.5mg dosing completed. This medication is for blood clot prevention. Further anticoagulation per pcp/coumadin clinic., Disp: 60 tablet, Rfl: 0 Cetirizine 10 MG tablet, Take 1 tablet by mouth As directed as needed for Allergies. (Patient not taking: Reported on 03/27/2023), Disp: , Rfl: Docusate 100 MG capsule, Take 1 capsule by mouth 2 times daily. (Patient not taking: Reported on 03/27/2023), Disp: 60 capsule, Rfl: 0 hydroCODone-acetaminophen 5-325 MG tablet, Take 1-2 tablets by mouth every 6 hours as needed for Severe Pain for up to 7 days. Do not take over 4000mg acetaminophen daily., Disp: 10 tablet, Rfl: 0 Nutritional Supplements (ENSURE ORIGINAL PO), Take by mouth daily., Disp: , Rfl: omeprazole [address] capsule, Take 1 capsule by mouth daily. (Patient not taking: Reported on 03/27/2023), Disp: 30 capsule, Rfl: 0 traMADol 50 MG tablet, 1-2 tabs po q 6 hr PRN pain, Disp: 20 tablet, Rfl: 0 Allergies: She is allergic to erythromycin and bee venom. HPI: Patient is here today for evaluation of their operative hip. She is status post total hip arthroplasty. She is about a year out, reports that she is doing well and is pleased with the outcome of the intervention. The hip feels better now than it did before, and she is not having any new symptoms with it. PHYSICAL EXAM: The bilateral lower extremities were evaluated. The operative lower extremity is soft, nontender with full and supple motion of the hip. No pain, no impingement. No instability. The contralateral extremity has full motion, normal stability, no tenderness. Bilateral lower extremities have normal neurovascular status. Skin otherwise intact. DIAGNOSTIC STUDIES/INTERPRETATION: Plain film radiographs reviewed. She has a total hip arthroplasty in good position and alignment. No evidence of prosthetic implant loosening or migration. IMPRESSION: Stable status post total hip arthroplasty, doing well. PLAN: I am pleased with the outcome of intervention. She has made an excellent recovery. I expect continued improvement in strength and mobility moving forward. I recommend followup in 2 years for repeat clinical and radiographic examination or sooner if any new symptoms develop. Tylenol may be used to manage any occasional aches and pains. She will call with any questions or concerns in the meantime. Greater than 20 minutes time was spent in review of the medical records, review of previous imaging, and more than 50% of that time was spent on face to face time with patient. Meg Bishop APRN-AMAN I have reviewed the findings of my clinical staff below and agree with their assessment. Ortho Nurse - Established Patient Intake Room#: 4 Date: 11/27/2023 8:47 AM Patient: Faviola Valle MR#: [id number] : 1950 Age: 73 y.o. 1yr R ILIR Pt stated she is doing pretty good, still has little trouble getting her leg up into her Jeep, denies any pain at this time. Referring Physician: Self, Self Insurance: Payor: MEDICARE / Plan: MEDICARE A AND B / Product Type: *No Product type* / Chief Complaint Patient presents with Right Hip - Follow-up Visit Vitals Ht 1.626 m (5' 4) Wt 72.6 kg (160 lb) BMI 27.46 kg/m Pain Recent Labs No results found for: CRP No results found for: SEDRATE Lab Results Component Value Date WBC 9.2 11/27/2022 HGB 10.3 (L) 11/27/2022 HCT 30.9 (L) 11/27/2022 PLATELET 171 11/27/2022 MCV 87.4 11/27/2022 History Past Medical History: Diagnosis Date CO (myocardial infarction) 1998 Asthma CAD (coronary artery disease) GERD (gastroesophageal reflux disease) Hyperlipidemia Migraine Pulmonary embolism Past Surgical History: Procedure Laterality Date REMOVAL CATARACT (PEM) 06/17/2023 ARTHROPLASTY HIP TOTAL ANTERIOR APPROACH Right 11/26/2022 Laterality: Right; Surgeon: Cheikh Oneal MD; Location: [facility] PROCEDURE 2014 IVC FILTER PLACEMENT 2010 [place] Filter placement--because of history of PE SECTION 1983 COLONOSCOPY DIAGNOSTIC CORONARY STENT PLACEMENT 2 stents 1998 and 2014 THYROID SURGERY csyt removed Family History: Her Family history is unknown by patient. Social History: Her reports that she quit smoking about 2 years ago. Her smoking use included cigarettes. She has never used smokeless tobacco. She reports current alcohol use. She reports that she does not use drugs. Outpatient Medications Prior to Visit Medication Sig Dispense Refill Albuterol 108 (90 Base) MCG/ACT Aero Soln inhaler Inhale 2 puffs every 4 hours as needed. Amoxicillin 500 MG capsule Take 4 capsules 1 hour before procedure 8 capsule 1 Atorvastatin 20 MG tablet Take 1 tablet by mouth every evening. Biotin 1 MG capsule Take 1 capsule by mouth daily. Cholecalciferol 50 MCG (2000 UT) capsule Take 1 capsule by mouth daily. Coenzyme Q10 100 MG tablet Take 1 tablet by mouth daily. Ezetimibe 10 MG tablet Take 1 tablet by mouth daily. Sometimes, 3 times weekly fluticasone 50 MCG/ACT Suspension nasal spray 2 sprays by Nasal route daily. Folic Acid 400 MCG tablet Take 1 tablet by mouth daily. Multiple Vitamin (Multi-Vitamin) tablet Take 1 tablet by mouth daily. tizanidine 4 MG capsule Take 1 capsule by mouth Every morning as needed. Acetaminophen 325 MG tablet Take 2 tablets by mouth every 4 hours as needed for Mild Pain. (Patient not taking: Reported on 06/24/2023) 50 tablet 1 apixaban 5 MG tablet Take 1 tablet by mouth every 12 hours. Start after 2.5mg dosing completed. This medication is for blood clot prevention. Further anticoagulation per pcp/coumadin clinic. 60 tablet 0 Cetirizine 10 MG tablet Take 1 tablet by mouth As directed as needed for Allergies. (Patient not taking: Reported on 03/27/2023) Docusate 100 MG capsule Take 1 capsule by mouth 2 times daily. (Patient not taking: Reported on 03/27/2023) 60 capsule 0 hydroCODone-acetaminophen 5-325 MG tablet Take 1-2 tablets by mouth every 6 hours as needed for Severe Pain for up to 7 days. Do not take over 4000mg acetaminophen daily. 10 tablet 0 Nutritional Supplements (ENSURE ORIGINAL PO) Take by mouth daily. omeprazole [address] capsule Take 1 capsule by mouth daily. (Patient not taking: Reported on 03/27/2023) 30 capsule 0 traMADol 50 MG tablet 1-2 tabs po q 6 hr PRN pain 20 tablet 0 No facility-administered medications prior to visit. Current Outpatient Medications: Albuterol 108 (90 Base) MCG/ACT Aero Soln inhaler, Inhale 2 puffs every 4 hours as needed., Disp: , Rfl: Amoxicillin 500 MG capsule, Take 4 capsules 1 hour before procedure, Disp: 8 capsule, Rfl: 1 Atorvastatin 20 MG tablet, Take 1 tablet by mouth every evening., Disp: , Rfl: Biotin 1 MG capsule, Take 1 capsule by mouth daily., Disp: , Rfl: Cholecalciferol 50 MCG (2000 UT) capsule, Take 1 capsule by mouth daily., Disp: , Rfl: Coenzyme Q10 100 MG tablet, Take 1 tablet by mouth daily., Disp: , Rfl: Ezetimibe 10 MG tablet, Take 1 tablet by mouth daily. Sometimes, 3 times weekly, Disp: , Rfl: fluticasone 50 MCG/ACT Suspension nasal spray, 2 sprays by Nasal route daily., Disp: , Rfl: Folic Acid 400 MCG tablet, Take 1 tablet by mouth daily., Disp: , Rfl: Multiple Vitamin (Multi-Vitamin) tablet, Take 1 tablet by mouth daily., Disp: , Rfl: tizanidine 4 MG capsule, Take 1 capsule by mouth Every morning as needed., Disp: , Rfl: Acetaminophen 325 MG tablet, Take 2 tablets by mouth every 4 hours as needed for Mild Pain. (Patient not taking: Reported on 06/24/2023), Disp: 50 tablet, Rfl: 1 apixaban 5 MG tablet, Take 1 tablet by mouth every 12 hours. Start after 2.5mg dosing completed. This medication is for blood clot prevention. Further anticoagulation per pcp/coumadin clinic., Disp: 60 tablet, Rfl: 0 Cetirizine 10 MG tablet, Take 1 tablet by mouth As directed as needed for Allergies. (Patient not taking: Reported on 03/27/2023), Disp: , Rfl: Docusate 100 MG capsule, Take 1 capsule by mouth 2 times daily. (Patient not taking: Reported on 03/27/2023), Disp: 60 capsule, Rfl: 0 hydroCODone-acetaminophen 5-325 MG tablet, Take 1-2 tablets by mouth every 6 hours as needed for Severe Pain for up to 7 days. Do not take over 4000mg acetaminophen daily., Disp: 10 tablet, Rfl: 0 Nutritional Supplements (ENSURE ORIGINAL PO), Take by mouth daily., Disp: , Rfl: omeprazole [address] capsule, Take 1 capsule by mouth daily. (Patient not taking: Reported on 03/27/2023), Disp: 30 capsule, Rfl: 0 traMADol 50 MG tablet, 1-2 tabs po q 6 hr PRN pain, Disp: 20 tablet, Rfl: 0 Allergies: She is allergic to erythromycin and bee venom. documented in this encounter [facility] 06-24-2023 History of Present illness Narrative Nurse Note: Review of Systems Gastrointestinal: Positive for abdominal pain. All other systems reviewed and are negative. Nursing Assessment: Physical Exam Faviola Valle is a 73 y.o. female Pt is here for LLQ abdominal pain, weight gain, feels like has a lump in abdomen complains of loose stools denies nausea / vomiting Recent imaging: CT Abdomen/Pelvis 03/11/2023 Hx of GERD? Yes It's been going on since February timeframe Office consultation Date and Time: July 15, 2023 5:44 PM Patient Demographics: Faviola Valle female 1950 Wt Readings from Last 1 Encounters: 06/24/23 72.7 kg (160 lb 3.2 oz) Chief Complaint: 73-year-old lady here regarding recent weight gain and chronic abdominal distress Patient reports in November 2022 she did have a hip surgery, patient experienced extreme weight gain after that events In February 2023 patient began to experience bloating right upper quadrant abdominal pain and what she felt as a mass effect Patient apparently did have CT scans and MRIs of the abdomen with no findings She was seen by general surgery Patient describes left upper quadrant and right upper quadrant discomfort currently associated with constipation variability of stool She also has bloating and incomplete evacuation she does describe Scyballous stools Patient denies fevers chills or night sweats no melena and/or hematochezia she has tried probiotics and stool softeners with minimal success reported Most recent colonoscopy 2019 with polyps specifics are unknown A CT scan of the abdomen from March 2023 proximal ileal changes of undetermined etiology possible enteritis CBC and complete metabolic profile from February 2023 reported as negative Discussed structural versus functional bowel disorders We discussed Sergio criteria and IBS We discussed AS recommendations for colon cancer screening and surveillance based on age family history personal history and ethnicity BP 123/75 Pulse 74 Ht 1.626 m (5' 4) Wt 72.7 kg (160 lb 3.2 oz) SpO2 97% BMI 27.50 kg/m Smoking Status Former Past Medical History: Diagnosis Date Asthma CAD (coronary artery disease) GERD (gastroesophageal reflux disease) Hyperlipidemia CO (myocardial infarction) 1998 Migraine Pulmonary embolism Past Surgical History: Procedure Laterality Date REMOVAL CATARACT (PEM) 06/17/2023 ARTHROPLASTY HIP TOTAL ANTERIOR APPROACH Right 11/26/2022 Laterality: Right; Surgeon: Cheikh Oneal MD; [facility] [facility] PROCEDURE 2014 IVC FILTER PLACEMENT 2010 [place] Filter placement--because of history of PE SECTION 1983 COLONOSCOPY DIAGNOSTIC CORONARY STENT PLACEMENT 2 stents 1998 and 2014 THYROID SURGERY csyt removed Social History Socioeconomic History Marital status: Single Tobacco Use Smoking status: Former Types: Cigarettes Quit date: 2021 Years since quittin.9 Smokeless tobacco: Never Vaping Use Vaping Use: Never used Substance and Sexual Activity Alcohol use: Yes Comment: social Drug use: Never Sexual activity: Yes Partners: Male Current Outpatient Medications: Albuterol 108 (90 Base) MCG/ACT Aero Soln inhaler, Inhale 2 puffs every 4 hours as needed., Disp: , Rfl: Amoxicillin 500 MG capsule, Take 4 capsules 1 hour before procedure, Disp: 8 capsule, Rfl: 1 Atorvastatin 20 MG tablet, Take 1 tablet by mouth every evening., Disp: , Rfl: Biotin 1 MG capsule, Take 1 capsule by mouth daily., Disp: , Rfl: Cholecalciferol 50 MCG (1999) capsule, Take 1 capsule by mouth daily., Disp: , Rfl: Coenzyme Q10 100 MG tablet, Take 1 tablet by mouth daily., Disp: , Rfl: Ezetimibe 10 MG tablet, Take 1 tablet by mouth daily. Sometimes, 3 times weekly, Disp: , Rfl: fluticasone 50 MCG/ACT Suspension nasal spray, 2 sprays by Nasal route daily., Disp: , Rfl: Folic Acid 400 MCG tablet, Take 1 tablet by mouth daily., Disp: , Rfl: Multiple Vitamin (Multi-Vitamin) tablet, Take 1 tablet by mouth daily., Disp: , Rfl: tizanidine 4 MG capsule, Take 1 capsule by mouth Every morning as needed., Disp: , Rfl: Acetaminophen 325 MG tablet, Take 2 tablets by mouth every 4 hours as needed for Mild Pain. (Patient not taking: Reported on 06/24/2023), Disp: 50 tablet, Rfl: 1 apixaban 5 MG tablet, Take 1 tablet by mouth every 12 hours. Start after 2.5mg dosing completed. This medication is for blood clot prevention. Further anticoagulation per pcp/coumadin clinic., Disp: 60 tablet, Rfl: 0 Cetirizine 10 MG tablet, Take 1 tablet by mouth As directed as needed for Allergies. (Patient not taking: Reported on 03/27/2023), Disp: , Rfl: Docusate 100 MG capsule, Take 1 capsule by mouth 2 times daily. (Patient not taking: Reported on 03/27/2023), Disp: 60 capsule, Rfl: 0 hydroCODone-acetaminophen 5-325 MG tablet, Take 1-2 tablets by mouth every 6 hours as needed for Severe Pain for up to 7 days. Do not take over 4000mg acetaminophen daily., Disp: 10 tablet, Rfl: 0 Nutritional Supplements (ENSURE ORIGINAL PO), Take by mouth daily., Disp: , Rfl: omeprazole [address] capsule, Take 1 capsule by mouth daily. (Patient not taking: Reported on 03/27/2023), Disp: 30 capsule, Rfl: 0 traMADol 50 MG tablet, 1-2 tabs po q 6 hr PRN pain, Disp: 20 tablet, Rfl: 0 Erythromycin and Bee venom ROS: Cardiovascular-no reported chest discomfort no shortness of breath reported Respiratory-no coughing or wheezing Gastrointestinal-as per chief complaint Extremities-no gross edema deformity or dysfunction Neurologic-grossly intact Physical Exam: Alert lady no gross apparent distress to evaluation no obvious deformities Cardiovascular-no JVD no ectopy Respiratory-no coughing no wheezing at exam Abdomen-mildly obese soft nondistendedExtremities-no deformity or dysfunction noted Neurologic-grossly intact no deficits Assessment: Chronic abdominal pain of undetermined etiology recent stressors rule out Sergio criteria positive IBS exacerbation Negative structural evaluations within the last 2-3 years possible abnormal ileum on CT No current GI alarm symptoms reported Plan: Trial of antispasmodic medications initially Patient was asked to call back in 1-2 days with resultant medication trial for adjustment replacement Further recommendations pending response documented in this encounter [facility] 05-15-2023 History of Present illness Narrative General Surgery Consultation Patient: Faviola Valle : 1950 Date of Consultation: 05/15/23 Referring Primary Care Provider: Mary Webster DO Chief Complaint: RUQ mass History of Present Illness: Faviola Valle is a 73 y.o. old female seen at the request of Dr. Webster for evaluation of a RUQ mass. The patient reports having a hip replacement back in November. After that time, she had about a 10 pound weight gain. She also had some constipation over the same postoperative time span. She developed right sided abdominal tenderness. She started taking Colace, as well as MiraLAX as needed. She denies any fever, yellowing of the skin or eyes or dark-colored urine. The discomfort does not correlate with eating. She has also had some recent dental work done and has been taking protein shakes since since her diet has changed with her dental issues. She is up-to-date on colonoscopy. She had her last one in 2019 in [place]. She had a polyp removed. She states that her paperwork said she was good for 7 to 10 years, but was also told 5-year follow-up. Regardless, she is up-to-date. She denies seeing blood in the stool or dark black bowel movements. She had a CT scan performed in work-up for this. It showed some focal thickening of the proximal ileum. Subsequent MRI was obtained, which showed no acute abnormalities. Her gallbladder looked normal and she had no calcified stones on that imaging. Medical History: Arthritis Asthma Cervical disc disease GERD Headaches CO Basal cell carcinoma Pulmonary embolism, on Coumadin Surgical History: in 1983 Arterial stent placement Breast biopsy Colonoscopy Home Medications: Prior to Admission medications Medication Sig Start Date End Date Taking? Authorizing Provider acetaminophen (Tylenol) 325 mg tablet Take 2 tablets (650 mg) by mouth every 4 hours if needed for moderate pain (4 - 6). 11/26/22 Historical Provider, albuterol 90 mcg/actuation inhaler Inhale 2 puffs every 4 hours if needed for wheezing or shortness of breath. 02/25/23 Mary Webster, DO aspirin-calcium carbonate 81 mg-300 mg calcium(777 mg) tablet Take 1 tablet by mouth 1 (one) time each day. Historical Provider, atorvastatin (Lipitor) 20 mg tablet Take 1 tablet (20 mg) by mouth once daily at bedtime. 02/25/23 Mary Webster, DO biotin 10 mg tablet Take by mouth. Take as directed Historical Provider, cetirizine (ZyrTEC) 10 mg tablet Take 1 tablet (10 mg) by mouth once daily. Take 0.5 tablet daily Historical Provider, cholecalciferol (Vitamin D-3) 50 mcg (2,000 unit) capsule Take 1 capsule (50 mcg) by mouth once daily. Historical Provider, coenzyme Q-10 100 mg capsule Take 1 capsule (100 mg) by mouth once daily. 01/31/20 Historical Provider, docusate sodium (Colace) 100 mg capsule Take 1 capsule (100 mg) by mouth twice a day. 11/26/22 Historical Provider, ezetimibe (Zetia) 10 mg tablet Take 1 tablet (10 mg) by mouth. Take 1 tablet 3 times a week Historical Provider, fluticasone (Flonase) 50 mcg/actuation nasal spray Administer into affected nostril(s) in the morning. Use 1 to 2 sprays in each nostril once daily 05/25/19 Historical Provider, folic acid (Folvite) 400 mcg tablet Take 1 tablet (0.4 mg) by mouth once daily. Historical Provider, gabapentin (Neurontin) 100 mg capsule Take 1 capsule (100 mg) by mouth once daily at bedtime. 06/18/22 Historical Provider, ujhzcrxh-nxuk-hcansdys-folic acid (Centrum Silver, geriatric,) 0.4 mg-300 mcg- 250 mcg tab Take by mouth in the morning. Take 1 tablet daily as directed Historical ProviderMD multivitamin tablet Take 1 tablet by mouth once daily. Historical Provider, multivitamin with minerals tablet Take 1 tablet by mouth once daily. Historical Provider, tiZANidine (Zanaflex) 4 mg tablet Take 1 tablet (4 mg) by mouth. Take tablet 1-2 tablets at bedtime Historical Provider, vitamin E acid succinate (vitamin E succinate) 67 mg (100 unit) tablet Take by mouth. Historical Provider, warfarin (Coumadin) 1 mg tablet Take 1 tablet (1 mg) by mouth once daily. Take 1 tablet daily along with 5mg warfarin or as directed per inr Historical Provider, Allergies: Allergies Allergen Reactions Bee Venom Protein (Honey Bee) Hives Erythromycin Unknown is allergic to bee venom protein (honey bee) and erythromycin. Family History: Family History Adopted: Yes Social History: Former smoker, quit about 3 years ago. No alcohol or drug use. ROS: Constitutional: no fever, sweats, and chills Cardiovascular: No chest pain Respiratory: No cough or shortness of breath Gastrointestinal: No abdominal pain Genitourinary: no dysuria Musculoskeletal: no weakness or swelling Integumentary: no rashes Neurological: no confusion Endocrine: no heat or cold intolerance Heme/Lymph: no easy bruising or bleeding Objective: BP 132/72 Pulse 80 Ht 1.613 m (5' 3.5) Wt 73.9 kg (163 lb) BMI 28.42 kg/m Physical Exam: Constitutional: No acute distress, conversant, pleasant Neurologic: alert and oriented Psych: appropriate affect Ears, Nose, Mouth and Throat: mucus membranes moist Pulmonary: No labored breathing Cardiovascular: Regular rate and rhythm Abdomen: soft, non-distended, mildly tender to deep palpation in the right mid abdomen, this is inferior to where her gallbladder would sit. Pfannenstiel scar consistent with previous . No other surgical scars. No hernias. Musculoskeletal: Moves all extremities, some spider veins on lower extremities bilaterally, no significant edema Skin: No jaundice Labs: Hemoglobin 12.3 in February 2023 Imaging: CT abdomen and pelvis from 03/11/2023 reviewed: Circumferential thickening of the a short segment of small ileum, could represent focal enteritis. No evidence of metastatic disease within the abdomen. Follow up MRI could be considered. MRI from 04/11/23 report reviewed: No acute finding is noted within the abdomen. In particular, the bowel loops are grossly unremarkable. Benign hepatic and renal cysts. Degenerative changes of the spine with right-sided scoliosis. Assessment and Plan: Faviola Valle is a 73 y.o. old female with intermittent vague right mid abdominal discomfort. I suspect that this may be secondary to constipation. If she has felt a mass in this region, it may have been stool burden. She does not have a hernia. She is up-to-date on colonoscopy. Her CT scan and MRI are reassuring. She does not have a surgical etiology of her discomfort. I have recommended that she continue to take Colace and MiraLAX. She could also consider addition of a fiber supplement at least until she gets her dental work situated and can increase her dietary fiber. I have also encouraged her to drink adequate water throughout the day to help keep bowel movements soft and regular. She will follow-up with me as needed. Marsha Hudson MD 05/15/2023 documented in this encounter [facility] Work Phone: 04-03-2023 History of Present illness Narrative On a scale of 0 to 10, the patient rates the pain at 7.Pain Location: R hip.Pain Quality: Cramping and catches.Pain Radiation: R groin, buttocks.Timing/Duration: Constant and > 12 weeks duration.Controlled Substance:I have personally reviewed the [place] report for FAVIOLA VALLE. I have considered the risks of abuse, dependence, addiction and diversion.Narcan offered and declined. [facility] Work Phone: 03-27-2023 History of Present illness Narrative Ortho Nurse - Established Patient Intake Room#: 3 Patient is here today for a 4 month RTHA follow-up. She had an x-ray done today, 03/27/23, and is here to go over the results. Patient complains of occasional pain in her right hip and right lower back (patient states the back pain is due to a bulging disc), but is having no pain today. Patient also states she has gained 10 lbs over the last month and doesn't know why. She had an abdominal CT done and has an abdominal MRI with and without contrast scheduled for 04/01/23. (Abdominal CT showed, Circumferential wall thickening involving a short segment of proximal ileum which could represent a focal enteritis.) Date: 03/27/2023 8:44 AM Patient: Faviola Valle MR#: [id number] : 1950 Age: 73 y.o. Referring Physician: Self, Self Insurance: Payor: MEDICARE / Plan: MEDICARE A AND B / Product Type: *No Product type* / No chief complaint on file. Recent Labs No results found for: CRP No results found for: SEDRATE Lab Results Component Value Date WBC 9.2 11/27/2022 HGB 10.3 (L) 11/27/2022 HCT 30.9 (L) 11/27/2022 PLATELET 171 11/27/2022 MCV 87.4 11/27/2022 History Past Medical History: Diagnosis Date CO (myocardial infarction) 1998 Asthma CAD (coronary artery disease) GERD (gastroesophageal reflux disease) Hyperlipidemia Migraine Pulmonary embolism Past Surgical History: Procedure Laterality Date ARTHROPLASTY HIP TOTAL ANTERIOR APPROACH Right 11/26/2022 Laterality: Right; Surgeon: Cheikh Oneal MD; Location: [facility] PROCEDURE 2014 IVC FILTER PLACEMENT 2010 [place] Filter placement--because of history of PE SECTION 1983 COLONOSCOPY DIAGNOSTIC CORONARY STENT PLACEMENT 2 stents 1998 and 2014 THYROID SURGERY csyt removed Family History: Her Family history is unknown by patient. Social History: Her reports that she quit smoking about 19 months ago. Her smoking use included cigarettes. She has never used smokeless tobacco. She reports current alcohol use. She reports that she does not use drugs. Outpatient Medications Prior to Visit Medication Sig Dispense Refill Acetaminophen 325 MG tablet Take 2 tablets by mouth every 4 hours as needed for Mild Pain. 50 tablet 1 Albuterol 108 (90 Base) MCG/ACT Aero Soln inhaler Inhale 2 puffs every 4 hours as needed. Amoxicillin 500 MG capsule Take 4 capsules 1 hour before procedure 8 capsule 1 apixaban 5 MG tablet Take 1 tablet by mouth every 12 hours. Start after 2.5mg dosing completed. This medication is for blood clot prevention. Further anticoagulation per pcp/coumadin clinic. 60 tablet 0 Atorvastatin 20 MG tablet Take 1 tablet by mouth every evening. Biotin 1 MG capsule Take 1 capsule by mouth daily. Cetirizine 10 MG tablet Take 1 tablet by mouth As directed as needed for Allergies. Cholecalciferol 50 MCG (2000 UT) capsule Take 1 capsule by mouth daily. Coenzyme Q10 100 MG tablet Take 1 tablet by mouth daily. Docusate 100 MG capsule Take 1 capsule by mouth 2 times daily. 60 capsule 0 Ezetimibe 10 MG tablet Take 1 tablet by mouth daily. Sometimes, 3 times weekly fluticasone 50 MCG/ACT Suspension nasal spray 2 sprays by Nasal route daily. Folic Acid 400 MCG tablet Take 1 tablet by mouth daily. hydroCODone-acetaminophen 5-325 MG tablet Take 1-2 tablets by mouth every 6 hours as needed for Severe Pain for up to 7 days. Do not take over 4000mg acetaminophen daily. 10 tablet 0 Multiple Vitamin (Multi-Vitamin) tablet Take 1 tablet by mouth daily. Nutritional Supplements (ENSURE ORIGINAL PO) Take by mouth daily. omeprazole [address] capsule Take 1 capsule by mouth daily. 30 capsule 0 tizanidine 4 MG capsule Take 1 capsule by mouth Every morning as needed. traMADol 50 MG tablet 1-2 tabs po q 6 hr PRN pain 20 tablet 0 No facility-administered medications prior to visit. Allergies: She is allergic to erythromycin and bee venom. HPI: Patient is here today for evaluation of her operative hip. She is status post right total hip arthroplasty. She is about 4 months out and reports that she is doing well and is pleased with the outcome of the intervention. The hip feels better now than it did before, and she is not having any new symptoms with it. She denies pain and has no additional questions or concerns at this time. PHYSICAL EXAM: The bilateral lower extremities were evaluated. The operative lower extremity is soft, nontender with full and supple motion of the hip. No pain, no impingement. No instability. The contralateral extremity has full motion, normal stability, no tenderness. Bilateral lower extremities have normal neurovascular status. DIAGNOSTIC STUDIES/INTERPRETATION: Plain film radiographs reviewed. She has a right total hip arthroplasty in good position and alignment. No evidence of prosthetic implant loosening or migration. IMPRESSION: Stable status post right total hip arthroplasty, doing well. PLAN: I reviewed my findings with patient. Overall, I am pleased with the outcome of intervention. She has made an excellent recovery. We discussed the stages of healing along with what symptoms can be expected at current stage of healing. She understands she is at the 50% david of total recovery. We then discussed the benefits of performing a variety of exercises at home, with a physical therapist or local gym. I offered formal PT but she was not interested at this time as she is being worked up with MRI for stomach issues (refer to CT on 03/11/23 in Epic chart). I expect continued improvement in strength and mobility moving forward. I recommend followup at one year postop for repeat clinical and radiographic examination or sooner if any new symptoms develop. She will call with any questions or concerns in the meantime. I have reviewed the findings of my clinical staff below and agree with their assessment. Ortho Nurse - Established Patient Intake Room#: 3 Patient is here today for a 4 month RTHA follow-up. She had an x-ray done today, 03/27/23, and is here to go over the results. Patient complains of occasional pain in her right hip and right lower back (patient states the back pain is due to a bulging disc), but is having no pain today. Patient also states she has gained 10 lbs over the last month and doesn't know why. She had an abdominal CT done and has an abdominal MRI with and without contrast scheduled for 04/01/23. (Abdominal CT showed, Circumferential wall thickening involving a short segment of proximal ileum which could represent a focal enteritis.) Date: 03/27/2023 8:44 AM Patient: Faviola Valle MR#: [id number] : 1950 Age: 73 y.o. Referring Physician: Self, Self Insurance: Payor: MEDICARE / Plan: MEDICARE A AND B / Product Type: *No Product type* / No chief complaint on file. Recent Labs No results found for: CRP No results found for: SEDRATE Lab Results Component Value Date WBC 9.2 11/27/2022 HGB 10.3 (L) 11/27/2022 HCT 30.9 (L) 11/27/2022 PLATELET 171 11/27/2022 MCV 87.4 11/27/2022 History Past Medical History: Diagnosis Date CO (myocardial infarction) 1998 Asthma CAD (coronary artery disease) GERD (gastroesophageal reflux disease) Hyperlipidemia Migraine Pulmonary embolism Past Surgical History: Procedure Laterality Date ARTHROPLASTY HIP TOTAL ANTERIOR APPROACH Right 11/26/2022 Laterality: Right; Surgeon: Cheikh Oneal MD; Location: [facility] PROCEDURE 2014 IVC FILTER PLACEMENT 2010 [place] Filter placement--because of history of PE SECTION 1983 COLONOSCOPY DIAGNOSTIC CORONARY STENT PLACEMENT 2 stents 1998 and 2014 THYROID SURGERY csyt removed Family History: Her Family history is unknown by patient. Social History: Her reports that she quit smoking about 19 months ago. Her smoking use included cigarettes. She has never used smokeless tobacco. She reports current alcohol use. She reports that she does not use drugs. Outpatient Medications Prior to Visit Medication Sig Dispense Refill Acetaminophen 325 MG tablet Take 2 tablets by mouth every 4 hours as needed for Mild Pain. 50 tablet 1 Albuterol 108 (90 Base) MCG/ACT Aero Soln inhaler Inhale 2 puffs every 4 hours as needed. Amoxicillin 500 MG capsule Take 4 capsules 1 hour before procedure 8 capsule 1 apixaban 5 MG tablet Take 1 tablet by mouth every 12 hours. Start after 2.5mg dosing completed. This medication is for blood clot prevention. Further anticoagulation per pcp/coumadin clinic. 60 tablet 0 Atorvastatin 20 MG tablet Take 1 tablet by mouth every evening. Biotin 1 MG capsule Take 1 capsule by mouth daily. Cetirizine 10 MG tablet Take 1 tablet by mouth As directed as needed for Allergies. Cholecalciferol 50 MCG (2000 UT) capsule Take 1 capsule by mouth daily. Coenzyme Q10 100 MG tablet Take 1 tablet by mouth daily. Docusate 100 MG capsule Take 1 capsule by mouth 2 times daily. 60 capsule 0 Ezetimibe 10 MG tablet Take 1 tablet by mouth daily. Sometimes, 3 times weekly fluticasone 50 MCG/ACT Suspension nasal spray 2 sprays by Nasal route daily. Folic Acid 400 MCG tablet Take 1 tablet by mouth daily. hydroCODone-acetaminophen 5-325 MG tablet Take 1-2 tablets by mouth every 6 hours as needed for Severe Pain for up to 7 days. Do not take over 4000mg acetaminophen daily. 10 tablet 0 Multiple Vitamin (Multi-Vitamin) tablet Take 1 tablet by mouth daily. Nutritional Supplements (ENSURE ORIGINAL PO) Take by mouth daily. omeprazole [address] capsule Take 1 capsule by mouth daily. 30 capsule 0 tizanidine 4 MG capsule Take 1 capsule by mouth Every morning as needed. traMADol 50 MG tablet 1-2 tabs po q 6 hr PRN pain 20 tablet 0 No facility-administered medications prior to visit. Allergies: She is allergic to erythromycin and bee venom. documented in this encounter [facility] 03-12-2023 Evaluation + Plan note Associated Problem(s): Mild intermittent asthma without complication -She was able to get an albuterol inhaler that was affordable with her discount card and she states is working well for her asthma symptoms [facility] Work Phone: 03-12-2023 Miscellaneous Notes Associated Problem(s): Mild intermittent asthma without complication -She was able to get an albuterol inhaler that was affordable with her discount card and she states is working well for her asthma symptoms Associated Problem(s): Cervical spinal stenosis -We discussed going back to the pain clinic -She had an MRI on August 20, 2022 showed multilevel degenerative disc disease Associated Problem(s): Chronic headache -We feel her headaches are stemming from her cervical disc disease and we discussed going back to the pain clinic versus physical therapy. She will let me know -We discussed the importance of avoiding any mder-hup-kqclwhs NSAIDs and just to take Tylenol. She can also do heat therapy as well as massage therapy -She has been instructed to call or go to the emergency room immediately if she develops a severe headache or any neurologic deficits Associated Problem(s): Right upper quadrant abdominal mass -CT results were not back today during her visit so I have agreed to contact her with results -We do suspect that maybe she has a rib sprain from severe coughing documented in this encounter [facility] Work Phone: 03-12-2023 Evaluation + Plan note Associated Problem(s): Cervical spinal stenosis -We discussed going back to the pain clinic -She had an MRI on August 20, 2022 showed multilevel degenerative disc disease [facility] Work Phone: 03-12-2023 Evaluation + Plan note Associated Problem(s): Chronic headache -We feel her headaches are stemming from her cervical disc disease and we discussed going back to the pain clinic versus physical therapy. She will let me know -We discussed the importance of avoiding any hyur-wvw-xmfzhin NSAIDs and just to take Tylenol. She can also do heat therapy as well as massage therapy -She has been instructed to call or go to the emergency room immediately if she develops a severe headache or any neurologic deficits [facility] Work Phone: 03-12-2023 Evaluation + Plan note Associated Problem(s): Right upper quadrant abdominal mass -CT results were not back today during her visit so I have agreed to contact her with results -We do suspect that maybe she has a rib sprain from severe coughing [facility] Work Phone: 03-12-2023 History of Present illness Narrative Subjective Patient ID: Faviola Valle is a 72 y.o. female who presents for Follow-up (Rev testing.). Abdominal Pain The onset quality is undetermined. The problem occurs intermittently. The problem has been unchanged. The pain is located in the RUQ. The pain is at a severity of 1/10. The quality of the pain is a sensation of fullness. The abdominal pain radiates to the RUQ. Associated symptoms include constipation. Pertinent negatives include no fever or weight loss. The pain is aggravated by certain positions. The pain is relieved by Nothing. Prior diagnostic workup includes CT scan. HISTORY PER PATIENT ABOVE She is here today for follow-up in regards to her right upper quadrant abdominal pain. We actually ordered liver enzymes which came back entirely normal. She had a CT scan yesterday and unfortunately the results are not back. I have agreed to contact her. When I push on her rib region she is very tender and she does state that a few weeks ago she had a severe coughing jag and she felt a pop . I told her it is possible she may have sprained her rib and that would be the next thing we would think about. I did explain that rib strains or fractures can take a long time to heal. She also mentioned that she is having her chronic neck pain and sometimes headaches. She has been a patient of the pain clinic and she had an MRI performed back on August 21, 2022. It describes multilevel degenerative disc disease with a C4-C5 disc displacement barely encroaching into the spinal canal. She also has moderate right and mild left foraminal stenosis. At the C5-C6 level she has mild spinal canal stenosis and at the see 6-C7 she has mild left foraminal stenosis. She states that she is pretty sure that this is what is contributing to her headaches. We talked about either going back to the pain clinic or physical therapy. She states she will think about it. She knows not to take any NSAIDs for headache since she is on a blood thinner and this could increase her risk of bleeding. Review of Systems Constitutional: Negative for fever and weight loss. Respiratory: Negative for shortness of breath. Gastrointestinal: Positive for abdominal pain and constipation. Objective Physical Exam Vitals and nursing note reviewed. Constitutional: General: She is not in acute distress. Appearance: Normal appearance. HENT: Head: Normocephalic and atraumatic. Eyes: Conjunctiva/sclera: Conjunctivae normal. Cardiovascular: Rate and Rhythm: Normal rate and regular rhythm. Heart sounds: Normal heart sounds. Pulmonary: Effort: No respiratory distress. Breath sounds: No wheezing. Abdominal: Palpations: Abdomen is soft. Tenderness: There is no abdominal tenderness. There is no guarding. Musculoskeletal: General: No swelling. Normal range of motion. Skin: General: Skin is warm and dry. Neurological: General: No focal deficit present. Mental Status: She is alert and oriented to person, place, and time. Psychiatric: Behavior: Behavior normal. Recent Results (from the past 168 hour(s)) Hepatic Function Panel Collection Time: 03/07/23 9:13 AM Result Value Ref Range Albumin 4.3 3.4 - 5.0 g/dL Total Bilirubin 0.5 0.0 - 1.2 mg/dL Bilirubin, Direct 0.1 0.0 - 0.3 mg/dL Alkaline Phosphatase 83 33 - 136 U/L ALT (SGPT) 24 7 - 45 U/L AST 26 9 - 39 U/L Total Protein 6.6 6.4 - 8.2 g/dL Assessment/Plan Problem List Items Addressed This Visit Cervical pain (neck) Chronic headache -We feel her headaches are stemming from her cervical disc disease and we discussed going back to the pain clinic versus physical therapy. She will let me know -We discussed the importance of avoiding any [id number] NSAIDs and just to take Tylenol. She can also do heat therapy as well as massage therapy -She has been instructed to call or go to the emergency room immediately if she develops a severe headache or any neurologic deficits Mild intermittent asthma without complication -She was able to get an albuterol inhaler that was affordable with her discount card and she states is working well for her asthma symptoms Right upper quadrant abdominal mass - Primary -CT results were not back today during her visit so I have agreed to contact her with results -We do suspect that maybe she has a rib sprain from severe coughing Mary Webster DO documented in this encounter [facility] Work Phone: 03-12-2023 Instructions Mary Webster DO - 03/12/2023 8:00 AM EDT When your CT scan results come back I will notify you with the results As we discussed it is possible that you may have sprained your rib when you did the deep coughing a few weeks ago Please let me know what you decide to do about your neck pain and headaches and please remember to refrain from taking any [id number] NSAIDs documented in this encounter [facility] Work Phone: 12-13-2022 Evaluation + Plan note Associated Problem(s): Dysuria -She was treated for preoperative urinary tract infection on November 05, 2022 -Because of her symptoms currently we will have her submit another urine specimen to the hospital lab for a culture and we will contact her with the results -Her significant other, Richie , will come and get supplies to collect the specimen and then take it to the lab. [facility] Work Phone: 12-13-2022 Miscellaneous Notes Associated Problem(s): Dysuria -She was treated for preoperative urinary tract infection on November 05, 2022 -Because of her symptoms currently we will have her submit another urine specimen to the hospital lab for a culture and we will contact her with the results -Her significant other, Richie , will come and get supplies to collect the specimen and then take it to the lab. documented in this encounter [facility] Work Phone: 12-13-2022 History of Present illness Narrative Subjective Patient ID: Faviola Valle is a 72 y.o. female who presents for No chief complaint on file.. HPI She completed her hip surgery on November 26 and has done remarkably well. She is still convalescing at home. We are reminded that she had a preoperative urinalysis performed which oddly showed a urinary tract infection even though she was not particularly symptomatic. She completed a course of Macrobid in early November. She states more recently she has been having some increased urinary frequency with slight dysuria and so we will be checking a urine to make sure she does not have a current infection. She states that her significant other Richie will come and hot die picker a kit and then he will take her to the hospital. We also reviewed her past medical history and her problem list as well as her medications. We discussed her previous colonoscopy and we do not have record of that but she states she will be dropping off a copy to our office. She sees Dr. Moser regularly because of a history of colon polyps and her last colonoscopy was in 2019. She is also due for screening mammogram and we will help get that scheduled. She also is successfully bridging from Eliquis to her warfarin and will be off the Eliquis by Friday. She states her incisions are healing well and she is feeling fine. Review of Systems Constitutional: Positive for fatigue. Respiratory: Negative for cough, chest tightness, shortness of breath and wheezing. Cardiovascular: Negative for chest pain, palpitations and leg swelling. Gastrointestinal: Negative for abdominal pain, blood in stool, diarrhea, nausea and vomiting. Musculoskeletal: Negative for arthralgias. Objective Physical Exam Constitutional: Appearance: Normal appearance. Pulmonary: Effort: Pulmonary effort is normal. Neurological: Mental Status: She is alert. Psychiatric: Mood and Affect: Mood normal. Behavior: Behavior normal. Assessment/Plan Problem List Items Addressed This Visit Nervous Dysuria - Primary -She was treated for preoperative urinary tract infection on November 05, 2022 -Because of her symptoms currently we will have her submit another urine specimen to the hospital lab for a culture and we will contact her with the results -Her significant other, Richie , will come and get supplies to collect the specimen and then take it to the lab. Relevant Orders Urine Culture Other Visit Diagnoses Encounter for screening mammogram for malignant neoplasm of breast Relevant Orders BI mammo bilateral screening tomosynthesis Mary Webster DO documented in this encounter [facility] Work Phone: 12-13-2022 Instructions Mary Webster DO - 12/13/2022 10:20 AM EDT She will have her significant other hot die picker supplies to collect a urine specimen and they will drop it off at the hospital lab We will contact them with results She will provide a copy of her last colonoscopy to our office and she goes regularly to her black ash burner operator for colonoscopies due to colon polyps She will also try to schedule her mammogram as soon as possible documented in this encounter [facility] Work Phone: 11-07-2022 Evaluation + Plan note Associated Problem(s): Acute cystitis without hematuria -Her recent urine culture did grow out E. coli with multidrug resistance but sensitivities to nitrofurantoin so she is taking Macrobid twice daily which was began on the third and will take it for 7 days [facility] Work Phone: 11-07-2022 Miscellaneous Notes Associated Problem(s): Acute cystitis without hematuria -Her recent urine culture did grow out E. coli with multidrug resistance but sensitivities to nitrofurantoin so she is taking Macrobid twice daily which was began on the third and will take it for 7 days Associated Problem(s): Preop exam for internal medicine -She has had a history of coronary artery disease and she follows regularly with her refinery superintendent, Dr. Samuel. He recently sent notification to her surgeon regarding cardiac clearance. -I to have cleared her today with the understanding that she has some significant risk. I think her risk is sufficiently low enough to proceed with this necessary surgery -I feel strongly that she should have anticoagulation as follows -Bridging around the time of her surgery due to her history of multiple clotting events including pulmonary embolus -She will go to the Coumadin clinic to discuss possibly getting on Eliquis postoperatively for at least 4 weeks and then transition to Coumadin. I explained to her that sometimes they have a coupon for free medicine for 1 month. She will let me know. 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 -She has been on Coumadin therapy as this has been the most affordable to her. -She goes to [facility] Coumadin clinic regularly for checkups Associated Problem(s): Cancer (CMS/HCC) -She had surgery for basal cell cancer of the upper lip back in 2014 and had a Mohs procedure which came back free and clear. -She goes annually for dermatologic checkups at [facility] documented in this encounter [facility] Work Phone: 11-07-2022 Evaluation + Plan note Associated Problem(s): Preop exam for internal medicine -She has had a history of coronary artery disease and she follows regularly with her refinery superintendent, Dr. Samuel. He recently sent notification to her surgeon regarding cardiac clearance. -I to have cleared her today with the understanding that she has some significant risk. I think her risk is sufficiently low enough to proceed with this necessary surgery -I feel strongly that she should have anticoagulation as follows -Bridging around the time of her surgery due to her history of multiple clotting events including pulmonary embolus -She will go to the Coumadin clinic to discuss possibly getting on Eliquis postoperatively for at least 4 weeks and then transition to Coumadin. I explained to her that sometimes they have a coupon for free medicine for 1 month. She will let me know. 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 -She has been on Coumadin therapy as this has been the most affordable to her. -She goes to [facility] Coumadin clinic regularly for checkups [facility] Work Phone: 11-07-2022 Evaluation + Plan note Associated Problem(s): Cancer (CMS/HCC) -She had surgery for basal cell cancer of the upper lip back in 2014 and had a Mohs procedure which came back free and clear. -She goes annually for dermatologic checkups at [facility] Work Phone: 11-07-2022 History of Present illness Narrative Pt is here today for pre op exam having total right hip replacement 11/26/[address] Oneal. Subjective Patient ID: Faviola Valle is a 72 y.o. female who presents for No chief complaint on file.. HPI She is here today for preoperative assessment. She has a scheduled surgery for a right total hip arthroplasty on November 26, [address] Cheikh Oneal. She states she has already received cardiac clearance from her refinery superintendent, Dr. Samuel. We did conduct a review of systems and she has had no cardiopulmonary symptoms recently. She does have known heart disease and follows with Dr. Samuel. EKG showed normal sinus rhythm with nonspecific ST-T wave changes. We are reminded that she has had 2 prior clotting events including a pulmonary embolus. We discussed her propensity for clotting and she understands that she is considered a high risk individual when it comes to perioperative clotting issues. She goes to the Coumadin clinic regularly and is on warfarin. She has not been on any of the newer medications due to cost. I told her that I will have her go to the Coumadin clinic to discuss perioperative therapy. I told her that I think she should be bridged around the time of surgery which might be with either Eliquis or low molecular weight heparin depending on cost and if she can get a month supply of Eliquis I would recommend taking that postoperatively and then transitioning back to Coumadin. Again Adrián will be able to check on cost through the Coumadin clinic to see what is the most feasible. She does have a Jessica filter in place from 2010 and she has been against having any procedure to have it removed. Also recently with her preoperative testing it was discovered that she had bacteria in her urine consistent with a UTI. She had multiple resistant patterns but we discovered that it was sensitive to nitrofurantoin and she started taking an antibiotic on the third. She states is because little bit of gastrointestinal side effects but there are minor and she will take it for 7 days. At this point I am seeing no contraindications to proceeding with surgery as planned. She understands with any type of surgery there is always inherent risk which might include heart attack, stroke, blood clot, infection, or bleeding. Review of Systems Constitutional: Positive for fatigue. Respiratory: Negative for cough, chest tightness, shortness of breath and wheezing. Cardiovascular: Negative for chest pain, palpitations and leg swelling. Gastrointestinal: Negative for abdominal pain, blood in stool, diarrhea, nausea and vomiting. Objective Physical Exam Vitals and nursing note reviewed. Constitutional: General: She is not in acute distress. Appearance: Normal appearance. HENT: Head: Normocephalic and atraumatic. Eyes: Conjunctiva/sclera: Conjunctivae normal. Cardiovascular: Rate and Rhythm: Normal rate and regular rhythm. Heart sounds: Normal heart sounds. Pulmonary: Effort: No respiratory distress. Breath sounds: No wheezing. Abdominal: Palpations: Abdomen is soft. Tenderness: There is no abdominal tenderness. There is no guarding. Musculoskeletal: General: No swelling. Normal range of motion. Skin: General: Skin is warm and dry. Neurological: General: No focal deficit present. Mental Status: She is alert and oriented to person, place, and time. Psychiatric: Behavior: Behavior normal. 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 -She has been on Coumadin therapy as this has been the most affordable to her. -She goes to [facility] Coumadin clinic regularly for checkups Genitourinary Acute cystitis without hematuria -Her recent urine culture did grow out E. coli with multidrug resistance but sensitivities to nitrofurantoin so she is taking Macrobid twice daily which was began on the third and will take it for 7 days Other Cancer (CMS/HCC) - Primary -She had surgery for basal cell cancer of the upper lip back in 2015 and had a Mohs procedure which came back free and clear. -She goes annually for dermatologic checkups at [facility] exam for internal medicine -She has had a history of coronary artery disease and she follows regularly with her refinery superintendent, Dr. Samuel. He recently sent notification to her surgeon regarding cardiac clearance. -I to have cleared her today with the understanding that she has some significant risk. I think her risk is sufficiently low enough to proceed with this necessary surgery -I feel strongly that she should have anticoagulation as follows -Bridging around the time of her surgery due to her history of multiple clotting events including pulmonary embolus -She will go to the Coumadin clinic to discuss possibly getting on Eliquis postoperatively for at least 4 weeks and then transition to Coumadin. I explained to her that sometimes they have a coupon for free medicine for 1 month. She will let me know. Mary Webster DO documented in this encounter [facility] Work Phone: 11-07-2022 Instructions Mary Webster DO - 11/07/2022 10:00 AM EDT -Dr. Samuel and I have both cleared you for surgery -As you know with any type of surgical intervention there is potential risk for complications -Because of your prior clotting events it is important that we maintain adequate anticoagulation around the time of your surgery. -When you see Adrián today please discuss your options based on affordability. Eliquis would be ideal after surgery as it is easy to take and requires no monitoring. Hopefully they will be able to find a way for you to get it for 1 month with little cost. I also feel that you should have bridging around the time of your surgery as well and please discuss this at the Coumadin clinic. -Remember to complete your nitrofurantoin as directed for the total of 7 days -Please do not hesitate to call with any questions or concerns and I will otherwise see you back as planned documented in this encounter [facility] Work Phone: 08-29-2022 History of Present illness Narrative Ortho Nurse - Patient Intake Room#: 2--Visit today to evaluate Right hip pain. She has had hip pain on off for many years. The pain has become worse over the last 2 years. She did have a MRI in 2016. She did have a injections for hip 3 times. The last was in . This did not help with her pain. Her pain today is a 2. Date: 08/29/2022 1:23 PM Patient: Faviola Valle MR#: [id number] : 1950 Age: 72 y.o. Referring Physician: Cheikh Oneal MD Insurance: Payor: MEDICARE / Plan: MEDICARE A AND B / Product Type: *No Product type* / Chief Complaint Patient presents with Right Hip - Pain, New Patient Visit Vitals Temp 98.1 F (36.7 C) (Temporal) Ht 1.626 m (5' 4) Wt 69.9 kg (154 lb) BMI 26.43 kg/m Pain Presence of Pain: complains of pain/discomfort Pain Location: hip, right Select Pain Scale: DVPRS (Defense and Veterans Pain Rating Scale) (Adult-Cognitively Intact) Pain Location: hip, right Select Pain Scale: DVPRS (Defense and Veterans Pain Rating Scale) (Adult-Cognitively Intact) Recent Labs No results found for: CRP No results found for: SEDRATE No results found for: WBC, WBCCOUNT, WBCFETAL, HGB, HCT, PLATELET, MCV History Past Medical History: Diagnosis Date Asthma CAD (coronary artery disease) Hyperlipidemia CO (myocardial infarction) Pulmonary embolism Past Surgical History: Procedure Laterality Date IVC FILTER PLACEMENT 2010 Jessica Filter placement--because of history of PE CORONARY STENT PLACEMENT 2 stents 1998 and 2014 Family History: Her family history is not on file. Social History: Her reports that she has quit smoking. Her smoking use included cigarettes. She has never used smokeless tobacco. She reports current alcohol use. She reports that she does not use drugs. Additional Social History Y N Notes Do you live alone? [] [x] Who lives with you: friend Do you have children? [x] [] How many: 4 Do you currently work? [] [x] What type of work do you do: Do you have stairs in the home? [x] [] How many do you have to climb to enter your home: 5 What services do you currently receive at home? [] [x] Name: Do you have transportation to go to outpatient therapy if needed? [x] [] What Equipment do you have at home? [x] [] [x]Walker, []Crutches, []Commode Chair, [x]Shower []Chair, [x]cane, []bracing Are you followed by a refinery superintendent? [x] [] Name: Dr. Jean-Baptiste--[facility] Are you followed by pain management? [x] [] Name: Dr. Felisa Webb--[place] Are you followed by any other specialists? [] [x] Name: Outpatient Medications Prior to Visit Medication Sig Dispense Refill acetaminophen 500 MG tablet Take 1 tablet by mouth Every 6 hours as needed. Albuterol 108 (90 Base) MCG/ACT Aero Soln inhaler Inhale 2 puffs. Atorvastatin 20 MG tablet Take 1 tablet by mouth. Biotin 1 MG capsule Take 1 capsule by mouth daily. Cetirizine (ZyrTEC Allergy) 10 MG tablet Take 1 tablet by mouth As directed as needed for Allergies. Cholecalciferol 50 MCG (2000 UT) capsule Take 1 capsule by mouth daily. Coenzyme Q10 100 MG tablet Take 1 tablet by mouth daily. Ezetimibe 10 MG tablet Take 1 tablet by mouth. fluticasone 50 MCG/ACT Suspension nasal spray 2 sprays by Nasal route daily. Folic Acid 400 MCG tablet Take 1 tablet by mouth daily. Ibuprofen 200 MG tablet Take 1 tablet by mouth Every 6 hours as needed. tizanidine 4 MG capsule Take 1 capsule by mouth Every morning as needed. vitamin E 400 units capsule Take 1 capsule by mouth daily. Warfarin 1 MG tablet Take 1 tablet by mouth. warfarin 5 MG tablet Take 1 tablet by mouth. No facility-administered medications prior to visit. Allergies: She is allergic to erythromycin. Y N Are you allergic to any metals? [] [x] If yes, what metals: Review of Systems System Y N Symptoms Constitutional [] [x] Weight Loss [] [x] Weight Gain [] [x] Chronic Fever [x] [] Insomnia Eyes [] [x] Resent Vision Change [x] [] Cataracts [] [x] Glaucoma [] [x] Any Hx of Metal Fragments in the Eye ENT [] [x] Loss of hearing [] [x] Hearing Aids [x] [] Seasonal Allergies [x] [] Dental Issues Cardiovascular [] [x] Chest Pain [] [x] Angina [] [x] Stent [] [x] Hypertension [] [x] Heart Murmur [] [x] Irregular Pulse [] [x] Pacemaker [] [x] Palpitations [x] [] High cholesteral Respiratory [] [x] Wheezing [] [x] Shortness of Breath [] [x] Pneumonia [] [x] Bronchitis [] [x] Sleep Apnea [] [x] COPD [] [x] Date/ LOC of last CXR: Gastrointestinal [] [x] Heartburn [] [x] Indigestion [] [x] Constipation [] [x] Ulcer [] [x] GI Stomach Bleed [] [x] Diarrhea [] [x] Colon Cancer [] [x] Acid Reflux [] [x] Blood in Stools Musculoskeletal [x] [] Arthritis [] [x] Muscle Weakness [x] [] Joint Pain [] [x] Back Pain [] [x] Fibromyalgia [] [x] Bone Infection [] [x] Swelling - Multiple Joints [] [x] Reflex Sympathetic Dystrophy Skin [] [x] Chronic Rash [] [x] Ulcers [] [x] Eczema [] [x] Psoriasis [] [x] Skin Cancer [] [x] Melanoma Neurologic [] [x] Numbness [] [x] Weakness or loss of sensation in arms or legs [] [x] Leg Pain / Sciatica [] [x] Headaches [] [x] Loss of bowel or bladder control Psychiatric [] [x] Anxiety [x] [] Claustrophobia [] [x] Other Psychiatric Problems Hematologic [] [x] Easy Bruising [] [x] Easy Bleeding [] [x] Blood Transfusion Date: Endocrine [] [x] Hypothyroid [] [x] Hyperthyroid [] [x] Hot Flashes [] [x] Hormone Replacement [] [x] Prednisone Use Does pt have dentures? no HPI: Patient is here today for evaluation of her right hip pain. She is a new patient for me. She is here today as a self referral. A pleasant 72 y.o. female with a history of progressive decline, physical function and decreased quality of life secondary to the hip pain for many years with worsening pain over the past two years. She presents with a highly complex array of symptoms upon exam today. She is experiencing locking, popping, catching and clicking. She has weakness, pain and instability. She is fearful of falling on a daily basis given her unpredictable ambulation. She has attempted trochanteric and intraarticular joint injections. Her pain is a 2/10 upon exam today. She is here today for evaluation and to determine treatment options for optimal terminal clerk management. PHYSICAL EXAM: This is an alert, oriented, and age-appropriate female. She is in no distress. Pleasant and cooperative. EXTREMITIES: The upper extremities have no gross deformity. Normal stability. 5/5 motor. Intact sensation. Normal coordination. Skin intact. Lower extremities have no gross deformity. Normal stability. 5/5 motor. Intact sensation. Normal coordination. Skin intact. Right hip demonstrates 90 flexion, no internal rotation with groin pain. Painful range of motion. Contralateral hip has full and supple motion. No pain. No impingement. No instability. Normal neurovascular status in lower extremities bilaterally. IMAGING: Plain film radiographs were reviewed. AP hip and pelvis demonstrate severe arthritis to right hip, loss of joint space, subchondral sclerosis, osteophyte formation, and [id number] contact. IMPRESSION: 1.) Severe symptomatic end-stage arthritis, right hip. 2.) CAD. 3.) History of PE. 4.) History of CO. PLAN: We have discussed in great detail the nature of the diagnosis, the natural history and expected progression which is likely worsening pain, instability with risks of falls, and additional joint wear and or bone loss. We have discussed the options for treatment including both conservative and operative treatments. We have discussed the risks, benefits, and alternatives to each treatment. Faviola is interested in surgical management in the form of a direct anterior right total hip replacement. Faviola understands that the potential benefits are reduced pain, improved stability and improved function. Faviola also understands that the major life or limb threatening risks include, but are not limited to: bleeding, infection, neurovascular injury including foot drop or paralysis, dislocation, component failure, implant loosening, leg length inequality, ligament or tendon disruption, fracture, stiffness, chronic pain, chronic limp, chronic disability, need for further surgery, blood clots in the extremities or lungs, stroke, heart attack, loss of limb, and ultimately loss of life. manager terminal expectations, risks and general implant survivorship were also discussed. Despite these risks, the patient would like to proceed with surgical planning. Today, we will initiate the pre-surgical process including nasal MRSA screening, scheduling an appointment for [facility] and the potential surgical date, and reviewing and signing the consent forms. I have reviewed the findings of my clinical staff below and agree with their assessment. Vitals: 08/29/22 1306 Temp: 98.1 degrees F (36.7 degrees C) TempSrc: Temporal Weight: 69.9 kg (154 lb) Height: 1.626 m (5' 4) Pain Presence of Pain: complains of pain/discomfort Pain Location: hip, right Select Pain Scale: DVPRS (Defense and Veterans Pain Rating Scale) (Adult-Cognitively Intact) Pain Location: hip, right Select Pain Scale: DVPRS (Defense and Veterans Pain Rating Scale) (Adult-Cognitively Intact) Recent Labs No results found for: CRP No results found for: SEDRATE No results found for: WBC, WBCCOUNT, WBCFETAL, HGB, HCT, PLATELET, MCV Past Medical History: Diagnosis Date Asthma CAD (coronary artery disease) Hyperlipidemia CO (myocardial infarction) Pulmonary embolism Past Surgical History: Procedure Laterality Date IVC FILTER PLACEMENT 2010 [place] Filter placement--because of history of PE CORONARY STENT PLACEMENT 2 stents 1998 and 2014 No family history on file. Social History Socioeconomic History Marital status: Single Tobacco Use Smoking status: Former Types: Cigarettes Smokeless tobacco: Never Vaping Use Vaping Use: Never used Substance and Sexual Activity Alcohol use: Yes Comment: social Drug use: Never Current Outpatient Medications: acetaminophen 500 MG tablet, Take 1 tablet by mouth Every 6 hours as needed., Disp: , Rfl: Albuterol 108 (90 Base) MCG/ACT Aero Soln inhaler, Inhale 2 puffs., Disp: , Rfl: Atorvastatin 20 MG tablet, Take 1 tablet by mouth., Disp: , Rfl: Biotin 1 MG capsule, Take 1 capsule by mouth daily., Disp: , Rfl: Cetirizine (ZyrTEC Allergy) 10 MG tablet, Take 1 tablet by mouth As directed as needed for Allergies., Disp: , Rfl: Cholecalciferol 50 MCG (2000 UT) capsule, Take 1 capsule by mouth daily., Disp: , Rfl: Coenzyme Q10 100 MG tablet, Take 1 tablet by mouth daily., Disp: , Rfl: Ezetimibe 10 MG tablet, Take 1 tablet by mouth., Disp: , Rfl: fluticasone 50 MCG/ACT Suspension nasal spray, 2 sprays by Nasal route daily., Disp: , Rfl: Folic Acid 400 MCG tablet, Take 1 tablet by mouth daily., Disp: , Rfl: Ibuprofen 200 MG tablet, Take 1 tablet by mouth Every 6 hours as needed., Disp: , Rfl: tizanidine 4 MG capsule, Take 1 capsule by mouth Every morning as needed., Disp: , Rfl: vitamin E 400 units capsule, Take 1 capsule by mouth daily., Disp: , Rfl: Warfarin 1 MG tablet, Take 1 tablet by mouth., Disp: , Rfl: warfarin 5 MG tablet, Take 1 tablet by mouth., Disp: , Rfl: Allergies Allergen Reactions Erythromycin Nausea and Vomiting documented in this encounter [facility] 07-05-2022 Note PROCEDURE DETAILS Preoperative Diagnosis: Unilateral primary osteoarthritis, right hip, M16.11 Postoperative Diagnosis: Unilateral primary osteoarthritis, right hip, M16.11 Surgeon: Pradip Webb Resident/Fellow/Other Hydraulic Press Operator: None of these were associated with this case Procedure: 1. R HIP INJ. Anesthesia: No anesthesiologist associated with this case Estimated Blood Loss: 0 Findings: NA Operative Report: Procedure: Intra-articular steroid injection into the right hip Diagnosis: Right hip arthritis Solution: 4 mL 0.5% bupivacaine with 1 mL of Kenalog 40 mg. 5 mL total Contrast: 2 mL Omnipaque Anesthesia: Local Total local: 2 mL lidocaine 1% Complications: None After informed consent was obtained the patient was brought to the OR and placed in the supine position. The area in question was prepped and draped in sterile fashion. An ipsilateral oblique fluoroscopic view of the right hip was obtained and after local anesthetic was injected into the skin a 22-gauge quincke needle was inserted into the skin and advanced into the joint at the junction of the femoral head and neck under intermittent fluoroscopic guidance. Contrast was administered which demonstrated appropriate intra-articular spread. The local anesthetic steroid solution was injected incrementally. Each needle was removed. Bleeding was nil. The patient tolerated the procedure well and was transferred to the recovery room in good condition. Attestation: Note Completion: Attending AttestationI performed the procedure without a resident Electronic Signatures: Pradip Webb) (Signed 05-Jul-2022 21:58) Authored: Post-Operative Note, Chart Review, Note Completion Last Updated: 05-Jul-2022 21:58 by Pradip Webb) [facility] 06-19-2022 History of Present illness Narrative On a scale of 0 to 10, the patient rates the pain at 0.now for both and neck lower back/ rt hip 10/10 at its worst.Pain Location: Neck Pain and across both sides.Pain Quality: Pressure, Sharp, Spasm, Tightness, Throbbing and throbbing and tightness in head, and hip is a grabbing sharp pain intermittently has pressure.Sensory/ Motor: Pins and [place] and in bialt hands with trigger point massage.Timing/Duration: Intermittent and > 12 weeks duration.Controlled Substance:I have personally reviewed the [place]ARRS report for FAVIOLA VALLE. I have considered the risks of abuse, dependence, addiction and diversion.OARRS empty.Exacerbating Factors: 1st thing in the morning, looking up over head work and after sitting for a while.Alleviating Factors: Massage, Medications, Moist Heat, Other: ___.24 Hour Behavior:Symptoms are worse in the am.Symptoms are the same as the day progresses.Symptoms are the same in the pm.Symptoms are worse when lying down.Effect of Movement on Symptoms:Bending makes symptoms worse. hard to straighten back up.Lying makes symptoms worse.Rising from sitting makes symptoms worse.Sitting doesn't change symptoms.Standing makes symptoms worse.Rising from supine to sitting makes symptoms worse.Turning makes symptoms worse.Walking makes symptoms worse.Twisting doesn't change symptoms.Weather doesn't change symptoms.Coughing/sneezing makes symptoms worse.Pulling motion makes symptoms worse.Lifting: Worse.Psychosocial Factors vs Last Visit:Physical Functioning: Worse.Family Relationships: Worse. cares for grand children and has trouble taking care of them.Social Relationships: Worse. do not go out as much.Mood: Worse.Sleep Patterns: Worse.Overall Functioning: Worse.Self Management Tools: patient is resting with positive response, patient is using heat with positive response, patient is using exercise with positive response, patient is using self massage with positive response, patient is using mindfulness with positive response and patient is using relaxation with positive response.Goals for Pain Management:Opioid Risk score 0 family history inknow she was adopted.Patient Education:Inj. education completed written and verbally. [facility] Work Phone: 05-13-2022 Chief complaint Narrative - Reported NPV here for evaluation of neck pain causing BOYCE 0/10 now and 10/10 at its worst when she has them and rt hip pain 0/10 now and 10/10 at its worst. Pain in neck started in her 30's can be brought on by the way she sleeps first thing in the morning, leaching or looking up, vacuuming and rt hip in 2020 hurts first thing in the morning after laying down or sitting for a long time. For her neck she has tried tizanidine, massage, ibuprofen, Tylenol( she cannot take too many NSAIDs due to Coumadin) and hot shower helps some, traction did not help,She had a 10+/10 BOYCE last week and nothing helped and for lower back PT and steroid injection x2 first one in 2020 helped second 05/04/22 has not helped. She has seen Orthopedic surgeon Dr Soto and Annemarie Chery in the system, and a neurologist Dr. Anderson in [place] for her neck and BOYCE. Here today to see what is wrong and what we can do to help her. at this time she is having a procedure that requires a ASA hold and Coumadin 6 mf 2 times a week.This is a 72-year-old female here for a new patient appointment for chief complaint of multifocal pain. She reports that she has pain in the neck on both sides or radiate up to the head and cause headaches. She has had these issues now for close to 30 years. She states the pain is brought on with neck motion. She has tried tizanidine with very limited benefit. She will occasionally use ibuprofen which helps but she tries to limit her use of it because she is on an anticoagulant and is not supposed to take NSAIDs. Tylenol does not seem to help as much. She also has lower back right hip and leg pain. She states the pain is worse in the right groin but it would also radiate down the right leg past the knee and will get numbness and tingling in that distribution. She states that symptoms are worse with weightbearing. She had seen Dr. Soto a year ago and had an intra-articular hip injection which kept her pain-free for about a year. She most recently underwent a trochanteric bursa injection but only got very limited relief. She reports the hip pain will interrupt her standing and walking. She only has mild symptoms on the left side. She denies additional neurologic symptoms or issues with bladder or bowel control. She has been through physical therapy with limited benefit.The patient's past medical, social, and family history along with medications and allergies are available and were reviewed. [facility] Work Phone: 04-13-2022 History of Present illness Narrative Agree with CC as documented. Patient states she is noticing an increase achiness over the last month to the right hip area. Patient states her symptoms are worse yesterday after having a pedicure and holding her leg in a awkward position. She does states she fell in November of this year and broke her right elbow. She did not result in any hip issues at that time. Patient did seek pain management evaluation for low back issues with Dr. Davis in [place]. He prescribed tizanidine which she is not experiencing any relief at this time. Patient continues to have low back pain and cervical neck pain which aggravate her with certain activities. She is interested in a local pain management referral. She does take Advil or Tylenol with slight improvements. Patient has not used any ice or heat to the hip. She is inquiring about a cortisone injection today. Last injection was to the right anterior hip per Dr. Soto approximately 1 year ago. [facility] [address] Work Phone: 02-21-2022 History of Present illness Narrative [facility] [address] [facility] [address] [facility] [id number] Chief Complaint Patient presents with Right Elbow - Follow-up Faviola Valle returns to the office today for follow-up on her right elbow fracture. She reports that the elbow is feeling much better. She denies any new injury or significant changes to the elbow. She is not had to take anything for pain. She does report some discomfort with certain ranges of motion and does occasionally have some tingling and numbness down into the hand. The patient's past medical history, surgical history, social history, family history, medications and allergies were reviewed with the patient today and are available in the chart for further review. Allergies Allergen Reactions Erythromycin Current Outpatient Medications: acetaminophen (TYLENOL) 500 MG tablet, Take 500 mg by mouth every 6 (six) hours as needed for pain ., Disp: , Rfl: albuterol sulfate (PROAIR HFA INHL), Inhale 2 puffs daily as needed ., Disp: , Rfl: aspirin 81 MG EC tablet, Take 81 mg by mouth daily ., Disp: , Rfl: atorvastatin (LIPITOR) 20 MG tablet, Take 20 mg by mouth Friday, Friday, Friday ., Disp: , Rfl: biotin 1 mg cap, Take 1 capsule by mouth daily ., Disp: , Rfl: cetirizine (ZYRTEC) 10 MG tablet, Take 10 mg by mouth daily as needed for allergies ., Disp: , Rfl: cholecalciferol, vitamin D3, 25 mcg (1,000 unit) capsule, Take 1,000 Units by mouth daily ., Disp: , Rfl: ezetimibe (ZETIA) 10 mg tablet, Take 10 mg by mouth M ., Disp: , Rfl: fluticasone propionate (FLONASE) 50 mcg/actuation nasal spray, Instill 2 sprays into each nostril daily ., Disp: , Rfl: folic acid (FOLVITE) 400 MCG tablet, Take 400 mcg by mouth daily ., Disp: , Rfl: ibuprofen (ADVIL,MOTRIN) 200 MG tablet, Take 200 mg by mouth every 6 (six) hours as needed for pain ., Disp: , Rfl: multivitamin with minerals tablet, Take 1 tablet by mouth daily ., Disp: , Rfl: tiZANidine (ZANAFLEX) 4 MG capsule, Take 4 mg by mouth nightly as needed for muscle spasms ., Disp: , Rfl: ubidecarenone (coenzyme Q10) 100 mg Tab, Take 100 mg by mouth daily ., Disp: , Rfl: vitamin E 400 UNIT capsule, Take 400 Units by mouth daily ., Disp: , Rfl: warfarin (COUMADIN) 1 MG tablet, Take 1 mg by mouth See Admin Instructions ., Disp: , Rfl: warfarin (COUMADIN) 5 MG tablet, Take 5 mg by mouth See Admin Instructions ., Disp: , Rfl: zinc sulfate (ZINC-220 ORAL), Take by mouth daily ., Disp: , Rfl: Past Medical History: Diagnosis Date Cancer (HCC) basal cell Cervical disc disease Chronic headache Colon polyp Coronary artery disease COVID-19 08/2020 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 Hyperlipidemia Liver cyst Myocardial infarction (HCC) 1998 Peripheral vascular disease (HCC) PE Past Surgical History: Procedure Laterality Date BREAST BIOPSY CARDIAC CATHETERIZATION 06/2015 SECTION CORONARY STENT PLACEMENT 1998 to [place] CORONARY STENT PLACEMENT 2014 Social History Socioeconomic History Marital status: Tobacco Use Smoking status: Former Types: Cigarettes Quit date: 2009 Years since quittin.5 Smokeless tobacco: Never Vaping Use Vaping Use: Former Substance and Sexual Activity Alcohol use: Not Currently Comment: occasional Drug use: Not Currently ROS: Review of Systems Musculoskeletal: Positive for myalgias. Negative for arthralgias and joint swelling. ORTHO: Right Elbow Exam Tenderness The patient is experiencing no tenderness. Range of Motion The patient has normal right elbow ROM. Other Erythema: absent Scars: absent Sensation: normal Pulse: present Imaging: Right elbow: Continued healing of radial head fracture. No new fracture or dislocation seen. No joint effusion. Assessment/Plan: After examination and reviewing of the patient x-ray images we discussed continued treatment options for the right elbow. At this point in time she is able to resume activities as tolerated. She is to continue with OTC pain medications if needed. If there is no improvement in the numbness of the right hand I did inform her that I would go ahead and and order a right upper extremity EMG for further diagnostic evaluation. She will contact the office if the symptoms have not resolved. I will see her back in approximately 3 months or sooner if needed. She does verbalize understanding and is in agreement with the treatment plan. documented in this encounter [facility] 01-22-2022 History of Present illness Narrative [facility] [address] [facility] [address] [facility] [id number] Chief Complaint Patient presents with Right Elbow - Follow-up Faviola Valle returns to the office today for follow-up on the right elbow. She has been wearing the sling since her last visit. She does report having intermittent periods of rest where she takes the arm out. She also complains of some intermittent numbness and tingling to the right hand and fingers mainly the thumb index and middle fingers. She does believe that this is positional as when she moves the elbow and arm that does seem to resolve. She denies any new injury or significant changes to the elbow. The patient's past medical history, surgical history, social history, family history, medications and allergies were reviewed with the patient today and are available in the chart for further review. Allergies Allergen Reactions Erythromycin Current Outpatient Medications: acetaminophen (TYLENOL) 500 MG tablet, Take 500 mg by mouth every 6 (six) hours as needed for pain ., Disp: , Rfl: albuterol sulfate (PROAIR HFA INHL), Inhale 2 puffs daily as needed ., Disp: , Rfl: aspirin 81 MG EC tablet, Take 81 mg by mouth daily ., Disp: , Rfl: atorvastatin (LIPITOR) 20 MG tablet, Take 20 mg by mouth Friday, Friday, Friday ., Disp: , Rfl: biotin 1 mg cap, Take 1 capsule by mouth daily ., Disp: , Rfl: cetirizine (ZYRTEC) 10 MG tablet, Take 10 mg by mouth daily as needed for allergies ., Disp: , Rfl: cholecalciferol, vitamin D3, 25 mcg (1,000 unit) capsule, Take 1,000 Units by mouth daily ., Disp: , Rfl: ezetimibe (ZETIA) 10 mg tablet, Take 10 mg by mouth ., Disp: , Rfl: fluticasone propionate (FLONASE) 50 mcg/actuation nasal spray, Instill 2 sprays into each nostril daily ., Disp: , Rfl: folic acid (FOLVITE) 400 MCG tablet, Take 400 mcg by mouth daily ., Disp: , Rfl: ibuprofen (ADVIL,MOTRIN) 200 MG tablet, Take 200 mg by mouth every 6 (six) hours as needed for pain ., Disp: , Rfl: multivitamin with minerals tablet, Take 1 tablet by mouth daily ., Disp: , Rfl: tiZANidine (ZANAFLEX) 4 MG capsule, Take 4 mg by mouth nightly as needed for muscle spasms ., Disp: , Rfl: ubidecarenone (coenzyme Q10) 100 mg Tab, Take 100 mg by mouth daily ., Disp: , Rfl: vitamin E 400 UNIT capsule, Take 400 Units by mouth daily ., Disp: , Rfl: warfarin (COUMADIN) 1 MG tablet, Take 1 mg by mouth See Admin Instructions ., Disp: , Rfl: warfarin (COUMADIN) 5 MG tablet, Take 5 mg by mouth See Admin Instructions ., Disp: , Rfl: zinc sulfate (ZINC-220 ORAL), Take by mouth daily ., Disp: , Rfl: 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 Hyperlipidemia Liver cyst Myocardial infarction (HCC) 1998 Peripheral vascular disease (HCC) PE Past Surgical History: Procedure Laterality Date BREAST BIOPSY CARDIAC CATHETERIZATION 06/2015 SECTION CORONARY STENT PLACEMENT 1998 to L[place] CORONARY STENT PLACEMENT 2014 Social History Socioeconomic History Marital status: Tobacco Use Smoking status: Former Pack years: 0.00 Types: Cigarettes Quit date: 2009 Years since quittin.4 Smokeless tobacco: Never Vaping Use Vaping Use: Former Substance and Sexual Activity Alcohol use: Not Currently Comment: occasional Drug use: Not Currently ROS: Review of Systems Musculoskeletal: Positive for myalgias. Negative for arthralgias and joint swelling. Neurological: Positive for numbness. PE: Physical Exam ORTHO: Right Elbow Exam Tenderness The patient is experiencing tenderness in the radial head. Range of Motion Pronation: 10 Supination: 120 Tests Varus: negative Valgus: negative Tinel's sign (cubital tunnel): negative Other Erythema: absent Scars: absent Sensation: normal Pulse: present Imaging: R Elbow: Stable alignment of the right radial head, unchanged from prior imaging. Assessment/Plan: After examination and reviewing of the patient x-ray images, I am happy with her progression thus far. She no longer needs to wear the sling. She is to work on range of motion but is to continue refraining from heavy lifting or pushing using the right elbow. I will see her back in 1 month for follow up. She verbalizes understanding and is in agreement with the treatment plan. documented in this encounter [facility] 12-18-2021 History of Present illness Narrative [facility] [address] [facility] [address] [facility] [id number] Chief Complaint Patient presents with Right Elbow - Follow-up Faviola Valle returns to the office today for her right elbow fracture. She has been wearing the sling to the right arm. She denies any numbness or tingling into the hand or into the fingers. She denies any change in temperature of the hand or the fingers. She does state that she has been moving it especially when she is at rest and she states that she is able to tolerate this well. She is having to take anything for pain. She denies any new injury or significant changes to the elbow. Overall, she does note that there is improvement of pain. The patient's past medical history, surgical history, social history, family history, medications and allergies were reviewed with the patient today and are available in the chart for further review. Allergies Allergen Reactions Erythromycin Current Outpatient Medications: acetaminophen (TYLENOL) 500 MG tablet, Take 500 mg by mouth every 6 (six) hours as needed for pain ., Disp: , Rfl: albuterol sulfate (PROAIR HFA INHL), Inhale 2 puffs daily as needed ., Disp: , Rfl: aspirin 81 MG EC tablet, Take 81 mg by mouth daily ., Disp: , Rfl: atorvastatin (LIPITOR) 20 MG tablet, Take 20 mg by mouth Friday, Friday, Friday ., Disp: , Rfl: biotin 1 mg cap, Take 1 capsule by mouth daily ., Disp: , Rfl: cetirizine (ZYRTEC) 10 MG tablet, Take 10 mg by mouth daily as needed for allergies ., Disp: , Rfl: cholecalciferol, vitamin D3, 25 mcg (1,000 unit) capsule, Take 1,000 Units by mouth daily ., Disp: , Rfl: ezetimibe (ZETIA) 10 mg tablet, Take 10 mg by mouth M ., Disp: , Rfl: fluticasone propionate (FLONASE) 50 mcg/actuation nasal spray, Instill 2 sprays into each nostril daily ., Disp: , Rfl: folic acid (FOLVITE) 400 MCG tablet, Take 400 mcg by mouth daily ., Disp: , Rfl: ibuprofen (ADVIL,MOTRIN) 200 MG tablet, Take 200 mg by mouth every 6 (six) hours as needed for pain ., Disp: , Rfl: multivitamin with minerals tablet, Take 1 tablet by mouth daily ., Disp: , Rfl: tiZANidine (ZANAFLEX) 4 MG capsule, Take 4 mg by mouth nightly as needed for muscle spasms ., Disp: , Rfl: ubidecarenone (coenzyme Q10) 100 mg Tab, Take 100 mg by mouth daily ., Disp: , Rfl: vitamin E 400 UNIT capsule, Take 400 Units by mouth daily ., Disp: , Rfl: warfarin (COUMADIN) 1 MG tablet, Take 1 mg by mouth See Admin Instructions ., Disp: , Rfl: warfarin (COUMADIN) 5 MG tablet, Take 5 mg by mouth See Admin Instructions ., Disp: , Rfl: zinc sulfate (ZINC-220 ORAL), Take by mouth daily ., Disp: , Rfl: psyllium (METAMUCIL) powder, Take 1 packet by mouth 3 (three) times a day as needed ., Disp: , Rfl: 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 Hyperlipidemia Liver cyst Myocardial infarction (HCC) 1998 Peripheral vascular disease (HCC) PE Past Surgical History: Procedure Laterality Date BREAST BIOPSY CARDIAC CATHETERIZATION 06/2015 SECTION CORONARY STENT PLACEMENT 1998 to LAD CORONARY STENT PLACEMENT 2014 Social History Socioeconomic History Marital status: Tobacco Use Smoking status: Former Pack years: 0.00 Types: Cigarettes Quit date: 2009 Years since quittin.3 Smokeless tobacco: Never Vaping Use Vaping Use: Former Substance and Sexual Activity Alcohol use: Not Currently Comment: occasional Drug use: Not Currently ROS: Review of Systems Musculoskeletal: Positive for arthralgias and myalgias. Imaging: Right elbow: Interval healing, early callus formation seen on the radial head. Fracture line less visible in comparison to images on 11/29/2021. Assessment: Patient does have full extension and flexion of the elbow with slight discomfort. Paper Pattern Folder strength is 4 out of 5. There is tenderness upon palpation of the radial head. No significant swelling or joint effusion noted. No ecchymosis. Plan: After examination and reviewing of the patient x-ray images we discussed continued treatment options for the right elbow fracture. I did inform that she does not have to wear her sling at this point in time. However I did suggest that she wear it at bedtime at least for the next couple of days just to get used to not having it on. She is to continue with OTC pain medications as needed. She is not able to push, lift or use the right arm in a twisting motion, such as to open up a door handle. She is to continue working on range of motion simple flexion and extension exercises. I will see her back in approximately 1 month for repeat imaging. She does verbalize understanding,is in agreement with the treatment plan. documented in this encounter [facility] 11-30-2021 History of Present illness Narrative [facility] [address] [facility] [address] [facility] [id number] Chief Complaint Patient presents with Right Elbow - Injury Faviola Valle, 71-year-old female, presents to the office today with right elbow pain. She reports that approximately 1 month ago she was changing a light bulb using a stepladder. She missed a step and ended up falling forward with her right hand stretched out. She reports that she had pain in the right wrist as well as in the elbow especially with certain movements but gave it some time thinking that it would get better. Unfortunately it only continue to worsen and she ended up in the emergency room. They did imaging of the right elbow and she was found to have a radial head fracture. She has been in a sling since the visit to the ER. She has been using OTC pain medications as needed. She denies any numbness or tingling down into the hand or the fingers. The patient's past medical history, surgical history, social history, family history, medications and allergies were reviewed with the patient today and are available in the chart for further review. Allergies Allergen Reactions Erythromycin Current Outpatient Medications: acetaminophen (TYLENOL) 500 MG tablet, Take 500 mg by mouth every 6 (six) hours as needed for pain ., Disp: , Rfl: albuterol sulfate (PROAIR HFA INHL), Inhale 2 puffs daily as needed ., Disp: , Rfl: aspirin 81 MG EC tablet, Take 81 mg by mouth daily ., Disp: , Rfl: atorvastatin (LIPITOR) 20 MG tablet, Take 20 mg by mouth Friday, Friday, Friday ., Disp: , Rfl: biotin 1 mg cap, Take 1 capsule by mouth daily ., Disp: , Rfl: cetirizine (ZYRTEC) 10 MG tablet, Take 10 mg by mouth daily as needed for allergies ., Disp: , Rfl: cholecalciferol, vitamin D3, 25 mcg (1,000 unit) capsule, Take 1,000 Units by mouth daily ., Disp: , Rfl: ezetimibe (ZETIA) 10 mg tablet, Take 10 mg by mouth M ., Disp: , Rfl: fluticasone propionate (FLONASE) 50 mcg/actuation nasal spray, Instill 2 sprays into each nostril daily ., Disp: , Rfl: folic acid (FOLVITE) 400 MCG tablet, Take 400 mcg by mouth daily ., Disp: , Rfl: ibuprofen (ADVIL,MOTRIN) 200 MG tablet, Take 200 mg by mouth every 6 (six) hours as needed for pain ., Disp: , Rfl: multivitamin with minerals tablet, Take 1 tablet by mouth daily ., Disp: , Rfl: psyllium (METAMUCIL) powder, Take 1 packet by mouth 3 (three) times a day as needed ., Disp: , Rfl: tiZANidine (ZANAFLEX) 4 MG capsule, Take 4 mg by mouth nightly as needed for muscle spasms ., Disp: , Rfl: ubidecarenone (coenzyme Q10) 100 mg Tab, Take 100 mg by mouth daily ., Disp: , Rfl: vitamin E 400 UNIT capsule, Take 400 Units by mouth daily ., Disp: , Rfl: warfarin (COUMADIN) 1 MG tablet, Take 1 mg by mouth See Admin Instructions ., Disp: , Rfl: warfarin (COUMADIN) 5 MG tablet, Take 5 mg by mouth See Admin Instructions ., Disp: , Rfl: zinc sulfate (ZINC-220 ORAL), Take by mouth daily ., Disp: , Rfl: 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 Hyperlipidemia Liver cyst Myocardial infarction (HCC) 1998 Peripheral vascular disease (HCC) PE Past Surgical History: Procedure Laterality Date BREAST BIOPSY CARDIAC CATHETERIZATION 06/2015 SECTION CORONARY STENT PLACEMENT 1998 to LAD CORONARY STENT PLACEMENT 2014 Social History Socioeconomic History Marital status: Tobacco Use Smoking status: Former Smoker Quit date: 2009 Years since quittin.3 Smokeless tobacco: Never Used Vaping Use Vaping Use: Former Substance and Sexual Activity Alcohol use: Not Currently Comment: occasional Drug use: Not Currently ROS: Review of Systems Constitutional: Negative for activity change and fatigue. HENT: Negative for congestion, hearing loss and trouble swallowing. Eyes: Negative for visual disturbance. Respiratory: Negative for chest tightness and shortness of breath. Cardiovascular: Negative for chest pain and palpitations. Gastrointestinal: Negative for abdominal pain, diarrhea, nausea and vomiting. Endocrine: Negative for polydipsia, polyphagia and polyuria. Genitourinary: Negative for decreased urine volume, difficulty urinating and hematuria. Musculoskeletal: Positive for arthralgias, joint swelling and myalgias. Skin: Negative for color change, rash and wound. Allergic/Immunologic: Negative for immunocompromised state. Neurological: Negative for dizziness, weakness, light-headedness and numbness. Hematological: Does not bruise/bleed easily. Psychiatric/Behavioral: Negative for confusion and sleep disturbance. The patient is not nervous/anxious. PE: Physical Exam Constitutional: Appearance: She is well-developed. HENT: Head: Normocephalic. Eyes: Pupils: Pupils are equal, round, and reactive to light. Cardiovascular: Rate and Rhythm: Normal rate and regular rhythm. Pulmonary: Effort: Pulmonary effort is normal. Breath sounds: Normal breath sounds. Abdominal: General: Bowel sounds are normal. Palpations: Abdomen is soft. Musculoskeletal: General: Tenderness present. Normal range of motion. Cervical back: Normal range of motion and neck supple. Skin: General: Skin is warm and dry. Neurological: Mental Status: She is alert and oriented to person, place, and time. ORTHO: Right Elbow Exam Tenderness The patient is experiencing tenderness in the radial head and radial capitellar joint. Range of Motion Extension: 0 Flexion: 120 Pronation: 10 Supination: 110 Other Erythema: absent Scars: absent Sensation: normal Pulse: present Imaging: R Elbow: Nondisplaced fracture through the neck of the radius. There is a joint effusion. No dislocation. Assessment/Plan: After exam and reviewing of the patient x-ray images, we discussed treatment options for the right elbow. I am going to keep her in the sling for one more week and then she is able to take it off. She is then to only do range of motion and no heavy lifting or pushing off with the arm. I will see her back in 2 weeks for repeat imaging. OTC pain medications as needed. documented in this encounter [facility] 11-30-2021 History of Present illness Narrative Interventional Cardiology Vitual Visit Follow-up Heart & Vascular [facility] 11/30/2021 Marv Kolb MD [address] [facility] [address] [place] [id number] Patient: Faviola Valle Date of : 1950 (71 y.o.) Referring Provider: No ref. provider found PCP: Mary Webster DO Patient location: home Patient phone : [phone] This visit has been fully reviewed with the patient and verbal consent has been obtained. Virtual Visit Consent Statement: I discussed risks, benefits and alternatives of telemedicine consultation with the patient (and any accompanying persons) including the risks that the patient s personal health details and medical records will be discussed over interactive video/audio/telecommunication technology, may be recorded, and that there are inherent diagnostic limitations compared to [id number] evaluations. They elected to proceed with the telemedicine consultation. Assessment & Plan Hyperlipidemia Reviewed her lipid panel and [id number] , she currently takes atrovastatin 20 3x/week so I recommended it daily Coronary artery disease No angina, relatively active Doing well, Medications reviewed and recommended to continue asa Followup 1 year Follow-up: Return in about 1 year (around 11/30/2022). Pt seen for: Problem Coronary Artery Disease 1998 LAD stent with CO 2014 Cx stent--(DMS)-Bliss( not feeling well) Hyperlipidemia HPI: Mother passed in July, --also fell and broke her arm--no cardiac issues ECG 12 lead Final Result by Marv Kolb MD (11/27/2020 0834) Physical appearance/inspection looks good Review of Systems: ROS per MA list were reviewed--Pertinent positive and negative findings are also noted in the HPI Allergies: Erythromycin HOME Medications: Current Outpatient Medications on File Prior to Visit Medication Sig acetaminophen (TYLENOL) 500 MG tablet Take 500 mg by mouth every 6 (six) hours as needed for pain . albuterol sulfate (PROAIR HFA INHL) Inhale 2 puffs daily as needed . aspirin 81 MG EC tablet Take 81 mg by mouth daily . atorvastatin (LIPITOR) 20 MG tablet Take 20 mg by mouth Friday, Friday, Friday . biotin 1 mg cap Take 1 capsule by mouth daily . cetirizine (ZYRTEC) 10 MG tablet Take 10 mg by mouth daily as needed for allergies . cholecalciferol, vitamin D3, 25 mcg (1,000 unit) capsule Take 1,000 Units by mouth daily . ezetimibe (ZETIA) 10 mg tablet Take 10 mg by mouth . fluticasone propionate (FLONASE) 50 mcg/actuation nasal spray Instill 2 sprays into each nostril daily . folic acid (FOLVITE) 400 MCG tablet Take 400 mcg by mouth daily . ibuprofen (ADVIL,MOTRIN) 200 MG tablet Take 200 mg by mouth every 6 (six) hours as needed for pain . multivitamin with minerals tablet Take 1 tablet by mouth daily . tiZANidine (ZANAFLEX) 4 MG capsule Take 4 mg by mouth nightly as needed for muscle spasms . ubidecarenone (coenzyme Q10) 100 mg Tab Take 100 mg by mouth daily . vitamin E 400 UNIT capsule Take 400 Units by mouth daily . warfarin (COUMADIN) 1 MG tablet Take 1 mg by mouth See Admin Instructions . warfarin (COUMADIN) 5 MG tablet Take 5 mg by mouth See Admin Instructions . zinc sulfate (ZINC-220 ORAL) Take by mouth daily . psyllium (METAMUCIL) powder Take 1 packet by mouth 3 (three) times a day as needed . No current facility-administered medications on file prior to visit. Provider location: [facility] [address] [facility] [address] [facility] [id number] Patient location: [facility] [id number] No results found for: CHOL, LDLCALC, LDLDIRECT, TRIG, HDL documented in this encounter [facility] 11-30-2021 Evaluation + Plan note Associated Problem(s): Coronary artery disease No angina, relatively active Doing well, Medications reviewed and recommended to continue asa Followup 1 year [facility] 11-30-2021 Miscellaneous Notes Associated Problem(s): Coronary artery disease No angina, relatively active Doing well, Medications reviewed and recommended to continue asa Followup 1 year Associated Problem(s): Hyperlipidemia Reviewed her lipid panel and [id number] , she currently takes atrovastatin 20 3x/week so I recommended it daily documented in this encounter [facility] 11-30-2021 Evaluation + Plan note Associated Problem(s): Hyperlipidemia Reviewed her lipid panel and [id number] , she currently takes atrovastatin 20 3x/week so I recommended it daily [facility] 05-02-2021 History of Present illness Narrative Pleasant 71-year-old female presented for follow-up of right hip pain. 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 Patient also had some significant degenerative changes of the low back, there was a question of radicular component to her pain. Unfortunately she had significant relief of her right hip and thigh symptoms after hip joint injection 3 months ago, still feeling pretty good, so she will get an occasional twinge in her hip but still feeling good relief. She says that she is mostly here because of some low back discomfort. 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 She points to near the left SI joint as area of most discomfort. Again pain is most notable lifting, turning her mother at home. She is on Coumadin so is limited in [id number] medications she can take for this, does take Tylenol and occasional Advil for pain. She has done physical therapy for her back in the remote past, nothing recent, says she is limited in her ability to attend therapy because of caring for her mother currently. [facility] Work Phone: 04-26-2021 History of Present illness Narrative Pleasant 71-year-old female presented for follow-up of right hip pain. 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 Patient also had some significant degenerative changes of the low back, there was a question of radicular component to her pain. Unfortunately she had significant relief of her right hip and thigh symptoms after hip joint injection 3 months ago, still feeling pretty good, so she will get an occasional twinge in her hip but still feeling good relief. She says that she is mostly here because of some low back discomfort. 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 She points to near the left SI joint as area of most discomfort. Again pain is most notable lifting, turning her mother at home. She is on Coumadin so is limited in [id number] medications she can take for this, does take Tylenol and occasional Advil for pain. She has done physical therapy for her back in the remote past, nothing recent, says she is limited in her ability to attend therapy because of caring for her mother currently. [facility] Work Phone: 04-18-2021 History of Present illness Narrative Pleasant 71-year-old female presented for follow-up of right hip pain. Initial visit with me was approximately 3 months ago, referred by Agnes Chery for ultrasound-guided hip joint injection in setting of moderate to advanced degenerative changes of the right hip joint that had failed conservative management with physical therapy, oral [id number] and prescription medications. Patient also had some significant degenerative changes of the low back, there was a question of radicular component to her pain. Unfortunately she had significant relief of her right hip and thigh symptoms after hip joint injection 3 months ago, still feeling pretty good, so she will get an occasional twinge in her hip but still feeling good relief. She says that she is mostly here because of some low back discomfort. 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 She points to near the left SI joint as area of most discomfort. Again pain is most notable lifting, turning her mother at home. She is on Coumadin so is limited in cujr-ykj-vommlyx medications she can take for this, does take Tylenol and occasional Advil for pain. She has done physical therapy for her back in the remote past, nothing recent, says she is limited in her ability to attend therapy because of caring for her mother currently. [facility] [address] Work Phone: 03-29-2021 History of Present illness Narrative Patient is a pleasant 71-year-old female referred by Agnes Chery for consideration of ultrasound-guided right hip joint injection in setting of moderate osteoarthritis, was seen by Agnes approximately 3 weeks ago, trialed on some oral anti-inflammatories with minimal improvement in symptoms, still having some anterior hip/groin pain. [facility] [address] Work Phone: 03-28-2021 History of Present illness Narrative Patient is a pleasant 71-year-old female referred by Agnes Chery for consideration of ultrasound-guided right hip joint injection in setting of moderate osteoarthritis, was seen by Agnes approximately 3 weeks ago, trialed on some oral anti-inflammatories with minimal improvement in symptoms, still having some anterior hip/groin pain. [facility] Work Phone: 12-11-2020 History of Present illness Narrative Patient was identified by name and date. IASTM/STM completed to reduce soft tissue restrictions at R hip musculature Noted any active hip ER produced sharp intermittent pain /10, but did not reports c/o with passive. She completed all LE PREs and core stability without c/o. [facility] Work Phone: 11-27-2020 History of Present illness Narrative Patient Name: Faviola Valle MR #: [id number] Interventional Cardiology Marv Kolb MD, [facility] 11/27/20 Dear Mary Webster DO, Faviola Valle was seen in follow up for : Problem Coronary Artery Disease 1998 LAD stent with CO 2014 Cx stent--(DMS)-Bliss( not feeling well) Hyperlipidemia Assessment and Plan Coronary artery disease HAd COVID so not as active, but no angina Doing well, Medications reviewed and will continue current meds Followup 1 year Hyperlipidemia Last chol reviewed--ldl-84 Last INR-2.7 Thank you or allowing me to participate in the care of your patients. No orders of the defined types were placed in this encounter. Return in about 1 year (around 11/27/2021). EKG:Normal sinus rhythm. Subjective: Faviola Valle is a 70 y.o. y/o female : No comlaints Imaging: I independently reviewed the LAbs and agree with the interpretation(s) with the following comments. Denies chest discomfort, sob, palpitations, pnd, orthopnea,edema or syncope. 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 HEENT: Normocephalic, nl conjunctiva Neck: Supple, no gross thyromegaly,no palpable neck adenopathy Cardiovascular: Regular rate and rhythm. no murmurs, .No JVD, No Carotid Bruits, no LE edema :Respiratory: Clear to auscultation bilaterally without wheezes, rhonchi, or rales Abdominal: soft, nontender, nondistended,no gross HSM or masses noted. Skin: Normal turgor,no major peripheral rashes noted. Extremities : No clubbing, cyanosis Neurological: Cranial nerves 2 through 12 intact grossly. No focal neurological deficits noted. Psych: Normal mood and affect. ROS/MA were reviewed Home Medications: Patient's Medications New Prescriptions No medications on file Previous Medications ACETAMINOPHEN (TYLENOL) 500 MG TABLET Take 500 mg by mouth every 6 (six) hours as needed for pain . ALBUTEROL SULFATE (PROAIR HFA INHL) Inhale 2 puffs daily as needed . ASPIRIN 81 MG EC TABLET Take 81 mg by mouth daily . ATORVASTATIN (LIPITOR) 20 MG TABLET Take 20 mg by mouth Friday, Friday, Friday . BIOTIN 1 MG CAP Take 1 capsule by mouth daily . CETIRIZINE (ZYRTEC) 10 MG TABLET Take 10 mg by mouth daily as needed for allergies . CHOLECALCIFEROL, VITAMIN D3, (VITAMIN D3) 1,000 UNIT CAPSULE Take 1,000 Units by mouth daily . EZETIMIBE (ZETIA) 10 MG TABLET Take 10 mg by mouth M W . FLUTICASONE PROPIONATE (FLONASE) 50 MCG/ACTUATION NASAL SPRAY Instill 2 sprays into each nostril daily . FOLIC ACID (FOLVITE) 400 MCG TABLET Take 400 mcg by mouth daily . IBUPROFEN (ADVIL,MOTRIN) 200 MG TABLET Take 200 mg by mouth every 6 (six) hours as needed for pain . MULTIVITAMIN WITH MINERALS TABLET Take 1 tablet by mouth daily . PSYLLIUM (METAMUCIL) POWDER Take 1 packet by mouth 3 (three) times a day as needed . TIZANIDINE (ZANAFLEX) 4 MG CAPSULE Take 4 mg by mouth nightly as needed for muscle spasms . UBIDECARENONE (COENZYME Q10) 100 MG TAB Take 100 mg by mouth daily . VITAMIN E 400 UNIT CAPSULE Take 400 Units by mouth daily . WARFARIN (COUMADIN) 1 MG TABLET Take 1 mg by mouth See Admin Instructions . WARFARIN (COUMADIN) 5 MG TABLET Take 5 mg by mouth See Admin Instructions . ZINC SULFATE (ZINC-220 ORAL) Take by mouth daily . Modified Medications No medications on file Discontinued Medications No medications on file Review of Systems Constitution: Negative for diaphoresis, malaise/fatigue, weight gain and weight loss. HENT: Negative for hearing loss, nosebleeds and tinnitus. Eyes: Negative for blurred vision and visual disturbance. Cardiovascular: Negative for chest pain, claudication, cyanosis, dyspnea on exertion, irregular heartbeat, leg swelling, near-syncope, orthopnea, palpitations, paroxysmal nocturnal dyspnea and syncope. Respiratory: Negative for hemoptysis, shortness of breath and snoring. Endocrine: Negative for cold intolerance and heat intolerance. Hematologic/Lymphatic: Does not bruise/bleed easily. Skin: Negative for flushing, poor wound healing and rash. Musculoskeletal: Negative for back pain, muscle weakness and myalgias. Gastrointestinal: Negative for abdominal pain, change in bowel habit, melena, nausea and vomiting. Genitourinary: Negative for decreased libido and hematuria. Neurological: Negative for loss of balance and numbness. Psychiatric/Behavioral: Negative for memory loss. The patient is not nervous/anxious. documented in this encounter [facility] 11-27-2020 Miscellaneous Notes Associated Problem(s): Hyperlipidemia Last chol reviewed--ldl-84 Last INR-2.7 Associated Problem(s): Coronary artery disease HAd COVID so not as active, but no angina Doing well, Medications reviewed and will continue current meds Followup 1 year documented in this encounter [facility] 11-27-2020 Instructions Elvia Latham MA - 11/27/2020 8:15 AM EDT How to contact your Care Team: Provider: Dr. Kolb Nurse: Ida Samaniego RN In case of an emergency please call 911. REFILLS: When in need for refills please call your care team or the office at [phone]. Please include medication name, pharmacy name, and specify 30-day or 90-day supply. Please check with your pharmacy within 24 hours of request for your refill. You must follow up as directed to continue current refills. Thank you! documented in this encounter [facility] Chief complaint Narrative - Reported Pt is here today to discuss her up coming dental procedure. This note was generated by using Say[employer] software. It may contain errors in wording, punctuate, or spelling.She is here today for a preprocedural consultation. She has been seeing Dr. Staton for her dental issues and the decision was made to do for tooth extractions as well as for dental implants placed under deep sedation . She had several questions and had posed several concerns about her ability to have this procedure so a note was sent to me about those concerns. We had her come in to discuss the issue at hand. She states that she has several teeth missing and that the teeth that are being removed now are because she wants the implants and it would make it easier structurally to complete the task. We talked about the various forms of anesthetic and she understands that the 1 that they are going to use does not put an individual completely under . We discussed that during this type of sedation there is careful monitoring of vital signs and airway. There should be a qualified individual there to handle any problems should she run into reaction to the medication. She states she has never had fentanyl or propofol before. I told her that 1 cannot know how they will respond to those medications until they have them. She understands that in any procedural circumstance something can go wrong even with the best clinicians and best circumstances. I think however it is highly unlikely. She has had a history of heart disease but she has no cardiopulmonary symptoms at this time. She is very physically active. She ends up climbing 13 steps in her home many times a day without any cardiopulmonary symptoms. 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 I believe that her cardiac condition is stable. She is also on Coumadin because of previous clotting events. The good news is her dental surgeon will be satisfied with an INR around 2.5 or slightly less and we will have the Coumadin clinic give advice on her Coumadin dosing regimen around the time of this procedure. I told her today that I do not see any contraindications to proceeding with this procedure and I believe that her risk is sufficiently low enough to reasonably proceed with this procedure. She understands that ultimately the decision is her own and if would make her feel better she could sit down with the clinician again to go over the steps of the procedure so she is satisfied with the information that she receives. [facility] Work Phone: Evaluation note Diagnosis 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 Mixed hyperlipidemia [facility] Diagnosis Mixed hyperlipidemia 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 [facility] Diagnosis Closed nondisplaced fracture of head of right radius, initial encounter- Primary [facility] Diagnosis 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- Primary [facility] Diagnosis Closed nondisplaced fracture of head of right radius, initial encounter- Primary [facility]* Diagnosis Right hip pain- Primary Pain in joint, pelvic region and thigh [facility]* Diagnosis Cancer (CMS/HCC)- Primary Other malignant neoplasm of unspecified site Multiple subsegmental pulmonary emboli without acute cor pulmonale (CMS/HCC) Preop exam for internal medicine Other specified pre-operative examination Acute cystitis without hematuria documented in this encounter [facility] Work Phone: Evaluation note* Diagnosis Dysuria- Primary Encounter for screening mammogram for malignant neoplasm of breast documented in this encounter [facility] Work Phone: Evaluation note* Diagnosis Right upper quadrant abdominal mass- Primary Abdominal or pelvic swelling, mass, or lump, right upper quadrant Cervical pain (neck) Cervicalgia Chronic nonintractable headache, unspecified headache type Mild intermittent asthma without complication documented in this encounter [facility] Work Phone: Evaluation note* Diagnosis Hx of total hip arthroplasty, right- Primary [facility] Diagnosis Constipation, unspecified constipation type- Primary documented in this encounter [facility] Work Phone: Evaluation note* Diagnosis Irritable bowel syndrome with diarrhea- Primary Irritable bowel syndrome Abdominal pain, epigastric [facility]* Diagnosis Nondisplaced fracture of cuboid bone of left foot, initial encounter for closed fracture- Primary Left foot pain Pain in soft tissues of limb [facility] Diagnosis Nondisplaced fracture of cuboid bone of left foot, initial encounter for closed fracture- Primary Left foot pain Pain in soft tissues of limb [facility] Cancer (Multi)- Primary Other malignant neoplasm of unspecified site Multiple subsegmental pulmonary emboli without acute cor pulmonale (Multi) Preop exam for internal medicine Other specified pre-operative examination Acute cystitis without hematuria Mild intermittent asthma in adult without complication (HHS-HCC) Right upper quadrant abdominal mass Abdominal or pelvic swelling, mass, or lump, right upper quadrant Mixed hyperlipidemia Right upper quadrant abdominal mass- Primary Abdominal or pelvic swelling, mass, or lump, right upper quadrant Cervical pain (neck) Cervicalgia Chronic nonintractable headache, unspecified headache type Mild intermittent asthma without complication (HHS-HCC) Thickened small bowel- Primary Other specified disorder of intestines Right upper quadrant abdominal mass Abdominal or pelvic swelling, mass, or lump, right upper quadrant Medicare annual wellness visit, subsequent- Primary Encounter for screening mammogram for malignant neoplasm of breast Encounter for screening for malignant neoplasm of colon RUQ abdominal pain Abdominal pain, right upper quadrant History of colon polyps Multiple subsegmental pulmonary emboli without acute cor pulmonale (Multi) Cancer (Multi) Other malignant neoplasm of unspecified site Mixed hyperlipidemia Essential hypertension Unspecified essential hypertension Tubular adenoma of colon Benign neoplasm of colon documented in this encounter [facility] Work Phone: Evaluation note* Diagnosis Cancer (Multi)- Primary Other malignant neoplasm of unspecified site Multiple subsegmental pulmonary emboli without acute cor pulmonale (Multi) Preop exam for internal medicine Other specified pre-operative examination Acute cystitis without hematuria Mild intermittent asthma in adult without complication (HHS-HCC) Right upper quadrant abdominal mass Abdominal or pelvic swelling, mass, or lump, right upper quadrant Mixed hyperlipidemia Right upper quadrant abdominal mass- Primary Abdominal or pelvic swelling, mass, or lump, right upper quadrant Cervical pain (neck) Cervicalgia Chronic nonintractable headache, unspecified headache type Mild intermittent asthma without complication (HHS-HCC) Thickened small bowel- Primary Other specified disorder of intestines Right upper quadrant abdominal mass Abdominal or pelvic swelling, mass, or lump, right upper quadrant Medicare annual wellness visit, subsequent- Primary Encounter for screening mammogram for malignant neoplasm of breast Encounter for screening for malignant neoplasm of colon RUQ abdominal pain Abdominal pain, right upper quadrant History of colon polyps Multiple subsegmental pulmonary emboli without acute cor pulmonale (Multi) Cancer (Multi) Other malignant neoplasm of unspecified site Mixed hyperlipidemia Essential hypertension Unspecified essential hypertension Tubular adenoma of colon Benign neoplasm of colon RUQ abdominal pain Abdominal pain, right upper quadrant documented in this encounter [facility] Work Phone: Evaluation note* Diagnosis Cancer (Multi)- Primary Other malignant neoplasm of unspecified site Multiple subsegmental pulmonary emboli without acute cor pulmonale (Multi) Preop exam for internal medicine Other specified pre-operative examination Acute cystitis without hematuria Mild intermittent asthma in adult without complication (HHS-HCC) Right upper quadrant abdominal mass Abdominal or pelvic swelling, mass, or lump, right upper quadrant Mixed hyperlipidemia Right upper quadrant abdominal mass- Primary Abdominal or pelvic swelling, mass, or lump, right upper quadrant Cervical pain (neck) Cervicalgia Chronic nonintractable headache, unspecified headache type Mild intermittent asthma without complication (HHS-HCC) Thickened small bowel- Primary Other specified disorder of intestines Right upper quadrant abdominal mass Abdominal or pelvic swelling, mass, or lump, right upper quadrant Medicare annual wellness visit, subsequent- Primary Encounter for screening mammogram for malignant neoplasm of breast Encounter for screening for malignant neoplasm of colon RUQ abdominal pain Abdominal pain, right upper quadrant History of colon polyps Multiple subsegmental pulmonary emboli without acute cor pulmonale (Multi) Cancer (Multi) Other malignant neoplasm of unspecified site Mixed hyperlipidemia Essential hypertension Unspecified essential hypertension Tubular adenoma of colon Benign neoplasm of colon Dilated cbd, acquired- Primary Chronic daily headache Headache Spondylosis of cervical region without myelopathy or radiculopathy Chronic daily headache- Primary Headache Mixed hyperlipidemia RUQ abdominal pain Abdominal pain, right upper quadrant Dilated cbd, acquired Lipoma of torso documented in this encounter [facility] Work Phone: Evaluation note* Diagnosis Cancer (Multi)- Primary Other malignant neoplasm of unspecified site Multiple subsegmental pulmonary emboli without acute cor pulmonale Preop exam for internal medicine Other specified pre-operative examination Acute cystitis without hematuria Mild intermittent asthma in adult without complication (HHS-HCC) Right upper quadrant abdominal mass Abdominal or pelvic swelling, mass, or lump, right upper quadrant Mixed hyperlipidemia Right upper quadrant abdominal mass- Primary Abdominal or pelvic swelling, mass, or lump, right upper quadrant Cervical pain (neck) Cervicalgia Chronic nonintractable headache, unspecified headache type Mild intermittent asthma without complication (HHS-HCC) Medicare annual wellness visit, subsequent- Primary Encounter for screening mammogram for malignant neoplasm of breast Encounter for screening for malignant neoplasm of colon RUQ abdominal pain Abdominal pain, right upper quadrant History of colon polyps Multiple subsegmental pulmonary emboli without acute cor pulmonale Cancer (Multi) Other malignant neoplasm of unspecified site Mixed hyperlipidemia Essential hypertension Unspecified essential hypertension Tubular adenoma of colon Benign neoplasm of colon Dilated cbd, acquired- Primary Chronic daily headache Headache Spondylosis of cervical region without myelopathy or radiculopathy Chronic daily headache- Primary Headache Mixed hyperlipidemia RUQ abdominal pain Abdominal pain, right upper quadrant Dilated cbd, acquired Lipoma of torso Periumbilical abdominal pain- Primary Abdominal pain, periumbilic Mild intermittent asthma in adult without complication (HHS-HCC) Mixed hyperlipidemia Tubular adenoma of colon Benign neoplasm of colon Chronic daily headache Headache Periumbilical abdominal pain Abdominal pain, periumbilic documented in this encounter [facility] Work Phone: Evaluation note* Diagnosis Mild intermittent asthma in adult without complication (HHS-HCC) Right upper quadrant abdominal mass Abdominal or pelvic swelling, mass, or lump, right upper quadrant Mixed hyperlipidemia Right upper quadrant abdominal mass- Primary Abdominal or pelvic swelling, mass, or lump, right upper quadrant Cervical pain (neck) Cervicalgia Chronic nonintractable headache, unspecified headache type Mild intermittent asthma without complication (HHS-HCC) Medicare annual wellness visit, subsequent- Primary Encounter for screening mammogram for malignant neoplasm of breast Encounter for screening for malignant neoplasm of colon RUQ abdominal pain Abdominal pain, right upper quadrant History of colon polyps Multiple subsegmental pulmonary emboli without acute cor pulmonale Cancer (Multi) Other malignant neoplasm of unspecified site Mixed hyperlipidemia Essential hypertension Unspecified essential hypertension Tubular adenoma of colon Benign neoplasm of colon Dilated cbd, acquired- Primary Chronic daily headache Headache Spondylosis of cervical region without myelopathy or radiculopathy Chronic daily headache- Primary Headache Mixed hyperlipidemia RUQ abdominal pain Abdominal pain, right upper quadrant Dilated cbd, acquired Lipoma of torso Periumbilical abdominal pain- Primary Abdominal pain, periumbilic Mild intermittent asthma in adult without complication (HHS-HCC) Mixed hyperlipidemia Tubular adenoma of colon Benign neoplasm of colon Chronic daily headache Headache Abdominal pain, unspecified abdominal location- Primary Abnormal CT of the abdomen Nonspecific (abnormal) findings on radiological and other examination of abdominal area, including retroperitoneum Mixed hyperlipidemia Essential hypertension Unspecified essential hypertension documented in this encounter [facility] Work Phone: Evaluation noteNo assessment information available [facility] Work Phone: Evaluation note* Diagnosis Cancer (Multi)- Primary Other malignant neoplasm of unspecified site Multiple subsegmental pulmonary emboli without acute cor pulmonale Preop exam for internal medicine Other specified pre-operative examination Acute cystitis without hematuria Mild intermittent asthma in adult without complication (HHS-HCC) Right upper quadrant abdominal mass Abdominal or pelvic swelling, mass, or lump, right upper quadrant Mixed hyperlipidemia Right upper quadrant abdominal mass- Primary Abdominal or pelvic swelling, mass, or lump, right upper quadrant Cervical pain (neck) Cervicalgia Chronic nonintractable headache, unspecified headache type Mild intermittent asthma without complication (HHS-HCC) Medicare annual wellness visit, subsequent- Primary Encounter for screening mammogram for malignant neoplasm of breast Encounter for screening for malignant neoplasm of colon RUQ abdominal pain Abdominal pain, right upper quadrant History of colon polyps Multiple subsegmental pulmonary emboli without acute cor pulmonale Cancer (Multi) Other malignant neoplasm of unspecified site Mixed hyperlipidemia Essential hypertension Unspecified essential hypertension Tubular adenoma of colon Benign neoplasm of colon Dilated cbd, acquired- Primary Chronic daily headache Headache Spondylosis of cervical region without myelopathy or radiculopathy Chronic daily headache- Primary Headache Mixed hyperlipidemia RUQ abdominal pain Abdominal pain, right upper quadrant Dilated cbd, acquired Lipoma of torso Periumbilical abdominal pain- Primary Abdominal pain, periumbilic Mild intermittent asthma in adult without complication (HHS-HCC) Mixed hyperlipidemia Tubular adenoma of colon Benign neoplasm of colon Chronic daily headache Headache RUQ abdominal pain- Primary Abdominal pain, right upper quadrant Encounter for screening mammogram for malignant neoplasm of breast Medicare annual wellness visit, subsequent Polyarthropathy Unspecified polyarthropathy or polyarthritis, site unspecified Mixed hyperlipidemia documented in this encounter [facility] Work Phone: Evaluation note* Diagnosis Cancer (Multi)- Primary Other malignant neoplasm of unspecified site Multiple subsegmental pulmonary emboli without acute cor pulmonale Preop exam for internal medicine Other specified pre-operative examination Acute cystitis without hematuria Mild intermittent asthma in adult without complication (HHS-HCC) Right upper quadrant abdominal mass Abdominal or pelvic swelling, mass, or lump, right upper quadrant Mixed hyperlipidemia Right upper quadrant abdominal mass- Primary Abdominal or pelvic swelling, mass, or lump, right upper quadrant Cervical pain (neck) Cervicalgia Chronic nonintractable headache, unspecified headache type Mild intermittent asthma without complication (HHS-HCC) Medicare annual wellness visit, subsequent- Primary Encounter for screening mammogram for malignant neoplasm of breast Encounter for screening for malignant neoplasm of colon RUQ abdominal pain Abdominal pain, right upper quadrant History of colon polyps Multiple subsegmental pulmonary emboli without acute cor pulmonale Cancer (Multi) Other malignant neoplasm of unspecified site Mixed hyperlipidemia Essential hypertension Unspecified essential hypertension Tubular adenoma of colon Benign neoplasm of colon Dilated cbd, acquired- Primary Chronic daily headache Headache Spondylosis of cervical region without myelopathy or radiculopathy Chronic daily headache- Primary Headache Mixed hyperlipidemia RUQ abdominal pain Abdominal pain, right upper quadrant Dilated cbd, acquired Lipoma of torso Periumbilical abdominal pain- Primary Abdominal pain, periumbilic Mild intermittent asthma in adult without complication (HHS-HCC) Mixed hyperlipidemia Tubular adenoma of colon Benign neoplasm of colon Chronic daily headache Headache RUQ abdominal pain- Primary Abdominal pain, right upper quadrant Encounter for screening mammogram for malignant neoplasm of breast Medicare annual wellness visit, subsequent Polyarthropathy Unspecified polyarthropathy or polyarthritis, site unspecified Mixed hyperlipidemia Encounter for screening mammogram for malignant neoplasm of breast documented in this encounter [facility] Work Phone: Evaluation note* Diagnosis Mild intermittent asthma in adult without complication (HHS-HCC) Right upper quadrant abdominal mass Abdominal or pelvic swelling, mass, or lump, right upper quadrant Mixed hyperlipidemia Right upper quadrant abdominal mass- Primary Abdominal or pelvic swelling, mass, or lump, right upper quadrant Cervical pain (neck) Cervicalgia Chronic nonintractable headache, unspecified headache type Mild intermittent asthma without complication (HHS-HCC) Medicare annual wellness visit, subsequent- Primary Encounter for screening mammogram for malignant neoplasm of breast Encounter for screening for malignant neoplasm of colon RUQ abdominal pain Abdominal pain, right upper quadrant History of colon polyps Multiple subsegmental pulmonary emboli without acute cor pulmonale Cancer (Multi) Other malignant neoplasm of unspecified site Mixed hyperlipidemia Essential hypertension Unspecified essential hypertension Tubular adenoma of colon Benign neoplasm of colon Dilated cbd, acquired- Primary Chronic daily headache Headache Spondylosis of cervical region without myelopathy or radiculopathy Chronic daily headache- Primary Headache Mixed hyperlipidemia RUQ abdominal pain Abdominal pain, right upper quadrant Dilated cbd, acquired Lipoma of torso Periumbilical abdominal pain- Primary Abdominal pain, periumbilic Mild intermittent asthma in adult without complication (HHS-HCC) Mixed hyperlipidemia Tubular adenoma of colon Benign neoplasm of colon Chronic daily headache Headache RUQ abdominal pain- Primary Abdominal pain, right upper quadrant Encounter for screening mammogram for malignant neoplasm of breast Medicare annual wellness visit, subsequent Polyarthropathy Unspecified polyarthropathy or polyarthritis, site unspecified Mixed hyperlipidemia Other chest pain- Primary Presence of coronary angioplasty implant and graft CAD in [place] artery RUQ abdominal pain Abdominal pain, right upper quadrant documented in this encounter [facility] Work Phone: Evaluation note* Diagnosis Mild intermittent asthma in adult without complication (HHS-HCC) Right upper quadrant abdominal mass Abdominal or pelvic swelling, mass, or lump, right upper quadrant Mixed hyperlipidemia Right upper quadrant abdominal mass- Primary Abdominal or pelvic swelling, mass, or lump, right upper quadrant Cervical pain (neck) Cervicalgia Chronic nonintractable headache, unspecified headache type Mild intermittent asthma without complication (HHS-HCC) Medicare annual wellness visit, subsequent- Primary Encounter for screening mammogram for malignant neoplasm of breast Encounter for screening for malignant neoplasm of colon RUQ abdominal pain Abdominal pain, right upper quadrant History of colon polyps Multiple subsegmental pulmonary emboli without acute cor pulmonale Cancer (Multi) Other malignant neoplasm of unspecified site Mixed hyperlipidemia Essential hypertension Unspecified essential hypertension Tubular adenoma of colon Benign neoplasm of colon Dilated cbd, acquired- Primary Chronic daily headache Headache Spondylosis of cervical region without myelopathy or radiculopathy Chronic daily headache- Primary Headache Mixed hyperlipidemia RUQ abdominal pain Abdominal pain, right upper quadrant Dilated cbd, acquired Lipoma of torso Periumbilical abdominal pain- Primary Abdominal pain, periumbilic Mild intermittent asthma in adult without complication (HHS-HCC) Mixed hyperlipidemia Tubular adenoma of colon Benign neoplasm of colon Chronic daily headache Headache RUQ abdominal pain- Primary Abdominal pain, right upper quadrant Encounter for screening mammogram for malignant neoplasm of breast Medicare annual wellness visit, subsequent Polyarthropathy Unspecified polyarthropathy or polyarthritis, site unspecified Mixed hyperlipidemia Other chest pain- Primary Presence of coronary angioplasty implant and graft CAD in [place] artery RUQ abdominal pain Abdominal pain, right upper quadrant Other chest pain documented in this encounter [facility] Work Phone: Evaluation note* Diagnosis Coronary artery disease, angina presence unspecified, unspecified vessel or lesion type, unspecified whether [place] or transplanted heart 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 Mixed hyperlipidemia Mixed hyperlipidemia 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 Mixed hyperlipidemia Mixed hyperlipidemia 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- Primary Chest pain, unspecified type [facility] Diagnosis Coronary artery disease, angina presence unspecified, unspecified vessel or lesion type, unspecified whether menominee or transplanted heart 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 Mixed hyperlipidemia Mixed hyperlipidemia 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 Mixed hyperlipidemia Mixed hyperlipidemia 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 Claudication of gluteal region- Primary 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 Mixed hyperlipidemia 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- Primary [facility] Diagnosis Coronary artery disease, angina presence unspecified, unspecified vessel or lesion type, unspecified whether menominee or transplanted heart 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 Mixed hyperlipidemia Mixed hyperlipidemia 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 Mixed hyperlipidemia Mixed hyperlipidemia 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 Claudication of gluteal region- Primary 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 Mixed hyperlipidemia [facility] Diagnosis Mild intermittent asthma in adult without complication ([facility]) Right upper quadrant abdominal mass Abdominal or pelvic swelling, mass, or lump, right upper quadrant Mixed hyperlipidemia Right upper quadrant abdominal mass- Primary Abdominal or pelvic swelling, mass, or lump, right upper quadrant Cervical pain (neck) Cervicalgia Chronic nonintractable headache, unspecified headache type Mild intermittent asthma without complication ([facility]) Medicare annual wellness visit, subsequent- Primary Encounter for screening mammogram for malignant neoplasm of breast Encounter for screening for malignant neoplasm of colon RUQ abdominal pain Abdominal pain, right upper quadrant History of colon polyps Multiple subsegmental pulmonary emboli without acute cor pulmonale Cancer (Multi) Other malignant neoplasm of unspecified site Mixed hyperlipidemia Essential hypertension Unspecified essential hypertension Tubular adenoma of colon Benign neoplasm of colon Dilated cbd, acquired- Primary Chronic daily headache Headache Spondylosis of cervical region without myelopathy or radiculopathy Chronic daily headache- Primary Headache Mixed hyperlipidemia RUQ abdominal pain Abdominal pain, right upper quadrant Dilated cbd, acquired Lipoma of torso Periumbilical abdominal pain- Primary Abdominal pain, periumbilic Mild intermittent asthma in adult without complication ([facility]) Mixed hyperlipidemia Tubular adenoma of colon Benign neoplasm of colon Chronic daily headache Headache RUQ abdominal pain- Primary Abdominal pain, right upper quadrant Encounter for screening mammogram for malignant neoplasm of breast Medicare annual wellness visit, subsequent Polyarthropathy Unspecified polyarthropathy or polyarthritis, site unspecified Mixed hyperlipidemia Other chest pain- Primary Presence of coronary angioplasty implant and graft CAD in menominee artery RUQ abdominal pain Abdominal pain, right upper quadrant Peripheral vascular disease, unspecified Atherosclerosis of menominee arteries of extremities with intermittent claudication, bilateral legs documented in this encounter [facility] Work Phone: History of Present illness NarrativePatient confirmed name and date of . Began extension today with patient starting off with reduced pain. Introduced hip flexor stretch and patient went into sharp pain in hip and groin. Spent time in 90-100% unloading to try to get into comfortable position and allow weight bearing. Patient able to get some relief with hanging with R LE flexed, but very guarded and careful not to move R LE. [facility] Work Phone: History of Present illness NarrativePatient confirmed name and date of . Continued with extension bias in small range of motion, cues for patient to caution as not to irritate R hip pain. Only performed hip abd on L hip as patientwas fearful that performing it on the right would cause increased pain. [facility] Work Phone: History of Present illness NarrativePatient was identified by name and date. Cupping /STM completed to reduce soft tissue restrictions at hip and LB musculature. She was able to progress core stability exercises without c/o. Noted during plantigrade hip exten she was weaker on L vs R side and required tactile cues to correct compensations with her trunk. Handout given and reviewed for pelvic floor and core exercises to cont in her home program. She [facility] good understanding[facility] Work Phone: Hisbhpx of Present illness Narrative* Patient was identified by name and date. * Pt reassessed this date by supervising PT with improvements noted in subjective report of functional mobility and pain with LEFS and MARIANNE outcome tools at this time. She presented this date with some increased pain and tension on Left side of lumbar spine, so focused on that after re-assessment. Pt verbalized good understanding of all EDU and review of HEP and is appropriate to attempt independence with HEP at this time as well as F/U with ortho concerning hip imaging. [facility] Work Phone: Hiszttb of Present illness Narrative* FAVIOLA VALLE presents with complaints of gradual onset of intermittent episodes of moderate right and right anterior hip pain, described as aching, radiating to the right thigh. Symptoms are improved by heat, stretching and non-opioid analgesics. Symptoms are made worse by movement, squatting and sitting. Symptoms are worsening. 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 She was seeing her PCP and referred here for progressing pain to R hip. Completed PT approx 2-3 weeks ago with some improvements. In the past, sx usually well controlled after PT. She is continuing to perform home exercises as instructed. Takes Tylenol as needed with mild improvement, on Coumadin. On occasion she will take Ibuprofen with better sx control. She has tried topical Biofreeze with some short term relief, although it does irritate her skin at times. Heat and stretching help sx. She describes getting up and moving as feeling like something is catching in her R hip and she needs to perform several stretches before ambulating. No falls or near falls. No loss of bowel ro bladder control, no saddle anesthesia. . * Associated symptoms include stiffness and difficulty rotating the hip joint, but no numbness in theleg and no weakness of the leg. [facility] [address] Work Phone: History of Present illness Narrative* FAVIOLA VALLE presents with complaints of gradual onset of intermittent episodes of moderate right and right anterior hip pain, described as aching, radiating to the right thigh. Symptoms are improved by heat, stretching and non-opioid analgesics. Symptoms are made worse by movement, squatting and sitting. Symptoms are worsening. 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 She was seeing her PCP and referred here for progressing pain to R hip. Completed PT approx 2-3 weeks ago with some improvements. In the past, sx usually well controlled after PT. She is continuing to perform home exercises as instructed. Takes Tylenol as needed with mild improvement, on Coumadin. On occasion she will take Ibuprofen with better sx control. She has tried topical Biofreeze with some short term relief, although it does irritate her skin at times. Heat and stretching help sx. She describes getting up and moving as feeling like something is catching in her R hip and she needs to perform several stretches before ambulating. No falls or near falls. No loss of bowel ro bladder control, no saddle anesthesia. . * Associated symptoms include stiffness and difficulty rotating the hip joint, but no numbness in theleg and no weakness of the leg. [facility] [address] Work Phone: History of Present illness NarrativeAgree with CC as documented for MA. Patient was seen here last week with findings of right hip greater trochanteric bursitis. She had not had an INR for almost 1 month at that time. She had a repeat INR today which was 2.3. She wishes to pursue with a cortisone injection for symptom control.[facility] [address] Work Phone: History of Present illness Narrative* The patient is being seen for the subsequent annual wellness visit. * Past Medical, Surgical and Family History: reviewed and updated in chart. * Medications and Supplements: Review of all medications by a prescribing practitioner or clinical pharmacist (such as prescriptions, OTCs, herbal therapies and supplements) documented in the medical record. * Yes, the patient is using opioids. * Patient Self Assessment of Health Status: good. * Tobacco use: Non-User * Alcohol use: User Rare occasion. * Illicit drug use: Non-User * Current diet: well balanced diet and does consume caffeine. * Exercise Frequency: infrequently. * Depression/Suicide Screening: . * During the past 2 weeks, the patient has not felt down, depressed or hopeless. * During the past 2 weeks, the patient has not felt little interest or pleasure in doing things. * Grief and not depression * Hearing Impairment: none. * Cognitive Impairment: No cognitive impairment observed. * Bathing: performs independently. * Dressing: performs independently. * Walking: performs independently. * Toileting: performs independently. * Feeding: performs independently. * Personal Hygiene: performs independently. * Bowels: continent. * Bladder: occasional accident. * Managing Finances: performs independently. * Shopping: performs independently. * Managing Medications: performs independently. * Housework / Basic Home Maintenance: performs independently. * Handling Transportation: performs independently. * Preparing Meals: performs independently. * Falls Risk Screening:. FAVIOLA has fallen in the last 6 months. Her fall did not result in injury. * Advance directives:. Advanced Care Planning discussed and documented advance care plan or surrogatedecision maker documented in the medical record. Patient has living will. Patient has healthcare POA. [facility] Work Phone: History of Present illness Narrative* The patient is being seen for the subsequent annual wellness visit. * Past Medical, Surgical and Family History: reviewed and updated in chart. * Medications and Supplements: Review of all medications by a prescribing practitioner or clinical pharmacist (such as prescriptions, OTCs, herbal therapies and supplements) documented in the medical record. * Yes, the patient is using opioids. * Patient Self Assessment of Health Status: good. * Tobacco use: Non-User * Alcohol use: User Rare occasion. * Illicit drug use: Non-User * Current diet: well balanced diet and does consume caffeine. * Exercise Frequency: infrequently. * Depression/Suicide Screening: . * During the past 2 weeks, the patient has not felt down, depressed or hopeless. * During the past 2 weeks, the patient has not felt little interest or pleasure in doing things. * Grief and not depression * Hearing Impairment: none. * Cognitive Impairment: No cognitive impairment observed. * Bathing: performs independently. * Dressing: performs independently. * Walking: performs independently. * Toileting: performs independently. * Feeding: performs independently. * Personal Hygiene: performs independently. * Bowels: continent. * Bladder: occasional accident. * Managing Finances: performs independently. * Shopping: performs independently. * Managing Medications: performs independently. * Housework / Basic Home Maintenance: performs independently. * Handling Transportation: performs independently. * Preparing Meals: performs independently. * Falls Risk Screening:. FAVIOLA has fallen in the last 6 months. Her fall did not result in injury. * Advance directives:. Advanced Care Planning discussed and documented advance care plan or surrogatedecision maker documented in the medical record. Patient has living will. Patient has healthcare POA. [address] [facility] Work Phone: Reason for referral (narrative)* Consultation (Routine) - Authorized Specialty Diagnoses / Procedures Referred By Sweta knowles Referred To Contact Primary Care Procedures Follow Up In Primary Care Mary Webster DO [address] [facility] [place] [address] Referral ID Status Reason Start Date Expiration Date V isits Requested Visits Authorized [id number] Authorized 02/18/2024 02/17/2025 1 1 * Consultation (Routine) - Authorized Specialty Diagnoses / Procedures Referred By Contac t Referred To Contact Primary Care Procedures Follow Up In Primary Care Mary Webster DO [address] [facility] [place] [address] Referral ID Status Reason Start Date Expiration Date V isits Requested Visits Authorized [id number] Authorized 02/18/2024 02/17/2025 1 1 * Consultation (Routine) - Authorized Specialty Diagnoses / Procedures Referred By Sweta t Referred To Contact Gastroenterology Diagnoses Encounter for screening for malignant neoplasm of colon RUQ abdominal pain History of colon polyps Mary Webster DO [address] [place] [address] Referral ID Status Reason Start Date Expiration Date Visits Requested Visits Authorized [id number] Authorized Specialty Services Required 02/18/2024 02/17/2025 1 1 * Imaging (Routine) - Authorized Specialty Diagnoses / Procedures Referred By Contac t Referred To Contact Radiology Diagnoses RUQ abdominal pain Procedures US abdomen limited liver Mary Webster DO [address] [place] [address] Referral ID Status Reason Start Date Expiration Date Visits Requested Visits Authorized [id number] Authorized Perform Procedure 02/18/2024 02/17/2025 1 1 * Imaging (Routine) - Authorized Specialty Diagnoses / Procedures Referred By Darrynac t Referred To Contact Radiology Diagnoses Encounter for screening mammogram for malignant neoplasm of breast Procedures BI mammo bilateral screening tomosynthesis Mary Webster DO [address] [facility] [place] [address] Referral ID Status Reason Start Date Expiration Date Visits Requested Visits Authorized [id number] Authorized Perform Procedure 02/18/2024 02/17/2025 1 1 [facility] Work Phone: Reason for referral (narrative)No reason for referral information [facility] Work Phone: Reason for visit Narrative* Imaging (Routine) - Pending Review Specialty Diagnoses / Procedures Referred By Darrynac t Referred To Contact Radiology Diagnoses Periumbilical abdominal pain Procedures CT abdomen pelvis w IV contrast CT abdomen pelvis w and wo IV contrast Mary Webster, [address] [place] [address] Phone: tel: fax: Referral ID Status Reason Start Date Expiration Date Visits Requested Visits Authorized [id number] Pending Review Perform Procedure 10/08/2024 10/08/2025 1 1 [facility] Work Phone: Rezzgn for visit Narrative* Imaging (Routine) - Authorized Specialty Diagnoses / Procedures Referred By Sweta t Referred To Contact Radiology Diagnoses Encounter for screening mammogram for malignant neoplasm of breast Procedures BI mammo bilateral screening tomosynthesis Mary Webster, DO [address] [place] [address] Phone: tel: fax: Referral ID Status Reason Start Date Expiration Date Visits Requested Visits Authorized [id number] Authorized Perform Procedure 03/03/2025 03/03/2026 1 1 [facility] Work Phone: Retpnn for visit Narrative* Imaging (Routine) - Authorized Specialty Diagnoses / Procedures Referred By Sweta t Referred To Contact Radiology Diagnoses Other chest pain Procedures XR chest 2 views Mary Webster DO [address] [place] [address] Phone: tel: fax: Referral ID Status Reason Start Date Expiration Date Visits Requested Visits Authorized [id number] Authorized Perform Procedure 03/17/2025 04/17/2026 1 1 [facility] Work Phone: Reason for visit Narrative* Imaging (Routine) - Authorized Specialty Diagnoses / Procedures Referred By Sweta t Referred To Contact Cardiology Diagnoses Peripheral vascular disease, unspecified Procedures Vascular US PVR without exercise Marv Kolb MD [address] [place] [address] Phone: tel: fax: Referral ID Status Reason Start Date Expiration Date Visits Requested Visits Authorized [id number] Authorized Perform Procedure 03/29/2025 03/29/2026 1 1 [facility] Work Phone: Summary Purpose Family History No Family History Records FoundUnknown Family Member Name Dates Details No pertinent family history( V49.89, Z78.9) Comments:Other Status:Active Unknown Family Member Name Dates Details No pertinent family history( V49.89, Z78.9) Comments:Other Status:Active Unknown Family Member Name Dates Details No pertinent family history( V49.89, Z78.9) Comments:Other Status:Active Unknown Family Member Name Dates Details No pertinent family history( V49.89, Z78.9) Comments:Other Status:Active Unknown Family Member Name Dates Details No pertinent family history( V49.89, Z78.9) Comments:Other Status:Active Unknown Family Member Name Dates Details No pertinent family history( V49.89, Z78.9) Comments:Other Status:Active Unknown Family Member Name Dates Details No pertinent family history( V49.89, Z78.9) Comments:Other Status:Active Unknown Family Member Name Dates Details No pertinent family history( V49.89, Z78.9) Comments:Other Status:Active Unknown Family Member Name Dates Details No pertinent family history( V49.89, Z78.9) Comments:Other Status:Active Unknown Family Member Name Dates Details No pertinent family history( V49.89, Z78.9) Comments:Other Status:Active Unknown Family Member Name Dates Details No pertinent family history( V49.89, Z78.9) Comments:Other Status:Active Unknown Family Member Name Dates Details No pertinent family history( V49.89, Z78.9) Comments:Other Status:Active Unknown Family Member Name Dates Details No pertinent family history( V49.89, Z78.9) Comments:Other Status:Active Unknown Family Member Name Dates Details No pertinent family history: Other(V49.89, Z78.9) Comments:PATIENT IS ADOPTED; Status:Active Unknown Family Member Name Dates Details No pertinent family history: Other(V49.89, Z78.9) Comments:PATIENT IS ADOPTED; Status:Active Unknown Family Member Name Dates Details No pertinent family history: Other(V49.89, Z78.9) Comments:PATIENT IS ADOPTED; Status:Active Unknown Family Member Name Dates Details No pertinent family history: Other(V49.89, Z78.9) Comments:PATIENT IS ADOPTED; Status:Active Unknown Family Member Name Dates Details No pertinent family history: Other(V49.89, Z78.9) Comments:PATIENT IS ADOPTED; Status:Active Unknown Family Member Name Dates Details No pertinent family history: Other(V49.89, Z78.9) Comments:PATIENT IS ADOPTED; Status:Active Unknown Family Member Name Dates Details No pertinent family history: Other(V49.89, Z78.9) Comments:PATIENT IS ADOPTED; Status:Active Unknown Family Member Name Dates Details No pertinent family history: Other(V49.89, Z78.9) Comments:PATIENT IS ADOPTED; Status:Active Unknown Family Member Name Dates Details No pertinent family history: Other(V49.89, Z78.9) Comments:PATIENT IS ADOPTED; Status:Active Unknown Family Member Name Dates Details No pertinent family history: Other(V49.89, Z78.9) Comments:PATIENT IS ADOPTED; Status:Active Unknown Family Member Name Dates Details No pertinent family history: Other(V49.89, Z78.9) Comments:PATIENT IS ADOPTED; Status:Active Unknown Family Member Name Dates Details No pertinent family history: Other(V49.89, Z78.9) Comments:PATIENT IS ADOPTED; Status:Active Unknown Family Member Name Dates Details No pertinent family history: Other(V49.89, Z78.9) Comments:PATIENT IS ADOPTED; Status:Active Unknown Family Member Name Dates Details No pertinent family history: Other(V49.89, Z78.9) Comments:PATIENT IS ADOPTED; Status:Active Unknown Family Member Name Dates Details No pertinent family history: Other(V49.89, Z78.9) Comments:PATIENT IS ADOPTED; Status:Active Unknown Family Member Name Dates Details No pertinent family history: Other(V49.89, Z78.9) Comments:PATIENT IS ADOPTED; Status:Active Unknown Family Member Name Dates Details No pertinent family history: Other(V49.89, Z78.9) Comments:PATIENT IS ADOPTED; Status:Active Unknown Family Member Name Dates Details No pertinent family history: Other(V49.89, Z78.9) Comments:PATIENT IS ADOPTED; Status:Active Unknown Family Member Name Dates Details No pertinent family history: Other(V49.89, Z78.9) Comments:PATIENT IS ADOPTED; Status:Active Unknown Family Member Name Dates Details No pertinent family history: Other(V49.89, Z78.9) Comments:PATIENT IS ADOPTED; Status:Active Unknown Family Member Name Dates Details No pertinent family history: Other(V49.89, Z78.9) Comments:PATIENT IS ADOPTED; Status:Active Unknown Family Member Name Dates Details No pertinent family history: Other(V49.89, Z78.9) Comments:PATIENT IS ADOPTED; Status:Active Unknown Family Member Name Dates Details No pertinent family history: Other(V49.89, Z78.9) Comments:PATIENT IS ADOPTED; Status:Active Unknown Family Member Name Dates Details No pertinent family history: Other(V49.89, Z78.9) Comments:PATIENT IS ADOPTED; Status:Active Unknown Family Member Name Dates Details No pertinent family history: Other(V49.89, Z78.9) Comments:PATIENT IS ADOPTED; Status:Active Unknown Family Member Name Dates Details No pertinent family history: Other(V49.89, Z78.9) Comments:PATIENT IS ADOPTED; Status:Active Unknown Family Member Name Dates Details No pertinent family history: Other(V49.89, Z78.9) Comments:PATIENT IS ADOPTED; Status:Active Unknown Family Member Name Dates Details No pertinent family history: Other(V49.89, Z78.9) Comments:PATIENT IS ADOPTED; Status:Active Unknown Family Member Name Dates Details No pertinent family history: Other(V49.89, Z78.9) Comments:PATIENT IS ADOPTED; Status:Active Unknown Family Member Name Dates Details No pertinent family history: Other(V49.89, Z78.9) Comments:PATIENT IS ADOPTED; Status:Active Unknown Family Member Name Dates Details No pertinent family history: Other(V49.89, Z78.9) Comments:PATIENT IS ADOPTED; Status:Active Unknown Family Member Name Dates Details No pertinent family history: Other(V49.89, Z78.9) Comments:PATIENT IS ADOPTED; Status:Active Unknown Family Member Name Dates Details No pertinent family history: Other(V49.89, Z78.9) Comments:PATIENT IS ADOPTED; Status:Active Unknown Family Member Name Dates Details No pertinent family history: Other(V49.89, Z78.9) Comments:PATIENT IS ADOPTED; Status:Active Unknown Family Member Name Dates Details No pertinent family history: Other(V49.89, Z78.9) Comments:PATIENT IS ADOPTED; Status:Active Unknown Family Member Name Dates Details No pertinent family history: Other(V49.89, Z78.9) Comments:PATIENT IS ADOPTED; Status:Active Unknown Family Member Name Dates Details No pertinent family history: Other(V49.89, Z78.9) Comments:PATIENT IS ADOPTED; Status:Active Unknown Family Member Name Dates Details No pertinent family history: Other(V49.89, Z78.9) Comments:PATIENT IS ADOPTED; Status:Active Unknown Family Member Name Dates Details No pertinent family history: Other(V49.89, Z78.9) Comments:PATIENT IS ADOPTED; Status:Active Unknown Family Member Name Dates Details No pertinent family history: Other(V49.89, Z78.9) Comments:PATIENT IS ADOPTED; Status:Active Unknown Family Member Name Dates Details Adopted: Mother, Father, Sib ling, Grandparent(V68.89, Z02.82) Status:Active No pertinent family history: Other(V49.89, Z78.9) Comments:PATIENT IS ADOPTED; Status:Active Unknown Family Member Name Dates Details No pertinent family history: Other(V49.89, Z78.9) Comments:PATIENT IS ADOPTED; Status:Active Adopted: Mother, Father, Sib ling, Grandparent(V68.89, Z02.82) Status:Active Unknown Family Member Name Dates Details No pertinent family history: Other(V49.89, Z78.9) Comments:PATIENT IS ADOPTED; Status:Active Adopted: Mother, Father, Sib ling, Grandparent(V68.89, Z02.82) Status:Active Unknown Family Member Name Dates Details No pertinent family history: Other(V49.89, Z78.9) Comments:PATIENT IS ADOPTED; Status:Active Adopted: Mother, Father, Sib ling, Grandparent(V68.89, Z02.82) Status:Active Unknown Family Member Name Dates Details No pertinent family history: Other(V49.89, Z78.9) Comments:PATIENT IS ADOPTED; Status:Active Adopted: Mother, Father, Sib ling, Grandparent(V68.89, Z02.82) Status:Active Unknown Family Member Name Dates Details No pertinent family history: Other(V49.89, Z78.9) Comments:PATIENT IS ADOPTED; Status:Active Adopted: Mother, Father, Sib ling, Grandparent(V68.89, Z02.82) Status:Active Unknown Family Member Name Dates Details No pertinent family history: Other(V49.89, Z78.9) Comments:PATIENT IS ADOPTED; Status:Active Adopted: Mother, Father, Sib ling, Grandparent(V68.89, Z02.82) Status:Active Unknown Family Member Name Dates Details No pertinent family history: Other(V49.89, Z78.9) Comments:PATIENT IS ADOPTED; Status:Active Adopted: Mother, Father, Sib ling, Grandparent(V68.89, Z02.82) Status:Active Unknown Family Member Name Dates Details No pertinent family history: Other(V49.89, Z78.9) Comments:PATIENT IS ADOPTED; Status:Active Adopted: Mother, Father, Sib ling, Grandparent(V68.89, Z02.82) Status:Active Unknown Family Member Name Dates Details No pertinent family history: Other(V49.89, Z78.9) Comments:PATIENT IS ADOPTED; Status:Active Adopted: Mother, Father, Sib ling, Grandparent(V68.89, Z02.82) Status:Active Unknown Family Member Name Dates Details No pertinent family history: Other(V49.89, Z78.9) Comments:PATIENT IS ADOPTED; Status:Active Adopted: Mother, Father, Sib ling, Grandparent(V68.89, Z02.82) Status:Active Unknown Family Member Name Dates Details No pertinent family history: Other(V49.89, Z78.9) Comments:PATIENT IS ADOPTED; Status:Active Adopted: Mother, Father, Sib ling, Grandparent(V68.89, Z02.82) Status:Active Advance Directives No Advanced Directives Records FoundDocuments on File Type Date Recorded Patient Surgical Supervisor Expl anation Advance Directives and Living Will Documents on File Type Date Recorded Patient Surgical Supervisor Expl anation Advance Directives and Livin g Will 11/23/2021 9:50 AM Documents on File Type Date Recorded Patient Surgical Supervisor Expl anation Advance Directives and Livin g Will 11/23/2021 9:50 AM Documents on File Type Date Recorded Patient Surgical Supervisor Expl anation HealthCare Power of Site Leader 10/31/2022 1:16 PM POA and Living Will Documents Latest Code Status on File Code Status Date Activated Date Inactivated Comments Full Code 11/26/2022 1:24 PM Documents on File Type Date Recorded Patient Surgical Supervisor Expl anation HealthCare Power of Site Leader 10/31/2022 1:16 PM POA and Living Will Documents Latest Code Status on File Code Status Date Activated Date Inactivated Comments Full Code 11/26/2022 1:24 PM Reason for Referral Status Reason Specialty Diagnoses / Procedures Referred By Contact Referred To Contact Authorized Cardiology Diagnoses Coronary artery disease, angina presence unspecified, unspecified vessel or lesion type, unspecified whether menominee or transplanted heart Procedures [place] 12 [place] [address] [place] [address] Specialty Diagnoses / Procedures Referred By Contac t Referred To Contact Cardiology Diagnoses 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 Procedures ECG 12 Lead Marv Kolb MD [address] [place] [address] Referral ID Status Reason Start Date Expiration Date V isits Requested Visits Authorized [id number] Pending Review 11/30/2021 11/30/2022 3 3 Referral ID Status Reason Start Date Expiration Date V isits Requested Visits Authorized [id number] Authorized 11/30/2021 11/30/2022 3 3 Specialty Diagnoses / Procedures Referred By Contac t Referred To Contact Diagnoses Right hip pain Procedures XR HIP WITH PELVIS RIGHT Cheikh Oneal MD [address] [place] [address] Referral ID Status Reason Start Date Expiration Date V isits Requested Visits Authorized [id number] Pending Review 08/21/2022 09/15/2023 1 1 Specialty Diagnoses / Procedures Referred By Contac t Referred To Contact Radiology Diagnoses Encounter for screening mammogram for malignant neoplasm of breast Procedures BI mammo bilateral screening tomosynthesis Mary Webster, DO [address] [facility] [place] [address] Referral ID Status Reason Start Date Expiration Date Visits Requested Visits Authorized [id number] Authorized Perform Procedure 12/13/2022 06/11/2023 1 1 Specialty Diagnoses / Procedures Referred By Contac t Referred To Contact Diagnoses Hx of total hip arthroplasty, right Procedures XR HIP WITH PELVIS RIGHT Cheikh Oneal MD [address] [place] [address] Referral ID Status Reason Start Date Expiration Date V isits Requested Visits Authorized [id number] New Request 03/25/2023 04/18/2024 1 1 Specialty Diagnoses / Procedures Referred By Contac t Referred To Contact Diagnoses Hx of total hip arthroplasty, right Procedures XR HIP WITH PELVIS RIGHT Meg Bishop APRN-CNP [address] [place] [address] Referral ID Status Reason Start Date Expiration Date V isits Requested Visits Authorized [id number] New Request 11/25/2023 12/19/2024 1 1 Specialty Diagnoses / Procedures Referred By Contac t Referred To Contact Radiology Diagnoses RUQ abdominal pain Procedures US abdomen limited liver Mary Webster, DO [address] [place] [address] Referral ID Status Reason Start Date Expiration Date Visits Requested Visits Authorized [id number] Authorized Perform Procedure 02/18/2024 02/17/2025 1 1 History of Present Illness * Marv Kolb MD - 11/09/2018 9:43 AM EDT Patient Name: Faviola Valle Admit Date: MR #: [id number] : 1950 Physicians: Mary Webster DO (Family); No ref. provider found (Referring) Interventional Cardiology Marv Kolb MD, [facility] 11/09/18 Dear Mary Webster DO, Faviola Valle was seen today for: Problem Coronary Artery Disease 1998 LAD stent with CO 2014 Cx stent--(DMS)-Bliss( not feeling well) Pulmonary Embolus (Hcc) /o 2 PE in past Has chronic AC and jessica filter Hyperlipidemia Assessment and Plan Coronary artery disease Doing well, Medications reviewed and will continue current meds Followup 1 year Will try to get cath CD(Bliss-[facility]incent) Hyperlipidemia On zetia and takes lipitor 3 x/week due to side effects Pulmonary embolus (HCC) No issues not sure why still on coumadin, but not in any position to change Thank you again, for allowing me to participate in the care of your patients. Should you have any questions, please do not hesitate to contact me. No orders of the defined types were placed in this encounter. History of present illness Faviola Valle is a 68 y.o. y/o female presenting with c/o re establish care . I took care of her when she had an CO and LAD stent in 1998. Sheis now moving back from [place]. No CP/SOB EKG: Normal sinus rhythm. and nsst Past History Past Medical History: Diagnosis Date Cancer (HCC) basal cell Cervical disc disease Chronic headache Colon polyp Coronary artery disease 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 Hyperlipidemia Liver cyst Myocardial infarction (HCC) 1998 Peripheral vascular disease (HCC) PE Past Surgical History: Procedure Laterality Date BREAST BIOPSY CARDIAC CATHETERIZATION 06/2015 SECTION CORONARY STENT PLACEMENT 1998 to LAD CORONARY STENT PLACEMENT 2014 Family History Adopted: Yes Social History Socioeconomic History Marital status: Spouse name: Not on file Number of children: Not on file Years of education: Not on file Highest education level: Not on file Social Needs Financial resource strain: Not on file Food insecurity - worry: Not on file Food insecurity - inability: Not on file Transportation needs - medical: Not on file Transportation needs - non-medical: Not on file Occupational History Not on file Tobacco Use Smoking status: Former Smoker Last attempt to quit: 2010 Years since quittin.2 Smokeless tobacco: Never Used Substance and Sexual Activity Alcohol use: Yes Comment: occasional Drug use: Not Currently Sexual activity: Not on file Other Topics Concern Not on file Social History Narrative Not on file Allergy Information: I have reviewed the patient's allergies. Erythromycin and Rythmol [propafenone] Review of Systems: The following system(s) were reviewed and pertinent findings noted: All other systems reviewed and negative other than HPI Physical Examination Vital Signs: BP 100/65 (BP Location: Left arm, Patient Position: Sitting) Pulse 89 Ht 5' 4 Wt 68.2 kg (150 lb 4.8 oz) SpO2 95% BMI 25.80 kg/m General: No acute distress, alert, and oriented x3. HEENT: Normocephalic, normal oral mucosa, normal conjunctiva Neck: Supple, no thyromegaly,no palpable adenopathy Cardiovascular: Regular rate and rhythm. No murmurs, .No JVD, No Carotid Bruits, LE edema Respiratory: Clear to auscultation bilaterally without wheezes, rhonchi, or crackles noted. Abdominal: Soft, nontender, nondistended, No HSM or masses noted. Skin: Normal turgor, well-hydrated, no rashes noted. Extremities : No clubbing cyanosis varicose veins Neurological: Cranial nerves 2 through 12 intact grossly. No focal neurological deficits noted. Psych: Normal mood and affect. Medications Home Medications: Medication List Accurate as of 11/09/18 9:43 AM. If you have any questions, ask your nurse or doctor. CONTINUE taking these medications acetaminophen 500 MG tablet Commonly known as: TYLENOL aspirin 81 MG EC tablet atorvastatin 20 MG tablet Commonly known as: LIPITOR biotin 1 mg Cap cetirizine 10 MG tablet Commonly known as: ZYRTEC coenzyme Q10 10 mg capsule ezetimibe 10 mg tablet Commonly known as: ZETIA folic acid 400 MCG tablet Commonly known as: FOLVITE multivitamin with minerals tablet psyllium powder Commonly known as: METAMUCIL tiZANidine 4 MG capsule Commonly known as: ZANAFLEX VITAMIN D3 1,000 unit capsule Generic drug: cholecalciferol (vitamin D3) vitamin E 400 UNIT capsule * warfarin 1 MG tablet Commonly known as: COUMADIN * warfarin 5 MG tablet Commonly known as: COUMADIN * This list has 2 medication(s) that are the same as other medications prescribed for you. Read thedirections carefully, and ask your doctor or other care provider to review them with you. STOP taking these medications govdbnxtjv-swvsstomuwcxb-zethxyhp 50-325-40 mg per capsule Commonly known as: FIORICET, ESGIC Stopped by: Marv Kolb MD * Elvia Latham MA - 11/09/2018 9:15 AM EDT Review of Systems Constitution: Negative for diaphoresis, malaise/fatigue, weight gain and weight loss. HENT: Negative for hearing loss, nosebleeds and tinnitus. Eyes: Negative for blurred vision and visual disturbance. Cardiovascular: Positive for dyspnea on exertion. Negative for chest pain, claudication, cyanosis, irregular heartbeat, leg swelling, near-syncope, orthopnea, palpitations, paroxysmal nocturnal dyspnea and syncope. Respiratory: Negative for hemoptysis, shortness of breath and snoring. Endocrine: Negative for cold intolerance and heat intolerance. Hematologic/Lymphatic: Bruises/bleeds easily. Skin: Negative for flushing, poor wound healing and rash. Musculoskeletal: Positive for back pain. Negative for muscle weakness and myalgias. Gastrointestinal: Negative for abdominal pain, change in bowel habit, melena, nausea and vomiting. Genitourinary: Negative for decreased libido and hematuria. Neurological: Negative for loss of balance and numbness. Psychiatric/Behavioral: Negative for memory loss. The patient is not nervous/anxious. in this encounter Assessments Diagnosis Coronary artery disease, angina presence unspecified, unspecified vessel or lesion type, unspecified whether menominee or transplanted heart 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 Mixed hyperlipidemia Chief Complaint * increased back pain, right hip pain. This note was generated by using Say2[employer] software. It may contain errors in wording, punctuate, or spelling. * She is here today for evaluation of acute on chronic low back pain and right hip pain. She explainsthat she has had issues with her lower back and right hip for many years but it seems to have gotten worse in the last week and a half. She has had no trauma. She explains that back in 2012 while living in [place] she had some imaging studies of her lower back which showed significant degenerative disc disease. She states she is most affected at the L4-L5 and S1 region. 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 She states she also had 2 additional MRI studies in 2017. She has the disc with her today but not the actual interpretation. She states she has never required surgery but she didcomplete physical therapy which was quite helpful. She states she tries to do some exercises to help avoid symptoms of sciatica. She has no systemic symptoms at this time. She states that her right groin pain is made better when she flexes her hip with her knee towards her chest. She states sometimes the pain is severe depending on certain positions. We talked about symptom control and we are reminded that she is on a blood thinner. She states on rare occasions she does end up taking an vtzg-ftc-hzxfvcd NSAID. I just remind her that we are leery about the use of NSAIDs while on blood thinnersbecause it could potentially increase her risk of having a serious bleeding complication. She states she uses this sparingly. She also uses Tylenol. We talked about the possibility of cortisone injections and so forth. We had a long discussion about various ways to treat her condition we decided that we will attempt physical therapy first. If she does not respond or suddenly gets worse then we would refer her to the pain clinic. She expresses understanding. We did conduct a review of systems. * 6 month check up, f/u PT. This note was generated by using Say2me software. It may contain errors in wording, punctuate, or spelling. * She is here today for her 6-month checkup. Her blood pressure remains under good control. She has been partaking in physical therapy for her right lower back pain. She states she tried the aqua therapy first and it was not all that effective so no other trying a different approach. She has had 2 sessions and has 2 additional ones coming up soon. She states that her low back and sometimes her hip bothers her. We talked about doing x-rays and I have agreed to call her with results. She is not having any weakness numbness or tingling per se. We discussed having her see a specialist at the pain clinic if she does not get satisfactory results through her physical therapy sessions. We also conducted a review of systems and we went over the results of recent lab work. Her kidney function remainsquite stable and her cholesterol was good except her LDL came back at 124. We talked about the factthat with heart disease we want to see the LDL less than 100. She states that she was taking your atorvastatin on the order of 3 times a week and has agreed to take it every day here on out. I am thinking that that will drive the LDL down to the desirable range. Overall she appears to be doing welland she is taking Zyrtec for allergies which she states is also helped with her chronic headaches. If everything goes according to plan we will see her back in 6 months and sooner if any problems. * Pt is here today for a follow up on her leg X-Ray, Still having a lot of pain in her right leg. This note was generated by using Say2me software. It may contain errors in wording, punctuate, or spelling. * She is here today for follow-up regarding her right hip pain and back pain. She has been going to physical therapy but unfortunately her condition is not improving all that much. She does admit that some of the exercises they have been having her do help but she still having significant groin pain with certain types of hip motion. We are reminded that she has both significant degenerative disc disease of the lower back as well as the hip. We discussed seeing a specialist we discussed possibly going to the pain clinic versus orthopedics. We have chosen to have her go to orthopedics first and Iwill refer to Dr. Rocha. In the meantime she has been taking Tylenol for her discomfort. We did conduct a review of systems and she will get back with us if things are not going according to plan. PT HERE FOR RIGHT HIP PAIN. STATES INCREASING SEVERITY SINCE 12/2020. DIFFICULTY STANDING FROM A SEATED POSITION. PAIN RADIATES FROM HIP DOWN THE FRONT OF THE LEG IF MOVED WRONG. XRAYS DONE. REFERRED BY DR. WEBSTER.PT HERE FOR RIGHT HIP PAIN. STATES INCREASING SEVERITY SINCE 12/2020. DIFFICULTY STANDING FROM A SEATED POSITION. PAIN RADIATES FROM HIP DOWN THE FRONT OF THE LEG IF MOVED WRONG. XRAYS DONE. REFERRED BY DR. WEBSTER.Patient here for 3 week follow-up right hip arthritis. Patient states it is not improved at all. Pain persists in right hip/upper leg and around to low back.Patient here for 3 week follow-up right hip arthritis. Patient states it is not improved at all. Pain persists in right hip/upper leg and around to low back.PT HERE FOR FU RIGHT HIP. STATES HIP IS DOING WELL. LAST INJECTION DID HELP. HAS BEEN TAKING CARE OF HER MOTHER AND HAS NOTICED PAIN IN HER LOWER BACK RECENTLY. LAST INJECTION DONE 04/18/21.PT HERE FOR FU RIGHT HIP. STATES HIP IS DOING WELL. LAST INJECTION DID HELP. HAS BEEN TAKING CARE OF HER MOTHER AND HAS NOTICED PAIN IN HER LOWER BACK RECENTLY. LAST INJECTION DONE 04/18/21.PT HERE FOR FU RIGHT HIP. STATES HIP IS DOING WELL. LAST INJECTION DID HELP. HAS BEEN TAKING CARE OF HER MOTHER AND HAS NOTICED PAIN IN HER LOWER BACK RECENTLY. LAST INJECTION DONE 04/18/21.Pt is here today for a 6 month check up, Review labs. She was also in the ER 02/07/22 for a fall. This note was generated by using Say2me software. It may contain errors in wording, punctuate, or spelling. She is here today for her 6-month checkup. Unfortunately since her last visit here she has had 3 visits to the [facility] emergency department. Back on February 01 she went because she thinks she actually got Salmonella poisoning. She states that she had some severe symptoms for short period of time but she started taking a probiotic and she feels like everything is ironed out. We did briefly discussed her history of colon polyps and determined that she would be due for another colonoscopy in May 2023. She also had 2 falls. 1 occurred on November 08. She states she was trying to help her sister who was recovering from surgery and was on a stepping stool trying to change a light bulb. She miscalculated when stepping down causing her to fall forward and hit her right elbow. She did suffer aclosed radial head fracture. She then had another fall on February 07. She states she went to a condo which had flooded and she was stepping from the carpet to the hard floor with a wet foot. She ended uplosing her balance and falling forward striking the same right elbow. She went to the emergency department [facility] and an x-ray did not reveal any new fractures. She states she also feels like she may have stone to her right shoulder but her symptoms are minor. We did talk about fall prevention and she states she will be more mindful about how she is getting around and also try to avoid stepping on ladders and things like that. We did conduct a review of systems and we also went over the results of recent lab work. I am pleased to see that her cholesterol numbers have improved significantly and she is taking her medication a little bit more frequently. We also reviewed her kidney profile and her EGFR this time came back at greater than 60. I am taking stage III kidney disease off of her list and we will continue to monitor her blood work. She also continues to stay active. We also briefly discussed her grief from the loss of her mother which obviously is very normal and natural she states that she is still working on getting things settled from her passing away.* F/U R HIP PAIN * LAST INJ 04/18/21 * PAIN 12/11 * F/U R HIP PAIN * LAST INJ 04/18/21 * PAIN 12/11 Patient here for R hip injection. Has no concerns* Pt is here today for a 6 month check up, MCR wellness exam. Review labs. This note was generated by using Say2me software. It may contain errors in wording, punctuate, or spelling. * She is here today for what represents a 6-month checkup and also has a follow- up to her visit to [place] at the emergency room on August 20. She went there with some atypical chest discomfort and stomach issues and she had a thorough work-up. They diagnosed her as having costochondritis and she states she is actually feeling better every day. She states she knows it will take a few weeks to completely resolve and she knows to call here if her symptoms do not resolve or suddenly get worse. We did conduct a full review of systems and we also went through the Medicare questionnaire. Her main issues now are that of chronic pain syndromes with her back and neck. She is seeing several specialists and she goes to the pain clinic. She states that she is getting control of her symptoms. We are reminded that she does have a history of mild intermittent asthma and currently has no symptoms. She alsohas some chronic headaches from her neck issues which has been getting along okay. She did have a fall about a month ago where she tripped on a cord in her house. She did not sustain any serious injuries. We talked about being extra careful in the future. She states she does have grab bars in the bathroom. We talked about cancer screening and she is up-to-date with her mammogram. She states she th inks she is supposed to have a colonoscopy this year and will contact her black ash burner operator about that. We talked about preventative vaccines and she has yet to receive her flu vaccine for the season. I have recommended that she try to get that at her earliest convenience through her pharmacy. Silvinawill call if she gets it. We also talked about the shingles vaccine. She is highly independent and does everything for herself including managing her own finances and her own medications. She has no symptoms of depression at this time although she states that the month of July was difficult as it marked the 1 year anniversary of the loss of her mother. Otherwise she appears to be doing well and if everything goes according to plan we can see her back in February for follow-up and she will get fasting lab work prior to that visit. * Pt is here today for a 6 month check up, MCR wellness exam. Review labs. This note was generated byUberMedia software. It may contain errors in wording, punctuate, or spelling. * She is here today for what represents a 6-month checkup and also has a follow- up to her visit to [place] at the emergency room on August 20. She went there with some atypical chest discomfort and stomach issues and she had a thorough work-up. They diagnosed her as having costochondritis and she states she is actually feeling better every day. She states she knows it will take a few weeks to completely resolve and she knows to call here if her symptoms do not resolve or suddenly get worse. We did conduct a full review of systems and we also went through the Medicare questionnaire. Her main issues now are that of chronic pain syndromes with her back and neck. She is seeing several specialists and she goes to the pain clinic. She states that she is getting control of her symptoms. We are reminded that she does have a history of mild intermittent asthma and currently has no symptoms. She alsohas some chronic headaches from her neck issues which has been getting along okay. She did have a fall about a month ago where she tripped on a cord in her house. She did not sustain any serious injuries. We talked about being extra careful in the future. She states she does have grab bars in the bathroom. We talked about cancer screening and she is up-to-date with her mammogram. She states she th inks she is supposed to have a colonoscopy this year and will contact her black ash burner operator about that. We talked about preventative vaccines and she has yet to receive her flu vaccine for the season. I have recommended that she try to get that at her earliest convenience through her pharmacy. [place] call if she gets it. We also talked about the shingles vaccine. She is highly independent and does everything for herself including managing her own finances and her own medications. She has no symptoms of depression at this time although she states that the month of July was difficult as it marked the 1 year anniversary of the loss of her mother. Otherwise she appears to be doing well and if everything goes according to plan we can see her back in February for follow-up and she will get fasting lab work prior to that visit. * FUV for R hip injection 07-05-2022; 20% relief. R hip pain with radiation to R groin and R buttocks; today. Patient states she was having pain/cramping at the time of injection while on the table, pain subsided in recovery. Patient states when she rises from a sitting position pain increases severely. Patient states the R leg with cramp and catch when first trying to walk. Patient states she fell the day before Daisy. She has an appt with Dr. Oneal on 08-29-22 to discuss R THR. She was not able to finish her MRI for HAs d/t a cramp in her R leg. She is rescheduled for 08-20-2022. The tech suggested something for pain before next MRI. Patient states she has only had 2 headaches since last visit. She is walking with a cane. Patient states she tried 1 gabapentin. She states it didnot help with the pain and she did not like the dizziness she felt afterwards. * This is a 72-year-old female here for a follow-up appointment for chief complaint of right-sided low back and hip pain. At her last visit she underwent an intra-articular steroid injection into the right hip under fluoroscopy. She reports for the first 3 to 4 hours afterward the symptoms were improved by over 90%. After that they gradually returned. She is a little bit better than she was previously but still has a lot of pain on the right side that starts in the right buttock radiates in the front of the right groin and then down the front of the right leg to the knee. Occasionally will go pa st the knee. She gets cramping as well. She reports that it hurts a lot to sit and walk but its even worse trying to transition from one to the other. She does not have any left-sided symptoms. We had tried to get an MRI of her neck prior to this visit but she was unable to lie down flat due to thepain in her hip. She has an appoint with Dr. Oneal at the end of the month to discuss a hip replacement. She has been using tizanidine sporadically along with Motrin and Tylenol. These medications do help to an extent. The gabapentin made her very dizzy so she had to stop it. She also had some leftover Percocet from a procedure in 2019. She has used them sporadically for the severe pain and they do help. She last took 1 few days ago. She denies additional neurologic symptoms or issues with bladder or bowel control. * The patient's past medical, social, and family history along with medications and allergies are available and were reviewed. Chief Complaint and Reason for Visit Chief Complaint Admit Date SEE ORDER November 03, 2024 8:14 am Additional Source Comments INFORMATION SOURCE (unrecogn ized section and content) DATE CREATED AUTHOR 01/28/2018 [facility] DATE CREATED AUTHOR AUTHOR'S ORGANIZ ATION 01/28/2018 [facility] DATE CREATED AUTHOR AUTHOR'S ORGANIZ ATION 06/12/2019 [facility] DATE CREATED AUTHOR AUTHOR'S ORGANIZ ATION 10/25/2019 [facility] DATE CREATED AUTHOR AUTHOR'S ORGANIZ ATION 05/10/2022 [facility] DATE CREATED AUTHOR AUTHOR'S ORGANIZ ATION 09/18/2022 [employer] DATE CREATED AUTHOR AUTHOR'S ORGANIZ ATION 04/27/2023 [facility] DATE CREATED AUTHOR AUTHOR'S ORGANIZ ATION 12/05/2023 [facility] DATE CREATED AUTHOR AUTHOR'S ORGANIZ ATION 08/27/2024 [facility] DATE CREATED AUTHOR AUTHOR'S ORGANIZ ATION 12/06/2024 [facility] DATE CREATED AUTHOR AUTHOR'S ORGANIZ ATION 03/07/2025 [facility] DATE CREATED AUTHOR AUTHOR'S ORGANIZ ATION 03/18/2025 [facility] DATE CREATED AUTHOR AUTHOR'S ORGANIZ ATION 03/31/2025 [facility] DATE CREATED AUTHOR AUTHOR'S ORGANIZ ATION 04/10/2025 [facility] DATE CREATED AUTHOR AUTHOR'S ORGANIZ ATION 04/11/2025 [facility] DATE CREATED AUTHOR AUTHOR'S ORGANIZ ATION 04/11/2025 [facility] Reason for Visit (unrecogniz ed section and content) Reason Comments Follow-up Specialty Diagnoses / Procedures Referred By Contac t Referred To Contact Primary Care Procedures Follow Up In Primary Care Mary Webster DO [address] [facility] [place] [address] Referral ID Status Reason Start Date Expiration Date V isits Requested Visits Authorized [id number] Authorized 03/02/2024 03/02/2025 1 1 Reason Comments Establish Care re establishing care Reason Comments Annual Exam Reason Comments Injury Specialty Diagnoses / Procedures Referred By Contac t Referred To Contact Diagnoses Right hip pain Procedures XR HIP WITH PELVIS RIGHT Cheikh Oneal MD [address] [place] [id number] Referral ID Status Reason Start Date Expiration Date V isits Requested Visits Authorized [id number] Pending Review 08/21/2022 09/15/2023 1 1 Reason Comments Pain New Patient Specialty Diagnoses / Procedures Referred By Contac t Referred To Contact Orthopaedics Diagnoses Encounter to establish care System, Provider Not In Cheikh Oneal MD [address] [place] [phone] Referral ID Status Reason Start Date Expiration Date V isits Requested Visits Authorized [id number] Pending Review 07/08/2022 08/02/2023 1 1 Specialty Diagnoses / Procedures Referred By Contac t Referred To Contact Diagnoses Hx of total hip arthroplasty, right Right calf pain Calf swelling Procedures US DUPLEX EXTREMITY DVT RIGHT Meg Bishop, 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 [address] [place] [address] Referral ID Status Reason Start Date Expiration Date Visits Re quested Visits Authorized [id number] Closed 01/03/2023 01/28/2024 1 1 Reason Comments Follow-up Rev testing. Specialty Diagnoses / Procedures Referred By Contac t Referred To Contact Diagnoses Hx of total hip arthroplasty, right Procedures XR HIP WITH PELVIS RIGHT Cheikh Oneal MD [address] [place] [address] Referral ID Status Reason Start Date Expiration Date V isits Requested Visits Authorized [id number] New Request 03/25/2023 04/18/2024 1 1 Reason Comments Post Op Visit Reason Comments Advice Only Reason Comments New Patient Weight Gain Abdominal Pain Specialty Diagnoses / Procedures Referred By Contac t Referred To Contact Diagnoses Hx of total hip arthroplasty, right Procedures XR HIP WITH PELVIS RIGHT Meg Bishop, JOURNEYMAN PIPE FITTER-AMAN [address] [place] [address] Referral ID Status Reason Start Date Expiration Date V isits Requested Visits Authorized [id number] New Request 11/25/2023 12/19/2024 1 1 Reason Comments Follow-up Reason Comments Foot Injury Patient presents for fracture of cuboid of left foot. On 02/14, patient was going down patio steps (two steps), carrying inflatable child pool. Patient suspects she missed both steps and twisted left foot, landing on her right side Reason Comments Follow-up Patient presents for five week follow up fracture, new xrays Reason Comments 1 year follow up States her abdominal pain has not subsided and still has some issues with constipation Specialty Diagnoses / Procedures Referred By Sweta t Referred To Contact Radiology Diagnoses RUQ abdominal pain Procedures US abdomen limited liver Mary Webster DO [address] [facility] [place] [address] Referral ID Status Reason Start Date Expiration Date Visits Requested Visits Authorized [id number] Authorized Perform Procedure 02/18/2024 02/17/2025 1 1 Reason Comments Follow-up CT RESULTS,LAB RESUL TS Specialty Diagnoses / Procedures Referred By Sweta t Referred To Contact Primary Care Procedures Follow Up In Primary Care Mary Webster DO [address] [phone] Phone: tel: fax: Referral ID Status Reason Start Date Expiration Date V isits Requested Visits Authorized [id number] Authorized 09/27/2024 09/27/2025 1 1 Reason Comments Follow-up 4 MO CK Specialty Diagnoses / Procedures Referred By Sweta t Referred To Contact Primary Care Procedures Follow Up In Primary Care Follow Up In Primary Care Mary Webster, DO [address] [address] Phone: tel: fax: Referral ID Status Reason Start Date Expiration Date V isits Requested Visits Authorized [id number] Pending Review 10/18/2024 10/18/2025 1 1 Reason Comments Follow-up 2 WK CK Reason Comments Follow-up Overdue yearly follo w up, patient has Stress test today without medication list/bottles Assessment & Plan Note - Marv Kolb MD - 11/09/2018 9:42 AM EDTAssessment & Plan Note - Marv Kolb MD - 11/09/2018 9:41 AM EDT Miscellaneous Notes (unrecog nized section and content) Associated Problem(s): Pulmonary embolus (HCC) No issues not sure why still on coumadin, but not in any position to change Associated Problem(s): Hyperlipidemia On zetia and takes lipitor 3 x/week due to side effects Associated Problem(s): Coronary artery disease Doing well, Medications reviewed and will continue current meds Followup 1 year Will try to get cath CD(Bliss-[facility]in[facility]) in this encounter Care Teams (unrecognized sec tion and content) Water Team Leader Relationship Specialty Start Date End Date Mary Webster, DO [address] [place] [phone] PCP - General Internal Medicine 3/21/19 Water Team Leader Relationship Specialty Start Date End Date Mary Webster, DO [address] [place] [address] PCP - General Internal Medicine 10/22/18 Water Team Leader Relationship Specialty Start Date End Date Mary Webster, DO [address] [place] [address] PCP - General Internal Medicine 10/22/18 Water Team Leader Relationship Specialty Start Date End Date Mary Webster, DO [address] [place] [address] PCP - General Internal Medicine 10/22/18 Water Team Leader Relationship Specialty Start Date End Date Mary Webster, DO [address] [place] [address] PCP - General Internal Medicine 07/08/22 Water Team Leader Relationship Specialty Start Date End Date Mary Webster, [address] [place] [address] PCP - General Internal Medicine 07/08/22 Water Team Leader Relationship Specialty Start Date End Date Mary Webster DO [address] [facility] [place], [place] [id number] PCP - General 05/12/19 Mary Webster [address] [facility] [place], [place] [id number] PCP - MSSP ACO Attributed Provider 08/04/21 Water Team Leader Relationship Specialty Start Date End Date Mary Webster DO [address] [facility] [place] [address] PCP - General 05/12/19 Mary Webster DO [address] [place] [id number] PCP - MSSP ACO Attributed Provider 08/04/21 Water Team Leader Relationship Specialty Start Date End Date Royal Mary [address] [place], [place] [phone] PCP - General Internal Medicine 07/08/22 Water Team Leader Relationship Specialty Start Date End Date Mary Webster DO [address] [place] [address] PCP - General 05/12/19 Mary Webster DO [address] [place], [place] [phone] PCP - MSSP ACO Attributed Provider 08/04/21 Water Team Leader Relationship Specialty Start Date End Date Mary Webster [address] [place], [place] [phone] PCP - General Internal Medicine 07/08/22 Water Team Leader Relationship Specialty Start Date End Date DO Mary [address] [place], [place] [phone] PCP - General Internal Medicine 07/08/22 Water Team Leader Relationship Specialty Start Date End Date Mary Webster DO [address] [place] [address] PCP - General 05/12/19 Mary Webster DO [address] [facility] Office [place] [phone] PCP - MSSP ACO Attributed Provider 08/04/21 Water Team Leader Relationship Specialty Start Date End Date Mary Webster DO [address] [place] [phone] PCP - General Internal Medicine 07/08/22 Water Team Leader Relationship Specialty Start Date End Date Mary Webster DO [address] [place], [place] [phone] PCP - General Internal Medicine 10/22/18 Water Team Leader Relationship Specialty Start Date End Date Mary Webster DO [address] [place], [place] [phone] PCP - General Internal Medicine 10/22/18 Water Team Leader Relationship Specialty Start Date End Date Mary Webster DO [address] [place] [address] [place] [address] PCP - General 05/12/19 Mary Webtser DO [address] [place] [address] [place] [address] PCP - MSSP ACO Attributed Provider 08/04/21 Water Team Leader Relationship Specialty Start Date End Date Mary Webster DO [address] [place] [address] Office [place] [phone] PCP - General 05/12/19 Mary Webster DO [address] [place] [address] [place] [address] PCP - MSSP ACO Attributed Provider 08/04/21 Water Team Leader Relationship Specialty Start Date End Date Mary Webster DO [address] [facility] [place] [address] PCP - General 05/12/19 Mary Webster DO [address] [facility] [place] [address] PCP - MSSP ACO Attributed Provider 08/04/21 Water Team Leader Relationship Specialty Start Date End Date Mary Webster DO [address] [address] PCP - MSSP ACO Attributed Provider 08/04/21 Mary Webster DO [address] [address] PCP - General Internal Medicine 05/07/24 Water Team Leader Relationship Specialty Start Date End Date Mary Webster DO [address] [address] PCP - MSSP ACO Attributed Provider 08/04/21 Mary Webster DO [address] [address] PCP - General Internal Medicine 05/07/24 Team Status: Active Member Role Status Dates Dr. Mary Webster MD Primary Care Provider Active Team Status: Inactive Member Role Status Dates Dr. Mary Webster MD Primary Care Provider Active Start: November 03, 2024 End: November 03, 2024 Dr. John Moser MD Attending Provider Active Start: November 03, 2024 End: November 03, 2024 Dr. John Moser MD Referring Provider Active Start: November 03, 2024 End: November 03, 2024 Water Team Leader Relationship Specialty Start Date End Date Mary Webster DO [address] [address] PCP - MSSP ACO Attributed Provider 08/04/21 Mary Webster DO [address] [address] PCP - General Internal Medicine 05/07/24 Water Team Leader Relationship Specialty Start Date End Date Mary Webster DO [address] [address] PCP - MSSP ACO Attributed Provider 08/04/21 Mary Webster DO [address] [address] PCP - General Internal Medicine 05/07/24 Water Team Leader Relationship Specialty Start Date End Date Mary Webster DO [address] [address] PCP - MSSP ACO Attributed Provider 08/04/21 Mary Webster DO [address] [address] PCP - General Internal Medicine 05/07/24 Water Team Leader Relationship Specialty Start Date End Date Mary Webster DO [address] [address] PCP - MSSP ACO Attributed Provider 08/04/21 Mary Webster DO [address] [address] PCP - General Internal Medicine 05/07/24 Water Team Leader Relationship Specialty Start Date End Date Mary Webster, [address] [place] [place] [phone] PCP - General Internal Medicine 10/22/18 Water Team Leader Relationship Specialty Start Date End Date Mary Webster, [address] [facility] [address] PCP - General Internal Medicine 10/22/18 Water Team Leader Relationship Specialty Start Date End Date Mary Webster, [address] [place] [address] PCP - General Internal Medicine 10/22/18 Water Team Leader Relationship Specialty Start Date End Date Mary Webster, [address] [place] [address] PCP - MSSP ACO Attributed Provider 08/04/21 Mary Webster [address] [place] [address] PCP - General Internal Medicine 05/07/24 Goals (unrecognized section and content) Goals may be documented in a n alternate section FOR RECORDS PERTAINING TO PATIENTS WHO ARE OR HAVE BEEN ENROLLED IN A CHEMICAL DEPENDENCY/SUBSTANCEABUSE PROGRAM, SOME INFORMATION MAY BE OMITTED. This clinical summary was aggregated from multiple sources. Caution should be exercised in using it in the provision of clinical care. This summary normalizes information from multiple sources, and as a consequence, information in this document may materially change the coding, format and clinical context of patient data. In addition, data may be omitted in some cases. CLINICAL DECISIONS SHOULD BE BASED ON THE PRIMARY CLINICAL RECORDS. [employer] [facility]. provides no warranty or guarantee of the accuracy or completeness of information in this document.
== END | disposition home or self-care (01) ==
PROVIDERS: PCP Internal Medicine; Referring Provider Internal Medicine Gastroenterology; Visit Provider Internal Medicine Gastroenterology
DX: R19.4 Change in bowel habit (principal)
CPT/HCPCS: 36415; 80053; 84436; 84443